=== PATIENT | female | born 1935 | race Caucasian/White ===

== ENCOUNTER 2017-05-14 05:20 | Inpatient (IN) ==
--- NOTE | 2017-05-14 05:34 | Emergency Department Note ---
START Narrative - START START: I examined this patient and my medical decision-making was reviewed with the Resident Physician. I agree with the documented findings, disposition and treatment plan as described except to the extent set forth below. Female patient with suspected abdominal pain related to previous bowel surgeries. Concern for possible obstructive pathology. We will obtain CT scan with IV and by mouth contrast and disposition will be pending results of imaging and laboratory analyses
[2017-05-14] MEDS ORDERED: *HR* FentaNYL (PF) 100 MCG/2 ML VIAL IVP ONE (05:35)
[2017-05-14] MEDS ORDERED: Ondansetron 4 MG/2 ML VIAL IVP ONE ×2 (05:35→17:40)
[2017-05-14] MEDS ORDERED: 0.9 % Sodium Chloride 1,000 ML IVC ONE (05:35)
--- NOTE | 2017-05-14 05:46 | Emergency Department Note ---
Disposition Clinical Impression: Abdominal pain Disposition: Still a Patient Referrals: Unassigned,Provider [Non-Partnered Physician] - Forms: Work/School Release, ED Satisfaction Letter Abdominal Pain HPI - General Chief Complaint: ED Abdominal Pain Stated Complaint: abdominal pains around right stoma Time Seen by Provider: 05/14/17 05:30 Source: patient Mode of arrival: EMS Limitations: no limitations Nursing Notes Reviewed: Yes Vital Signs Reviewed: Yes - History of Present Illness HPI Narrative: 81-year-old female presents to the ED complaining of abdominal pain. She states the abdominal pain occurred 2-3 days ago and has increased to 1010 pain today which made her come to the emergency department. She has extensive past medical history of over 13 abdominal surgeries where she had her colostomy placed in the that had a reversed and she did not take it well so then made to replace the colostomy bag. She states the bag needed to be changed today. She is still having stool come into the bag. The pain she describes as 10/10 radiating from the right side to the left side. She says a sharp stabbing pain. She has been nauseous. She did take 10 mg Vicodin as well as Zofran and said it dropped the pain to 8/10 but now is increased again. She took the Vicodin approximately 45 minutes before arrival as well as Zofran. She has not been any chest pain, shortness of breath, paresthesias in the arms or legs, headaches, blurry vision. She did notice some pain with urination for the last couple days. She is having no other complaints at this time. Pain Scale: 7 - Related Data Home Medications Medication Instructions Recorded Confirmed Amlodipine [Norvasc] 5 mg PO DAILY 05/20/15 05/24/16 Furosemide [Lasix] 20 mg PO DAILY 05/20/15 05/27/16 Gabapentin [Neurontin] 300 mg PO QAM 05/20/15 05/27/16 Metoprolol [Lopressor] 50 mg PO BID 05/20/15 05/27/16 Sodium Bicarbonate 1,950 mg PO BID 05/20/15 05/27/16 Darbepoetin [Aranesp] 150 mcg IJ Q2W 05/24/16 05/27/16 HYDROcodone/Acet 10/325 mg [[place] 1 tab PO Q4HR PRN 05/26/16 05/27/16 10-325 mg] Allopurinol [Zyloprim] 100 mg PO DAILY 05/27/16 05/27/16 Calcitriol 0.5 mcg PO DAILY 05/27/16 05/27/16 Cholecalciferol (D-3) [Vitamin D] 1,000 unit PO DAILY 05/27/16 05/27/16 Citalopram [CeleXA] 10 mg PO DAILY 05/27/16 05/27/16 Cyanocobalamin (B-12) [Vitamin B12] 1,000 mcg SQ QWEEK 05/27/16 05/27/16 Famotidine [Heartburn Prevention] 20 mg PO DAILY 05/27/16 05/27/16 Gabapentin [Neurontin] 600 mg PO HS 05/27/16 05/27/16 Glucosamn/[place]/C/Mn/[place] 1 tab PO DAILY 05/27/16 05/27/16 [[facility] Glucosamine Chondroitin Tb] Multivit,Th Iron,Other Min 1 tab PO DAILY 05/27/16 05/27/16 [Therems-M] Multivitamin [Multi-Day Vitamins] 1 tab PO DAILY 05/27/16 05/27/16 Vitamin E (Dl,Tocopheryl Acet) 400 unit PO DAILY 05/27/16 05/27/16 [Vitamin E] Previous Rx's Medication Instructions Recorded Azithromycin [Azithromycin 6-Tab 250 mg PO PER PKG DI #6 tab 05/27/16 Pack] Allergies Allergy/AdvReac Type Severity Reaction Status Date / Time codeine Allergy Rash Verified 05/20/15 09:28 fluoxetine [From Prozac] Allergy Rash Verified 05/20/15 09:28 haloperidol [From Haldol] Allergy See Verified 05/20/15 09:28 Comments nalbuphine [From Nubain] Allergy Rash Verified 05/20/15 09:28 Sulfa (Sulfonamide Allergy Rash Verified 05/20/15 09:28 Antibiotics) Constitutional: Denies: fever, chills, weakness, weight change Eyes: Denies: eye pain, eye discharge, vision change ENT ED: Denies: ear pain, throat pain, dental pain, hearing loss, epistaxis, congestion, dysphagia Cardiovascular: Denies: chest pain, palpitations, dyspnea on exertion, edema, syncope Respiratory: Denies: cough, dyspnea, wheezes, hemoptysis, stridor Gastrointestinal: Reports: abdominal pain, nausea. Denies: vomiting (Denies any vomiting.), diarrhea, constipation, hematemesis, melena, hematochezia Genitourinary: Denies: dysuria, frequency, hematuria, discharge Musculoskeletal: Denies: back pain, neck pain, arthralgia, myalgia Integumentary: Denies: rash, abrasion, lesions Neurological: Reports: headache (These are chronic for her and the Vicodin takes it away.). Denies: weakness, numbness, paresthesias, confusion, abnormal gait, vertigo Psychiatric: Denies: anxiety, depression, suicidal thoughts, homicidal thoughts , auditory hallucinations, visual hallucinations Endocrine: Denies: fatigue Hematological/Lymphatic: Denies: easy bleeding, easy bruising Allergic/Immunologic: Denies: facial swelling, urticaria Abdominal Pain PMH - Past Medical History Medical history: Reports: arthritis, cancer, COPD, GERD, GI bleed, hypertension , osteoporosis, renal disease, other Female Surgical History: Reports: , cholecystectomy, colostomy, hysterectomy Psychiatric history: Reports: anxiety, depression, other - Social History Smoking status: Never smoker Alcohol use: Reports: none Drug use: Reports: none Physical Exam - General Limitations: no limitations General appearance: alert - Head Head exam: atraumatic, normocephalic, normal inspection - Eye Eye exam: Present: normal appearance, PERRL, EOMI - ENT ENT exam: normal exam, normal oropharynx, mucous membranes moist - Neck Neck exam: Present: normal inspection, full ROM, trachea midline - Chest Chest inspection: Present: normal inspection, symmetric chest wall rise - Respiratory Respiratory exam: Present: normal lung sounds bilaterally - Cardiovascular Cardiovascular exam: Present: regular rate, normal rhythm, normal heart sounds - Abdominal Exam Abdominal exam: Present: soft, tenderness (Tender around the colostomy bag that radiates to the left side. The colostomy is on the right side.), normal bowel sounds. Absent: distention, guarding, rebound, rigidity - Neurological Exam Neurological exam: Present: alert, oriented X3 - Skin Skin exam: Present: warm, dry, intact, normal color Course Course Narrative: 81-year-old female presents to the ED complaining of pain around her colostomy bag. She has had many abdominal surgeries. She has complained to 10 pain we gave her Tylenol 25 mg for her pain and Zofran for nausea prophylaxis. We are going to do a CT of her abdomen and pelvis with oral contrast without IV contrast. We can use IV contrast due to her having history of renal failure and almost being on dialysis. She does have a fistula placed. Has not started dialysis yet. We will get basic labs including CBC, CMP, lactate, lipase. Due to her pain with urination will also get a UA with straight catheter. Vital Signs Temperature 98.8 F 05/14/17 05:23 Pulse Rate 86 05/14/17 05:23 Respiratory Rate 18 05/14/17 05:23 Blood Pressure 185/89 05/14/17 05:23 O2 Sat by Pulse Oximetry 98 05/14/17 05:23 Temperature 98.8 F 05/14/17 05:23 Pulse Rate 92 05/14/17 06:00 Respiratory Rate 14 05/14/17 06:00 Blood Pressure 185/89 05/14/17 06:00 O2 Sat by Pulse Oximetry 99 05/14/17 06:00 Oxygen Delivery Oxygen Delivery Nasal Cannula Abdominal Pain - MDM Narrative Medical decision making narrative: 81-year-old female presents to the ED for abdominal pain around her colostomy bag. She states it was 10 out of 10 pain started 2 days ago. She has been taking pain medication. Says that was not touching her pain that she was having. She has a history of renal failure and was buses start dialysis had a fistula placed but was never started on dialysis because her kidney function got better. We are going to do a CT of her abdomen and pelvis with oral contrast looking for any perforation or bowel obstruction due to her many abdominal surgeries that she has had. But she will not have IV contrast due to her elevated creatinine. She was having some pain with urination so we did a straight catheter for her urine. I came back having red blood cells and culture recommended and is most likely a UTI. She is currently drinking the oral contrast at this time. For pain control to be getting we started with 25 mg of fentanyl. That did not help her. I also gave her 4 mg of Zofran for nausea prophylaxis. Due to the fentanyl not working well for her regular 1 mg of Dilaudid that seemed to work better for her pain. We also started fluids 1 L bolus. Lab hard time getting blood from her and just now they are able to get it. The CT also does not be done before I leave. So this patient is going to be handed off to the dayshift team. Report was given to them and at that time patient is in a stable condition. - Medical Records Medical records reviewed: Yes I reviewed the patient's medical records. - Lab Data Lab results reviewed: Yes I reviewed the patient's lab results. Lab Results 05/14/17 Range/Units 05:50 Urine Color Yellow (Yellow) Urine Clarity Clear (Clear) Urine pH 6.5 (5.0-8.0) pH Units Ur Specific [place] 1.012 (1.010-1.025) Urine Protein 100 H (Neg-Trace) mg/dL Urine Glucose (UA) Normal (Normal) mg/dL Urine Ketones Negative (Negative) mg/dL Urine Blood Large H (Negative) Urine Nitrite Negative (Negative) Urine Bilirubin Negative (Negative) Urine Urobilinogen Normal (Normal) mg/dL Ur Leukocyte Esterase Negative (Negative) Urine Microscopic RBC TNTC H (0-3) per hpf Urine Microscopic WBC 5-15 H (0-3) per hpf Ur Squamous Epith Cells Many H (None-Few) per lpf Urine Bacteria Few (None-Few) per hpf Hyaline Casts None Seen (None-Few) per lpf Ur Culture Indicated? YES A (NO)
[2017-05-14 05:56] LABS: Bilirubin,Urine Negative (Negative); Blood,Urine Large (Negative); Clarity,Urine Clear (Clear); Color,Urine Yellow (Yellow); Glucose,Urine (UA) Normal (Normal); Ketones,Urine Negative (Negative); Leukocyte Esterase,Urine Negative (Negative); Nitrite,Urine Negative (Negative); PH,Urine 6.5 pH Units (5.0-8.0); Protein,Urine 100 mg/dL (Neg-Trace); Specific Gravity,Urine 1.012 (1.010-1.025); Urobilinogen,Urine Normal (Normal)
[2017-05-14 05:58] LABS: Hyaline Casts,Urine None Seen per lpf (None-Few); RBC,Urine TNTC per hpf (0-3); Squamous Epithelial Cell,Urine Many per lpf (None-Few)
[2017-05-14 06:12] LABS: Bacteria,Urine Few per hpf (None-Few)
[2017-05-14] MEDS ORDERED: *HR* HYDROmorphone (PF) 1 MG/ML SYRINGE IVP ONE (06:17)
[2017-05-14 07:03] LABS: Basophils # 0.1 K/mcL (0.0-0.2); Basophils % 0.4 %; Eosinophils % 0.1 %; Hematocrit 38.8 % (35.3-44.9); Hemoglobin 11.5 g/dL (11.5-15.4); Immature Granulocytes % 1.6 % (0-4); Lymphocytes # 1.1 K/mcL (0.6-4.6); Lymphocytes % 5.8 %; Mean Corpuscular HGB Conc 29.6 g/dL (31.6-35.5); Mean Corpuscular Hemoglobin 28.5 pg (28.0-33.3); Mean Corpuscular Volume 96.3 fL (83.0-100.0); Mean Platelet Volume 11.8 fL (9.4-12.4); Monocytes # 1.2 K/mcL (0.0-1.3); Monocytes % 6.1 %; Platelet Count 339 K/mcL (140-400); Red Blood Count 4.03 M/mcL (3.82-4.97)
[2017-05-14 07:08] LABS: Albumin 3.5 g/dL (3.5-5.0); Albumin/Globulin Ratio 0.9 (1.1-2.2); Bilirubin,Total 0.4 mg/dL (0.2-1.2); Calcium 9.7 mg/dL (8.6-10.8); Potassium 4.9 mEq/L (3.5-4.5); Total Protein 7.5 g/dL (6.0-8.3)
--- NOTE | 2017-05-14 07:37 | Emergency Department Note ---
Disposition Clinical Impression: Hydronephrosis due to obstruction of ureter, Pleural effusion Abdominal pain Qualifiers: Abdominal location: unspecified location Qualified Code(s): R10.9 - Unspecified abdominal pain CKD (chronic kidney disease) Qualifiers: Chronic kidney disease stage: stage 4 (severe) Qualified Code(s): N18.4 - Chronic kidney disease, stage 4 (severe) Disposition: Admitted As Inpatient Condition: Undetermined Referrals: Unassigned,Provider [Non-Partnered Physician] - Forms: ED Satisfaction Letter, Work/School Release Time of Disposition: 09:02 Abdominal Pain HPI - General Chief Complaint: ED Abdominal Pain Stated Complaint: abdominal pains around right stoma Time Seen by Provider: 05/14/17 05:30 Source: patient Mode of arrival: EMS Limitations: no limitations Nursing Notes Reviewed: Yes Vital Signs Reviewed: Yes - History of Present Illness HPI Narrative: 81-year-old female with extensive history of abdominal surgeries with history of colostomy, signed out by night team arrives to [facility] emergency department with concern for abdominal pain. The patient's labs demonstrated a leukocytosis and what appears to be renal failure that is chronic. This appears baseline. The patient received a oral contrast CT of her abdomen. The patient admits to a small amount of dyspnea but states that it is not worse than normal. The patient has been stating that she is wearing compression stockings due to increased bilateral lower extremity swelling over the course of the past 4 months. The patient denies any chest pain. Patient denies any other complaints at this time other than feeling weak overall. The patient states she has no history of CHF but on review of the patient's records she does have a history of CHF. Pt Subjective Complaint: abdominal pain Consistency: constant, Worsening Location: periumbilical, R flank Pain Severity: mild, moderate Pain Scale: 2 Quality: cramping, dull Radiation: none Migration to: no migration Improves with: nothing Worsens with: nothing Context: history of similar episodes Associated symptoms: Reports: nausea, chills. Denies: vomiting, diarrhea, fever , dysuria Treatments prior to arrival: none - Related Data Home Medications Medication Instructions Recorded Confirmed Amlodipine [Norvasc] 5 mg PO DAILY 05/20/15 05/14/17 Furosemide [Lasix] 20 mg PO DAILY 05/20/15 05/14/17 Gabapentin [Neurontin] 300 mg PO QAM 05/20/15 05/14/17 Metoprolol [Lopressor] 50 mg PO BID 05/20/15 05/14/17 Sodium Bicarbonate 1,950 mg PO BID 05/20/15 05/14/17 Darbepoetin [Aranesp] 150 mcg IJ Q2W 05/24/16 05/14/17 HYDROcodone/Acet 10/325 mg [[place] 1 tab PO Q4HR PRN 05/26/16 05/14/17 10-325 mg] Calcitriol 0.5 mcg PO DAILY 05/27/16 05/14/17 Cholecalciferol (D-3) [Vitamin D] 1,000 unit PO DAILY 05/27/16 05/14/17 Cyanocobalamin (B-12) [Vitamin B12] 1,000 mcg SQ QWEEK 05/27/16 05/14/17 Famotidine [Heartburn Prevention] 20 mg PO DAILY 05/27/16 05/14/17 Gabapentin [Neurontin] 600 mg PO HS 05/27/16 05/14/17 Glucosamn/[place]/C/Mn/[place] 1 tab PO DAILY 05/27/16 05/14/17 [[facility] Glucosamine Chondroitin Tb] Multivit,Th Iron,Other Min 1 tab PO DAILY 05/27/16 05/14/17 [Therems-M] Vitamin E (Dl,Tocopheryl Acet) 400 unit PO DAILY 05/27/16 05/14/17 [Vitamin E] Allergies Allergy/AdvReac Type Severity Reaction Status Date / Time codeine Allergy Rash Verified 05/20/15 09:28 fluoxetine [From Prozac] Allergy Rash Verified 05/20/15 09:28 haloperidol [From Haldol] Allergy See Verified 05/20/15 09:28 Comments nalbuphine [From Nubain] Allergy Rash Verified 05/20/15 09:28 Sulfa (Sulfonamide Allergy Rash Verified 05/20/15 09:28 Antibiotics) All systems ED: reviewed and negative except as stated. Constitutional: Denies: fever, chills, weakness, weight change Eyes: Denies: eye pain, eye discharge, vision change ENT ED: Denies: ear pain, throat pain, dental pain, hearing loss, epistaxis, congestion, dysphagia Cardiovascular: Denies: chest pain, palpitations, dyspnea on exertion, edema, syncope Respiratory: Denies: cough, dyspnea, wheezes, hemoptysis, stridor Gastrointestinal: Reports: abdominal pain, nausea. Denies: vomiting (Denies any vomiting.), diarrhea, constipation, hematemesis, melena, hematochezia Genitourinary: Denies: dysuria, frequency, hematuria, discharge Musculoskeletal: Denies: back pain, neck pain, arthralgia, myalgia Integumentary: Denies: rash, abrasion, lesions Neurological: Reports: headache (These are chronic for her and the Vicodin takes it away.). Denies: weakness, numbness, paresthesias, confusion, abnormal gait, vertigo Psychiatric: Denies: anxiety, depression, suicidal thoughts, homicidal thoughts , auditory hallucinations, visual hallucinations Endocrine: Denies: fatigue Hematological/Lymphatic: Denies: easy bleeding, easy bruising Allergic/Immunologic: Denies: facial swelling, urticaria Abdominal Pain PMH - Past Medical History Medical history: Reports: arthritis, cancer, COPD, GERD, GI bleed, hypertension , osteoporosis, renal disease, other Female Surgical History: Reports: , cholecystectomy, colostomy, hysterectomy Psychiatric history: Reports: anxiety, depression, other - Social History Smoking status: Never smoker Alcohol use: Reports: none Drug use: Reports: none Physical Exam - General Limitations: no limitations General appearance: alert, in distress (Due to pain) - Head Head exam: atraumatic, normocephalic, normal inspection - Neck Neck exam: Present: normal inspection, full ROM, trachea midline - Chest Chest inspection: Present: normal inspection, symmetric chest wall rise - Respiratory Respiratory exam: Present: other ([place]). Absent: respiratory distress - Cardiovascular Cardiovascular exam: Present: regular rate, normal rhythm, normal heart sounds - Abdominal Exam Abdominal exam: Present: soft, tenderness (Primarily on right side), guarding ( Voluntary). Absent: distention, rebound, rigidity - Extremities Exam Extremities exam: Present: full ROM, pedal edema (2+). Absent: tenderness Course Vital Signs Temperature 98.8 F 05/14/17 05:23 Pulse Rate 86 05/14/17 05:23 Respiratory Rate 18 05/14/17 05:23 Blood Pressure 185/89 05/14/17 05:23 O2 Sat by Pulse Oximetry 98 05/14/17 05:23 Temperature 98.8 F 05/14/17 05:23 Pulse Rate 79 05/14/17 06:50 Respiratory Rate 16 05/14/17 06:50 Blood Pressure 178/76 05/14/17 06:50 O2 Sat by Pulse Oximetry 99 05/14/17 06:50 Oxygen Delivery Oxygen Delivery Nasal Cannula Abdominal Pain - MDM Narrative Medical decision making narrative: Patient experiencing primarily right-sided abdominal pain. The CT scan of the patient's abdomen reveals severe hydronephrosis and a ureteral calculus measuring 0.7 x 1.4 cm with obstruction. This is likely the etiology of the patient's pain. In addition the patient has a large bilateral pleural effusion noted on CT scan. The patient states in the past she has experienced pleural effusions and notes they usually just administer Lasix and this improves her symptoms. The patient denies any difficulty breathing at this time and the patient is in no respiratory distress. The patient is resting comfortably at the bed at this time. Given the patient's extensive hydronephrosis noted on the right side, we consulted Dr. Kelley in urology who agrees that the patient will be seen. He requested admission to the hospitalist. We will admit the patient to the hospitalist at this time. The patient was started on Zosyn as well as levofloxacin. The patient has a mild leukocytosis with no lactic acid elevation. Blood cultures were also drawn at this time. The patient agrees to be admitted to the hospital and agrees to plan. Accepted to the hospitalist service by Dr. Alberto. - Medical Records Medical records reviewed: Yes I reviewed the patient's medical records. - Lab Data Lab results reviewed: Yes I reviewed the patient's lab results. Result diagrams: 05/14/17 06:47 05/14/17 06:47 Lab Results 05/14/17 05/14/17 05/14/17 Range/Units 05:50 06:47 06:47 WBC 19.7 H (4.3-11.1) K/mcL RBC 4.03 (3.82-4.97) M/mcL Hgb 11.5 (11.5-15.4) g/dL Hct 38.8 (35.3-44.9) % MCV 96.3 (83.0-100.0) fL MCH 28.5 (28.0-33.3) pg MCHC 29.6 L (31.6-35.5) g/dL RDW 20.0 H (11.5-14.5) % Plt Count 339 (140-400) K/mcL MPV 11.8 (9.4-12.4) fL Immature Gran % 1.6 (0-4) % Seg Neutrophils % 86.0 % Lymphocytes % 5.8 % Monocytes % 6.1 % Eosinophils % 0.1 % Basophils % 0.4 % Neutrophils # 17.0 H (1.6-8.9) K/mcL Lymphocytes # 1.1 (0.6-4.6) K/mcL Monocytes # 1.2 (0.0-1.3) K/mcL Eosinophils # 0.0 (0.0-0.6) K/mcL Basophils # 0.1 (0.0-0.2) K/mcL Sodium 138 (136-145) mEq/L Potassium 4.9 H (3.5-4.5) mEq/L Chloride 103 (98-109) mEq/L Carbon Dioxide 21 (19-29) mEq/L BUN 39 H (7-20) mg/dL Creatinine 3.36 H (0.57-1.11) mg/dL Est GFR ( Amer) 16 L (> 60) Est GFR (Non-Af Amer) 13 L (> 60) BUN/Creatinine Ratio 12 (6-26) Glucose 140 H (70-99) mg/dL Calculated Osmolality 298 (280-300) Lactic Acid (0.5-2.2) mmol/L Calcium 9.7 (8.6-10.8) mg/dL Total Bilirubin 0.4 (0.2-1.2) mg/dL AST 49 H (5-34) Units/L ALT 48 (0-55) Units/L Alkaline Phosphatase 233 H (38-126) Units/L Serum Total Protein 7.5 (6.0-8.3) g/dL Albumin 3.5 (3.5-5.0) g/dL Globulin 4.0 H (2.4-3.5) g/dL Albumin/Globulin Ratio 0.9 L (1.1-2.2) Lipase 38 (8-78) Units/L Urine Color Yellow (Yellow) Urine Clarity Clear (Clear) Urine pH 6.5 (5.0-8.0) pH Units Ur Specific [place] 1.012 (1.010-1.025) Urine Protein 100 H (Neg-Trace) mg/dL Urine Glucose (UA) Normal (Normal) mg/dL Urine Ketones Negative (Negative) mg/dL Urine Blood Large H (Negative) Urine Nitrite Negative (Negative) Urine Bilirubin Negative (Negative) Urine Urobilinogen Normal (Normal) mg/dL Ur Leukocyte Esterase Negative (Negative) Urine Microscopic RBC TNTC H (0-3) per hpf Urine Microscopic WBC 5-15 H (0-3) per hpf Ur Squamous Epith Cells Many H (None-Few) per lpf Urine Bacteria Few (None-Few) per hpf Hyaline Casts None Seen (None-Few) per lpf Ur Culture Indicated? YES A (NO) 05/14/17 05/14/17 Range/Units 06:47 08:16 WBC (4.3-11.1) K/mcL RBC (3.82-4.97) M/mcL Hgb (11.5-15.4) g/dL Hct (35.3-44.9) % MCV (83.0-100.0) fL MCH (28.0-33.3) pg MCHC (31.6-35.5) g/dL RDW (11.5-14.5) % Plt Count (140-400) K/mcL MPV (9.4-12.4) fL Immature Gran % (0-4) % Seg Neutrophils % % Lymphocytes % % Monocytes % % Eosinophils % % Basophils % % Neutrophils # (1.6-8.9) K/mcL Lymphocytes # (0.6-4.6) K/mcL Monocytes # (0.0-1.3) K/mcL Eosinophils # (0.0-0.6) K/mcL Basophils # (0.0-0.2) K/mcL Sodium (136-145) mEq/L Potassium (3.5-4.5) mEq/L Chloride (98-109) mEq/L Carbon Dioxide (19-29) mEq/L BUN (7-20) mg/dL Creatinine (0.57-1.11) mg/dL Est GFR ( Amer) (> 60) Est GFR (Non-Af Amer) (> 60) BUN/Creatinine Ratio (6-26) Glucose (70-99) mg/dL Calculated Osmolality (280-300) Lactic Acid 1.4 1.9 (0.5-2.2) mmol/L Calcium (8.6-10.8) mg/dL Total Bilirubin (0.2-1.2) mg/dL AST (5-34) Units/L ALT (0-55) Units/L Alkaline Phosphatase (38-126) Units/L Serum Total Protein (6.0-8.3) g/dL Albumin (3.5-5.0) g/dL Globulin (2.4-3.5) g/dL Albumin/Globulin Ratio (1.1-2.2) Lipase (8-78) Units/L Urine Color (Yellow) Urine Clarity (Clear) Urine pH (5.0-8.0) pH Units Ur Specific [place] (1.010-1.025) Urine Protein (Neg-Trace) mg/dL Urine Glucose (UA) (Normal) mg/dL Urine Ketones (Negative) mg/dL Urine Blood (Negative) Urine Nitrite (Negative) Urine Bilirubin (Negative) Urine Urobilinogen (Normal) mg/dL Ur Leukocyte Esterase (Negative) Urine Microscopic RBC (0-3) per hpf Urine Microscopic WBC (0-3) per hpf Ur Squamous Epith Cells (None-Few) per lpf Urine Bacteria (None-Few) per hpf Hyaline Casts (None-Few) per lpf Ur Culture Indicated? (NO) - Radiology Data Radiology results reviewed: Yes I reviewed the patient's radiology results. - EKG Data EKG attestation: Yes I reviewed and interpreted this EKG. EKG results narrative: Heart rate 83 bpm. MO interval 134 ms. QTc 408 ms. Normal axis. Normal sinus rhythm. No ST elevation or ST depression noted. No acute changes noted. EKG similar to EKG from 05/24/2016. Attestation Statement - Attestation Attestation: I, Carlos Hilton DO, examined this patient [id number] and my medical decision-making was reviewed with Dr. Garrison Heath, Resident Physician. I agree with the documented findings, disposition and treatment plan as described except to the extent set forth below. Please see my progress notes for details. 81-year-old female signed out with a nighttime physicians presents with right- sided abdominal pain or flank pain along with some pressure and discomfort. Patient denies any fevers or chills nausea vomiting or diarrhea. Main complaint is abdominal pain and discomfort in the lower abdominal wall. Patient on that a large obstructing stone in the proximal right ureter. Patient also has bilateral pleural effusions appears to be worse than previous. Patient provided with antibiotic here for coverage of possible pulmonary or intra-abdominal related pathology. Laboratory workup including lactic acid was completed with negative workup at this time. Fluids given as needed. Blood pressure heart rate and temperature all been normal throughout the course of care here. Patient otherwise is in no specific distress with what appears to be obstructing stone with possible hydronephrosis and possible urinary tract infection. Patient may require nephrostomy tube or decompressive surgery from urology. Consultation was sought to the on-call urologist Dr. Kelley as well as the hospitalist. Detailed review of the presentation symptoms medical history were discussed. See documentation of the conversations medical intervention and decision making process and the resident physician's note. Otherwise patient has negative evaluation of the heart and lungs abdomen does have some tenderness on light palpation no specific guarding rigidity or peritoneal symptoms this time. Patient will be admitted for definitive management
[2017-05-14] MEDS ORDERED: Piperacillin/Tazobactam 3.375 GM in D5% in Water (Mini-Bag+) 100 ML IVPB ONE (07:38)
[2017-05-14] MEDS ORDERED: Levofloxacin 750 MG/150 ML 750 MG/150 ML BAG IVPB ONE (07:39)
[2017-05-14] MEDS ORDERED: Ondansetron 4 MG/2 ML VIAL IVP PRN ×2 (10:24→18:32)
[2017-05-14] MEDS ORDERED: Naloxone 0.4 MG/ML INJ IVP PRN ×2 (10:24→18:32)
[2017-05-14] MEDS ORDERED: Acetaminophen 325 MG TABLET PO PRN ×2 (10:24→18:32)
[2017-05-14] MEDS ORDERED: Ipratropium/Albuterol Neb 3 ML IH PRN ×2 (10:29→18:32)
[2017-05-14] MEDS ORDERED: 0.9 % Sodium Chloride 1,000 ML IVC SCH (10:30)
--- NOTE | 2017-05-14 10:33 | Internal Med History&Physical ---
Date of Encounter: 05/14/17 Time of Encounter: 10:31 Assessment and Plan (1) Hydronephrosis due to obstruction of ureter Current visit: Yes Status: Acute Severe right hydronephrosis secondary to large renal calculi Rocephin, may discontinue if no infection is suspected Urology consulted, nothing by mouth for possible procedure Very mild hydration due to bilateral pleural effusions Dilaudid for pain Protonix IV for GI prophylaxis and sequential compression devices for DVT prophylaxis the patient will be admitted as inpatient, expected stay more than 2 midnights. DNR CC arrest DNI. Time spent on this admission 40 minutes. High risk (2) Pleural effusion Current visit: Yes Status: Acute Bilateral pleural effusions likely related to diastolic CHF Check echocardiogram, strict I's and O's and daily weight, consider Lasix ( hold as Patient is NPO) (3) Acute diastolic CHF (congestive heart failure) Current visit: No Status: Acute As stated above (4) Anemia in chronic kidney disease (CKD) Current visit: No Status: Acute Qualifiers: Chronic kidney disease stage: stage 5, not on chronic dialysis Qualified Code(s): N18.5 - Chronic kidney disease, stage 5; D63.1 - Anemia in chronic kidney disease (5) Chronic kidney disease, stage V Current visit: No Status: Acute (6) Hypertension Current visit: No Status: Chronic Order hydralazine IV as needed Qualifiers: Hypertension type: renovascular hypertension Qualified Code(s): I15.0 - Renovascular hypertension (7) Protein-calorie malnutrition, severe Current visit: No Status: Chronic Internal Medicine - H&P: HPI Chief complaint: Abdominal pain Admitted From: Emergency Dept History of present illness: Ms. Arciniega is a 81 year old female with a past medical history of chronic kidney disease stage V, diastolic CHF, COPD oxygen dependent using 2 L at home who came complaining of abdominal pain 10 out of 10 in intensity just started 3 days ago mainly on the right side. Patient mentions that she has been having some shortness of breath, has noticed increased output of her colostomy. She has had multiple abdominal surgeries. A CT scan of the abdomen was performed showing severe bilateral pleural effusions and severe right hydronephrosis with a large stone, final report is pending. Her creatinine has increased to 3.36 but she has been dealing with chronic kidney disease stage V for a long period of time, the last creatinine recorded is 2.8. Potassium is 4.9, white blood cell count is 19.7, she has been complaining of night sweats. Blood pressure was 185/89, UA shows too numerous to count red blood cells and [address] Kelley was contacted from urology in order to see the patient. She has received Zosyn and Levaquin at the emergency room, was given Dilaudid and Vicodin. Complained of dysuria on and off for the past few days. Past Med Surg Social Fam HX - Past Medical History Medical history: arthritis, cancer (Skin cancer), CHF (Diastolic), COPD (Oxygen dependent using 2 L at home), GERD, GI bleed, hypertension, osteoporosis, renal disease (Chronic kidney disease stage V), other (Gout, osteoporosis, depression , GI bleed) Psychiatric history: anxiety, depression, other - Past Surgical History Surgical History: appendectomy, , cholecystectomy, colectomy, colostomy , hysterectomy, BLAKE/BSO, other (Multiple intra-abdominal surgeries, 10+. Gastrectomy, colostomy reversal, new colostomy) - Social History Smoking Status: Never smoker Smokeless Tobacco Status: No Alcohol use: none Drug use: none - Family History Mother Adopted: No Family Member Ethnicity: Non- Living Status: Hx Family Cardiac Disorders: Yes Father Hx Family Respiratory Disorders: Yes (Asthma) Hx Family GI Disorders: Yes (Ulcers) - Additional Family History Additional family history: Mother with CVA Internal Medicine - H&P: Meds Amlodipine [Norvasc] 5 mg PO DAILY 05/20/15 [History] Furosemide [Lasix] 20 mg PO DAILY 05/20/15 [History] Gabapentin [Neurontin] 300 mg PO QAM 05/20/15 [History] Metoprolol [Lopressor] 50 mg PO BID 05/20/15 [History] Sodium Bicarbonate 1,950 mg PO BID 05/20/15 [History] Darbepoetin [Aranesp] 150 mcg IJ Q2W 05/24/16 [History] HYDROcodone/Acet 10/325 mg [[place] 10-325 mg] 1 tab PO Q4HR PRN 05/26/16 [History ] Calcitriol 0.5 mcg PO DAILY 05/27/16 [History] Cholecalciferol (D-3) [Vitamin D] 1,000 unit PO DAILY 05/27/16 [History] Cyanocobalamin (B-12) [Vitamin B12] 1,000 mcg SQ QWEEK 05/27/16 [History] Famotidine [Heartburn Prevention] 20 mg PO DAILY 05/27/16 [History] Gabapentin [Neurontin] 600 mg PO HS 05/27/16 [History] Glucosamn/Condroitn/C/Mn/[place] [[facility] Glucosamine Chondroitin Tb] 1 tab PO DAILY 05/27/16 [History] Multivit,Th Iron,Other Min [Therems-M] 1 tab PO DAILY 05/27/16 [History] Vitamin E (Dl,Tocopheryl Acet) [Vitamin E] 400 unit PO DAILY 05/27/16 [History] 3 Allergy/AdvReac Type Severity Reaction Status Date / Time codeine Allergy Rash Verified 05/20/15 09:28 fluoxetine [From Prozac] Allergy Rash Verified 05/20/15 09:28 haloperidol [From Haldol] Allergy See Verified 05/20/15 09:28 Comments nalbuphine [From Nubain] Allergy Rash Verified 05/20/15 09:28 Sulfa (Sulfonamide Allergy Rash Verified 05/20/15 09:28 Antibiotics) All Systems PM: A 10-system review of systems was performed and is negative for pertinent findings except as documented above in the HPI. Review of systems: Denies chest pain, no other complaints than the ones described above. Other systems out of the 10 reviewed were negative - Constitutional Vitals: Temp Pulse Resp BP Pulse Ox 98.8 F 79 18 168/75 99 05/14/17 05:23 05/14/17 06:50 05/14/17 10:13 05/14/17 10:13 05/14/17 06:50 General appearance: Present: A&O X 3 - Head Head exam: Present: atraumatic, normocephalic - Eye Eye exam: Present: PERRL, conjuntiva pink, sclera anicteric Pupils: Present: PERRL - Neck Neck exam general surgery: Present: supple, trachea midline. Absent: lymphadenopathy - Respiratory Respiratory exam: Present: CTAB. Absent: accessory muscle use, rales, rhonchi, wheezes Additional comments: Blunted breath sounds in both bases with minimal diffuse crackles - Cardiovascular Cardiovascular exam: Present: RRR, +S1, +S2. Absent: diastolic murmur, gallop, rubs, systolic murmur - GI/Abdominal GI/Abdominal exam: Present: distended (Colostomy in the right lower quadrant), normal bowel sounds, soft, no peritoneal signs. Absent: tenderness - Extremities Exam Extremities exam: Present: warm, radial pulses palpable and symmetrical. Absent : calf tenderness, cyanotic, pedal edema - Neurological Exam Neurological exam: Present: CN II-XII intact, oriented X3, no focal deficits. Absent: pronater drift, facial droop, speech deficit - Skin Skin exam: Present: dry, intact Additional comments: Left upper extremity AV fistula with good thrill +1 pitting edema in both lower extremities Internal Med - H&P Results - Labs CBC & Chem 7: 05/14/17 06:47 05/14/17 06:47
[2017-05-14] MEDS: *HR* HYDROmorphone (PF) 1 MG/ML SYRINGE IVP PRN ×2 (11:05→13:55)
--- NOTE | 2017-05-14 11:14 | Urology - Consult Note ---
Date of Encounter: 05/14/17 Time of Encounter: 11:11 - Assessment and Plan (1) Ureteral calculi Current Visit: Yes Status: Acute Assessment and plan: 81-year-old woman with a complicated past medical history presents with bilateral obstructing ureteral stones. She has been admitted for IV antibiotic. She has chronic renal insufficiency. I recommend proceeding with a cystoscopy and bilateral ureteral stent placement. I informed her the risks of the surgery which include but are not limited to bleeding, infection, injury to other structures, need for further procedures, stent irritation, and the risk of anesthesia. She is willing to proceed. Urology CN:CORINA Consult date: 05/14/17 Reason for consult Urology: Hydronephrosis History of present illness: 81-year-old woman with a complex medical history including CHF, chronic renal insufficiency, and a colostomy presents with abdominal pain over the last week. The pain became more severe today. It is sharp and it radiates to the groin. She has had nausea and vomiting. She was brought to the emergency department. CT scan showed evidence of a right mid ureteral stone causing severe right- sided hydronephrosis. In addition there is a stone in the near the left ureteropelvic junction. She has been admitted for pain control. She denies any fevers at this point. White blood cell count was elevated. Past Med Surg Social Fam HX - Past Medical History Medical history: arthritis, cancer (Skin cancer), CHF (Diastolic), COPD (Oxygen dependent using 2 L at home), GERD, GI bleed, hypertension, osteoporosis, renal disease (Chronic kidney disease stage V), other (Gout, osteoporosis, depression , GI bleed) Psychiatric history: anxiety, depression, other - Past Surgical History Surgical History: appendectomy, , cholecystectomy, colectomy, colostomy , hysterectomy, BLAKE/BSO, other (Multiple intra-abdominal surgeries, 10+. Gastrectomy, colostomy reversal, new colostomy) - Social History Smoking Status: Never smoker Smokeless Tobacco Status: No Alcohol use: none Drug use: none - Family History Mother Adopted: No Family Member Ethnicity: Non- Living Status: Hx Family Cardiac Disorders: Yes Father Hx Family Respiratory Disorders: Yes (Asthma) Hx Family GI Disorders: Yes (Ulcers) Medications and Allergies Amlodipine [Norvasc] 5 mg PO DAILY 05/20/15 [History] Furosemide [Lasix] 20 mg PO DAILY 05/20/15 [History] Gabapentin [Neurontin] 300 mg PO QAM 05/20/15 [History] Metoprolol [Lopressor] 50 mg PO BID 05/20/15 [History] Sodium Bicarbonate 1,950 mg PO BID 05/20/15 [History] Darbepoetin [Aranesp] 150 mcg IJ Q2W 05/24/16 [History] HYDROcodone/Acet 10/325 mg [[place] 10-325 mg] 1 tab PO Q4HR PRN 05/26/16 [History ] Calcitriol 0.5 mcg PO DAILY 05/27/16 [History] Cholecalciferol (D-3) [Vitamin D] 1,000 unit PO DAILY 05/27/16 [History] Cyanocobalamin (B-12) [Vitamin B12] 1,000 mcg SQ QWEEK 05/27/16 [History] Famotidine [Heartburn Prevention] 20 mg PO DAILY 05/27/16 [History] Gabapentin [Neurontin] 600 mg PO HS 05/27/16 [History] Glucosamn/[place]n/C/Mn/[place] [[facility] Glucosamine Chondroitin Tb] 1 tab PO DAILY 05/27/16 [History] Multivit,Th Iron,Other Min [Therems-M] 1 tab PO DAILY 05/27/16 [History] Vitamin E (Dl,Tocopheryl Acet) [Vitamin E] 400 unit PO DAILY 05/27/16 [History] 3 Allergy/AdvReac Type Severity Reaction Status Date / Time codeine Allergy Rash Verified 05/20/15 09:28 fluoxetine [From Prozac] Allergy Rash Verified 05/20/15 09:28 haloperidol [From Haldol] Allergy See Verified 05/20/15 09:28 Comments nalbuphine [From Nubain] Allergy Rash Verified 05/20/15 09:28 Sulfa (Sulfonamide Allergy Rash Verified 05/20/15 09:28 Antibiotics) Review of Systems - Constitutional no chills, no fever(s) - EENT Nose, mouth and throat: no dizziness - Cardiovascular no chest pain - Respiratory dyspnea - Gastrointestinal nausea, vomiting - Genitourinary Genitourinary: flank pain, no hematuria - Musculoskeletal no back pain - Integumentary no erythema, no rash - Neurological no weakness - Psychiatric no suicidal ideation - Hematologic/Lymphatic no easy bleeding - Allergic/Immunologic no wheezing Exam Initial Vital Signs Temp Pulse Resp BP Pulse Ox 98.8 F 86 18 185/89 98 05/14/17 05:23 05/14/17 05:23 05/14/17 05:23 05/14/17 05:23 05/14/17 05:23 - General physical appearance Present: well developed, well nourished, no distress - Eyes Absent: icteric - ENT Present: normal nares - Neck Present: trachea midline - Respiratory Present: normal respiratory effort - Cardiovascular Cardiovascular exam IM: RRR - Abdomen Abdomen: Present: soft Urology Results - Labs 05/14/17 06:47 05/14/17 06:47 Abnormal lab results WBC 19.7 K/mcL (4.3-11.1) H 05/14/17 06:47 MCHC 29.6 g/dL (31.6-35.5) L 05/14/17 06:47 RDW 20.0 % (11.5-14.5) H 05/14/17 06:47 Neutrophils # 17.0 K/mcL (1.6-8.9) H 05/14/17 06:47 Potassium 4.9 mEq/L (3.5-4.5) H 05/14/17 06:47 BUN 39 mg/dL (7-20) H 05/14/17 06:47 Creatinine 3.36 mg/dL (0.57-1.11) H 05/14/17 06:47 Est GFR ( Amer) 16 (> 60) L 05/14/17 06:47 Est GFR (Non-Af Amer) 13 (> 60) L 05/14/17 06:47 Glucose 140 mg/dL (70-99) H 05/14/17 06:47 AST 49 Units/L (5-34) H 05/14/17 06:47 Alkaline Phosphatase 233 Units/L (38-126) H 05/14/17 06:47 Globulin 4.0 g/dL (2.4-3.5) H 05/14/17 06:47 Albumin/Globulin Ratio 0.9 (1.1-2.2) L 05/14/17 06:47 Urine Protein 100 mg/dL (Neg-Trace) H 05/14/17 05:50 Urine Blood Large (Negative) H 05/14/17 05:50 Urine Microscopic RBC TNTC per hpf (0-3) H 05/14/17 05:50 Urine Microscopic WBC 5-15 per hpf (0-3) H 05/14/17 05:50 Ur Squamous Epith Cells Many per lpf (None-Few) H 05/14/17 05:50 Ur Culture Indicated? YES (NO) A 05/14/17 05:50 All other labs normal. - Imaging CT scan - abdomen: report reviewed, image reviewed CT scan - pelvis: report reviewed, image reviewed Consult Discharge Plan - Plan Referrals: NONE,PCP [Primary Care Provider] -
--- NOTE | 2017-05-14 14:49 | Electrocardiograph Report ---
[place] [id number] Test Date: 2017-05-14 Pat Name: Cindy Arciniega Department: 102 Room: 3A23 Gender: F [employer]: Am : 1935 Requested By: Garrison Heath Order Number: [id number] Reading MD: Chika Mendez Measurements Intervals [place] Rate: 83 P: 99 CO: 134 QRS: -7 QRSD: 81 T: 40 QT: 368 QTc: 408 Interpretive Statements SINUS RHYTHM WITH OCCASIONAL SUPRAVENTRICULAR PREMATURE COMPLEXES Electronically Signed On 05-14-2017 14:48:09 EDT by Chika Mendez
--- NOTE | 2017-05-14 16:09 | Anesthesia Evaluation PreOp ---
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) Other Medical History: Renal (stage 5 CKD, not on dialysis), GERD, Other ( anxiety/depression) Anesthesia History: No Prior Anesthetic Complications, Past Anesthesia, Refuses Transfusion Alcohol Use: none Drug use: none Medications and Allergies Amlodipine [Norvasc] 5 mg PO DAILY 05/20/15 [History] Furosemide [Lasix] 20 mg PO DAILY 05/20/15 [History] Gabapentin [Neurontin] 300 mg PO QAM 05/20/15 [History] Metoprolol [Lopressor] 50 mg PO BID 05/20/15 [History] Sodium Bicarbonate 1,950 mg PO BID 05/20/15 [History] Darbepoetin [Aranesp] 150 mcg IJ Q2W 05/24/16 [History] HYDROcodone/Acet 10/325 mg [[place] 10-325 mg] 1 tab PO Q4HR PRN 05/26/16 [History ] Calcitriol 0.5 mcg PO DAILY 05/27/16 [History] Cholecalciferol (D-3) [Vitamin D] 1,000 unit PO DAILY 05/27/16 [History] Cyanocobalamin (B-12) [Vitamin B12] 1,000 mcg SQ QWEEK 05/27/16 [History] Famotidine [Heartburn Prevention] 20 mg PO DAILY 05/27/16 [History] Gabapentin [Neurontin] 600 mg PO HS 05/27/16 [History] Glucosamn/[place]n/C/Mn/[place] [[facility] Glucosamine Chondroitin Tb] 1 tab PO DAILY 05/27/16 [History] Multivit,Th Iron,Other Min [Therems-M] 1 tab PO DAILY 05/27/16 [History] Vitamin E (Dl,Tocopheryl Acet) [Vitamin E] 400 unit PO DAILY 05/27/16 [History] 3 Allergy/AdvReac Type Severity Reaction Status Date / Time codeine Allergy Rash Verified 05/20/15 09:28 fluoxetine [From Prozac] Allergy Rash Verified 05/20/15 09:28 haloperidol [From Haldol] Allergy See Verified 05/20/15 09:28 Comments nalbuphine [From Nubain] Allergy Rash Verified 05/20/15 09:28 Sulfa (Sulfonamide Allergy Rash Verified 05/20/15 09:28 Antibiotics) - Meds/Allergy Pre-op Review Medications Reviewed: Yes Allergies Reviewed: Yes Beta Blockers on Current Med List: Yes If Beta Blockers taken, Date/Time (Last Dose taken): 05/14/2017 1441 Anesthesia Results - Labs 05/14/17 06:47 05/14/17 06:47 Laboratory Tests 05/24/14 19:02 PT 10.1 INR 0.9 PTT 35.7 - Imaging EKG: report reviewed (05/14/2017 SINUS RHYTHM WITH OCCASIONAL SUPRAVENTRICULAR PREMATURE COMPLEXES) Additional studies: 05/25/2016 Echo Impressions: LVEF 60-65%. Normal left ventricular size and systolic function. There is evidence of moderate diastolic dysfunction of the left ventricle. Normal right ventricular size and function. Mild-moderate aortic stenosis. Mild tricuspid regurgitation. Estimated RVSP was 42 mmHg. Mild pulmonary hypertension. The IVC is not dilated. Anesthesia Exam Vital Signs/O2 Sat/Glucose, Most Recent Temp Pulse Resp BP Pulse Ox 98.5 F 88 15 184/75 95 05/14/17 10:59 05/14/17 10:59 05/14/17 10:59 05/14/17 10:59 05/14/17 10:59 Blood Glucose* 116 Height: 5'3''/1.6 m Weight: 107 lbs/48.9 kg NPO (# of Hours): 8 Pain Scale: 3 Pain Scale Used: Numeric (1 - 10) - HEENT Pupil (Motor): EOMI Mallampati: II Teeth: Poor dentition Oral Opening: Greater than 3 - BUILD AUTOMATION ENGINEER LOC: Oriented BUILD AUTOMATION ENGINEER Motor: Normal RUE, Normal LUE, Normal RLE, Normal LLE, Normal Face BUILD AUTOMATION ENGINEER Sensory: Normal: RUE, RLE, LLE, Face, Deficit: LUE - Cardiac Rhythm: Regular Murmur: Systolic - Pulmonary Breath Sounds: bilateral Clear Respiratory Effort: Symmetrical Anesthesia Assess/Plan ASA Score: 4 (Patient understands that she is at increased risk for perioperative complications including myocardial infarct, arrhythmias, CVA, post op vent support/ICU stay, and . Patient wishes to proceed.) Modified Kanchan Scale for Level of Consciousness: Cooperative, oriented, and tranquil Anesthetic Plan: General Monitoring Plan: Standard Monitors Recovery Plan: PACU
[2017-05-14] MEDS ORDERED: *HR* FentaNYL (PF) 100 MCG/2 ML VIAL IVP PRN (17:40)
[2017-05-14] MEDS ORDERED: Ondansetron 4 MG/2 ML VIAL ONE (17:44)
[2017-05-14] MEDS ORDERED: Lidocaine -MPF 2% 2 ML VIAL ONE (17:44)
[2017-05-14] MEDS ORDERED: Dexamethasone 4 MG/ML VIAL ONE (17:44)
[2017-05-14] MEDS ORDERED: *HR* Propofol 200 MG/20 ML VIAL IVP ONE (17:44)
[2017-05-14] MEDS ORDERED: *HR* FentaNYL (PF) 100 MCG/2 ML VIAL ONE (17:44)
[2017-05-14] MEDS ORDERED: Ringers Solution, Lactated 1,000 ML IVC SCH (17:45)
--- NOTE | 2017-05-14 17:52 | Operative Note ---
Date of procedure: 05/14/17 Pre-op diagnosis: Bilateral ureteral stones, renal insufficiency. Post-op diagnosis: same Procedure: Cystoscopy, right retrograde pyelogram, bilateral ureteral stent placement. Implants: Bilateral 6 [place] by 24 cm double-J stents. Complications: None. Anesthesia: GETA Surgeon: Moisés Kelley Estimated blood loss (cc): 1 Specimen: none Condition: stable Disposition: PACU Procedure in Detail: Indications: Cindy is an 81-year-old woman who has a history of nephrolithiasis. She had a CT which showed bilateral obstructing ureteral stones. She elected to undergo a cystoscopy and bilateral ureteral stent placement. She was aware of the risks of the procedure including but not limited to bleeding, infection, injury to other structures, need for further procedures, stent irritation, need for nephrostomy tube, need for open repair, risks otherwise unforeseen, and the risk of anesthesia. She is willing to proceed. Procedure in Detail: After informed consent was obtained the patient was brought back to the operating room and placed in supine position. A time out was performed. General anesthesia was administered and an endotracheal tube was placed. She was then placed in the lithotomy position. She was prepped and draped in the usual sterile fashion. Cystoscopy was performed. The anterior urethra was normal. There was no evidence of bladder tumors. The ureteral orifices were in the normal orthotopic position. There was no duplication of the ureteral orifices. The zip wire was placed in the right ureteral orifice. The open-ended catheter was placed over the wire into the distal ureter. This allowed the wire to move past the stone. The open ended catheter was then moved into the kidney. A retrograde pyelogram was performed. There was severe hydronephrosis within the right kidney. The ureter was tortuous. The wire was then brought up into the kidney under fluoroscopic guidance. A 6 [place] by 24cm JJ stent was then placed. The dangle strings were removed. Attention was then turned to the left side. The zip wire was then placed up the left ureteral orifice and brought into the kidney under fluoroscopic guidance. A 6 [place] by 24 cm double-J stent was then placed with good curl seen within the kidney and the bladder. A Petersen catheter was then inserted into the bladder. Clear urine returned. The patient was then awakened from general anesthesia and brought to recovery room in good condition. All sponge, needle, and instrument counts were correct.
--- NOTE | 2017-05-14 18:16 | Anesthesia Evaluation Post Op ---
Date of Encounter: 05/14/17 Time of Encounter: 18:15 - Vital Signs Vital Signs: Vital Signs/O2 Sat, Most Current Temp Pulse Resp BP Pulse Ox 98.7 F 75 17 166/73 98 05/14/17 17:51 05/14/17 18:11 05/14/17 18:11 05/14/17 18:11 05/14/17 18:11 - Lungs Lungs: Clear Ascult./Percussion - Airway Airway: Non-obstructed - Cardiovascular Regular Rate - Mental Status Mental Status: Alert & Oriented, Answers Appropriately - Pain Pain Scale: 3 Pain Scale used: Numeric (1 - 10) - Nausea Vomiting Nausea Vomiting: Not Present - Hydration Hydration: NPO, Has not voided - Discharge PostOp Status: Transfer Patient to floor
[2017-05-14] MEDS ORDERED: *HR* HYDROmorphone (PF) 1 MG/ML SYRINGE IVP PRN (18:32)
[2017-05-14] MEDS: *HR* HYDROcodone/Acet 5/325 mg TABLET PO PRN (21:41)
[2017-05-14] MEDS: 0.9 % Sodium Chloride 1,000 ML IVC SCH (23:53)
[2017-05-15] MEDS: *HR* HYDROcodone/Acet 5/325 mg TABLET PO PRN ×4 (02:48→19:51)
[2017-05-15 06:27] LABS: Immature Platelets 4.4 % (1.1-6.1); Mean Corpuscular HGB Conc 30.7 g/dL (31.6-35.5); Mean Corpuscular Hemoglobin 28.9 pg (28.0-33.3); Red Blood Count 2.98 M/mcL (3.82-4.97)
[2017-05-15 06:30] LABS: Hemoglobin 8.6 g/dL (11.5-15.4)
[2017-05-15 06:40] LABS: Calcium 8.5 mg/dL (8.6-10.8); Potassium 5.4 mEq/L (3.5-4.5)
--- NOTE | 2017-05-15 08:32 | Urology Progress Note ---
Date of Encounter: 05/15/17 Time of Encounter: 08:30 - Assessment and Plan (1) Ureteral calculi Current Visit: Yes Status: Acute Assessment and plan: Status post cystoscopy and bilateral stent placement. Postoperative day #1. Doing well. 1. I would continue the catheter to monitor for her urine output and her history of renal insufficiency. If her renal function doesn't improve much, then we can discontinue her catheter. 2. I will arrange for definitive stone treatment as an outpatient. 3. Urine culture was negative. Progress Note Narrative: 81-year-old woman with a history of nephrolithiasis status post cystoscopy and bilateral ureteral stent placement yesterday. She is doing well this morning. Urine has been clear from her catheter. She is not having much discomfort. Objective Initial Vital Signs Temp Pulse Resp BP Pulse Ox 98.8 F 86 18 185/89 98 05/14/17 05:23 05/14/17 05:23 05/14/17 05:23 05/14/17 05:23 05/14/17 05:23 - General physical appearance Present: well developed, well nourished, no distress - Respiratory Present: normal respiratory effort - Abdomen Present: soft - Genitourinary Present: normal external genitalia Urine Appearance: Present: Clear - Labs 05/15/17 06:12 05/15/17 06:12 Diabetes panel 05/15/17 Range/Units 06:12 Sodium 137 (136-145) mEq/L Potassium 5.4 H (3.5-4.5) mEq/L Chloride 106 (98-109) mEq/L Carbon Dioxide 22 (19-29) mEq/L BUN 39 H (7-20) mg/dL Creatinine 3.50 H (0.57-1.11) mg/dL Glucose 113 H (70-99) mg/dL Calcium 8.5 L (8.6-10.8) mg/dL Calcium panel 05/15/17 Range/Units 06:12 Calcium 8.5 L (8.6-10.8) mg/dL Pituitary panel 05/15/17 Range/Units 06:12 Sodium 137 (136-145) mEq/L Potassium 5.4 H (3.5-4.5) mEq/L Chloride 106 (98-109) mEq/L Carbon Dioxide 22 (19-29) mEq/L BUN 39 H (7-20) mg/dL Creatinine 3.50 H (0.57-1.11) mg/dL Glucose 113 H (70-99) mg/dL Calcium 8.5 L (8.6-10.8) mg/dL Adrenal panel 05/15/17 Range/Units 06:12 Sodium 137 (136-145) mEq/L Potassium 5.4 H (3.5-4.5) mEq/L Chloride 106 (98-109) mEq/L Carbon Dioxide 22 (19-29) mEq/L BUN 39 H (7-20) mg/dL Creatinine 3.50 H (0.57-1.11) mg/dL Glucose 113 H (70-99) mg/dL Calcium 8.5 L (8.6-10.8) mg/dL - VTE Documentation of Mechanical Device: Intermittent pneumatic compression device Consult Discharge Plan - Plan Referrals: Moisés Kelley MD [Partnered Physician] - NONE,PCP [Primary Care Provider] -
[2017-05-15] MEDS ORDERED: Pantoprazole 40 MG VIAL IVP SCH ×2 (09:00)
[2017-05-15] MEDS: 0.9 % Sodium Chloride 1,000 ML IVC SCH (13:41)
--- NOTE | 2017-05-15 14:58 | Internal Med Progress Note ---
Date of Encounter: 05/15/17 Time of Encounter: 14:56 - Assessment and plan (1) Hydronephrosis due to obstruction of ureter Current Visit: Yes Status: Acute Assessment and plan: s/p ureter stents cont mccord for now Urology on board (2) Ureteral calculi Current Visit: Yes Status: Acute Assessment and plan: out pt f/u for lithotripsy Urine cx - no growth so far (3) Hematuria Current Visit: Yes Status: Acute Assessment and plan: due to renal calculi Improving cont close monitoring of Hb Qualifiers: Qualified Code(s): R31.9 - Hematuria, unspecified (4) Anemia Current Visit: No Status: Acute Assessment and plan: could be due to hematuria and chronic kidney disease too cont close monitoring avoid ASA and anticoags no need of transfusions now Qualifiers: Anemia type: unspecified type Qualified Code(s): D64.9 - Anemia, unspecified (5) Kidney disease, chronic, stage V (end stage, EGFR < 15 ml/min) Current Visit: No Status: Chronic Assessment and plan: stable Cr at 3.5 cont close monitoring Will consult Nephro she may need HD if she continue to have volume overload will hold on Lasix for now.. d/c IVF due to her severe diastolic CHF (6) Pleural effusion Current Visit: Yes Status: Acute Assessment and plan: stable and slightly improved pleural effusion will give Lasix PRN for SOB (7) Diastolic CHF, chronic Current Visit: Yes Status: Acute Assessment and plan: Reviewed 2 D Echo showed -severe diastolic dysfunction cont BB will give Lasix as needed (8) Hypertension Current Visit: No Status: Chronic Assessment and plan: stable with home meds Qualifiers: Hypertension type: renovascular hypertension Qualified Code(s): I15.0 - Renovascular hypertension - Subjective Interval history: Ms. Arciniega is a 81 year old female with a past medical history of chronic kidney disease stage V, diastolic CHF, COPD oxygen dependent using 2 L at home who came complaining of abdominal pain 10 out of 10 in intensity just started 3 days ago mainly on the right side. A CT scan of the abdomen was performed showing moderate bilateral pleural effusions and severe right hydronephrosis with a large stone. Pt was admitted here and started her gentle IV hdyration. She also went for cystoscope and had b/l ureter stent placed in. She still has significant hematuria through mccord cath. She denied any CP.. However does c/o some SOB and EPPERSON - Constitutional Vitals: Temp Pulse Resp BP Pulse Ox 98.6 F 86 16 164/64 95 05/15/17 10:49 05/15/17 10:49 05/15/17 10:49 05/15/17 10:49 05/15/17 10:49 General appearance: Present: A&O X 3 - Head Head exam: Present: atraumatic, normal inspection - Respiratory Respiratory exam: Present: decreased breath sounds, wheezes. Absent: rales, respiratory distress, rhonchi - Cardiovascular Cardiovascular exam: Present: RRR, +S1, +S2. Absent: diastolic murmur, gallop, rubs, systolic murmur - GI/Abdominal GI/Abdominal exam: Present: normal bowel sounds, soft. Absent: rebound, rigid, tenderness - Extremities Exam Extremities exam: Absent: calf tenderness, pedal edema, tenderness - Back Exam Back exam: Absent: CVA tenderness (L), CVA tenderness (R) - Psychiatric Psychiatric exam: Present: normal affect, normal mood Internal Medicine: Result - Labs CBC & Chem 7: 05/15/17 06:12 05/15/17 06:12 Labs: Short CBC 05/15/17 Range/Units 06:12 WBC 9.7 D (4.3-11.1) K/mcL Hgb 8.6 L D (11.5-15.4) g/dL Hct 28.0 L (35.3-44.9) % Plt Count 295 (140-400) K/mcL BMP 05/15/17 06:12 Sodium 137 Potassium 5.4 H Chloride 106 Carbon Dioxide 22 BUN 39 H Creatinine 3.50 H Glucose 113 H Calcium 8.5 L - VTE Documentation of Mechanical Device: Intermittent pneumatic compression device Consult Discharge Plan - Plan Referrals: Moisés Kelley MD [Partnered Physician] - NONE,PCP [Primary Care Provider] -
[2017-05-16] MEDS: *HR* HYDROcodone/Acet 5/325 mg TABLET PO PRN ×3 (01:26→11:53)
[2017-05-16 07:15] LABS: Basophils # 0.1 K/mcL (0.0-0.2); Basophils % 0.3 %; Eosinophils # 0.4 K/mcL (0.0-0.6); Eosinophils % 2.9 %; Hematocrit 25.5 % (35.3-44.9); Hemoglobin 7.8 g/dL (11.5-15.4); Immature Granulocytes % 0.8 % (0-4); Lymphocytes # 2.5 K/mcL (0.6-4.6); Lymphocytes % 17.6 %; Mean Corpuscular HGB Conc 30.6 g/dL (31.6-35.5); Mean Corpuscular Hemoglobin 28.9 pg (28.0-33.3); Mean Corpuscular Volume 94.4 fL (83.0-100.0); Mean Platelet Volume 12.3 fL (9.4-12.4); Monocytes # 1.9 K/mcL (0.0-1.3); Neutrophils # 9.4 K/mcL (1.6-8.9); Platelet Count 281 K/mcL (140-400); Red Cell Distribution Width 20.6 % (11.5-14.5); Segmented Neutrophils % 65.4 %
[2017-05-16 07:27] LABS: Calcium 8.2 mg/dL (8.6-10.8); Magnesium 1.1 mg/dL (1.6-2.6); Potassium 4.7 mEq/L (3.5-4.5)
--- NOTE | 2017-05-16 08:25 | Urology Progress Note ---
Date of Encounter: 05/16/17 Time of Encounter: 08:24 - Assessment and Plan (1) Ureteral calculi Current Visit: Yes Status: Acute Assessment and plan: Postoperative day #2 status post bilateral ureteral stent insertion. 1. Urine is clearing, but I will continue the catheter for now to maximally drain her. 2. Appreciate internal medicine support. 3. Anticipate definitive stone extraction as an outpatient at a later date. Progress Note Narrative: Postop day #2 status post bilateral ureteral stent placement. She says she feels well. Urine has been clear to light pink through her Petersen catheter. She has a history of diastolic failure in the hospital service has been managing this. Objective Initial Vital Signs Temp Pulse Resp BP Pulse Ox 98.8 F 86 18 185/89 98 05/14/17 05:23 05/14/17 05:23 05/14/17 05:23 05/14/17 05:23 05/14/17 05:23 - General physical appearance Present: well developed, well nourished, no distress - Respiratory Present: normal respiratory effort - Abdomen Present: soft - Genitourinary Present: normal external genitalia Urine Appearance: Present: Hematuria (Mild hematuria is improving.) - Labs 05/16/17 04:52 05/16/17 04:52 Diabetes panel 05/16/17 Range/Units 04:52 Sodium 139 (136-145) mEq/L Potassium 4.7 H (3.5-4.5) mEq/L Chloride 109 (98-109) mEq/L Carbon Dioxide 24 (19-29) mEq/L BUN 42 H (7-20) mg/dL Creatinine 3.74 H (0.57-1.11) mg/dL Glucose 85 (70-99) mg/dL Calcium 8.2 L (8.6-10.8) mg/dL Calcium panel 05/16/17 Range/Units 04:52 Calcium 8.2 L (8.6-10.8) mg/dL Pituitary panel 05/16/17 Range/Units 04:52 Sodium 139 (136-145) mEq/L Potassium 4.7 H (3.5-4.5) mEq/L Chloride 109 (98-109) mEq/L Carbon Dioxide 24 (19-29) mEq/L BUN 42 H (7-20) mg/dL Creatinine 3.74 H (0.57-1.11) mg/dL Glucose 85 (70-99) mg/dL Calcium 8.2 L (8.6-10.8) mg/dL Adrenal panel 05/16/17 Range/Units 04:52 Sodium 139 (136-145) mEq/L Potassium 4.7 H (3.5-4.5) mEq/L Chloride 109 (98-109) mEq/L Carbon Dioxide 24 (19-29) mEq/L BUN 42 H (7-20) mg/dL Creatinine 3.74 H (0.57-1.11) mg/dL Glucose 85 (70-99) mg/dL Calcium 8.2 L (8.6-10.8) mg/dL - VTE Documentation of Mechanical Device: Intermittent pneumatic compression device Consult Discharge Plan - Plan Referrals: Moisés Kelley MD [Partnered Physician] - NONE,PCP [Primary Care Provider] -
--- NOTE | 2017-05-16 10:25 | Nephrology Consult Note ---
Date of Encounter: 05/16/17 Time of Encounter: 09:35 Assessment and Plan (1) RADHA (acute kidney injury) Current Visit: Yes Status: Acute RADHA superimposed on CKD 4, baseline creat 2.8-3.0. In setting of bilateral obstructing ureteral stones. S/P bilateral ureteral stents. Creatinine slowly worsening 3.74, no immediate need for HD. Has functioning left AVG. Will continue to monitor, avoid nephrotoxins. History of Present Illness - Reason for Consult Acute Kidney Injury - History of Present Illness Ms Arciniega is a 81 ear old female known to practice with CKD stage 4, baseline creat 2.8-3.2. 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 Other PMH- arthritis, cancer, COPD, CHF, GERD, GI bleed, hypertension, osteoporosis, renal disease, anxiety, depression. Ms. Arciniega presented on May 14 with abdominal pain. Creatinine above baseline 3.36. CT of abdomen with oral contrast - bilateral obstructing ureteral stones, right with severe hydroureternephrosis and severe left renal chronic atrophy. She had bilateral ureteral stents placed that same day. Today she is sitting up in bed, states no longer has abdominal pain. Petersen bag with light montoya color urine, no clots noted. Creatinine slowly increasing over past two days 3.74. Documented urine output for yesterday 275cc, today 200 cc in bag. Past Med Surg Social Fam HX - Past Medical History Medical history: arthritis, cancer, CHF, COPD, GERD, GI bleed, hypertension, osteoporosis, renal disease, other Psychiatric history: anxiety, depression, other - Past Surgical History Surgical History: appendectomy, , cholecystectomy, colectomy, colostomy , hysterectomy, BLAKE/BSO, other - Social History Smoking Status: Never smoker Smokeless Tobacco Status: No Alcohol use: none Drug use: none - Family History Mother History Unknown: Yes Adopted: No Family Member Ethnicity: Non- Living Status: Hx Family Cardiac Disorders: Yes Father History Unknown: Yes Hx Family Respiratory Disorders: Yes (Asthma) Hx Family GI Disorders: Yes (Ulcers) Medications and Allergies Amlodipine [Norvasc] 5 mg PO DAILY 05/20/15 [History] Furosemide [Lasix] 20 mg PO DAILY 05/20/15 [History] Gabapentin [Neurontin] 300 mg PO QAM 05/20/15 [History] Metoprolol [Lopressor] 50 mg PO BID 05/20/15 [History] Sodium Bicarbonate 1,950 mg PO BID 05/20/15 [History] Darbepoetin [Aranesp] 150 mcg IJ Q2W 05/24/16 [History] HYDROcodone/Acet 10/325 mg [Telferner 10-325 mg] 1 tab PO Q4HR PRN 05/26/16 [History ] Calcitriol 0.5 mcg PO DAILY 05/27/16 [History] Cholecalciferol (D-3) [Vitamin D] 1,000 unit PO DAILY 05/27/16 [History] Cyanocobalamin (B-12) [Vitamin B12] 1,000 mcg SQ QWEEK 05/27/16 [History] Famotidine [Heartburn Prevention] 20 mg PO DAILY 05/27/16 [History] Gabapentin [Neurontin] 600 mg PO HS 05/27/16 [History] Glucosamn/[place]n/C/Mn/[place] [[facility] Glucosamine Chondroitin Tb] 1 tab PO DAILY 05/27/16 [History] Multivit,Th Iron,Other Min [Therems-M] 1 tab PO DAILY 05/27/16 [History] Vitamin E (Dl,Tocopheryl Acet) [Vitamin E] 400 unit PO DAILY 05/27/16 [History] 3 Allergy/AdvReac Type Severity Reaction Status Date / Time codeine Allergy Rash Verified 05/20/15 09:28 fluoxetine [From Prozac] Allergy Rash Verified 05/20/15 09:28 haloperidol [From Haldol] Allergy See Verified 05/20/15 09:28 Comments nalbuphine [From Nubain] Allergy Rash Verified 05/20/15 09:28 Sulfa (Sulfonamide Allergy Rash Verified 05/20/15 09:28 Antibiotics) Review of Systems All Systems: reviewed and no additional remarkable complaints except as stated Exam - Vital Signs Vital signs: Initial Vital Signs Temp Pulse Resp BP Pulse Ox 98.8 F 86 18 185/89 98 05/14/17 05:23 05/14/17 05:23 05/14/17 05:23 05/14/17 05:23 05/14/17 05:23 Vital Signs - Last 8 Hours Temp Pulse Resp BP Pulse Ox 05/16/17 07:12 98.5 F 72 18 178/67 94 05/16/17 04:26 98.1 F 72 15 170/73 94 Intake and Output 05/15/17 05/16/17 05/16/17 23:59 07:59 15:59 Intake Total 220 / 220 0 / 0 240 / 240 Output Total 725 / 725 625 / 625 Balance -505 / -505 -625 / -625 240 / 240 Intake: IV Fluids 100 / 100 Rocephin 1,000 MG In 100 / 100 Dextrose 5% (Minibag+) 100 ML 100 ML @ 200 mls/ hr IVPB DAILY [facility] Rx#: [id number] Oral 120 / 120 0 / 0 240 / 240 Output: Stool 450 / 450 125 / 125 Catheter 275 / 275 500 / 500 Other: Meal Dinner Breakfast Percent of Meal Consumed 75% 100% Stool Size Small Stool Consistency loose liquid Stool Color Brown Yellow Weight 48.1 kg Patient Weight 05/16/17 23:59 Weight 48.1 kg - General Appearance General appearance: well-developed, well-nourished, appears started age, frail EENT: mucous membranes moist Neck: no JVD Respiratory: clear Cardiology: no edema, regular rate, regular rhythm - Dialysis Access Dialysis Vascular Access: Arteriovenous Graft thrill: Yes bruit: Yes Gastrointestinal: hypoactive bowel sounds, no guarding Integumentary: warm and dry Neurologic: alert and oriented x3 Psychiatric: mood/affect appropriate, cooperative Results - Lab Results 05/16/17 04:52 05/16/17 04:52 Most recent lab results Calcium 8.2 mg/dL (8.6-10.8) L 05/16/17 04:52 Magnesium 1.1 mg/dL (1.6-2.6) L 05/16/17 04:52 Consult Discharge Plan - Plan Referrals: Moisés Kelley MD [Partnered Physician] - NONE,PCP [Primary Care Provider] -
[2017-05-16] MEDS ORDERED: *HR* HYDROmorphone (PF) 1 MG/ML SYRINGE IVP PRN (15:29)
--- NOTE | 2017-05-16 15:32 | Internal Med Progress Note ---
Date of Encounter: 05/16/17 Time of Encounter: 15:30 - Assessment and plan (1) Hydronephrosis due to obstruction of ureter Current Visit: Yes Status: Acute Assessment and plan: s/p ureter stents cont mccord for now Urology on board (2) Ureteral calculi Current Visit: Yes Status: Acute Assessment and plan: out pt f/u for lithotripsy Urine cx - no growth so far (3) Hematuria Current Visit: Yes Status: Acute Assessment and plan: due to renal calculi Improving Hb dropped down to 7.8 from 11.1 will transfuse 1 U PRBC cont close monitoring Held anti platelets and anticoags Qualifiers: Qualified Code(s): R31.9 - Hematuria, unspecified (4) Anemia Current Visit: No Status: Acute Assessment and plan: could be due to hematuria and chronic kidney disease too HB dropped down to 7.8 will transfuse 1 U PRBC cont close monitoring avoid ASA and anticoags Cont Arnesp as an out pt Qualifiers: Anemia type: unspecified type Qualified Code(s): D64.9 - Anemia, unspecified (5) Kidney disease, chronic, stage V (end stage, EGFR < 15 ml/min) Current Visit: No Status: Chronic Assessment and plan: Her Cr slightly elevated today Non oliguric cont close monitoring Nephro consulted d/c IVF due to her severe diastolic CHF (6) Pleural effusion Current Visit: Yes Status: Acute Assessment and plan: stable and slightly improved pleural effusion f/u CXR today will give Lasix PRN for SOB (7) Diastolic CHF, chronic Current Visit: Yes Status: Chronic Assessment and plan: Reviewed 2 D Echo showed -severe diastolic dysfunction Not in exacerbation cont BB will give Lasix as needed (8) Hypertension Current Visit: No Status: Chronic Assessment and plan: fairly controlled resumed all home meds cont close monitoring for now Qualifiers: Hypertension type: renovascular hypertension Qualified Code(s): I15.0 - Renovascular hypertension - Subjective Interval history: Ms. Arciniega is a 81 year old female with a past medical history of chronic kidney disease stage V, diastolic CHF, COPD oxygen dependent using 2 L at home who came complaining of abdominal pain 10 out of 10 in intensity just started 3 days ago mainly on the right side. A CT scan of the abdomen was performed showing moderate bilateral pleural effusions and severe right hydronephrosis with a large stone. Pt was admitted here and started her gentle IV hdyration. She also went for cystoscope and had b/l ureter stent placed in. Her hematuria is slightly better today. She denied any CP.. However does c/o some SOB and EPPERSON - Constitutional Vitals: Temp Pulse Resp BP Pulse Ox 98.5 F 75 14 174/71 94 05/16/17 11:10 05/16/17 11:10 05/16/17 11:10 05/16/17 11:10 05/16/17 11:10 General appearance: Present: A&O X 3 - Head Head exam: Present: atraumatic, normal inspection - Respiratory Respiratory exam: Present: decreased breath sounds, wheezes (mild). Absent: rales, respiratory distress, rhonchi - Cardiovascular Cardiovascular exam: Present: RRR, +S1, +S2. Absent: diastolic murmur, gallop, rubs, systolic murmur - GI/Abdominal GI/Abdominal exam: Present: normal bowel sounds, soft. Absent: rebound, rigid, tenderness Additional comments: Colostomy bag + - Extremities Exam Extremities exam: Absent: calf tenderness, pedal edema, tenderness - Back Exam Back exam: Absent: CVA tenderness (L), CVA tenderness (R) - Neurological Exam Neurological exam: Present: alert, oriented X3 - Psychiatric Psychiatric exam: Present: normal affect, normal mood Internal Medicine: Result - Labs CBC & Chem 7: 05/16/17 04:52 05/16/17 04:52 Labs: Short CBC 05/16/17 Range/Units 04:52 WBC 14.3 H (4.3-11.1) K/mcL Hgb 7.8 L (11.5-15.4) g/dL Hct 25.5 L (35.3-44.9) % Plt Count 281 (140-400) K/mcL Neutrophils # 9.4 H (1.6-8.9) K/mcL BMP 05/16/17 04:52 Sodium 139 Potassium 4.7 H Chloride 109 Carbon Dioxide 24 BUN 42 H Creatinine 3.74 H Glucose 85 Calcium 8.2 L - VTE Documentation of Mechanical Device: Intermittent pneumatic compression device Consult Discharge Plan - Plan Referrals: Moisés Kelley MD [Partnered Physician] - NONE,PCP [Primary Care Provider] -
[2017-05-16] MEDS: Ipratropium/Albuterol Neb 3 ML IH SCH ×2 (15:44→21:39)
[2017-05-16] MEDS: Famotidine 20 MG TABLET PO SCH (16:20)
[2017-05-16] MEDS: *HR* HYDROcodone/Acet 10/325 mg TABLET PO PRN ×2 (16:20→20:55)
[2017-05-16] MEDS: amLODIPine 5 MG TABLET PO SCH (16:20)
[2017-05-16] MEDS ORDERED: 0.9 % Sodium Chloride 250 ML ONE (17:43)
[2017-05-16] MEDS: Gabapentin 300 MG CAPSULE PO SCH (20:55)
[2017-05-17] MEDS: Furosemide 40 MG TABLET PO ONE ×2 (02:23→02:24)
[2017-05-17] MEDS: *HR* HYDROcodone/Acet 10/325 mg TABLET PO PRN ×5 (02:27→20:42)
[2017-05-17 03:47] LABS: Basophils % 0.3 %; Eosinophils # 0.4 K/mcL (0.0-0.6); Eosinophils % 3.3 %; Hematocrit 28.6 % (35.3-44.9); Lymphocytes # 1.8 K/mcL (0.6-4.6); Lymphocytes % 13.2 %; Mean Corpuscular HGB Conc 31.5 g/dL (31.6-35.5); Mean Corpuscular Hemoglobin 29.6 pg (28.0-33.3); Mean Corpuscular Volume 94.1 fL (83.0-100.0); Mean Platelet Volume 11.4 fL (9.4-12.4); Monocytes # 1.5 K/mcL (0.0-1.3); Monocytes % 11.5 %; Neutrophils # 9.4 K/mcL (1.6-8.9); Platelet Count 283 K/mcL (140-400); Red Blood Count 3.04 M/mcL (3.82-4.97); Red Cell Distribution Width 19.2 % (11.5-14.5); Segmented Neutrophils % 70.7 %
[2017-05-17] MEDS: Ipratropium/Albuterol Neb 3 ML IH SCH ×4 (03:49→21:22)
[2017-05-17 04:23] LABS: Calcium 8.2 mg/dL (8.6-10.8); Potassium 4.6 mEq/L (3.5-4.5)
--- NOTE | 2017-05-17 07:37 | Urology Progress Note ---
Date of Encounter: 05/17/17 Time of Encounter: 07:34 - Assessment and Plan (1) Ureteral calculi Current Visit: Yes Status: Acute Assessment and plan: Bilateral stent placement, POD #3. 1. Okay to remove mccord today. 2. Continue stents. Will treat stones as an outpatient. Progress Note Narrative: Postop day #3 status post bilateral ureteral stent placement. She says she feels well. Still some blood in the urine. Renal function is stable. Objective Initial Vital Signs Temp Pulse Resp BP Pulse Ox 98.8 F 86 18 185/89 98 05/14/17 05:23 05/14/17 05:23 05/14/17 05:23 05/14/17 05:23 05/14/17 05:23 - General physical appearance Present: well developed, well nourished, no distress - Respiratory Present: normal respiratory effort - Abdomen Present: soft - Genitourinary Urine Appearance: Present: Hematuria (Light pink.) - Labs 05/17/17 03:38 05/17/17 03:38 Diabetes panel 05/17/17 Range/Units 03:38 Sodium 141 (136-145) mEq/L Potassium 4.6 H (3.5-4.5) mEq/L Chloride 110 H (98-109) mEq/L Carbon Dioxide 24 (19-29) mEq/L BUN 39 H (7-20) mg/dL Creatinine 3.45 H (0.57-1.11) mg/dL Glucose 119 H (70-99) mg/dL Calcium 8.2 L (8.6-10.8) mg/dL Calcium panel 05/17/17 Range/Units 03:38 Calcium 8.2 L (8.6-10.8) mg/dL Pituitary panel 05/17/17 Range/Units 03:38 Sodium 141 (136-145) mEq/L Potassium 4.6 H (3.5-4.5) mEq/L Chloride 110 H (98-109) mEq/L Carbon Dioxide 24 (19-29) mEq/L BUN 39 H (7-20) mg/dL Creatinine 3.45 H (0.57-1.11) mg/dL Glucose 119 H (70-99) mg/dL Calcium 8.2 L (8.6-10.8) mg/dL Adrenal panel 05/17/17 Range/Units 03:38 Sodium 141 (136-145) mEq/L Potassium 4.6 H (3.5-4.5) mEq/L Chloride 110 H (98-109) mEq/L Carbon Dioxide 24 (19-29) mEq/L BUN 39 H (7-20) mg/dL Creatinine 3.45 H (0.57-1.11) mg/dL Glucose 119 H (70-99) mg/dL Calcium 8.2 L (8.6-10.8) mg/dL - VTE Documentation of Mechanical Device: Intermittent pneumatic compression device Consult Discharge Plan - Plan Referrals: Moisés Kelley MD [Partnered Physician] - NONE,PCP [Primary Care Provider] -
[2017-05-17] MEDS: Gabapentin 300 MG CAPSULE PO SCH ×2 (07:48→20:42)
[2017-05-17] MEDS: Cholecalciferol (D-3) 1,000 UNIT TABLET PO SCH (07:49)
[2017-05-17] MEDS: Famotidine 20 MG TABLET PO SCH (07:49)
[2017-05-17] MEDS: amLODIPine 5 MG TABLET PO SCH ×2 (07:49→20:42)
--- NOTE | 2017-05-17 08:59 | Nephrology Progress Note ---
Date of Encounter: 05/17/17 Time of Encounter: 08:57 - Assessment and Plan (1) Chronic kidney disease, stage IV (severe) Current Visit: Yes Status: Acute The patient has late stage [place] early stage V chronic kidney disease. She has not yet started on dialysis. An AV access is in place. Renal function remains relatively stable and there is no indication for initiating dialysis at this point. She is status post bilateral ureteral stent placement for bilateral renal calculi. She did have severe hydronephrosis on the right. Blood pressure is not optimally controlled. I am going to increase her Norvasc. (2) Benign hypertension with chronic kidney disease, stage V Current Visit: Yes Status: Acute (3) Anemia in CKD (chronic kidney disease) Current Visit: Yes Status: Acute Qualifiers: Chronic kidney disease stage: stage 4 (severe) Qualified Code(s): N18.4 - Chronic kidney disease, stage 4 (severe); D63.1 - Anemia in chronic kidney disease (4) Ureteral calculi Current Visit: Yes Status: Acute Subjective Interval history: Patient reports she is feeling better. Her only complaint is a headache. From a renal perspective she remains relatively stable. She is status post bilateral ureteral stent placement for bilateral renal calculi. Objective - Vital Signs Vital signs: Vital Signs Temp Pulse Resp BP Pulse Ox 05/17/17 07:16 98.1 F 91 16 166/79 94 05/17/17 06:59 90 05/17/17 03:49 16 90 05/17/17 03:31 98.2 F 73 15 171/56 91 05/16/17 21:39 17 92 05/16/17 20:59 98.7 F 84 16 184/74 90 05/16/17 18:24 99.1 F 93 16 174/72 94 05/16/17 18:09 99.1 F 93 16 174/72 94 05/16/17 18:05 98.7 F 98 16 176/69 95 05/16/17 15:44 16 95 05/16/17 15:32 99.2 F 90 16 189/80 95 05/16/17 11:10 98.5 F 75 14 174/71 94 Intake and Output 05/16/17 05/17/17 05/17/17 23:59 07:59 15:59 Intake Total 915 / 915 0 / 0 Output Total 1100 / 1100 1375 / 1375 Balance -185 / -185 -1375 / -1375 Intake: IV Fluids 250 / 250 Oral 240 / 240 0 / 0 Blood Product 425 / 425 Rbcs Leuko Poor As-1 425 / 425 Unit [id number] Output: Urine 800 / 800 Stool 1100 / 1100 175 / 175 Catheter 400 / 400 Other: Meal Dinner Percent of Meal Consumed 100% Stool Consistency liquid Stool Characteristics Normal for Patient Stool Color Brown Yellow Weight 49 kg Patient Weight 05/17/17 23:59 Weight 49 kg - General Appearance Exam: Patient is alert and oriented. She is in no acute distress. Lungs clear to auscultation. Heart regular rhythm with a 2/6 soft ejection murmur. Abdomen is benign. An ostomy is present. She has minimal lower extremity swelling. There is a functioning AV graft in the left upper extremity. - Lab 05/17/17 03:38 05/17/17 03:38 Most recent lab results Calcium 8.2 mg/dL (8.6-10.8) L 05/17/17 03:38 Magnesium 1.1 mg/dL (1.6-2.6) L 05/16/17 04:52 - VTE Documentation of Mechanical Device: Intermittent pneumatic compression device Consult Discharge Plan - Plan Referrals: Moisés Kelley MD [Partnered Physician] - NONE,PCP [Primary Care Provider] -
--- NOTE | 2017-05-17 16:57 | Internal Med Progress Note ---
Date of Encounter: 05/17/17 Time of Encounter: 16:55 - Assessment and plan (1) Hydronephrosis due to obstruction of ureter Current Visit: Yes Status: Acute Assessment and plan: s/p ureter stents cont mccord for now Urology on board (2) Ureteral calculi Current Visit: Yes Status: Acute Assessment and plan: out pt f/u for lithotripsy Urine cx - no growth so far (3) Hematuria Current Visit: Yes Status: Acute Assessment and plan: due to renal calculi Improving Received 1 U PRBC y/d cont close monitoring Held anti platelets and anticoags Qualifiers: Qualified Code(s): R31.9 - Hematuria, unspecified (4) Anemia Current Visit: No Status: Acute Assessment and plan: could be due to hematuria and chronic kidney disease too Hb improved to 9.0 with s/p transfuse 1 U PRBC cont close monitoring avoid ASA and anticoags Cont Arnesp as an out pt Qualifiers: Anemia type: unspecified type Qualified Code(s): D64.9 - Anemia, unspecified (5) Kidney disease, chronic, stage V (end stage, EGFR < 15 ml/min) Current Visit: No Status: Chronic Assessment and plan: Her Cr slightly elevated today Non oliguric cont close monitoring Nephro consulted d/c IVF due to her severe diastolic CHF (6) Pleural effusion Current Visit: Yes Status: Acute Assessment and plan: stable and slightly improved pleural effusion Resumed her home dose Lasix 40mg today (7) Diastolic CHF, chronic Current Visit: Yes Status: Chronic Assessment and plan: Reviewed 2 D Echo showed -severe diastolic dysfunction Not in exacerbation cont BB will give Lasix as needed (8) Hypertension Current Visit: No Status: Chronic Assessment and plan: fairly controlled resumed all home meds Also started her on Hydralazine 25mg PO TID also use Hydralazine IV PRN Qualifiers: Hypertension type: renovascular hypertension Qualified Code(s): I15.0 - Renovascular hypertension (9) Head trauma Current Visit: Yes Status: Acute Assessment and plan: Had a fall at home 2 weeks ago..and her BP also fairly controlled So will get CT of head to r/u any acute changes Qualifiers: Encounter type: sequela Qualified Code(s): S09.90XS - Unspecified injury of head, sequela - Subjective Interval history: Ms. Arciniega is a 81 year old female with a past medical history of chronic kidney disease stage V, diastolic CHF, COPD oxygen dependent using 2 L at home who came complaining of abdominal pain 10 out of 10 in intensity just started 3 days ago mainly on the right side. A CT scan of the abdomen was performed showing moderate bilateral pleural effusions and severe right hydronephrosis with a large stone. Pt was admitted here and started her gentle IV hydration. She also went for cystoscope and had b/l ureter stent placed in. Her hematuria is slightly better today. She denied any CP.. She does c/o SOB / EPPERSON which chronic for her. She does c/o severe headaches today. She had a fall 2 weeks ago with head trauma, since then she has some headaches, but today they are worse. - Constitutional Vitals: Temp Pulse Resp BP Pulse Ox 98.3 F 88 18 181/80 95 05/17/17 15:34 05/17/17 15:34 05/17/17 16:04 05/17/17 15:34 05/17/17 16:04 General appearance: Present: A&O X 3 - Head Head exam: Present: atraumatic, normal inspection - Respiratory Respiratory exam: Present: decreased breath sounds, wheezes. Absent: rales, respiratory distress, rhonchi - Cardiovascular Cardiovascular exam: Present: +S1, +S2, tachycardia - GI/Abdominal GI/Abdominal exam: Present: normal bowel sounds, soft. Absent: rebound, rigid, tenderness - Extremities Exam Extremities exam: Present: pedal edema (trace). Absent: calf tenderness, tenderness - Neurological Exam Neurological exam: Present: alert, CN II-XII intact, oriented X3, no focal deficits - Psychiatric Psychiatric exam: Present: normal affect, normal mood Internal Medicine: Result - Labs CBC & Chem 7: 05/17/17 03:38 05/17/17 03:38 Labs: Short CBC 05/17/17 Range/Units 03:38 WBC 13.4 H (4.3-11.1) K/mcL Hgb 9.0 L (11.5-15.4) g/dL Hct 28.6 L (35.3-44.9) % Plt Count 283 (140-400) K/mcL Neutrophils # 9.4 H (1.6-8.9) K/mcL BMP 05/17/17 03:38 Sodium 141 Potassium 4.6 H Chloride 110 H Carbon Dioxide 24 BUN 39 H Creatinine 3.45 H Glucose 119 H Calcium 8.2 L - VTE Documentation of Mechanical Device: Intermittent pneumatic compression device Consult Discharge Plan - Plan Referrals: Moisés Kelley MD [Partnered Physician] - NONE,PCP [Primary Care Provider] -
[2017-05-17] MEDS: Furosemide 40 MG TABLET PO SCH (16:59)
[2017-05-18] MEDS: *HR* HYDROcodone/Acet 10/325 mg TABLET PO PRN ×4 (02:35→18:00)
[2017-05-18] MEDS: Ipratropium/Albuterol Neb 3 ML IH SCH ×4 (03:42→21:28)
[2017-05-18 05:01] LABS: Albumin 2.2 g/dL (3.5-5.0); Albumin/Globulin Ratio 0.7 (1.1-2.2); Bilirubin,Total 0.2 mg/dL (0.2-1.2); Calcium 8.6 mg/dL (8.6-10.8); Globulin 3.1 g/dL (2.4-3.5); Potassium 4.2 mEq/L (3.5-4.5); Total Protein 5.3 g/dL (6.0-8.3)
[2017-05-18 05:07] LABS: Basophils # 0.1 K/mcL (0.0-0.2); Basophils % 0.4 %; Eosinophils # 0.5 K/mcL (0.0-0.6); Hematocrit 30.5 % (35.3-44.9); Hemoglobin 9.3 g/dL (11.5-15.4); Immature Granulocytes % 1.9 % (0-4); Lymphocytes # 1.8 K/mcL (0.6-4.6); Lymphocytes % 11.7 %; Mean Corpuscular HGB Conc 30.5 g/dL (31.6-35.5); Mean Corpuscular Hemoglobin 28.4 pg (28.0-33.3); Mean Corpuscular Volume 93.3 fL (83.0-100.0); Mean Platelet Volume 11.4 fL (9.4-12.4); Monocytes # 1.7 K/mcL (0.0-1.3); Monocytes % 11.4 %; Neutrophils # 10.8 K/mcL (1.6-8.9); Platelet Count 320 K/mcL (140-400); Red Blood Count 3.27 M/mcL (3.82-4.97); Red Cell Distribution Width 19.4 % (11.5-14.5); Segmented Neutrophils % 71.6 %
[2017-05-18] MEDS: Cholecalciferol (D-3) 1,000 UNIT TABLET PO SCH (08:16)
[2017-05-18] MEDS: amLODIPine 5 MG TABLET PO SCH (08:16)
[2017-05-18] MEDS: Gabapentin 300 MG CAPSULE PO SCH ×2 (08:16→21:23)
[2017-05-18] MEDS: Famotidine 20 MG TABLET PO SCH (08:16)
[2017-05-18] MEDS: hydrALAZINE 25 MG TABLET PO SCH ×2 (10:29→17:10)
[2017-05-18] MEDS: Magnesium Sulfate 1 GM in D5% in Water 100 ML IVPB SCH ×3 (10:30→17:10)
[2017-05-18] MEDS: Piperacillin/Tazobactam 3.375 GM in D5% in Water (Mini-Bag+) 100 ML IVPB SCH (12:06)
--- NOTE | 2017-05-18 13:02 | Internal Med Progress Note ---
Date of Encounter: 05/18/17 Time of Encounter: 12:59 - Assessment and plan (1) Hydronephrosis due to obstruction of ureter Current Visit: Yes Status: Acute Assessment and plan: s/p ureter stents urology on board and consultation appreciated mccord catheter removed today worsening leukocytosis, will start zosyn and d/c ceftriaxone at this time (2) Ureteral calculi Current Visit: Yes Status: Acute Assessment and plan: out pt f/u for lithotripsy Urine cx - no growth so far (3) Electrolyte abnormality Current Visit: Yes Status: Acute Assessment and plan: Hypomagnesemia Mg supplemented continue to monitor electrolytes and replace as needed (4) Anemia in chronic kidney disease (CKD) Current Visit: No Status: Acute Assessment and plan: H&H low but acceptable s/p PRBC transfusion on 05/16/17 will continue to closely monitor and transfuse as needed Qualifiers: Chronic kidney disease stage: stage 5, not on chronic dialysis Qualified Code(s): N18.5 - Chronic kidney disease, stage 5; D63.1 - Anemia in chronic kidney disease (5) Diastolic CHF, chronic Current Visit: Yes Status: Chronic Assessment and plan: Reviewed 2 D Echo showed -moderate diastolic dysfunction Not in exacerbation cont BB continue home dose of lasix (6) Hypertension Current Visit: No Status: Chronic Assessment and plan: Uncontrolled BP chronic headache likely secondary to uncontrolled HTN d/c Amlodipine added Nifedipine XL 60mg PO qd added Hydralazine 10mg IV Q6h PRN SBP>160 continue hydralazine PO, and Metoprolol If remains hypertensive, will increase dose of PO hydralazine will closely monitor BP Qualifiers: Hypertension type: renovascular hypertension Qualified Code(s): I15.0 - Renovascular hypertension (7) Kidney disease, chronic, stage V (end stage, EGFR < 15 ml/min) Current Visit: No Status: Chronic Assessment and plan: renal function at baseline nephrology on board and consultation appreciated aggressive BP control (8) DVT prophylaxis Current Visit: Yes Status: Acute Assessment and plan: IPCD - Subjective Interval history: Patient seen and examined at bedside. Resting in chair and reports of a diffuse headache which is chronic in nature. Denies any other discomfort at this time. - Constitutional Vitals: Temp Pulse Resp BP Pulse Ox 98.9 F 94 18 171/76 93 05/18/17 10:58 05/18/17 12:11 05/18/17 11:04 05/18/17 12:11 05/18/17 11:04 General appearance: Present: A&O X 3, no acute distress, answers questions appropriately - Head Head exam: Present: atraumatic, normocephalic - Eye Eye exam: Present: conjuntiva pink, sclera anicteric - Respiratory Respiratory exam: Absent: respiratory distress, wheezes (mild bibasilar crackles ) - Cardiovascular Cardiovascular exam: Present: RRR, +S1, +S2. Absent: diastolic murmur, gallop, rubs, systolic murmur - GI/Abdominal GI/Abdominal exam: Present: normal bowel sounds, soft, no peritoneal signs. Absent: distended, tenderness - Extremities Exam Extremities exam: Present: pedal edema (mild bilateral ankle edema), warm, radial pulses palpable and symmetrical. Absent: calf tenderness - Neurological Exam Neurological exam: Present: alert, oriented X3 - Psychiatric Psychiatric exam: Present: normal affect, normal mood Internal Medicine: Result - Labs CBC & Chem 7: 05/18/17 03:56 05/18/17 03:56 Labs: Short CBC 05/18/17 Range/Units 03:56 WBC 15.1 H (4.3-11.1) K/mcL Hgb 9.3 L (11.5-15.4) g/dL Hct 30.5 L (35.3-44.9) % Plt Count 320 (140-400) K/mcL Neutrophils # 10.8 H (1.6-8.9) K/mcL BMP 05/18/17 03:56 Sodium 140 Potassium 4.2 Chloride 107 Carbon Dioxide 24 BUN 38 H Creatinine 3.29 H Glucose 126 H Calcium 8.6 Liver Function 05/18/17 Range/Units 03:56 Total Bilirubin 0.2 (0.2-1.2) mg/dL AST 17 (5-34) Units/L ALT 13 (0-55) Units/L Alkaline Phosphatase 123 (38-126) Units/L Albumin 2.2 L (3.5-5.0) g/dL - Impressions Impressions Head CT 05/17/17 16:53 IMPRESSION: No acute intracranial hemorrhage or mass effect. D/ / Robbin Madrigal MD / Robbin Madrigal MD Interpreting Provider: Robbin Madrigal MD - VTE Documentation of Mechanical Device: Intermittent pneumatic compression device Consult Discharge Plan - Plan Referrals: Moisés Kelley MD [Partnered Physician] - NONE,PCP [Primary Care Provider] -
[2017-05-18] MEDS: NIFEdipine XL (24 HR) 60 MG TAB.ER.24 PO SCH (13:48)
[2017-05-18] MEDS: Furosemide 40 MG TABLET PO SCH (17:59)
[2017-05-19] MEDS: *HR* HYDROcodone/Acet 10/325 mg TABLET PO PRN ×5 (01:34→22:10)
[2017-05-19] MEDS: hydrALAZINE 25 MG TABLET PO SCH ×2 (01:34→09:43)
[2017-05-19] MEDS: Piperacillin/Tazobactam 3.375 GM in D5% in Water (Mini-Bag+) 100 ML IVPB SCH ×3 (01:34→17:00)
[2017-05-19] MEDS: Ipratropium/Albuterol Neb 3 ML IH SCH ×4 (03:43→22:13)
[2017-05-19 07:50] LABS: Calcium 8.8 mg/dL (8.6-10.8); Magnesium 1.7 mg/dL (1.6-2.6); Phosphorous 3.4 mg/dL (2.3-4.7); Potassium 4.5 mEq/L (3.5-4.5)
[2017-05-19] MEDS: Cholecalciferol (D-3) 1,000 UNIT TABLET PO SCH (08:21)
[2017-05-19 08:32] LABS: Basophils # 0.1 K/mcL (0.0-0.2); Basophils % 0.4 %; Eosinophils # 0.5 K/mcL (0.0-0.6); Eosinophils % 3.9 %; Hematocrit 28.6 % (35.3-44.9); Immature Granulocytes % 1.2 % (0-4); Lymphocytes # 1.5 K/mcL (0.6-4.6); Lymphocytes % 11.6 %; Mean Corpuscular HGB Conc 31.5 g/dL (31.6-35.5); Mean Corpuscular Hemoglobin 28.8 pg (28.0-33.3); Mean Corpuscular Volume 91.4 fL (83.0-100.0); Mean Platelet Volume 12.2 fL (9.4-12.4); Monocytes # 1.7 K/mcL (0.0-1.3); Monocytes % 13.2 %; Neutrophils # 8.8 K/mcL (1.6-8.9); Platelet Count 294 K/mcL (140-400); Red Blood Count 3.13 M/mcL (3.82-4.97); Red Cell Distribution Width 19.8 % (11.5-14.5); Segmented Neutrophils % 69.7 %
[2017-05-19] MEDS: NIFEdipine XL (24 HR) 60 MG TAB.ER.24 PO SCH (08:40)
--- NOTE | 2017-05-19 08:56 | Nephrology Progress Note ---
Date of Encounter: 05/19/17 Time of Encounter: 08:54 - Assessment and Plan (1) Chronic kidney disease, stage IV (severe) Current Visit: Yes Status: Acute The patient has late stage [place] early stage V chronic kidney disease. She has not yet started on dialysis. An AV access is in place. Renal function remains relatively stable and there is no indication for initiating dialysis at this point. Her blood pressure is lower. He may be a bit too low. She may benefit from reducing the Procardia to 30 mg daily. She is now require evaluation and management for what appears to be paroxysmal atrial fibrillation. (2) Benign hypertension with chronic kidney disease, stage V Current Visit: Yes Status: Acute (3) Anemia in CKD (chronic kidney disease) Current Visit: Yes Status: Acute Qualifiers: Chronic kidney disease stage: stage 4 (severe) Qualified Code(s): N18.4 - Chronic kidney disease, stage 4 (severe); D63.1 - Anemia in chronic kidney disease (4) Ureteral calculi Current Visit: Yes Status: Acute Subjective Interval history: Patient's blood pressure is lower. It may actually be a bit too low. She now has an elevated heart rate on physical exam sounds like she is in A. fib. Her renal perspective she is stable. Potassium is normal as well. Objective - Vital Signs Vital signs: Vital Signs Temp Pulse Resp BP Pulse Ox 05/19/17 08:40 98.5 F 124 18 126/69 93 05/19/17 06:30 98.5 F 132 14 120/73 96 05/19/17 04:40 134 93 05/19/17 04:31 99.0 F 130 16 109/57 93 05/19/17 00:00 98.6 F 99 16 114/67 93 05/18/17 21:30 18 90 05/18/17 19:26 98.2 F 88 15 138/68 94 05/18/17 17:57 140/63 05/18/17 16:33 98.1 F 81 16 117/61 95 05/18/17 15:26 17 97 05/18/17 14:50 98.3 F 85 16 161/68 96 05/18/17 12:11 94 171/76 05/18/17 11:04 82 18 164/80 93 05/18/17 10:58 98.9 F 82 18 164/80 93 05/18/17 10:39 15 96 Intake and Output 05/18/17 05/19/17 05/19/17 23:59 07:59 15:59 Intake Total 460 / 460 0 / 0 Output Total 400 / 400 0 / 0 Balance 460 / 460 -400 / -400 0 / 0 Intake: IV Fluids 100 / 100 Zosyn 3.375 GM In 100 / 100 Dextrose 5% (Minibag+) 100 ML 100 ML @ 25 mls/hr IVPB Q12H [facility]STA Rx#: [id number] Oral 360 / 360 0 / 0 Output: Urine 0 / 0 Stool 400 / 400 Other: Meal Dinner Percent of Meal Consumed 80% # Voids 1 # Bowel Movements 0 Weight 51.2 kg Patient Weight 05/19/17 23:59 Weight 51.2 kg - General Appearance Exam: Patient is alert and oriented. She is in no acute distress. Lungs sounds otherwise clear. Heart irregular rate and rhythm. Abdomen is benign. Ostomy is present. There is no lower extremity swelling. She has a functioning AV access in the left upper extremity. - Lab 05/19/17 06:36 05/19/17 06:36 Most recent lab results Calcium 8.8 mg/dL (8.6-10.8) 05/19/17 06:36 Phosphorus 3.4 mg/dL (2.3-4.7) 05/19/17 06:36 Magnesium 1.7 mg/dL (1.6-2.6) 05/19/17 06:36 - VTE Documentation of Mechanical Device: Intermittent pneumatic compression device Consult Discharge Plan - Plan Referrals: Moisés Kelley MD [Partnered Physician] - NONE,PCP [Primary Care Provider] -
[2017-05-19] MEDS: Famotidine 20 MG TABLET PO SCH (09:43)
--- NOTE | 2017-05-19 11:09 | Cardiology Consult Note ---
Date of Encounter: 05/19/17 Time of Encounter: 11:07 Assessment and Plan (1) Atrial fibrillation with RVR Current Visit: Yes Status: Acute A-Fib RVR, new onset s/p bilateral ureteral stent placement. 12 hr tele AVG HR 120, A-Fib. Currently on Cardizem gtt at 5mg/hr and PO Lopressor 75mg BID. Recommend uptitrating cardizem gtt as BP allows to keep HR <100bpm. Increase Lopressor to 100mg BID. Stop PO scheduled hydralazine to allow BP room to increase AV kd blockers. K 4.5, Mag 1.7. Pt reports intermittent palpitations for years, but this is the first time A- Fib has been diagnosed. Echo EF 60-65%, moderate LVDD, severely dilated LA, mild , moderate MR, moderate phtn. Once HR is controlled on IV Cardizem, will transition to PO. CHADSVASC score 5 (CHF, Age, HTN, Female). Discussed NOACs and Coumadin. Pt reports falling once in the past 6 months and taking a "hard fall" one year ago. Pt declines full anticoagulation. She is aware she is at increased CVA risk and verbalizes understanding. Also reasonable given her age, falls risk and anemia--HGB fluctuates, but has been as low as 7 range with documented GI bleed hx. Recommend ASA 81mg daily. Continue to follow until rate controlled. (2) Volume overload Current Visit: Yes Status: Acute Fluid overload on exam--2+ BLE edema. CXR and CT show pleural effusions, CHF. Fluid overload suspected from combination of diastolic CHF, A-Fib RVR, and Stage IV CKD. Continue PO Lasix. Attempt to rate control her A-Fib. Nephrology following as well. Qualifiers: Hypervolemia type: unspecified Qualified Code(s): E87.70 - Fluid overload, unspecified Discussion w patient/family: The assessment and plan as outlined above was discussed with the patient and/or family members who expressed understanding and agreement. All questions were answered. Thank you for involving us in the care of your patient. Please call with any questions. I will discuss all the above with Dr. Андрей Mendez and make changes as necessary. History of Present Illness Consult date: 05/19/17 Requesting physician: Loulou Sifuentes Consult reason: AFib RVR History of present illness: Ms. Althouse is a 81 year old female with past medical history of chronic kidney disease stage V, diastolic CHF, COPD oxygen dependent using 2 L at home who presented complaining of abdominal pain 10 out of 10 in intensity started 3 days prior to admission. A CT scan of the abdomen was performed showing small- moderate bilateral pleural effusions. Found to have urethral calculi post op bilateral ureteral stent placement. In post op setting she has developed A-Fib with RVR, currently HR 120s on Cardizem gtt 5mg/hr. She denies any prior diagnosis of A-Fib, but reports she has had intermittent palpitations for years. She reports chest pain after meals that she attributes to indigestion. She denies exertional chest pain. CXR 05/16/17 showed worsening moderate pleural effusions, worsening pulmonary vascular congestion. Echo completed 05/14/17 revealed EF 60-65%, moderate LVDD, severely dilated LA, mild , moderate MR, moderate pHTN est RVSP 54mmHg. Pleura effusion noted. Past Med Surg Social Fam HX - Past Medical History Medical history: arthritis, cancer, CHF, COPD, GERD, GI bleed, hypertension, osteoporosis, renal disease, other Psychiatric history: anxiety, depression, other - Past Surgical History Surgical History: appendectomy, , cholecystectomy, colectomy, colostomy , hysterectomy, BLAKE/BSO, other - Social History Smoking Status: Never smoker Smokeless Tobacco Status: No Alcohol use: none Drug use: none - Family History Mother History Unknown: Yes Adopted: No Family Member Ethnicity: Non- Living Status: Hx Family Cardiac Disorders: Yes Father History Unknown: Yes Hx Family Respiratory Disorders: Yes (Asthma) Hx Family GI Disorders: Yes (Ulcers) Medications and Allergies Amlodipine [Norvasc] 5 mg PO DAILY 05/20/15 [History] Furosemide [Lasix] 20 mg PO DAILY 05/20/15 [History] Gabapentin [Neurontin] 300 mg PO QAM 05/20/15 [History] Metoprolol [Lopressor] 50 mg PO BID 05/20/15 [History] Sodium Bicarbonate 1,950 mg PO BID 05/20/15 [History] Darbepoetin [Aranesp] 150 mcg IJ Q2W 05/24/16 [History] HYDROcodone/Acet 10/325 mg [[place] 10-325 mg] 1 tab PO Q4HR PRN 05/26/16 [History ] Calcitriol 0.5 mcg PO DAILY 05/27/16 [History] Cholecalciferol (D-3) [Vitamin D] 1,000 unit PO DAILY 05/27/16 [History] Cyanocobalamin (B-12) [Vitamin B12] 1,000 mcg SQ QWEEK 05/27/16 [History] Famotidine [Heartburn Prevention] 20 mg PO DAILY 05/27/16 [History] Gabapentin [Neurontin] 600 mg PO HS 05/27/16 [History] Glucosamn/Condroitn/C/Mn/Ennice [Cvs Glucosamine Chondroitin Tb] 1 tab PO DAILY 05/27/16 [History] Multivit,Th Iron,Other Min [Therems-M] 1 tab PO DAILY 05/27/16 [History] Vitamin E (Dl,Tocopheryl Acet) [Vitamin E] 400 unit PO DAILY 05/27/16 [History] 3 Allergy/AdvReac Type Severity Reaction Status Date / Time codeine Allergy Rash Verified 05/20/15 09:28 fluoxetine [From Prozac] Allergy Rash Verified 05/20/15 09:28 haloperidol [From Haldol] Allergy See Verified 05/20/15 09:28 Comments nalbuphine [From Nubain] Allergy Rash Verified 05/20/15 09:28 Sulfa (Sulfonamide Allergy Rash Verified 05/20/15 09:28 Antibiotics) All Systems Review: A 10-system review of systems was performed and is negative for pertinent findings except as documented above in the HPI. - Cardiovascular Cardiovascular: as per HPI, chest pain at rest Physical Examination Vital Signs, Last 4 Hours Temp Pulse Resp BP Pulse Ox 05/19/17 10:47 18 98 05/19/17 10:33 98.5 F 119 18 130/78 98 05/19/17 08:40 98.5 F 124 18 126/69 93 Vital Signs Temp Pulse Resp BP Pulse Ox 05/19/17 10:47 18 98 05/19/17 10:33 98.5 F 119 18 130/78 98 05/19/17 08:40 98.5 F 124 18 126/69 93 05/19/17 06:30 98.5 F 132 14 120/73 96 05/19/17 04:40 134 93 05/19/17 04:31 99.0 F 130 16 109/57 93 05/19/17 00:00 98.6 F 99 16 114/67 93 05/18/17 21:30 18 90 05/18/17 19:26 98.2 F 88 15 138/68 94 05/18/17 17:57 140/63 05/18/17 16:33 98.1 F 81 16 117/61 95 05/18/17 15:26 17 97 05/18/17 14:50 98.3 F 85 16 161/68 96 05/18/17 12:11 94 171/76 Intake and Output 05/18/17 05/19/17 05/19/17 23:59 07:59 15:59 Intake Total 460 / 460 0 / 0 0 / 0 Output Total 400 / 400 0 / 0 Balance 460 / 460 -400 / -400 0 / 0 Intake: IV Fluids 100 / 100 0 / 0 Cardizem 125 MG In 0 / 0 Dextrose 5% 100 ML @ 5 MG /HR 5 mls/hr IVC .Q24H [facility] Rx#:[id number] Zosyn 3.375 GM In 100 / 100 Dextrose 5% (Minibag+) 100 ML 100 ML @ 25 mls/hr IVPB Q12H [facility] Rx#: [id number] Oral 360 / 360 0 / 0 Output: Urine 0 / 0 Stool 400 / 400 0 / 0 Other: Meal Dinner Percent of Meal Consumed 80% # Voids 1 # Bowel Movements 0 Weight 51.2 kg Patient Weight 05/19/17 23:59 Weight 51.2 kg General: Conversant, No Apparent Distress HEENT: Atraumatic, Normocephaly, Mucus Membranes Moist Neck: Normal carotid pulses Cardiac: Other (irregularly irregular) Lungs: Other (diminished) Neuro: Alert and responsive Abdomen: Soft, Non-Tender Skin: No rashes noted on visualized skin Musculoskeletal: No Chest Wall Tenderness Extremities: Other (2+ BLE edema) Results 05/19/17 06:36 05/19/17 06:36 Lab Results 05/19/17 05/19/17 06:36 06:36 WBC 12.6 H Hgb 9.0 L Hct 28.6 L Plt Count 294 Sodium 137 Potassium 4.5 Chloride 106 Carbon Dioxide 21 BUN 35 H Creatinine 3.13 H Glucose 119 H Calcium 8.8 Magnesium 1.7 Short CBC 09/13/17 Range/Units 06:36 WBC 12.6 H (4.3-11.1) K/mcL Hgb 9.0 L (11.5-15.4) g/dL Hct 28.6 L (35.3-44.9) % Plt Count 294 (140-400) K/mcL Neutrophils # 8.8 (1.6-8.9) K/mcL BMP 05/19/17 Range/Units 06:36 Sodium 137 (136-145) mEq/L Potassium 4.5 (3.5-4.5) mEq/L Chloride 106 (98-109) mEq/L Carbon Dioxide 21 (19-29) mEq/L BUN 35 H (7-20) mg/dL Creatinine 3.13 H (0.57-1.11) mg/dL Glucose 119 H (70-99) mg/dL Calcium 8.8 (8.6-10.8) mg/dL Active Medications Acetaminophen (Tylenol) 650 mg PO Q6HR PRN PRN Reason: Mild Pain (1-3) Stop: 11/13/17 10:25 Last Admin: 05/14/17 20:41 Dose: 650 mg Hydrocodone Bitart/Acetaminophen ([place] 10-325 Mg) 1 each PO Q4HR PRN PRN Reason: Moderate Pain Stop: 11/15/17 15:29 Last Admin: 05/19/17 11:02 Dose: 1 each Albuterol/Ipratropium (Duoneb) 3 ml IH [id number] [facility]STA PRN Reason: Protocol Stop: 11/15/17 16:01 Last Admin: 05/19/17 10:47 Dose: 3 ml Calcitriol (Rocaltrol) 0.5 mcg PO DAILY [facility] Stop: 11/15/17 15:31 Last Admin: 05/19/17 08:21 Dose: 0.5 mcg Famotidine (Pepcid) 20 mg PO DAILY [facility]STA PRN Reason: Protocol Stop: 11/15/17 15:31 Last Admin: 05/19/17 09:43 Dose: 20 mg Furosemide (Lasix) 40 mg PO QPM [facility] Stop: 11/16/17 17:01 Last Admin: 05/18/17 17:59 Dose: 40 mg Gabapentin (Neurontin) 300 mg PO HS [facility]STA Stop: 11/15/17 21:01 Last Admin: 05/18/17 21:23 Dose: 300 mg Hydralazine HCl (Hydralazine) 25 mg PO Q8HR [facility] Stop: 11/17/17 09:01 Last Admin: 05/19/17 09:43 Dose: 25 mg Hydralazine HCl (Hydralazine) 10 mg IVP Q6HR PRN PRN Reason: SBP>160 Stop: 11/16/17 04:37 Last Admin: 05/18/17 12:16 Dose: 10 mg Hydromorphone HCl (Dilaudid) 1 mg IVP Q4H PRN PRN Reason: Severe Pain (7-10) Stop: 11/13/17 18:33 Piperacillin Sod/Tazobactam (Sod 3.375 gm/ Dextrose) 100 mls @ 25 mls/hr IVPB Q12H [facility] Stop: 11/17/17 12:01 Last Admin: 05/19/17 01:34 Dose: 25 mls/hr Diltiazem HCl 125 mg/ Dextrose 125 mls @ 5 mls/hr IVC .Q24H KRISTA; 5 MG/HR PRN Reason: Protocol Stop: 11/18/17 07:01 Last Titration: 05/19/17 11:05 Dose: 7.5 mg/hr, 7.5 mls/hr Metoprolol Tartrate (Lopressor) 75 mg PO BID [facility] Stop: 11/18/17 21:01 Naloxone HCl (Narcan) 0.4 mg IVP Q2MIN PRN PRN Reason: Opioid Reversal Stop: 11/13/17 10:25 Ondansetron HCl (Zofran) 4 mg IVP Q8HR PRN PRN Reason: Nausea And Vomiting Stop: 11/13/17 10:25 Sodium Bicarbonate (Sodium Bicarbonate) 1,950 mg PO BID [facility] Stop: 11/15/17 21:01 Last Admin: 05/19/17 08:20 Dose: 1,950 mg Vitamin D (Vitamin D) 1,000 unit PO DAILY [facility] Stop: 11/16/17 09:01 Last Admin: 05/19/17 08:21 Dose: 1,000 unit - Imaging and Cardiology Echo: report reviewed - EKG Interpretation EKG results cardiology: personally reviewed (A-Fib RVR), other (12 hr tele AVG HR 120, A-Fib.) Consult Discharge Plan - Plan Referrals: Moisés Kelley MD [Partnered Physician] - NONE,PCP [Primary Care Provider] -
--- NOTE | 2017-05-19 13:23 | Internal Med Progress Note ---
Date of Encounter: 05/19/17 Time of Encounter: 08:30 - Assessment and plan (1) New onset a-fib Current Visit: Yes Status: Acute Assessment and plan: Cardiology input appreciated continue cardizem gtt to titrate HR<100 increased BB dose tele monitoring pt refused anticoagulation ASA 81mg PO qdaily for CVA ppx (2) Hydronephrosis due to obstruction of ureter Current Visit: Yes Status: Acute Assessment and plan: s/p ureter stents urology on board and consultation appreciated continue zosyn, will abx for a total of 10 days. (3) Ureteral calculi Current Visit: Yes Status: Acute Assessment and plan: out pt f/u for lithotripsy (4) Electrolyte abnormality Current Visit: Yes Status: Acute (5) Anemia in chronic kidney disease (CKD) Current Visit: No Status: Acute Assessment and plan: H&H low but acceptable s/p PRBC transfusion on 05/16/17 will continue to closely monitor and transfuse as needed Qualifiers: Chronic kidney disease stage: stage 5, not on chronic dialysis Qualified Code(s): N18.5 - Chronic kidney disease, stage 5; D63.1 - Anemia in chronic kidney disease (6) Diastolic CHF, chronic Current Visit: Yes Status: Chronic Assessment and plan: Reviewed 2 D Echo showed -moderate diastolic dysfunction Not in exacerbation cont BB continue home dose of lasix (7) Hypertension Current Visit: No Status: Chronic Assessment and plan: BP better controlled however given new onset Afib, patient started on Diltiazem gtt d/c nifedipine Hydralazine discontinued by cardiology given current BP readings increased Metoprolol to 100mg PO BID will closely monitor BP Qualifiers: Hypertension type: renovascular hypertension Qualified Code(s): I15.0 - Renovascular hypertension (8) Kidney disease, chronic, stage V (end stage, EGFR < 15 ml/min) Current Visit: No Status: Chronic Assessment and plan: renal function at baseline nephrology on board and consultation appreciated aggressive BP control (9) DVT prophylaxis Current Visit: Yes Status: Acute Assessment and plan: IPCD - Subjective Interval history: Patient seen and examined at bedside. Resting in bed and denies any discomfort at this time. Noted to have Afib with RVR earlier this morning and was started on cardizem gtt. Patient's BB was also increased to 75mg PO BID initially and as per cardiology recommendation, it was further increased to 100mg PO BID. Her rate is better controlled on cardizem gtt. - Constitutional Vitals: Temp Pulse Resp BP Pulse Ox 98.8 F 84 20 119/74 99 05/19/17 12:29 05/19/17 12:29 05/19/17 12:29 05/19/17 12:29 05/19/17 12:29 General appearance: Present: A&O X 3, no acute distress, answers questions appropriately - Head Head exam: Present: atraumatic, normocephalic - Eye Eye exam: Present: conjuntiva pink, sclera anicteric - Respiratory Respiratory exam: Absent: respiratory distress, wheezes - Cardiovascular Cardiovascular exam: Present: irregular rhythm, +S1, +S2. Absent: clicks, diastolic murmur, systolic murmur - GI/Abdominal GI/Abdominal exam: Present: normal bowel sounds, soft, no peritoneal signs. Absent: distended, tenderness - Extremities Exam Extremities exam: Present: warm, radial pulses palpable and symmetrical. Absent : calf tenderness - Neurological Exam Neurological exam: Present: alert, oriented X3 Internal Medicine: Result - Labs CBC & Chem 7: 05/19/17 06:36 05/19/17 06:36 Labs: Short CBC 05/19/17 Range/Units 06:36 WBC 12.6 H (4.3-11.1) K/mcL Hgb 9.0 L (11.5-15.4) g/dL Hct 28.6 L (35.3-44.9) % Plt Count 294 (140-400) K/mcL Neutrophils # 8.8 (1.6-8.9) K/mcL BMP 05/19/17 06:36 Sodium 137 Potassium 4.5 Chloride 106 Carbon Dioxide 21 BUN 35 H Creatinine 3.13 H Glucose 119 H Calcium 8.8 - VTE Documentation of Mechanical Device: Intermittent pneumatic compression device Consult Discharge Plan - Plan Referrals: Moisés Kelley MD [Partnered Physician] - NONE,PCP [Primary Care Provider] -
--- NOTE | 2017-05-19 16:11 | Electrocardiograph Report ---
[place] [address] Test Date: 2017-05-19 Pat Name: Cindy Arciniega Department: 115 Room: 3A23 Gender: F Edge Sawyer: [id number] : 1935 Requested By: Loulou Sifuentes Order Number: [id number] Reading MD: Carson Jolley MD Measurements Intervals [place] Rate: 120 P: [place]: 0 QRS: -1 QRSD: 82 T: 30 QT: 299 QTc: 370 Interpretive Statements ATRIAL FIBRILLATION WITH RAPID VENTRICULAR RESPONSE Electronically Signed On 05-19-2017 16:09:57 EDT by Carson Jolley MD
[2017-05-19] MEDS: Furosemide 40 MG TABLET PO SCH (17:00)
[2017-05-19] MEDS: Gabapentin 300 MG CAPSULE PO SCH (20:18)
[2017-05-20] MEDS: Piperacillin/Tazobactam 3.375 GM in D5% in Water (Mini-Bag+) 100 ML IVPB SCH ×3 (00:35→23:31)
[2017-05-20] MEDS ORDERED: 0.9 % Sodium Chloride 250 ML ONE (03:36)
[2017-05-20] MEDS: *HR* HYDROcodone/Acet 10/325 mg TABLET PO PRN ×4 (03:44→19:38)
[2017-05-20] MEDS: Ipratropium/Albuterol Neb 3 ML IH SCH ×4 (03:57→22:28)
[2017-05-20 04:40] LABS: Basophils # 0.1 K/mcL (0.0-0.2); Basophils % 0.4 %; Eosinophils # 0.7 K/mcL (0.0-0.6); Eosinophils % 6.5 %; Hematocrit 27.7 % (35.3-44.9); Hemoglobin 8.6 g/dL (11.5-15.4); Immature Granulocytes % 1.2 % (0-4); Immature Platelets 3.7 % (1.1-6.1); Lymphocytes # 2.4 K/mcL (0.6-4.6); Mean Corpuscular Hemoglobin 29.4 pg (28.0-33.3); Mean Corpuscular Volume 94.5 fL (83.0-100.0); Mean Platelet Volume 11.3 fL (9.4-12.4); Monocytes # 1.5 K/mcL (0.0-1.3); Monocytes % 13.2 %; Neutrophils # 6.6 K/mcL (1.6-8.9); Platelet Count 326 K/mcL (140-400); Red Blood Count 2.93 M/mcL (3.82-4.97); Red Cell Distribution Width 19.8 % (11.5-14.5); Segmented Neutrophils % 57.7 %
[2017-05-20 05:44] LABS: Anisocytosis 1+ (Not Present); Ovalocytes 1+ (Not Present); Platelet Estimate Normal (Normal); Poikilocytosis 1+ (Not Present)
[2017-05-20 06:01] LABS: Calcium 8.7 mg/dL (8.6-10.8); Magnesium 1.8 mg/dL (1.6-2.6); Phosphorous 3.8 mg/dL (2.3-4.7); Potassium 4.1 mEq/L (3.5-4.5)
[2017-05-20] MEDS: Famotidine 20 MG TABLET PO SCH (08:32)
[2017-05-20] MEDS: Cholecalciferol (D-3) 1,000 UNIT TABLET PO SCH (08:33)
[2017-05-20] MEDS ORDERED: Diltiazem CD (24hr) 120 MG CAPSULE PO SCH (09:00)
--- NOTE | 2017-05-20 09:37 | Nephrology Progress Note ---
Date of Encounter: 05/20/17 Time of Encounter: 09:05 - Assessment and Plan (1) RADHA (acute kidney injury) Current Visit: Yes Status: Acute Renal fct worse today, most likely in yesterdays setting of lower blood pressure and RVR. BP improved today 131/77. AR 98. Has AVG available but do not feel needs to start HD as yet. Will follow. Subjective Interval history: Sitting up in bed, eating breakfast. States had some abdominal discomfort this morning and was medicated for it. Objective - Vital Signs Vital signs: Vital Signs Temp Pulse Resp BP Pulse Ox 05/20/17 06:59 98.2 F 107 17 131/77 97 05/20/17 05:40 98.1 F 98 17 120/73 95 05/20/17 03:57 16 95 05/20/17 03:30 98.0 F 90 18 132/71 93 05/20/17 00:27 74 14 110/54 94 05/20/17 00:10 98.3 F 80 14 107/55 94 05/19/17 23:42 98.6 F 95 16 120/65 94 05/19/17 22:15 16 93 05/19/17 18:52 98.8 F 100 16 120/64 95 05/19/17 16:41 99.7 F H 109 14 146/77 97 05/19/17 14:51 98.1 F 94 12 113/65 97 05/19/17 12:29 98.8 F 84 20 119/74 99 05/19/17 11:05 125 117/74 05/19/17 10:47 18 98 05/19/17 10:33 98.5 F 119 18 130/78 98 Intake and Output 05/19/17 05/20/17 05/20/17 23:59 07:59 15:59 Intake Total 340 / 340 525 / 525 Output Total 500 / 500 200 / 200 450 / 450 Balance -160 / -160 325 / 325 -450 / -450 Intake: IV Fluids 100 / 100 225 / 225 Cardizem 125 MG In 125 / 125 Dextrose 5% 100 ML @ 5 MG /HR 5 mls/hr IVC .Q24H [facility] Rx#:[id number] Zosyn 3.375 GM In 100 / 100 100 / 100 Dextrose 5% (Minibag+) 100 ML 100 ML @ 25 mls/hr IVPB Q12H [facility] Rx#: [id number] Oral 240 / 240 300 / 300 Output: Urine 400 / 400 0 / 0 150 / 150 Stool 100 / 100 200 / 200 300 / 300 Other: Meal Dinner Breakfast Percent of Meal Consumed 100% 100% # Voids 1 - General Appearance General appearance: Present: appears started age, frail EENT: Present: mucous membranes moist Neck: Present: no JVD Respiratory: Present: clear Cardiology: Present: edema, irregular rhythm Additional Comments: pedal Gastrointestinal: Present: normoactive bowel sounds, no tenderness Integumentary: Present: warm and dry Neurologic: Present: alert and oriented x3 Psychiatric: Present: mood/affect appropriate, cooperative - Lab 05/20/17 03:39 05/20/17 03:39 Most recent lab results Calcium 8.7 mg/dL (8.6-10.8) 05/20/17 03:39 Phosphorus 3.8 mg/dL (2.3-4.7) 05/20/17 03:39 Magnesium 1.8 mg/dL (1.6-2.6) 05/20/17 03:39 - VTE Documentation of Mechanical Device: Intermittent pneumatic compression device Consult Discharge Plan - Plan Referrals: Moisés Kelley MD [Partnered Physician] - NONE,PCP [Primary Care Provider] -
--- NOTE | 2017-05-20 10:45 | Cardiology Progress Note ---
Date of Encounter: 05/20/17 Time of Encounter: 10:30 Assessment and Plan (1) Atrial fibrillation with RVR Current Visit: Yes Status: Acute A-Fib RVR, new onset s/p bilateral ureteral stent placement. 12 hr tele AVG 85, no significant event noted. Will transition to oral cardizem- -120 CD daily. Stop IV gtt 1-2 hours after oral dose. Continue lopressor 100 mg BID Stop PO scheduled hydralazine to allow BP room to increase AV kd blockers. K 4.5, Mag 1.7. Pt reports intermittent palpitations for years, but this is the first time A- Fib has been diagnosed. Echo EF 60-65%, moderate LVDD, severely dilated LA, mild , moderate MR, moderate phtn. CHADSVASC score 5 (CHF, Age, HTN, Female). Discussed NOACs and Coumadin. Pt reports falling once in the past 6 months and taking a "hard fall" one year ago. Pt continues to decline full anticoagulation. She is aware she is at increased CVA risk and verbalizes understanding. Also reasonable given her age, falls risk and anemia--HGB fluctuates, but has been as low as 7 range with documented GI bleed hx. Recommend ASA 81mg daily. Cardiology will sign-off, will coordinate appt in the outpatient setting. (2) Volume overload Current Visit: Yes Status: Acute Fluid overload improved--1+ BLE edema. CXR and CT show pleural effusions, CHF. Fluid overload suspected from combination of diastolic CHF, A-Fib RVR, and Stage IV CKD. Kidney function continues to decline; Nephrology following, will defer further diuresis recommendations. Cumulative I&O: -4341 mL Qualifiers: Hypervolemia type: unspecified Qualified Code(s): E87.70 - Fluid overload, unspecified Discussion w patient/family: The assessment and plan as outlined above was discussed with the patient and/or family members who expressed understanding and agreement. All questions were answered. Thank you for involving us in the care of your patient. Please call with any questions. The patient was discussed and reviewed with Dr. Андрей Mendez; Cardiology will sign-off, please call with questions. Subjective Principal diagnosis: Afib Interval history: Seen and examined. Reports palpitations, shortness of breath and LE edema are improved. No events overnight. Continues to decline full AC. Objective Vital Signs, Last 4 Hours Temp Pulse Resp BP Pulse Ox 05/20/17 06:59 98.2 F 107 17 131/77 97 General: Conversant, Other (thin/frail) HEENT: Atraumatic, Normocephaly Cardiac: Other (irregularly irregular) Lungs: Normal Breath Sounds Neuro: Alert and responsive Abdomen: Soft Extremities: Other (+1 BLE edema) Results 05/20/17 03:39 05/20/17 03:39 Lab Results 05/20/17 05/20/17 03:39 03:39 WBC 11.4 H Hgb 8.6 L Hct 27.7 L Plt Count 326 Sodium 137 Potassium 4.1 Chloride 104 Carbon Dioxide 24 BUN 40 H Creatinine 3.60 H Glucose 112 H Calcium 8.7 Magnesium 1.8 Active Medications Acetaminophen (Tylenol) 650 mg PO Q6HR PRN PRN Reason: Mild Pain (1-3) Stop: 11/13/17 10:25 Last Admin: 05/14/17 20:41 Dose: 650 mg Hydrocodone Bitart/Acetaminophen ([place] 10-325 Mg) 1 each PO Q4HR PRN PRN Reason: Moderate Pain Stop: 11/15/17 15:29 Last Admin: 05/20/17 08:33 Dose: 1 each Albuterol/Ipratropium (Duoneb) 3 ml IH [id number] [facility] PRN Reason: Protocol Stop: 11/15/17 16:01 Last Admin: 05/20/17 10:03 Dose: 3 ml Aspirin (Aspirin Ec) 81 mg PO DAILY [facility] Stop: 11/19/17 10:46 Calcitriol (Rocaltrol) 0.5 mcg PO DAILY [facility] Stop: 11/15/17 15:31 Last Admin: 05/20/17 08:32 Dose: 0.5 mcg Diltiazem HCl (Cardizem Cd) 120 mg PO DAILY [facility] Stop: 11/19/17 09:01 Last Admin: 05/20/17 08:34 Dose: 120 mg Famotidine (Pepcid) 20 mg PO DAILY [facility] PRN Reason: Protocol Stop: 11/15/17 15:31 Last Admin: 05/20/17 08:32 Dose: 20 mg Furosemide (Lasix) 40 mg PO QPM [facility] Stop: 11/16/17 17:01 Last Admin: 05/19/17 17:00 Dose: 40 mg Gabapentin (Neurontin) 300 mg PO HS [facility] Stop: 11/15/17 21:01 Last Admin: 05/19/17 20:18 Dose: 300 mg Hydralazine HCl (Hydralazine) 10 mg IVP Q6HR PRN PRN Reason: SBP>160 Stop: 11/16/17 04:37 Last Admin: 05/18/17 12:16 Dose: 10 mg Hydromorphone HCl (Dilaudid) 1 mg IVP Q4H PRN PRN Reason: Severe Pain (7-10) Stop: 11/13/17 18:33 Piperacillin Sod/Tazobactam (Sod 3.375 gm/ Dextrose) 100 mls @ 25 mls/hr IVPB Q12H [facility] Stop: 11/17/17 12:01 Last Infusion: 05/20/17 04:42 Dose: Infused Metoprolol Tartrate (Lopressor) 100 mg PO BID [facility] Stop: 11/18/17 21:01 Last Admin: 05/20/17 08:33 Dose: 100 mg Naloxone HCl (Narcan) 0.4 mg IVP Q2MIN PRN PRN Reason: Opioid Reversal Stop: 11/13/17 10:25 Ondansetron HCl (Zofran) 4 mg IVP Q8HR PRN PRN Reason: Nausea And Vomiting Stop: 11/13/17 10:25 Sodium Bicarbonate (Sodium Bicarbonate) 1,950 mg PO BID [facility] Stop: 11/15/17 21:01 Last Admin: 05/20/17 08:32 Dose: 1,950 mg Vitamin D (Vitamin D) 1,000 unit PO DAILY [facility] Stop: 11/16/17 09:01 Last Admin: 05/20/17 08:33 Dose: 1,000 unit - Imaging and Cardiology Echo: report reviewed Other Results: 12 hour tele: avg HR=85 afib. - EKG Interpretation EKG results cardiology: personally reviewed - VTE Documentation of Mechanical Device: Intermittent pneumatic compression device Consult Discharge Plan - Plan Referrals: Moisés Kelley MD [Partnered Physician] - NONE,PCP [Primary Care Provider] -
[2017-05-20] MEDS: Aspirin Enteric Coated 81 MG Tablet PO SCH (12:29)
--- NOTE | 2017-05-20 15:14 | Internal Med Progress Note ---
Date of Encounter: 05/20/17 Time of Encounter: 15:12 - Assessment and plan (1) New onset a-fib Current Visit: Yes Status: Acute Assessment and plan: Cardiology input appreciated Started PO cardizem continue BB tele monitoring pt refused anticoagulation ASA 81mg PO qdaily for CVA ppx (2) Hydronephrosis due to obstruction of ureter Current Visit: Yes Status: Acute Assessment and plan: s/p ureter stents urology on board and consultation appreciated continue zosyn, will continue abx for a total of 10 days. (3) Ureteral calculi Current Visit: Yes Status: Acute Assessment and plan: out pt f/u for lithotripsy (4) Electrolyte abnormality Current Visit: Yes Status: Resolved Assessment and plan: Resolved continue to monitor electrolytes and replace as needed (5) Anemia in chronic kidney disease (CKD) Current Visit: No Status: Acute Assessment and plan: H&H low but acceptable s/p PRBC transfusion on 05/16/17 will continue to closely monitor and transfuse as needed Qualifiers: Chronic kidney disease stage: stage 5, not on chronic dialysis Qualified Code(s): N18.5 - Chronic kidney disease, stage 5; D63.1 - Anemia in chronic kidney disease (6) Diastolic CHF, chronic Current Visit: Yes Status: Chronic Assessment and plan: Reviewed 2 D Echo showed -moderate diastolic dysfunction Not in exacerbation cont BB continue home dose of lasix (7) Hypertension Current Visit: No Status: Chronic Assessment and plan: BP better controlled however given new onset Afib Metoprolol to 100mg PO BID will closely monitor BP Qualifiers: Hypertension type: renovascular hypertension Qualified Code(s): I15.0 - Renovascular hypertension (8) Kidney disease, chronic, stage V (end stage, EGFR < 15 ml/min) Current Visit: No Status: Chronic Assessment and plan: renal function at baseline nephrology on board and consultation appreciated aggressive BP control (9) DVT prophylaxis Current Visit: Yes Status: Acute Assessment and plan: IPCD - Subjective Interval history: Patient seen and examined at bedside. Resting in bed and reports of feeling better compared to previous day. Rate better controlled, titrated off cardizem gtt and started Cardizem 120mg PO qd. No overnight issues reported. PT evaluation recommended SNF however patient adamantly refuses to go to ECF facility. She states she has home health and her son lives in the apartment above her. She denies any discomfort at this time. Likely d/c in am, will monitor HR on PO cardizem - Constitutional Vitals: Temp Pulse Resp BP Pulse Ox 98.5 F 97 14 132/80 94 05/20/17 14:16 05/20/17 14:16 05/20/17 14:16 05/20/17 14:16 05/20/17 14:16 General appearance: Present: A&O X 3, no acute distress, answers questions appropriately - Head Head exam: Present: atraumatic, normocephalic - Eye Eye exam: Present: conjuntiva pink, sclera anicteric - Respiratory Respiratory exam: Absent: respiratory distress, wheezes - Cardiovascular Cardiovascular exam: Present: irregular rhythm, +S1, +S2 - GI/Abdominal GI/Abdominal exam: Present: normal bowel sounds, soft, no peritoneal signs. Absent: distended, tenderness - Extremities Exam Extremities exam: Present: warm, radial pulses palpable and symmetrical. Absent : calf tenderness - Neurological Exam Neurological exam: Present: alert, oriented X3 - Psychiatric Psychiatric exam: Present: normal affect, normal mood Internal Medicine: Result - Labs CBC & Chem 7: 05/20/17 03:39 05/20/17 03:39 Labs: Short CBC 05/20/17 Range/Units 03:39 WBC 11.4 H (4.3-11.1) K/mcL Hgb 8.6 L (11.5-15.4) g/dL Hct 27.7 L (35.3-44.9) % Plt Count 326 (140-400) K/mcL Neutrophils # 6.6 (1.6-8.9) K/mcL BMP 05/20/17 03:39 Sodium 137 Potassium 4.1 Chloride 104 Carbon Dioxide 24 BUN 40 H Creatinine 3.60 H Glucose 112 H Calcium 8.7 - VTE Documentation of Mechanical Device: Intermittent pneumatic compression device Consult Discharge Plan - Plan Referrals: Moisés Kelley MD [Partnered Physician] - NONE,PCP [Primary Care Provider] -
[2017-05-20] MEDS: Furosemide 40 MG TABLET PO SCH (17:44)
[2017-05-20] MEDS: Gabapentin 300 MG CAPSULE PO SCH (20:40)
[2017-05-21] MEDS: *HR* HYDROcodone/Acet 10/325 mg TABLET PO PRN ×3 (00:58→15:44)
[2017-05-21 04:01] LABS: Calcium 8.7 mg/dL (8.6-10.8); Magnesium 1.6 mg/dL (1.6-2.6); Phosphorous 4.2 mg/dL (2.3-4.7); Potassium 4.5 mEq/L (3.5-4.5)
[2017-05-21 04:13] LABS: Basophils % 0.4 %; Eosinophils # 0.7 K/mcL (0.0-0.6); Eosinophils % 7.3 %; Hematocrit 27.8 % (35.3-44.9); Hemoglobin 8.2 g/dL (11.5-15.4); Immature Granulocytes % 1.2 % (0-4); Lymphocytes # 1.9 K/mcL (0.6-4.6); Lymphocytes % 20.4 %; Mean Corpuscular HGB Conc 29.5 g/dL (31.6-35.5); Mean Corpuscular Hemoglobin 28.6 pg (28.0-33.3); Mean Corpuscular Volume 96.9 fL (83.0-100.0); Monocytes # 1.5 K/mcL (0.0-1.3); Monocytes % 15.6 %; Neutrophils # 5.2 K/mcL (1.6-8.9); Platelet Count 314 K/mcL (140-400); Red Blood Count 2.87 M/mcL (3.82-4.97); Red Cell Distribution Width 19.9 % (11.5-14.5); Segmented Neutrophils % 55.1 %
[2017-05-21] MEDS: Ipratropium/Albuterol Neb 3 ML IH SCH ×2 (05:47→10:49)
[2017-05-21] MEDS ORDERED: Diltiazem CD (24hr) 180 MG CAPSULE PO SCH (08:01)
[2017-05-21] MEDS: Aspirin Enteric Coated 81 MG Tablet PO SCH (08:05)
[2017-05-21] MEDS: Cholecalciferol (D-3) 1,000 UNIT TABLET PO SCH (08:05)
[2017-05-21] MEDS: Famotidine 20 MG TABLET PO SCH (08:05)
--- NOTE | 2017-05-21 10:11 | Nephrology Progress Note ---
Date of Encounter: 05/21/17 Time of Encounter: 09:45 - Assessment and Plan (1) RADHA (acute kidney injury) Current Visit: Yes Status: Acute Renal fct worse today, most likely in setting of two days ago lower blood pressure and RVR. Has AVG available but do not feel needs to start HD as yet. Will follow. Subjective Principal diagnosis: Afib Interval history: Sitting up in bed. Denies any further abdominal discomfort . Objective - Vital Signs Vital signs: Vital Signs Temp Pulse Resp BP Pulse Ox 05/21/17 07:39 97.9 F 110 16 153/82 100 05/21/17 04:05 98.0 F 100 16 135/77 94 05/21/17 00:13 98.2 F 100 16 147/73 97 05/20/17 22:28 15 98 05/20/17 22:18 98.5 F 100 16 98/63 96 05/20/17 20:09 99.0 F 111 14 134/79 97 05/20/17 19:10 98.8 F 131 16 127/69 97 05/20/17 15:51 16 96 05/20/17 14:16 98.5 F 97 14 132/80 94 05/20/17 10:50 98.0 F 69 14 113/56 93 Intake and Output 05/20/17 05/21/17 05/21/17 23:59 07:59 15:59 Intake Total 340 / 340 100 / 100 480 / 480 Output Total 925 / 925 600 / 600 375 / 375 Balance -585 / -585 -500 / -500 105 / 105 Intake: IV Fluids 100 / 100 100 / 100 Zosyn 3.375 GM In 100 / 100 100 / 100 Dextrose 5% (Minibag+) 100 ML 100 ML @ 25 mls/hr IVPB Q12H [facility] Rx#: [id number] Oral 240 / 240 480 / 480 Output: Urine 100 / 100 400 / 400 Stool 825 / 825 200 / 200 375 / 375 Other: Meal Dinner Breakfast Percent of Meal Consumed 100% 100% Stool Consistency liquid liquid Stool Characteristics Normal for Patient Normal for Patient Stool Color Brown Brown Yellow Yellow Weight 47.8 kg Patient Weight 05/21/17 23:59 Weight 47.8 kg - General Appearance General appearance: Present: appears started age, frail EENT: Present: mucous membranes moist Neck: Present: no JVD Respiratory: Present: clear Cardiology: Present: no edema, irregular rhythm Gastrointestinal: Present: normoactive bowel sounds, no tenderness Integumentary: Present: warm and dry Neurologic: Present: alert and oriented x3 Psychiatric: Present: mood/affect appropriate, cooperative - Lab 05/21/17 03:24 05/21/17 03:24 Most recent lab results Calcium 8.7 mg/dL (8.6-10.8) 05/21/17 03:24 Phosphorus 4.2 mg/dL (2.3-4.7) 05/21/17 03:24 Magnesium 1.6 mg/dL (1.6-2.6) 05/21/17 03:24 - VTE Documentation of Mechanical Device: Intermittent pneumatic compression device Consult Discharge Plan - Plan Referrals: Moisés Kelley MD [Partnered Physician] - NONE,PCP [Primary Care Provider] -
[2017-05-21] MEDS ORDERED: Diltiazem CD (24hr) 180 MG CAPSULE PO STA (10:12)
[2017-05-21] MEDS: Piperacillin/Tazobactam 3.375 GM in D5% in Water (Mini-Bag+) 100 ML IVPB SCH (10:38)
[2017-05-21] MEDS ORDERED: Ipratropium/Albuterol Neb 3 ML IH PRN (11:15)
--- NOTE | 2017-05-21 13:58 | Internal Med Progress Note ---
Date of Encounter: 05/21/17 Time of Encounter: 13:56 - Assessment and plan (1) New onset a-fib Current Visit: Yes Status: Acute Assessment and plan: Cardiology input appreciated Increased Cardizem to 360mg PO qd continue BB tele monitoring pt refused anticoagulation ASA 81mg PO qdaily for CVA ppx (2) Hydronephrosis due to obstruction of ureter Current Visit: Yes Status: Acute Assessment and plan: s/p ureter stents urology on board and consultation appreciated d/c zosyn, started Ciprofloxacin PO, will treat for a total of ten days (day ) (3) Ureteral calculi Current Visit: Yes Status: Acute Assessment and plan: out pt f/u for lithotripsy (4) Electrolyte abnormality Current Visit: Yes Status: Resolved Assessment and plan: Resolved continue to monitor electrolytes and replace as needed (5) Anemia in chronic kidney disease (CKD) Current Visit: No Status: Acute Assessment and plan: H&H low but acceptable s/p PRBC transfusion on 05/16/17 will continue to closely monitor and transfuse as needed Qualifiers: Chronic kidney disease stage: stage 5, not on chronic dialysis Qualified Code(s): N18.5 - Chronic kidney disease, stage 5; D63.1 - Anemia in chronic kidney disease (6) Diastolic CHF, chronic Current Visit: Yes Status: Chronic Assessment and plan: Reviewed 2 D Echo showed -moderate diastolic dysfunction Not in exacerbation cont BB continue home dose of lasix (7) Hypertension Current Visit: No Status: Chronic Assessment and plan: BP better controlled however given new onset Afib Metoprolol 100mg PO BID will closely monitor BP Qualifiers: Hypertension type: renovascular hypertension Qualified Code(s): I15.0 - Renovascular hypertension (8) Kidney disease, chronic, stage V (end stage, EGFR < 15 ml/min) Current Visit: No Status: Chronic Assessment and plan: renal function at baseline nephrology on board and consultation appreciated aggressive BP control (9) DVT prophylaxis Current Visit: Yes Status: Acute Assessment and plan: IPCD - Subjective Interval history: Patient seen and examined at bedside. Resting in bed and reports of feeling better compared to previous day. Remains tachycardic, increased Cardizem to 360mg PO Qd. Will closely monitor HR. If remains controlled, likely d/c in am. PT evaluation recommended SNF however patient adamantly refuses to go to ECF facility. She states she has home health and her son lives in the apartment above her. She denies any discomfort at this time. - Constitutional Vitals: Temp Pulse Resp BP Pulse Ox 98.0 F 107 14 134/81 100 05/21/17 11:31 05/21/17 11:31 05/21/17 11:31 05/21/17 11:31 05/21/17 11:31 General appearance: Present: A&O X 3, no acute distress, answers questions appropriately - Head Head exam: Present: atraumatic, normocephalic - Eye Eye exam: Present: conjuntiva pink, sclera anicteric - Respiratory Respiratory exam: Present: CTAB. Absent: accessory muscle use, rales, rhonchi, wheezes - Cardiovascular Cardiovascular exam: Present: irregular rhythm, +S1, +S2 - GI/Abdominal GI/Abdominal exam: Present: normal bowel sounds, soft, no peritoneal signs. Absent: distended, tenderness - Extremities Exam Extremities exam: Present: warm, radial pulses palpable and symmetrical. Absent : calf tenderness - Neurological Exam Neurological exam: Present: alert, oriented X3 - Psychiatric Psychiatric exam: Present: normal affect, normal mood Internal Medicine: Result - Labs CBC & Chem 7: 05/21/17 03:24 05/21/17 03:24 Labs: Short CBC 05/21/17 Range/Units 03:24 WBC 9.5 (4.3-11.1) K/mcL Hgb 8.2 L (11.5-15.4) g/dL Hct 27.8 L (35.3-44.9) % Plt Count 314 (140-400) K/mcL Neutrophils # 5.2 (1.6-8.9) K/mcL BMP 05/21/17 03:24 Sodium 139 Potassium 4.5 Chloride 107 Carbon Dioxide 24 BUN 44 H Creatinine 3.82 H Glucose 99 Calcium 8.7 - VTE Documentation of Mechanical Device: Intermittent pneumatic compression device Consult Discharge Plan - Plan Referrals: Ben Webster CNP [Advanced Practice Nurse] - 06/15/17 2:00 pm Moisés Kelley MD [Partnered Physician] - NONE,PCP [Primary Care Provider] -
[2017-05-21 14:29] LABS: Thyroid Stimulating Hormone 24.854 mcIU/mL (0.350-4.840)
[2017-05-21] MEDS: Furosemide 40 MG TABLET PO SCH (18:08)
[2017-05-21] MEDS: Gabapentin 300 MG CAPSULE PO SCH (20:32)
[2017-05-22] MEDS: *HR* HYDROcodone/Acet 10/325 mg TABLET PO PRN ×3 (05:45→14:16)
[2017-05-22 06:41] LABS: Basophils % 0.4 %; Eosinophils # 0.7 K/mcL (0.0-0.6); Eosinophils % 6.8 %; Hematocrit 29.9 % (35.3-44.9); Immature Granulocytes % 0.8 % (0-4); Lymphocytes # 2.2 K/mcL (0.6-4.6); Lymphocytes % 20.7 %; Mean Corpuscular HGB Conc 30.1 g/dL (31.6-35.5); Mean Corpuscular Hemoglobin 28.8 pg (28.0-33.3); Mean Corpuscular Volume 95.8 fL (83.0-100.0); Mean Platelet Volume 10.8 fL (9.4-12.4); Monocytes # 1.3 K/mcL (0.0-1.3); Monocytes % 12.3 %; Neutrophils # 6.3 K/mcL (1.6-8.9); Platelet Count 355 K/mcL (140-400); Red Blood Count 3.12 M/mcL (3.82-4.97); Red Cell Distribution Width 19.6 % (11.5-14.5)
[2017-05-22 06:54] LABS: Calcium 8.6 mg/dL (8.6-10.8); Magnesium 1.5 mg/dL (1.6-2.6); Phosphorous 4.4 mg/dL (2.3-4.7); Potassium 4.7 mEq/L (3.5-4.5)
[2017-05-22 06:58] LABS: Anisocytosis 1+ (Not Present); Platelet Estimate Normal (Normal); Poikilocytosis 1+ (Not Present)
[2017-05-22] MEDS ORDERED: Magnesium Sulfate 2 GM in D5% in Water 100 ML IVPB ONE (07:57)
--- NOTE | 2017-05-22 08:49 | Nephrology Progress Note ---
Date of Encounter: 05/22/17 Time of Encounter: 08:20 - Assessment and Plan (1) RADHA (acute kidney injury) Current Visit: Yes Status: Acute Renal fct plateued, creat 3.84, documented urine output 725cc, most likely in setting of two days ago lower blood pressure and RVR. Has AVG available but do not feel needs to start HD as yet. Will follow. Subjective Principal diagnosis: Afib Interval history: Sitting up in chair, eating breakfast. Denies any further abdominal discomfort . Objective - Vital Signs Vital signs: Vital Signs Temp Pulse Resp BP Pulse Ox 05/22/17 07:14 98.0 F 79 14 146/89 96 05/22/17 03:30 98.2 F 100 14 151/97 99 05/21/17 23:07 98.6 F 82 15 138/83 98 05/21/17 19:17 98.5 F 100 16 159/81 99 05/21/17 14:12 98.6 F 88 17 124/75 97 05/21/17 11:31 98.0 F 107 14 134/81 100 05/21/17 10:49 17 100 Intake and Output 05/21/17 05/22/17 05/22/17 23:59 07:59 15:59 Intake Total 120 / 120 150 / 150 Output Total 1425 / 1425 100 / 100 Balance -1305 / -1305 50 / 50 Intake: Oral 120 / 120 150 / 150 Output: Urine 325 / 325 100 / 100 Stool 1100 / 1100 0 / 0 Other: Meal Dinner Percent of Meal Consumed 100% Stool Size Moderate Stool Consistency liquid Stool Characteristics Normal for Patient Stool Color Brown Pale Weight 47.9 kg Patient Weight 05/22/17 23:59 Weight 47.9 kg - General Appearance General appearance: Present: appears started age, frail EENT: Present: mucous membranes moist Neck: Present: no JVD Respiratory: Present: clear Cardiology: Present: no edema, regular rate, regular rhythm Gastrointestinal: Present: normoactive bowel sounds, no tenderness Integumentary: Present: warm and dry Neurologic: Present: alert and oriented x3 Psychiatric: Present: mood/affect appropriate, cooperative - Lab 05/22/17 06:08 05/22/17 06:08 Most recent lab results Calcium 8.6 mg/dL (8.6-10.8) 05/22/17 06:08 Phosphorus 4.4 mg/dL (2.3-4.7) 05/22/17 06:08 Magnesium 1.5 mg/dL (1.6-2.6) L 05/22/17 06:08 - VTE Documentation of Mechanical Device: Intermittent pneumatic compression device Consult Discharge Plan - Plan Referrals: Ben Webster CNP [Advanced Practice Nurse] - 06/15/17 2:00 pm Moisés Kelley MD [Partnered Physician] - NONE,PCP [Primary Care Provider] -
[2017-05-22] MEDS: Aspirin Enteric Coated 81 MG Tablet PO SCH (08:53)
[2017-05-22] MEDS: Famotidine 20 MG TABLET PO SCH (08:55)
[2017-05-22] MEDS: Cholecalciferol (D-3) 1,000 UNIT TABLET PO SCH (08:56)
[2017-05-22] MEDS ORDERED: Diltiazem CD (24hr) 180 MG CAPSULE PO SCH (09:00)
[2017-05-22 11:03] VITALS: BP 135/89
--- NOTE | 2017-05-22 11:26 | Discharge Summary ---
Date of Encounter: 05/22/17 Time of Encounter: 10:53 - Discharge Diagnosis (1) New onset a-fib Priority: Primary Status: Acute (2) Hydronephrosis due to obstruction of ureter Priority: Primary Status: Acute (3) Ureteral calculi Priority: Primary Status: Acute (4) Electrolyte abnormality Priority: Secondary Status: Resolved (5) Anemia in chronic kidney disease (CKD) Priority: Secondary Status: Chronic Qualifiers: Chronic kidney disease stage: stage 5, not on chronic dialysis Qualified Code(s): N18.5 - Chronic kidney disease, stage 5; D63.1 - Anemia in chronic kidney disease (6) Diastolic CHF, chronic Priority: Secondary Status: Chronic (7) Hypertension Priority: Secondary Status: Chronic Qualifiers: Hypertension type: renovascular hypertension Qualified Code(s): I15.0 - Renovascular hypertension (8) Kidney disease, chronic, stage V (end stage, EGFR < 15 ml/min) Priority: Secondary Status: Chronic (9) DVT prophylaxis Priority: Secondary Status: Acute - Discharge Medications Prescriptions: Aspirin Enteric Coated [Aspirin EC] 81 mg PO DAILY #30 Ciprofloxacin [Cipro] 500 mg PO Q24H #2 tab Diltiazem CD (24hr) [Cardizem CD] 360 mg PO DAILY #30 Furosemide [Lasix] 40 mg PO QPM #30 tab Levothyroxine [Synthroid] 50 mcg PO 0630 #30 tab Metoprolol [Lopressor] 100 mg PO BID #60 tab Home Medications: Gabapentin [Neurontin] 300 mg PO QAM 05/20/15 [History] Sodium Bicarbonate 1,950 mg PO BID 05/20/15 [History] Darbepoetin [Aranesp] 150 mcg IJ Q2W 05/24/16 [History] HYDROcodone/Acet 10/325 mg [[place] 10-325 mg] 1 tab PO Q4HR PRN 05/26/16 [History ] Calcitriol 0.5 mcg PO DAILY 05/27/16 [History] Cholecalciferol (D-3) [Vitamin D] 1,000 unit PO DAILY 05/27/16 [History] Cyanocobalamin (B-12) [Vitamin B12] 1,000 mcg SQ QWEEK 05/27/16 [History] Famotidine [Heartburn Prevention] 20 mg PO DAILY 05/27/16 [History] Gabapentin [Neurontin] 600 mg PO HS 05/27/16 [History] Glucosamn/Condroitn/C/Mn/[place] [[facility] Glucosamine Chondroitin Tb] 1 tab PO DAILY 05/27/16 [History] Multivit,Th Iron,Other Min [Therems-M] 1 tab PO DAILY 05/27/16 [History] Vitamin E (Dl,Tocopheryl Acet) [Vitamin E] 400 unit PO DAILY 05/27/16 [History] Aspirin Enteric Coated [Aspirin EC] 81 mg PO DAILY #30 05/22/17 [Rx] Ciprofloxacin [Cipro] 500 mg PO Q24H #2 tab 05/22/17 [Rx] Diltiazem CD (24hr) [Cardizem CD] 360 mg PO DAILY #30 05/22/17 [Rx] Furosemide [Lasix] 40 mg PO QPM #30 tab 05/22/17 [Rx] Levothyroxine [Synthroid] 50 mcg PO 0630 #30 tab 05/22/17 [Rx] Metoprolol [Lopressor] 100 mg PO BID #60 tab 05/22/17 [Rx] Allergies/Adverse Reactions: 3 Allergy/AdvReac Type Severity Reaction Status Date / Time codeine Allergy Rash Verified 05/20/15 09:28 fluoxetine [From Prozac] Allergy Rash Verified 05/20/15 09:28 haloperidol [From Haldol] Allergy See Verified 05/20/15 09:28 Comments nalbuphine [From Nubain] Allergy Rash Verified 05/20/15 09:28 Sulfa (Sulfonamide Allergy Rash Verified 05/20/15 09:28 Antibiotics) Date of admission: 05/14/17 12:03 Primary care physician: PCP NONE Consults: 05/15/17 15:09 Consult to Nephrology [CONS] Routine Consulting Provider: Farzad Farias Reason for Consult: CKD-5 Call Completed: Yes 05/17/17 08:40 Consult to Physical Therapy [CONS] Routine Comment: Evaluate, develop and implement POC Reason for Consult: discharge planning OT [Consult to Occupational Therapy] [CONS] Routine Comment: Evaluate, develop and implement POC Reason for Consult: discharge planning 05/19/17 07:38 Consult to Cardiology [CONS] Routine Comment: Consulting Provider: Cardiology Ed[place] Reason for Consult: new onset afib with rvr Call Completed: Yes 05/19/17 14:49 Consult to Invasive Line Access Team [CONS] Routine Reason for Consult: IV medication incompatible Line Type: EPIV Discharging clinician: Loulou Sifuentes Anticipated date of discharge: 05/22/17 - Patient Status Disposition: Home Health Service Condition: Good Functional capacity at discharge: uses cane/walker Overall status at discharge: patient is back to baseline - Discharge Instructions Follow Up With: Ben Webster CNP [Advanced Practice Nurse] - 06/15/17 2:00 pm Moisés Kelley MD [Partnered Physician] - NONE,PCP [Primary Care Provider] - Additional Instructions: Please follow up with your primary care physician within one week after your discharge from the hospital. Please follow up with cardiology and urology within two weeks after your discharge from the hospital. Your home dose of amlodipine has been discontinued Your home dose of Lasix has been increased Your home dose of Metoprolol has been increased Cardizem has been added to your home medications Levothyroxine has been added to your home medications. Please take the medications as prescribed. Please continue oral antibiotics as prescribed Please obtain the prescribed lab work before your appointment with your primary care physician. - Diet and Activity Activity: as per physical therapy, wear oxygen at all times, wear oxygen at night Diet: low salt diet Hospital course: Ms. 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 She was started on empiric abx and was followed by urology. She had a bilateral ureteral stent placement. Her hospital course was complicated by Afib with RVR. she was started on cardizem and seen by cardiology. Pt refused anticoagulation but agreed to aspirin for CVA ppx. She was also noted to have pleural effusion due to which her home dose of lasix was increased. She was also noted to have thyroid function tests consistent with primary hypothyroidism due to which she was started on levothyroxine. She was seen Physical therapy and ECF was recommended. She adamantly refused ECF due to which her home health was maximized. At this time, patient is hemodynamically stable and will be discharged to home with home health services. She is to follow up with PCP, cardiology, and urology after discharge. - Time Spent with Patient Total time spent providing and/or coordinating discharge services: Greater than 30 minutes - Constitutional Vitals: Temp Pulse Resp BP Pulse Ox 98.0 F 79 14 146/89 96 05/22/17 07:14 05/22/17 07:14 05/22/17 07:14 05/22/17 07:14 05/22/17 07:14 General appearance: Present: A&O X 3, no acute distress, answers questions appropriately - Head Head exam: Present: atraumatic, normocephalic - Eye Eye exam: Present: conjuntiva pink, sclera anicteric - Respiratory Respiratory exam: Absent: respiratory distress, wheezes - Cardiovascular Cardiovascular exam: Present: irregular rhythm, +S1, +S2. Absent: diastolic murmur, systolic murmur - GI/Abdominal GI/Abdominal exam: Present: normal bowel sounds, soft, no peritoneal signs. Absent: distended, tenderness - Extremities Exam Extremities exam: Present: warm, radial pulses palpable and symmetrical. Absent : calf tenderness - Neurological Exam Neurological exam: Present: alert, oriented X3 - Psychiatric Psychiatric exam: Present: normal affect, normal mood - VTE Documentation of Mechanical Device: Intermittent pneumatic compression device
--- NOTE | 2017-05-22 11:35 | Physician Discharge Referral ---
Home Health/Hosp Referral Info Transfer to: Home Health Provider in Charge Post Discharge: PCP - Diagnosis (1) New onset a-fib Priority: Secondary Status: Acute (2) Hydronephrosis due to obstruction of ureter Priority: Primary Status: Acute (3) Ureteral calculi Priority: Primary Status: Acute (4) Electrolyte abnormality Priority: Secondary Status: Resolved (5) Anemia in chronic kidney disease (CKD) Priority: Secondary Status: Chronic (6) Diastolic CHF, chronic Priority: Secondary Status: Chronic (7) Hypertension Priority: Secondary Status: Chronic (8) Kidney disease, chronic, stage V (end stage, EGFR < 15 ml/min) Priority: Secondary Status: Chronic (9) DVT prophylaxis Priority: Secondary Status: Acute - Respiratory Orders Smoking Cessation: Smoking cessation has been advised. For more information, call the [employer] Tobacco Quit Line at 8-494-GZKF-NOW. - Services Needed Following services are medically necessary services: Nursing, Home Health Aide, Physical Therapy, Occupational Therapy - Transfer Medications Prescriptions: Aspirin Enteric Coated [Aspirin EC] 81 mg PO DAILY #30 Ciprofloxacin [Cipro] 500 mg PO Q24H #2 tab Diltiazem CD (24hr) [Cardizem CD] 360 mg PO DAILY #30 Furosemide [Lasix] 40 mg PO QPM #30 tab Levothyroxine [Synthroid] 50 mcg PO 0630 #30 tab Metoprolol [Lopressor] 100 mg PO BID #60 tab Home Medications: Gabapentin [Neurontin] 300 mg PO QAM 05/20/15 [History] Sodium Bicarbonate 1,950 mg PO BID 05/20/15 [History] Darbepoetin [Aranesp] 150 mcg IJ Q2W 05/24/16 [History] HYDROcodone/Acet 10/325 mg [[place] 10-325 mg] 1 tab PO Q4HR PRN 05/26/16 [History ] Calcitriol 0.5 mcg PO DAILY 05/27/16 [History] Cholecalciferol (D-3) [Vitamin D] 1,000 unit PO DAILY 05/27/16 [History] Cyanocobalamin (B-12) [Vitamin B12] 1,000 mcg SQ QWEEK 05/27/16 [History] Famotidine [Heartburn Prevention] 20 mg PO DAILY 05/27/16 [History] Gabapentin [Neurontin] 600 mg PO HS 05/27/16 [History] Glucosamn/Condroitn/C/Mn/[place] [[facility] Glucosamine Chondroitin Tb] 1 tab PO DAILY 05/27/16 [History] Multivit,Th Iron,Other Min [Therems-M] 1 tab PO DAILY 05/27/16 [History] Vitamin E (Dl,Tocopheryl Acet) [Vitamin E] 400 unit PO DAILY 05/27/16 [History] Aspirin Enteric Coated [Aspirin EC] 81 mg PO DAILY #30 05/22/17 [Rx] Ciprofloxacin [Cipro] 500 mg PO Q24H #2 tab 05/22/17 [Rx] Diltiazem CD (24hr) [Cardizem CD] 360 mg PO DAILY #30 05/22/17 [Rx] Furosemide [Lasix] 40 mg PO QPM #30 tab 05/22/17 [Rx] Levothyroxine [Synthroid] 50 mcg PO 0630 #30 tab 05/22/17 [Rx] Metoprolol [Lopressor] 100 mg PO BID #60 tab 05/22/17 [Rx] Allergies/Adverse Reactions: 3 Allergy/AdvReac Type Severity Reaction Status Date / Time codeine Allergy Rash Verified 05/20/15 09:28 fluoxetine [From Prozac] Allergy Rash Verified 05/20/15 09:28 haloperidol [From Haldol] Allergy See Verified 05/20/15 09:28 Comments nalbuphine [From Nubain] Allergy Rash Verified 05/20/15 09:28 Sulfa (Sulfonamide Allergy Rash Verified 05/20/15 09:28 Antibiotics) Certification: Further, I certify that my clinical findings support that this patient is homebound (i.e. absences from home require considerable and taxing effort and are for medical reasons or quaker services or infrequently or short duration when for other reasons) because: Homebound Reason: Patient requires assistance of a person or device to safely leave home Attestation: My signature below is to certify that this patient is under my care and that I, or nurse practitioner, or a physician's home health assistant working with me, has a face-to -face encounter with this patient.
[2017-05-22] MEDS ORDERED: FLUARIX QUAD 2017-18 36MOS UP/PF 0.5 ML SYRINGE IM ONE (13:14)
== END 2017-05-22 14:25 | disposition home health service (06) | DRG 693 ==
LOC: EMEROO 05:20 → 3ANU 05:20 → SUATTDRO 12:03
PROVIDERS: ADMIT Internal Medicine; ATTEND Internal Medicine

== ENCOUNTER 2017-06-06 16:12 | Inpatient (IN) ==
--- NOTE | 2017-06-06 16:20 | Emergency Department Note ---
Disposition Clinical Impression: Generalized weakness, Renal insufficiency Urinary tract infection Qualifiers: Urinary tract infection type: acute cystitis Hematuria presence: without hematuria Qualified Code(s): N30.00 - Acute cystitis without hematuria Disposition: Admitted As Inpatient Condition: Fair Referrals: NONE,PCP [Non-Partnered Physician] - Forms: ED Satisfaction Letter Time of Disposition: 18:06 Weakness HPI - General Chief complaint: ED Weakness Stated complaint: weakness Time Seen by Provider: 06/06/17 16:14 Source: patient Nursing Notes Reviewed: Yes Vital Signs Reviewed: Yes - History of Present Illness HPI Narrative: 81-year-old who states she was admitted a few weeks back discharged and states since that time she's had progressive generalized weakness. She now states she can't get out of bed and make it to the bathroom and she says she can't take care of herself. Pt Subjective Complaint: generalized weakness/fatigue Onset (ago): day(s) Duration: constant Location: generalized - Related Data Home Medications Medication Instructions Recorded Confirmed Gabapentin [Neurontin] 300 mg PO QAM 05/20/15 05/14/17 Sodium Bicarbonate 1,950 mg PO BID 05/20/15 05/14/17 Darbepoetin [Aranesp] 150 mcg IJ Q2W 05/24/16 05/14/17 HYDROcodone/Acet 10/325 mg [[place] 1 tab PO Q4HR PRN 05/26/16 05/14/17 10-325 mg] Calcitriol 0.5 mcg PO DAILY 05/27/16 05/14/17 Cholecalciferol (D-3) [Vitamin D] 1,000 unit PO DAILY 05/27/16 05/14/17 Cyanocobalamin (B-12) [Vitamin B12] 1,000 mcg SQ QWEEK 05/27/16 05/14/17 Famotidine [Heartburn Prevention] 20 mg PO DAILY 05/27/16 05/14/17 Gabapentin [Neurontin] 600 mg PO HS 05/27/16 05/14/17 Glucosamn/Condroitn/C/Mn/[place] 1 tab PO DAILY 05/27/16 05/14/17 [[facility] Glucosamine Chondroitin Tb] Multivit,Th Iron,Other Min 1 tab PO DAILY 05/27/16 05/14/17 [Therems-M] Vitamin E (Dl,Tocopheryl Acet) 400 unit PO DAILY 05/27/16 05/14/17 [Vitamin E] Previous Rx's Medication Instructions Recorded Aspirin Enteric Coated [Aspirin EC] 81 mg PO DAILY #30 05/22/17 Ciprofloxacin [Cipro] 500 mg PO Q24H #2 tab 05/22/17 Diltiazem CD (24hr) [Cardizem CD] 360 mg PO DAILY #30 05/22/17 Furosemide [Lasix] 40 mg PO QPM #30 tab 05/22/17 Levothyroxine [Synthroid] 50 mcg PO 0630 #30 tab 05/22/17 Metoprolol [Lopressor] 100 mg PO BID #60 tab 05/22/17 Allergies Allergy/AdvReac Type Severity Reaction Status Date / Time codeine Allergy Rash Verified 05/20/15 09:28 fluoxetine [From Prozac] Allergy Rash Verified 05/20/15 09:28 haloperidol [From Haldol] Allergy See Verified 05/20/15 09:28 Comments nalbuphine [From Nubain] Allergy Rash Verified 05/20/15 09:28 Sulfa (Sulfonamide Allergy Rash Verified 05/20/15 09:28 Antibiotics) All systems ED: reviewed and negative except as stated. Constitutional: Denies: fever, chills, weakness, weight change Eyes: Denies: eye pain, eye discharge, vision change ENT ED: Denies: ear pain, throat pain, dental pain, hearing loss, epistaxis, congestion, dysphagia Cardiovascular: Denies: chest pain, palpitations, dyspnea on exertion, edema, syncope Respiratory: Denies: cough, dyspnea, wheezes, hemoptysis, stridor Gastrointestinal: Denies: abdominal pain, nausea, vomiting, diarrhea, constipation, hematemesis, melena, hematochezia Genitourinary: Denies: dysuria, frequency, hematuria, discharge Musculoskeletal: Denies: back pain, neck pain, arthralgia, myalgia Integumentary: Denies: rash, abrasion, lesions Neurological: Reports: weakness (Generalized progressive weakness). Denies: headache, numbness, paresthesias, confusion, abnormal gait, vertigo Psychiatric: Denies: anxiety, depression, suicidal thoughts, homicidal thoughts , auditory hallucinations, visual hallucinations Endocrine: Denies: fatigue Hematological/Lymphatic: Denies: easy bleeding, easy bruising Allergic/Immunologic: Denies: facial swelling, urticaria Past Medical History - Past Medical History Medical history: Reports: arthritis, cancer, CHF, COPD, GERD, GI bleed, hypertension, osteoporosis, renal disease, other Surgical history: Reports: appendectomy, , cholecystectomy, colectomy, colostomy, hysterectomy, BLAKE/BSO, other Psychiatric history: Reports: anxiety, depression, other - Social History Smoking Status: Never smoker Smokeless Tobacco Status: No Alcohol use: Reports: none Drug use: Reports: none Physical Exam - General Limitations: no limitations General appearance: alert, in no apparent distress - Head Head exam: atraumatic, normocephalic, normal inspection - Eye Eye exam: Present: normal appearance, PERRL, EOMI - ENT ENT exam: normal exam, normal oropharynx, mucous membranes moist - Neck Neck exam: Present: normal inspection, full ROM, trachea midline - Chest Chest inspection: Present: normal inspection, symmetric chest wall rise - Respiratory Respiratory exam: Present: normal lung sounds bilaterally - Cardiovascular Cardiovascular exam: Present: regular rate, normal rhythm, normal heart sounds - Abdominal Exam Abdominal exam: Present: soft, Non-Tender. Absent: tenderness, distention, guarding, rebound, rigidity - Expanded Upper Extremity Exam Forearm/Wrist exam: Present: other (Dialysis shunt in left forearm) - Expanded Lower Extremity Exam Neurovascular/Tendon exam: Absent: motor deficit, sensory deficit, tendon deficit Gait: observed and normal - Back Exam Back exam: Present: normal inspection, full ROM. Absent: tenderness - Neurological Exam Neurological exam: Present: alert, oriented X3. Absent: motor sensory deficit - Psychiatric Psychiatric exam: Present: normal affect, normal mood - Skin Skin exam: Present: warm, dry, intact, normal color Course - Reevaluation(s) Reevaluation #1: 81-year-old with progressive generalized weakness. Workup here showed what appeared to be a urinary tract infection. Patient will be admitted for further evaluation and treatment. Time: 18:05 - Consultations Consultation #1: Discussed with Dr. Elena, it. Time: 18:46 Vital Signs Temperature 98.0 F 06/06/17 16:16 Pulse Rate 79 06/06/17 16:16 Respiratory Rate 20 06/06/17 16:16 Blood Pressure 127/64 06/06/17 16:16 O2 Sat by Pulse Oximetry 91 06/06/17 16:16 Temperature 98.0 F 06/06/17 16:16 Pulse Rate 79 06/06/17 16:16 Respiratory Rate 20 06/06/17 16:16 Blood Pressure 127/64 06/06/17 16:16 O2 Sat by Pulse Oximetry 94 06/06/17 16:22 Oxygen Delivery Oxygen Delivery Nasal Cannula Weakness - Lab Data Lab results reviewed: Yes I reviewed the patient's lab results. Result diagrams: 06/06/17 16:55 06/06/17 16:55 Lab Results 06/06/17 06/06/17 06/06/17 Range/Units 16:55 16:55 16:55 WBC 20.9 H (4.3-11.1) K/mcL RBC 2.72 L (3.82-4.97) M/mcL Hgb 7.9 L (11.5-15.4) g/dL Hct 26.7 L (35.3-44.9) % MCV 98.2 (83.0-100.0) fL MCH 29.0 (28.0-33.3) pg MCHC 29.6 L (31.6-35.5) g/dL RDW 21.0 H (11.5-14.5) % Plt Count 492 H (140-400) K/mcL MPV 10.2 (9.4-12.4) fL Immature Gran % 0.8 (0-4) % Seg Neutrophils % 78.2 % Lymphocytes % 6.6 % Monocytes % 13.6 % Eosinophils % 0.6 % Basophils % 0.2 % Neutrophils # 16.4 H (1.6-8.9) K/mcL Lymphocytes # 1.4 (0.6-4.6) K/mcL Monocytes # 2.8 H (0.0-1.3) K/mcL Eosinophils # 0.1 (0.0-0.6) K/mcL Basophils # 0.1 (0.0-0.2) K/mcL Nucleated RBCs/100 WBC 0.1 H (0) /100 WBC Sodium 139 (136-145) mEq/L Potassium 4.5 (3.5-4.5) mEq/L Chloride 106 (98-109) mEq/L Carbon Dioxide 24 (19-29) mEq/L BUN 44 H (7-20) mg/dL Creatinine 3.91 H (0.57-1.11) mg/dL Est GFR ( Amer) 13 L (> 60) Est GFR (Non-Af Amer) 11 L (> 60) BUN/Creatinine Ratio 11 (6-26) Glucose 159 H (70-99) mg/dL Calculated Osmolality 303 H (280-300) Lactic Acid 1.4 (0.5-2.2) mmol/L Calcium 8.6 (8.6-10.8) mg/dL Magnesium 1.7 (1.6-2.6) mg/dL Total Bilirubin 0.3 (0.2-1.2) mg/dL AST 16 (5-34) Units/L ALT 13 (0-55) Units/L Alkaline Phosphatase 124 (38-126) Units/L Troponin I (0-0.03) ng/mL Serum Total Protein 5.7 L (6.0-8.3) g/dL Albumin 2.6 L (3.5-5.0) g/dL Globulin 3.1 (2.4-3.5) g/dL Albumin/Globulin Ratio 0.8 L (1.1-2.2) Urine Color (Yellow) Urine Clarity (Clear) Urine pH (5.0-8.0) pH Units Ur Specific [place] (1.010-1.025) Urine Protein (Neg-Trace) mg/dL Urine Glucose (UA) (Normal) mg/dL Urine Ketones (Negative) mg/dL Urine Blood (Negative) Urine Nitrite (Negative) Urine Bilirubin (Negative) Urine Urobilinogen (Normal) mg/dL Ur Leukocyte Esterase (Negative) Urine Microscopic RBC (0-3) per hpf Urine Microscopic WBC (0-3) per hpf Ur Squamous Epith Cells (None-Few) per lpf Urine Bacteria (None-Few) per hpf Hyaline Casts (None-Few) per lpf Ur Culture Indicated? (NO) 06/06/17 06/06/17 Range/Units 16:55 17:34 WBC (4.3-11.1) K/mcL RBC (3.82-4.97) M/mcL Hgb (11.5-15.4) g/dL Hct (35.3-44.9) % MCV (83.0-100.0) fL MCH (28.0-33.3) pg MCHC (31.6-35.5) g/dL RDW (11.5-14.5) % Plt Count (140-400) K/mcL MPV (9.4-12.4) fL Immature Gran % (0-4) % Seg Neutrophils % % Lymphocytes % % Monocytes % % Eosinophils % % Basophils % % Neutrophils # (1.6-8.9) K/mcL Lymphocytes # (0.6-4.6) K/mcL Monocytes # (0.0-1.3) K/mcL Eosinophils # (0.0-0.6) K/mcL Basophils # (0.0-0.2) K/mcL Nucleated RBCs/100 WBC (0) /100 WBC Sodium (136-145) mEq/L Potassium (3.5-4.5) mEq/L Chloride (98-109) mEq/L Carbon Dioxide (19-29) mEq/L BUN (7-20) mg/dL Creatinine (0.57-1.11) mg/dL Est GFR ( Amer) (> 60) Est GFR (Non-Af Amer) (> 60) BUN/Creatinine Ratio (6-26) Glucose (70-99) mg/dL Calculated Osmolality (280-300) Lactic Acid (0.5-2.2) mmol/L Calcium (8.6-10.8) mg/dL Magnesium (1.6-2.6) mg/dL Total Bilirubin (0.2-1.2) mg/dL AST (5-34) Units/L ALT (0-55) Units/L Alkaline Phosphatase (38-126) Units/L Troponin I 0.02 (0-0.03) ng/mL Serum Total Protein (6.0-8.3) g/dL Albumin (3.5-5.0) g/dL Globulin (2.4-3.5) g/dL Albumin/Globulin Ratio (1.1-2.2) Urine Color Yellow (Yellow) Urine Clarity Cloudy A (Clear) Urine pH 5.5 (5.0-8.0) pH Units Ur Specific [place] 1.021 (1.010-1.025) Urine Protein 100 H (Neg-Trace) mg/dL Urine Glucose (UA) Normal (Normal) mg/dL Urine Ketones Negative (Negative) mg/dL Urine Blood Negative (Negative) Urine Nitrite Negative (Negative) Urine Bilirubin Negative (Negative) Urine Urobilinogen Normal (Normal) mg/dL Ur Leukocyte Esterase Moderate H (Negative) Urine Microscopic RBC 0-3 (0-3) per hpf Urine Microscopic WBC 50-100 H (0-3) per hpf Ur Squamous Epith Cells Many H (None-Few) per lpf Urine Bacteria None Seen (None-Few) per hpf Hyaline Casts Few (None-Few) per lpf Ur Culture Indicated? YES A (NO) - Radiology Data Radiology results reviewed: Yes I reviewed the patient's radiology results. Chest X-Ray 06/06/17 16:16 IMPRESSION: Increased pleural-parenchymal disease bilaterally suggesting fluid overload -pulmonary edema D/ / Mathew Rowell MD / Mathew Rowell MD Interpreting Provider: Mathew Rowell MD Head CT 06/06/17 16:17 IMPRESSION: No acute intracranial abnormality. D/ / Mathew Shah MD / Mathew Shah MD Interpreting Provider: Mathew Shah MD - EKG Data EKG attestation: Yes I reviewed and interpreted this EKG. Rate: normal Rhythm: A.Fib Interpretation: no acute changes NIH Stroke Scale - Level of Consciousness LOC: Alert - LOC Questions LOC Questions: Answers both correctly - LOC Commands LOC Commands: Performs both correctly - Best Gaze Best Gaze: Normal - Visual Visual: No visual loss - Facial Palsy Facial Palsy: Normal - Motor Arms Motor Arm-Left: No drift for 10 seconds Motor Arm-Right: No drift for 10 seconds - Motor Legs Motor Leg-Left: No drift for 5 seconds Motor Leg-Right: No drift for 5 seconds - Limb Ataxia Limb Ataxia: Normal, No Ataxia - Sensory Sensory: Normal - Best Language Best Language: No aphasia - Dysarthria Dysarthria: Normal - Extinction and Inattention Extinction and Inattention: Normal - NIHSS Total Score NIHSS Total Score: 0
[2017-06-06 17:03] LABS: Basophils # 0.1 K/mcL (0.0-0.2); Basophils % 0.2 %; Eosinophils # 0.1 K/mcL (0.0-0.6); Eosinophils % 0.6 %; Hematocrit 26.7 % (35.3-44.9); Immature Granulocytes % 0.8 % (0-4); Lymphocytes # 1.4 K/mcL (0.6-4.6); Lymphocytes % 6.6 %; Mean Corpuscular HGB Conc 29.6 g/dL (31.6-35.5); Mean Corpuscular Volume 98.2 fL (83.0-100.0); Mean Platelet Volume 10.2 fL (9.4-12.4); Monocytes # 2.8 K/mcL (0.0-1.3); Monocytes % 13.6 %; Neutrophils # 16.4 K/mcL (1.6-8.9); Nucleated Red Blood Cells 0.1 /100 WBC (0); Platelet Count 492 K/mcL (140-400); Red Blood Count 2.72 M/mcL (3.82-4.97); Segmented Neutrophils % 78.2 %
[2017-06-06 17:17] LABS: Albumin 2.6 g/dL (3.5-5.0); Albumin/Globulin Ratio 0.8 (1.1-2.2); Bilirubin,Total 0.3 mg/dL (0.2-1.2); Calcium 8.6 mg/dL (8.6-10.8); Globulin 3.1 g/dL (2.4-3.5); Magnesium 1.7 mg/dL (1.6-2.6); Potassium 4.5 mEq/L (3.5-4.5); Total Protein 5.7 g/dL (6.0-8.3)
[2017-06-06 17:24] LABS: Hemoglobin 7.9 g/dL (11.5-15.4)
[2017-06-06 17:43] LABS: Bilirubin,Urine Negative (Negative); Blood,Urine Negative (Negative); Clarity,Urine Cloudy (Clear); Color,Urine Yellow (Yellow); Glucose,Urine (UA) Normal (Normal); Ketones,Urine Negative (Negative); Leukocyte Esterase,Urine Moderate (Negative); Nitrite,Urine Negative (Negative); PH,Urine 5.5 pH Units (5.0-8.0); Protein,Urine 100 mg/dL (Neg-Trace); Specific Gravity,Urine 1.021 (1.010-1.025); Urobilinogen,Urine Normal (Normal)
[2017-06-06 17:52] LABS: Bacteria,Urine None Seen per hpf (None-Few); Hyaline Casts,Urine Few per lpf (None-Few); RBC,Urine 0-3 per hpf (0-3); Squamous Epithelial Cell,Urine Many per lpf (None-Few); WBC,Urine 50-100 per hpf (0-3)
[2017-06-06] MEDS ORDERED: Furosemide 40 MG/4 ML VIAL IVP ONE ×2 (18:07→21:21)
[2017-06-06] MEDS ORDERED: Naloxone 0.4 MG/ML INJ IVP PRN (21:16)
--- NOTE | 2017-06-06 21:17 | Event Note ---
Date of Encounter: 06/06/17 Time of Encounter: 21:14 Patient seen and examined with nurse practitioner. Agree with assessment and plan. Patient with 2 weeks of generalized weakness and lethargy. Etiology is mainly due to volume overload related to her CKD stage 5. She has bilateral pleural effusions. She takes Lasix 40 mg PO daily. Will start Lasix 40 mg IV b.i.d. she needs are those Lasix on discharge. Patient also has a urinary tract infection will start on ceftriaxone. Recently hospitalized with severe hydronephrosis due to obstruction. We get renal ultrasound to rule out enlarged kidneys. Inpatient admission
--- NOTE | 2017-06-06 21:30 | Internal Med History&Physical ---
Date of Encounter: 06/06/17 Time of Encounter: 21:30 Assessment and Plan (1) Volume overload Current visit: No Status: Acute 1 patient has been experiencing for the past 2 weeks increased weakness and lethargy as well as shortness of breath and lower extremity swelling. Suspect this is related to her CK D stage V. She recently hospitalization was severe hydronephrosis secondary to obstruction with ureteral stent placements She is taking Lasix 40 mg by mouth daily. We will increase this to 40 mg IV twice a day 2 we will monitor intake and output and daily weights Qualifiers: Hypervolemia type: unspecified Qualified Code(s): E87.70 - Fluid overload, unspecified (2) RDAHA (acute kidney injury) Current visit: No Status: Acute 1 patient's creatinine is 3.91. Over the month of May her creatinine has slowly increased-appears her baseline prior was 2-3. She was recently admitted for severe hydronephrosis with stent placement. We will continue to trend creatinine 2 we will diurese patient 40 mg IV daily 3 monitor intake and output daily weights 4 we will consult nephrology-consult has been ordered-day team to follow-up 5 avoid nephrotoxins 6 we will decrease sodium bicarbonate to 650 twice a day Patient seen and examined with nurse practitioner. Agree with assessment and plan. Patient with 2 weeks of generalized weakness and lethargy. Etiology is mainly due to volume overload related to her CKD stage 5. She has bilateral pleural effusions. She takes Lasix 40 mg PO daily. Will start Lasix 40 mg IV b.i.d. she needs are those Lasix on discharge. Patient also has a urinary tract infection will start on ceftriaxone. Recently hospitalized with severe hydronephrosis due to obstruction. We get renal ultrasound to rule out enlarged kidneys. Inpatient admission Patient seen and examined with nurse practitioner. Agree with assessment and plan. Patient with 2 weeks of generalized weakness and lethargy. Etiology is mainly due to volume overload related to her CKD stage 5. She has bilateral pleural effusions. She takes Lasix 40 mg PO daily. Will start Lasix 40 mg IV b.i.d. she needs are those Lasix on discharge. Patient also has a urinary tract infection will start on ceftriaxone. Recently hospitalized with severe hydronephrosis due to obstruction. We get renal ultrasound to rule out enlarged kidneys. Inpatient admission (3) COPD (chronic obstructive pulmonary disease) Current visit: No Status: Chronic 1 continue with oxygen 2 bronchodilators Qualifiers: COPD type: unspecified COPD Qualified Code(s): J44.9 - Chronic obstructive pulmonary disease, unspecified (4) Afib Current visit: Yes Status: Chronic 1. Presently rate controlled we will continue with Cardizem and aspirin- previous admission patient had declined anticoagulation Qualifiers: Atrial fibrillation type: chronic Qualified Code(s): I48.2 - Chronic atrial fibrillation (5) Hypertension Current visit: No Status: Chronic 1 continue with Lasix metoprolol 2 low-sodium diet Qualifiers: Hypertension type: renovascular hypertension Qualified Code(s): I15.0 - Renovascular hypertension (6) Diastolic CHF, chronic Current visit: No Status: Chronic 1 previous echo showed EF of 66 5% with moderate diastolic dysfunction and moderate pulmonary hypertension. We will continue with Lasix increasing to 40 mg twice a day 2 1500 mL fluid restriction 3 monitor intake and output daily weights (7) Urinary tract infection Current visit: Yes Status: Acute 1 continue with Rocephin awaiting urinary cultures Qualifiers: Urinary tract infection type: acute cystitis Hematuria presence: without hematuria Qualified Code(s): N30.00 - Acute cystitis without hematuria (8) DVT prophylaxis Current visit: No Status: Acute 1 heparin subcutaneous Internal Medicine - H&P: HPI Chief complaint: weakness/SOB Admitted From: Emergency Dept Plans for Post Hospital Care: Home History of present illness: Ms. Arciniega is a 81 year old female past medical history of CK D65 diastolic heart failure COPD oxygen dependent 2 L nasal cannula GERD GI bleed hypertension atrial fibrillation hypothyroid. Patient had a recent hospitalization at this facility last month and was discharged May 22. At times she presented with abdominal pain secondary to hydronephrosis due to obstruction of the ureter. She had bilateral ureteral stent placement, as altered her stay she expands A. fib with RVR was started on Cardizem. She was noted to have thyroid function tests consistent with primary hypothyroid and was on levothyroxine. She was to be discharged to an ECF however she declined and was discharged home with home health. According to the patient in the past 2 weeks she has been experiencing generalized weakness and lethargy as well as increasing shortness of breath. She does have health services however she feels that she still needle to perform any of her ADLs. She denies any chest/ abd pain nausea vomiting and diarrhea fevers. She does admit to poor oral intake lower extremity edema. She presented to the ER with the above complaints. Lab work was obtained which did show leukocytosis with white count 20.9 increasing creatinine at 3.9 on BUN is 44 urinalysis was indicative of UTI. Chest x-ray did show bilateral pleural effusions. She has been given IV Lasix and has been admitted for further workup and evaluation. Presently the patient is on 2 L nasal cannula, and does exhibit conversational dyspnea her lung sounds are clear and diminished in the bases. Heart sounds with S1-S2 irregular no rubs clicks, murmurs noted abdomen is soft and nontender. She does have a colostomy right lower quadrant stoma is beefy red surrounding tissue is intact draining brown liquid stool. She is hemodynamically stable at this time. I reviewed this case with Dr Espino who agrees with plan. Past Med Surg Social Fam HX - Past Medical History Medical history: arthritis, cancer, CHF, COPD, GERD, GI bleed, hypertension, osteoporosis, renal disease, other Psychiatric history: anxiety, depression, other - Past Surgical History Surgical History: appendectomy, , cholecystectomy, colectomy, colostomy , hysterectomy, BLAKE/BSO, other - Social History Smoking Status: Never smoker Smokeless Tobacco Status: No Alcohol use: none Drug use: none - Family History Mother Adopted: No Family Member Ethnicity: Non- Living Status: Hx Family Cardiac Disorders: Yes Father Hx Family Respiratory Disorders: Yes (Asthma) Hx Family GI Disorders: Yes (Ulcers) Internal Medicine - H&P: Meds Gabapentin [Neurontin] 300 mg PO QAM 05/20/15 [History] Sodium Bicarbonate 1,950 mg PO BID 05/20/15 [History] Darbepoetin [Aranesp] 150 mcg IJ Q2W 05/24/16 [History] HYDROcodone/Acet 10/325 mg [[place] 10-325 mg] 1 tab PO Q4HR PRN 05/26/16 [History ] Calcitriol 0.5 mcg PO DAILY 05/27/16 [History] Cholecalciferol (D-3) [Vitamin D] 1,000 unit PO DAILY 05/27/16 [History] Cyanocobalamin (B-12) [Vitamin B12] 1,000 mcg SQ QWEEK 05/27/16 [History] Famotidine [Heartburn Prevention] 20 mg PO DAILY 05/27/16 [History] Gabapentin [Neurontin] 600 mg PO HS 05/27/16 [History] Glucosamn/[place]n/C/Mn/[place] [[facility] Glucosamine Chondroitin Tb] 1 tab PO DAILY 05/27/16 [History] Multivit,Th Iron,Other Min [[place]ms-M] 1 tab PO DAILY 05/27/16 [History] Vitamin E (Dl,Tocopheryl Acet) [Vitamin E] 400 unit PO DAILY 05/27/16 [History] Aspirin Enteric Coated [Aspirin EC] 81 mg PO DAILY #30 05/22/17 [Rx] Ciprofloxacin [Cipro] 500 mg PO Q24H #2 tab 05/22/17 [Rx] Diltiazem CD (24hr) [Cardizem CD] 360 mg PO DAILY #30 05/22/17 [Rx] Furosemide [Lasix] 40 mg PO QPM #30 tab 05/22/17 [Rx] Levothyroxine [Synthroid] 50 mcg PO 0630 #30 tab 05/22/17 [Rx] Metoprolol [Lopressor] 100 mg PO BID #60 tab 05/22/17 [Rx] 3 Allergy/AdvReac Type Severity Reaction Status Date / Time codeine Allergy Rash Verified 05/20/15 09:28 fluoxetine [From Prozac] Allergy Rash Verified 05/20/15 09:28 haloperidol [From Haldol] Allergy See Verified 05/20/15 09:28 Comments nalbuphine [From Nubain] Allergy Rash Verified 05/20/15 09:28 Sulfa (Sulfonamide Allergy Rash Verified 05/20/15 09:28 Antibiotics) All Systems PM: A 10-system review of systems was performed and is negative for pertinent findings except as documented above in the HPI. - Constitutional Constitutional: weakness, no chills, no fever(s), no night sweats - EENT Eyes: no change in vision, no discharge, no pain, no photophobia - Cardiovascular Cardiovascular ROS IM: no chest pain, no diaphoresis, no dyspnea, no lightheadedness, no palpitations, no syncope - Respiratory Respiratory: dyspnea on exertion, no cough, no dyspnea, no wheezing, no excessive phlegm production - Gastrointestinal Gastrointestinal: no abdominal pain, no diarrhea, no hematemesis, no hematochezia, no melena, no nausea, no vomiting - Genitourinary Genitourinary: no change in urinary stream, no dysuria, no flank pain, no hematuria - Musculoskeletal Musculoskeletal ROS IM: no numbness, no tingling - Integumentary Integumentary IM: no rash, no unusual bruising - Neurological Neurological ROS: no confusion, no convulsions, no focal weakness, no numbness, no tingling, no tremor(s) - Constitutional Vitals: Temp Pulse Resp BP Pulse Ox 98.7 F 99 20 129/71 94 06/06/17 21:22 06/06/17 21:22 06/06/17 21:22 06/06/17 21:22 06/06/17 21:22 General appearance: Present: A&O X 3, answers questions appropriately - Head Head exam: Present: atraumatic, normocephalic - Eye Eye exam: Present: PERRL, conjuntiva pink, sclera anicteric Pupils: Present: PERRL - Neck Neck exam general surgery: Present: supple, trachea midline. Absent: lymphadenopathy - Respiratory Respiratory exam: Present: decreased breath sounds, CTAB. Absent: accessory muscle use, rales, rhonchi, wheezes - Cardiovascular Cardiovascular exam: Present: RRR, +S1, +S2. Absent: diastolic murmur, gallop, rubs, systolic murmur - GI/Abdominal GI/Abdominal exam: Present: normal bowel sounds, soft, no peritoneal signs. Absent: distended, tenderness - Extremities Exam Extremities exam: Present: warm, radial pulses palpable and symmetrical. Absent : calf tenderness, cyanotic, pedal edema - Neurological Exam Neurological exam: Present: CN II-XII intact, oriented X3, no focal deficits. Absent: pronater drift, facial droop, speech deficit - Skin Skin exam: Present: dry, intact Internal Med - H&P Results - Labs CBC & Chem 7: 06/06/17 16:55 06/06/17 16:55 - Diagnostic Studies Other Images Additional comments: Chest X-Ray 06/06/17 16:16 IMPRESSION: Increased pleural-parenchymal disease bilaterally suggesting fluid overload -pulmonary edema D/ / Mathew Rowell MD / Mathew Rowell MD Interpreting Provider: Mathew Rowell MD Head CT 06/06/17 16:17 IMPRESSION: No acute intracranial abnormality. D/ / Mathew Shah MD / Mathew Shah MD Interpreting Provider: Mathew Shah MD
[2017-06-06] MEDS ORDERED: Gabapentin 300 MG CAPSULE PO SCH (22:30)
[2017-06-07] MEDS: *HR* HYDROcodone/Acet 10/325 mg TABLET PO PRN ×5 (00:17→19:35)
[2017-06-07 04:00] LABS: Basophils % 0.2 %; Eosinophils # 0.2 K/mcL (0.0-0.6); Hematocrit 24.6 % (35.3-44.9); Hemoglobin 7.3 g/dL (11.5-15.4); Immature Granulocytes % 0.9 % (0-4); Lymphocytes # 1.6 K/mcL (0.6-4.6); Mean Corpuscular HGB Conc 29.7 g/dL (31.6-35.5); Mean Corpuscular Hemoglobin 28.9 pg (28.0-33.3); Mean Corpuscular Volume 97.2 fL (83.0-100.0); Monocytes # 2.6 K/mcL (0.0-1.3); Monocytes % 15.5 %; Neutrophils # 11.9 K/mcL (1.6-8.9); Nucleated Red Blood Cells 0.1 /100 WBC (0); Platelet Count 440 K/mcL (140-400); Red Blood Count 2.53 M/mcL (3.82-4.97); Segmented Neutrophils % 72.4 %
[2017-06-07 04:13] LABS: Calcium 8.4 mg/dL (8.6-10.8); Magnesium 1.5 mg/dL (1.6-2.6)
[2017-06-07] MEDS: Pantoprazole 40 MG VIAL IVP SCH ×2 (05:30→07:55)
[2017-06-07] MEDS: *HR* Heparin 5,000 UNIT/ML VIAL SQ SCH ×2 (05:30→16:41)
[2017-06-07] MEDS ORDERED: Furosemide 40 MG/4 ML VIAL IVP ONE (06:00)
[2017-06-07] MEDS: Furosemide 40 MG/4 ML VIAL IVP SCH ×2 (07:52→16:41)
[2017-06-07] MEDS: Gabapentin 100 MG CAPSULE PO SCH ×2 (07:53→19:38)
[2017-06-07] MEDS: Cholecalciferol (D-3) 1,000 UNIT TABLET PO SCH (07:53)
[2017-06-07] MEDS: Multivit/Ca/Min/Fe/FA 1 TAB TABLET PO SCH (07:53)
[2017-06-07] MEDS: Aspirin Enteric Coated 81 MG Tablet PO SCH (07:53)
[2017-06-07] MEDS: Diltiazem CD (24hr) 180 MG CAPSULE PO SCH (07:53)
[2017-06-07] MEDS: Famotidine 20 MG TABLET PO SCH (07:53)
--- NOTE | 2017-06-07 08:04 | Event Note ---
Date of Encounter: 06/07/17 Time of Encounter: 08:02 [facility] I received a consult order and found this pt on my list this A.M. This pt is followed by the other nephrology group, according to prior notes documented in [facility]. I'd recommend consulting them to help assist with nephrology care. Thank you though of thinking about the [facility] group.
[2017-06-07] MEDS ORDERED: Magnesium Sulfate 2 GM in D5% in Water 100 ML IVPB ONE (08:38)
[2017-06-07] MEDS ORDERED: Gabapentin 300 MG CAPSULE PO SCH (09:00)
--- NOTE | 2017-06-07 09:18 | Nephrology Consult Note ---
Date of Encounter: 06/07/17 Time of Encounter: 09:16 Assessment and Plan (1) Kidney disease, chronic, stage V (end stage, EGFR < 15 ml/min) Current Visit: No Status: Chronic Patient presents with progressive weakness related to severe anemia. She has been on high dose Aranesp as an outpatient. Stool is guaiac positive. I suspect she has continued GI blood loss complicating her anemia. She will need to undergo endoscopy. She is currently receiving red blood cell transfusion. From renal perspective her renal function continues to slowly deteriorate. She is now experiencing some anorexia. Because of this were going to initiate dialysis while she is here in the hospital and then continue chronic outpatient hemodialysis. I discussed this with the patient and she is agreeable. (2) A-fib Current Visit: Yes Status: Acute Qualifiers: Atrial fibrillation type: chronic Qualified Code(s): I48.2 - Chronic atrial fibrillation (3) Renal calculi Current Visit: Yes Status: Acute (4) Volume overload Current Visit: No Status: Acute Qualifiers: Hypervolemia type: unspecified Qualified Code(s): E87.70 - Fluid overload, unspecified (5) Anemia of chronic disease Current Visit: No Status: Chronic History of Present Illness - History of Present Illness This is a 81-year-old female is followed as an outpatient for progressive stage V chronic kidney disease. She has not yet been started on dialysis. She presents to the hospital with complaints of progressive weakness and difficulty in performing activities of daily living at home. On admission she was noted to have an elevated white count as well as a hemoglobin of 7.3. From a renal perspective her baseline creatinine is 3.5-3.8. She presents with a creatinine of 3.90 and a GFR of 11. She denies any nausea or vomiting but does have intermittent anorexia. She was recently hospitalized in May for bilateral ureteral calculi. She underwent bilateral ureteral stent placement at that time. She is scheduled to undergo lithotripsy as an outpatient in mid-June. She still has ureteral stents in place. She has minimal if any kidney stone pain. The patient is guaiac positive. She has a colostomy in place. She said that for 35 years. She says she notices some bleeding around the stoma when she cleans it. Patient has been on Aranesp as an outpatient for anemia of chronic kidney disease. She received 150 g every 2 weeks. Most recent hemoglobin on May 22 was 9.0. Past Med Surg Social Fam HX - Past Medical History Medical history: arthritis, cancer, CHF, COPD, GERD, GI bleed, hypertension, osteoporosis, renal disease, other Psychiatric history: anxiety, depression, other - Past Surgical History Surgical History: appendectomy, , cholecystectomy, colectomy, colostomy , hysterectomy, BLAKE/BSO, other - Social History Smoking Status: Never smoker Smokeless Tobacco Status: No Alcohol use: none Drug use: none - Family History Mother Adopted: No Family Member Ethnicity: Non- Living Status: Hx Family Cardiac Disorders: Yes Father Hx Family Respiratory Disorders: Yes (Asthma) Hx Family GI Disorders: Yes (Ulcers) Medications and Allergies Gabapentin [Neurontin] 300 mg PO QAM 05/20/15 [History] Sodium Bicarbonate 1,950 mg PO BID 05/20/15 [History] Darbepoetin [Aranesp] 150 mcg IJ Q2W 05/24/16 [History] HYDROcodone/Acet 10/325 mg [[place] 10-325 mg] 1 tab PO Q4HR PRN 05/26/16 [History ] Calcitriol 0.5 mcg PO DAILY 05/27/16 [History] Cholecalciferol (D-3) [Vitamin D] 1,000 unit PO DAILY 05/27/16 [History] Cyanocobalamin (B-12) [Vitamin B12] 1,000 mcg SQ QWEEK 05/27/16 [History] Famotidine [Heartburn Prevention] 20 mg PO DAILY 05/27/16 [History] Gabapentin [Neurontin] 600 mg PO HS 05/27/16 [History] Glucosamn/[place]/C/Mn/[place] [[facility] Glucosamine Chondroitin Tb] 1 tab PO DAILY 05/27/16 [History] Multivit,Th Iron,Other Min [Therems-M] 1 tab PO DAILY 05/27/16 [History] Vitamin E (Dl,Tocopheryl Acet) [Vitamin E] 400 unit PO DAILY 05/27/16 [History] Aspirin Enteric Coated [Aspirin EC] 81 mg PO DAILY #30 05/22/17 [Rx] Ciprofloxacin [Cipro] 500 mg PO Q24H #2 tab 05/22/17 [Rx] Diltiazem CD (24hr) [Cardizem CD] 360 mg PO DAILY #30 05/22/17 [Rx] Furosemide [Lasix] 40 mg PO QPM #30 tab 05/22/17 [Rx] Levothyroxine [Synthroid] 50 mcg PO 0630 #30 tab 05/22/17 [Rx] Metoprolol [Lopressor] 100 mg PO BID #60 tab 05/22/17 [Rx] 3 Allergy/AdvReac Type Severity Reaction Status Date / Time codeine Allergy Rash Verified 05/20/15 09:28 fluoxetine [From Prozac] Allergy Rash Verified 05/20/15 09:28 haloperidol [From Haldol] Allergy See Verified 05/20/15 09:28 Comments nalbuphine [From Nubain] Allergy Rash Verified 05/20/15 09:28 Sulfa (Sulfonamide Allergy Rash Verified 05/20/15 09:28 Antibiotics) Review of Systems Constitutional: anorexia, weakness, no excessive sweating, no weight loss Eyes: bilateral: blurred vision (patient denies), diplopia (patient denies) Nose, mouth and throat: no dizziness, no headache(s) Cardiovascular: dyspnea on exertion, edema, no chest pain, no palpitations Respiratory: dyspnea, dyspnea on exertion, no cough Gastrointestinal: as per HPI Musculoskeletal: no muscle weakness, no numbness Integumentary: no hirsutism, no striae Psychiatric: no depression, no difficulty concentrating Endocrine: as per HPI Hematologic/Lymphatic: no easy bruising, no lymphadenopathy Exam - Vital Signs Vital signs: Initial Vital Signs Temp Pulse Resp BP Pulse Ox 98.0 F 79 20 127/64 91 06/06/17 16:16 06/06/17 16:16 06/06/17 16:16 06/06/17 16:16 06/06/17 16:16 Vital Signs - Last 8 Hours Temp Pulse Resp BP Pulse Ox 06/07/17 07:46 98.7 F 74 16 144/72 94 06/07/17 07:42 99.1 F 74 16 125/60 94 06/07/17 07:24 99.9 F H 98 16 136/72 98 06/07/17 03:46 98.3 F 99 15 145/77 94 Intake and Output 06/06/17 06/07/17 06/07/17 23:59 07:59 15:59 Intake Total 75 / 75 Output Total 575 / 575 Balance -500 / -500 Intake: Blood Product 75 / 75 Rbcs Leuko Poor As-1 Unit 75 / 75 [id number] Output: Urine 575 / 575 Urethral (Petersen) 575 / 575 Other: Weight 52.872 kg Patient Weight 06/07/17 23:59 Weight 52.872 kg - General Appearance Exam: Patient is alert and oriented. She is in no acute distress. She appears chronically ill. Neck is supple. Lungs diminished breath sounds. Heart irregular rate and rhythm consistent with atrial fibrillation. Abdomen reveals presence of a colostomy. Abdomen is soft. There is no guarding or rigidity. Lower extremity show 2+ lower extremity swelling. There is a functioning AV graft in the left upper extremity. Results - Lab Results 06/07/17 03:43 06/07/17 03:43 Most recent lab results Calcium 8.4 mg/dL (8.6-10.8) L 06/07/17 03:43 Magnesium 1.5 mg/dL (1.6-2.6) L 06/07/17 03:43 Consult Discharge Plan - Plan Referrals: Kaleigh Beckham MD [Primary Care Provider] -
[2017-06-07] MEDS ORDERED: 0.9 % Sodium Chloride 250 ML IVC PRN (09:23)
[2017-06-07] MEDS ORDERED: Darbepoetin 100 MCG/0.5 ML SYRINGE SQ SCH (09:30)
[2017-06-07] MEDS ORDERED: 0.9 % Sodium Chloride 2,000 ML ONE (11:54)
[2017-06-07 13:00] LABS: Hepatitis B Surface Antibody 0.22 mIU/mL; Hepatitis B Surface Antigen Nonreactive (Nonreactive)
[2017-06-07] MEDS: Acetaminophen 325 MG TABLET PO PRN (13:12)
[2017-06-07 14:19] LABS: Phosphorous 4.8 mg/dL (2.3-4.7)
--- NOTE | 2017-06-07 14:31 | Internal Med Progress Note ---
Addendum entered and electronically signed by Michael Marc DO 06/07/17 16: 42: Addendum to assessment and plan Urinary tract infection: The patient has urinary tract infection as evidenced by UA The patient is concerned on ceftriaxone IV White blood cell count has dropped to 16.5 We will continue to monitor Original Note: <Michael Marc - Last Filed: 06/07/17 16:40> Date of Encounter: 06/07/17 Time of Encounter: 09:00 - Assessment and plan (1) Generalized weakness Current Visit: Yes Status: Acute Assessment and plan: General weakness, multifactorial likely secondary to ESRD, UTI, and severe anemia She was recently hospitalized secondary to hydronephrosis due to obstruction with ureteral stent placement We will treat the patient's UTI with ceftriaxone. Nephrology is on board for dialysis (2) End-stage renal disease needing dialysis Current Visit: No Status: Chronic Assessment and plan: CKD stage V, end-stage renal disease Serum creatinine 3.90, BUN and 42, GFR 11 Nephrology is on board, recommends dialysis We also recommend diuresing the patient with 40 mg IV Lasix daily We will follow nephrology recommendation (3) Anemia Current Visit: No Status: Acute Assessment and plan: Acute on chronic anemia secondary to kidney disease and likely GI bleed The patient has experienced a drop in hemoglobin from 7.9-7.3 overnight. During her last admission in May, her hemoglobin was 9.0 Stool Occult blood is negative The patient has received 1 unit packed red blood cells We will continue to monitor, take recommendations from nephrology We will consider a GI consult in the morning if the anemia has worsened. Qualifiers: Anemia type: due to chronic kidney disease Chronic kidney disease stage: on chronic dialysis Qualified Code(s): N18.6 - End stage renal disease; D63.1 - Anemia in chronic kidney disease; D63.1 - Anemia in chronic kidney disease; Z99.2 - Dependence on renal dialysis; Z99.2 - Dependence on renal dialysis; Z99.2 - Dependence on renal dialysis; Z99.2 - Dependence on renal dialysis (4) Anemia in chronic kidney disease (CKD) Current Visit: No Status: Chronic Qualifiers: Chronic kidney disease stage: stage 5, not on chronic dialysis Qualified Code(s): N18.5 - Chronic kidney disease, stage 5; D63.1 - Anemia in chronic kidney disease; D63.1 - Anemia in chronic kidney disease; Z99.2 - Dependence on renal dialysis; Z99.2 - Dependence on renal dialysis; Z99.2 - Dependence on renal dialysis; Z99.2 - Dependence on renal dialysis (5) Afib Current Visit: Yes Status: Chronic Assessment and plan: Patient is rate controlled on Cardizem, aspirin, patient denied anticoagulation and previous admissions. Qualifiers: Atrial fibrillation type: chronic Qualified Code(s): I48.2 - Chronic atrial fibrillation (6) Renal calculi Current Visit: Yes Status: Chronic Assessment and plan: Patient had wrist recent hospitalization with renal calculi and ureters. Stents were placed in this problem is not currently active, however it has resulted in kidney injury We will continue to monitor for pain - Subjective Interval history: The patient is resting in bed in mild distress at the time of examination. She says that she is still feeling extremely weak, and she is having occasional nausea. She has no other acute complaints. - Constitutional Vitals: Temp Pulse Resp BP Pulse Ox 98.8 F 88 18 119/78 93 06/07/17 12:56 06/07/17 12:56 06/07/17 12:56 06/07/17 12:56 06/07/17 12:56 General appearance: Present: mild distress, A&O X 3, underweight Exam: The patient appears chronically ill - Head Head exam: Present: atraumatic, normocephalic - Eye Eye exam: Present: PERRL, conjuntiva pink, sclera anicteric Pupils: Present: PERRL - Neck Neck exam general surgery: Present: supple, trachea midline. Absent: lymphadenopathy - Respiratory Respiratory exam: Present: decreased breath sounds. Absent: accessory muscle use, rales, rhonchi, wheezes Additional comments: Diminished breath sounds secondary to poor inspiratory effort - Cardiovascular Cardiovascular exam: Present: RRR, +S1, +S2. Absent: diastolic murmur, gallop, rubs, systolic murmur - GI/Abdominal GI/Abdominal exam: Present: normal bowel sounds, soft, no peritoneal signs. Absent: distended, tenderness - Extremities Exam Extremities exam: Present: warm, radial pulses palpable and symmetrical. Absent : calf tenderness, cyanotic, pedal edema Additional comments: AV fistula palpated in the left forearm - Neurological Exam Neurological exam: Present: CN II-XII intact, oriented X3, no focal deficits. Absent: pronater drift, facial droop, speech deficit - Skin Skin exam: Present: dry, intact Internal Medicine: Result - Labs CBC & Chem 7: 06/07/17 03:43 06/07/17 03:43 Labs: Short CBC 06/07/17 Range/Units 03:43 WBC 16.5 H (4.3-11.1) K/mcL Hgb 7.3 L (11.5-15.4) g/dL Hct 24.6 L (35.3-44.9) % Plt Count 440 H (140-400) K/mcL Neutrophils # 11.9 H (1.6-8.9) K/mcL BMP 06/07/17 03:43 Sodium 140 Potassium 4.0 Chloride 107 Carbon Dioxide 23 BUN 42 H Creatinine 3.90 H Glucose 103 H Calcium 8.4 L Consult Discharge Plan - Plan Referrals: Kaleigh Beckham MD [Primary Care Provider] - <Soto Sanchez A - Last Filed: 06/07/17 17:48> Date of Encounter: 06/07/17 - Assessment and plan (1) End-stage renal disease needing dialysis Current Visit: No Status: Chronic (2) Anemia in chronic kidney disease (CKD) Current Visit: No Status: Chronic Qualifiers: Chronic kidney disease stage: on chronic dialysis Qualified Code(s): N18.6 - End stage renal disease; D63.1 - Anemia in chronic kidney disease; D63.1 - Anemia in chronic kidney disease; Z99.2 - Dependence on renal dialysis; Z99.2 - Dependence on renal dialysis; Z99.2 - Dependence on renal dialysis; Z99.2 - Dependence on renal dialysis (3) A-fib Current Visit: Yes Status: Chronic Qualifiers: Atrial fibrillation type: chronic Qualified Code(s): I48.2 - Chronic atrial fibrillation (4) Hypertension Current Visit: No Status: Chronic Qualifiers: Hypertension type: renovascular hypertension Qualified Code(s): I15.0 - Renovascular hypertension (5) Diastolic CHF, chronic Current Visit: No Status: Chronic - Constitutional Vitals: Temp Pulse Resp BP Pulse Ox 97.8 F 98 18 116/68 98 06/07/17 15:47 06/07/17 15:47 06/07/17 15:47 06/07/17 15:47 06/07/17 15:47 Internal Medicine: Result - Labs CBC & Chem 7: 06/07/17 03:43 06/07/17 03:43 Labs: Short CBC 06/07/17 Range/Units 03:43 WBC 16.5 H (4.3-11.1) K/mcL Hgb 7.3 L (11.5-15.4) g/dL Hct 24.6 L (35.3-44.9) % Plt Count 440 H (140-400) K/mcL Neutrophils # 11.9 H (1.6-8.9) K/mcL BMP 06/07/17 03:43 Sodium 140 Potassium 4.0 Chloride 107 Carbon Dioxide 23 BUN 42 H Creatinine 3.90 H Glucose 103 H Calcium 8.4 L - Attending Attestation I examined this patient and my medical decision-making was reviewed with the Resident Physician on 06/07/17. I agree with the documented findings, disposition and treatment plan as described except to the extent set forth below. Ms Arciniega is currently admitted for weakness and end stage renal disease. She remains moderate to high risk due to potential for worsening renal and pulmonary status. She is beginning dialysis today. Ms. Arciniega began dialysis today. No fever or chills. Tolerated OK at this point. No CP or SOB. Feels very weak. Exam Alert. Comfortable Mucus membranes moist Heart reg Lungs no wheeze Abd soft I/P 1. ESRD starting dialysis now 2. Fatigue Further diagnoses and plan as above.
[2017-06-07 14:47] LABS: Folate 17.1 ng/mL (7.0-31.4); Vitamin B12 > 2000 pg/mL (213-816)
--- NOTE | 2017-06-07 17:01 | Electrocardiograph Report ---
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
[2017-06-07 23:28] LABS: Hematocrit 30.2 % (35.3-44.9)
[2017-06-07 23:29] LABS: Hemoglobin 9.7 g/dL (11.5-15.4)
[2017-06-08] MEDS: *HR* HYDROcodone/Acet 10/325 mg TABLET PO PRN ×3 (03:46→22:15)
[2017-06-08 04:39] LABS: Hematocrit 32.6 % (35.3-44.9); Hemoglobin 10.4 g/dL (11.5-15.4); Mean Corpuscular HGB Conc 31.9 g/dL (31.6-35.5); Mean Corpuscular Hemoglobin 29.5 pg (28.0-33.3); Mean Corpuscular Volume 92.4 fL (83.0-100.0); Mean Platelet Volume 11.2 fL (9.4-12.4); Nucleated Red Blood Cells 0.1 /100 WBC (0); Platelet Count 398 K/mcL (140-400); Red Blood Count 3.53 M/mcL (3.82-4.97); Red Cell Distribution Width 20.4 % (11.5-14.5)
[2017-06-08 04:51] LABS: Albumin 2.4 g/dL (3.5-5.0); Albumin/Globulin Ratio 0.7 (1.1-2.2); Bilirubin,Total 0.3 mg/dL (0.2-1.2); Calcium 8.7 mg/dL (8.6-10.8); Globulin 3.5 g/dL (2.4-3.5); Potassium 4.6 mEq/L (3.5-4.5); Total Protein 5.9 g/dL (6.0-8.3)
[2017-06-08 05:13] LABS: Eosinophils # 0.9 K/mcL (0.0-0.6); Lymphocytes # 2.8 K/mcL (0.6-4.6); Monocytes # 5.1 K/mcL (0.0-1.3); Neutrophils # 14.5 K/mcL (1.6-8.9)
[2017-06-08] MEDS: *HR* Heparin 5,000 UNIT/ML VIAL SQ SCH ×2 (07:22→16:24)
[2017-06-08] MEDS ORDERED: Cefepime HCl 1,000 MG in D5% in Water (Mini-Bag+) 100 ML IVPB ONE (08:10)
[2017-06-08] MEDS: Diltiazem CD (24hr) 180 MG CAPSULE PO SCH (08:20)
[2017-06-08] MEDS: Aspirin Enteric Coated 81 MG Tablet PO SCH (08:20)
[2017-06-08] MEDS: Cholecalciferol (D-3) 1,000 UNIT TABLET PO SCH (08:20)
[2017-06-08] MEDS: Multivit/Ca/Min/Fe/FA 1 TAB TABLET PO SCH (08:21)
[2017-06-08] MEDS: Gabapentin 100 MG CAPSULE PO SCH ×2 (08:21→22:00)
[2017-06-08] MEDS: Furosemide 40 MG/4 ML VIAL IVP SCH ×2 (08:21→16:24)
[2017-06-08] MEDS: Pantoprazole 40 MG VIAL IVP SCH (08:21)
[2017-06-08] MEDS: Famotidine 20 MG TABLET PO SCH (08:21)
--- NOTE | 2017-06-08 08:38 | Nephrology Progress Note ---
Date of Encounter: 06/08/17 Time of Encounter: 08:20 - Assessment and Plan (1) End-stage renal disease needing dialysis Current Visit: No Status: Chronic Started on HD yesterday, tolerated well. Hgb 10.4 post one unit PRBC. No HD today, will do tomorrow establishing MWF schedule that will continue outpatient. Subjective Interval history: Sitting up in bed, eating breakfast. Complains of shoulder discomfort. Objective - Vital Signs Vital signs: Vital Signs Temp Pulse Resp BP Pulse Ox 06/08/17 08:28 95 06/08/17 07:05 98 F 117 16 133/86 95 06/08/17 04:04 98.6 F 102 16 166/84 98 06/07/17 23:09 98.0 F 95 16 142/78 94 06/07/17 19:02 99.1 F 89 16 147/75 98 06/07/17 15:47 97.8 F 98 18 116/68 98 06/07/17 15:45 97.8 F 17 123/70 06/07/17 15:35 102/67 06/07/17 15:20 105/55 06/07/17 15:05 124/73 06/07/17 14:50 123/95 06/07/17 14:35 136/72 06/07/17 14:20 133/91 06/07/17 14:05 131/81 06/07/17 13:50 145/96 06/07/17 13:35 98.8 F 17 125/78 06/07/17 12:56 98.8 F 88 18 119/78 93 06/07/17 10:51 128/75 06/07/17 10:47 99.3 F 87 16 128/75 94 Intake and Output 06/07/17 06/08/17 06/08/17 23:59 07:59 15:59 Intake Total 240 / 240 Output Total 600 / 600 Balance -360 / -360 Intake: Oral 240 / 240 Output: Stool 600 / 600 Other: Meal Dinner Percent of Meal Consumed 70% Stool Size Large Stool Consistency liquid Stool Characteristics Normal for Patient Stool Color Brown Green Weight 53.4 kg Patient Weight 06/08/17 23:59 Weight 53.4 kg - General Appearance General appearance: Present: frail EENT: Present: mucous membranes moist Neck: Present: no JVD Respiratory: Present: clear Cardiology: Present: edema, irregular rhythm Additional Comments: mild pitting LE Gastrointestinal: Present: normoactive bowel sounds, no tenderness Integumentary: Present: warm and dry Neurologic: Present: alert and oriented x3 Psychiatric: Present: mood/affect appropriate, cooperative - Lab 06/08/17 04:10 06/08/17 04:10 Most recent lab results Calcium 8.7 mg/dL (8.6-10.8) 06/08/17 04:10 Phosphorus 4.8 mg/dL (2.3-4.7) H 06/07/17 13:30 Magnesium 1.5 mg/dL (1.6-2.6) L 06/07/17 03:43 Consult Discharge Plan - Plan Referrals: Kaleigh Beckham MD [Primary Care Provider] -
--- NOTE | 2017-06-08 09:48 | Internal Med Progress Note ---
<Michael Marc - Last Filed: 06/08/17 16:03> Date of Encounter: 06/08/17 Time of Encounter: 08:15 - Assessment and plan (1) Generalized weakness Current Visit: Yes Status: Acute Assessment and plan: General weakness, multifactorial likely secondary to ESRD, UTI, and severe anemia, improving patient has documented UTI which is being treated with ceftriaxone Nephrology is on board for dialysis (2) Urinary tract infection Current Visit: Yes Status: Acute Assessment and plan: The patient has urinary tract infection as evidenced by UA, worsening WBC 23.3, band neutrophils 5%, Neutrophils 14.5. Patient has remained afebrile, and is not hypotensive. Tachycardia has been demonstrated overnight. Dicontinue ceftriaxone, start Cefepime for broader coverage. We will continue to monitor to monitor carefully. Qualifiers: Urinary tract infection type: acute cystitis Hematuria presence: without hematuria Qualified Code(s): N30.00 - Acute cystitis without hematuria (3) End-stage renal disease needing dialysis Current Visit: No Status: Chronic Assessment and plan: CKD stage V, end-stage renal disease serum creatinine 3.21 BUN 30 GFR 14 patient underwent hemodialysis yesterday, scheduled for hemodialysis as outpatient continue IV Lasix We will follow nephrology recommendation (4) Anemia Current Visit: No Status: Acute Assessment and plan: Acute on chronic anemia secondary to kidney disease and likely GI bleed patient's hemoglobin increased to 10.4 Stool Occult blood is positive The patient has received 1 unit packed red blood cells yesterday and has not needed any since We will continue to monitor, take recommendations from nephrology GI consultation is not indicated Qualifiers: Anemia type: due to chronic kidney disease Chronic kidney disease stage: on chronic dialysis Qualified Code(s): N18.6 - End stage renal disease; D63.1 - Anemia in chronic kidney disease; D63.1 - Anemia in chronic kidney disease; Z99.2 - Dependence on renal dialysis; Z99.2 - Dependence on renal dialysis; Z99.2 - Dependence on renal dialysis; Z99.2 - Dependence on renal dialysis (5) Anemia in chronic kidney disease (CKD) Current Visit: No Status: Chronic Assessment and plan: as above Qualifiers: Chronic kidney disease stage: on chronic dialysis Qualified Code(s): N18.6 - End stage renal disease; D63.1 - Anemia in chronic kidney disease; D63.1 - Anemia in chronic kidney disease; Z99.2 - Dependence on renal dialysis; Z99.2 - Dependence on renal dialysis; Z99.2 - Dependence on renal dialysis; Z99.2 - Dependence on renal dialysis (6) Afib Current Visit: Yes Status: Chronic Assessment and plan: Patient is rate controlled on Cardizem, aspirin, patient denied anticoagulation and previous admissions. Qualifiers: Atrial fibrillation type: chronic Qualified Code(s): I48.2 - Chronic atrial fibrillation (7) Renal calculi Current Visit: Yes Status: Chronic Assessment and plan: Patient had wrist recent hospitalization with renal calculi and ureters. Stents were placed in this problem is not currently active, however it has resulted in kidney injury We will continue to monitor for pain - Subjective Interval history: The patient is resting in bed in mild distress at the time of examination. She says that she is still feeling extremely weak, and she is having occasional nausea. She he says that her neck has been hurting her pretty severely today but she believes that it is more a result of a position in which she slept. - Constitutional Vitals: Temp Pulse Resp BP Pulse Ox 98 F 117 16 133/86 95 06/08/17 07:05 06/08/17 07:05 06/08/17 07:05 06/08/17 07:05 06/08/17 08:28 General appearance: Present: cooperative, A&O X 3, no acute distress, underweight Exam: - Head Head exam: Present: atraumatic, normocephalic - Eye Eye exam: Present: PERRL, conjuntiva pink, sclera anicteric Pupils: Present: PERRL - Neck Neck exam general surgery: Present: supple, trachea midline. Absent: lymphadenopathy ROM: Limited secondary to pain. There is no nuchal rigidity. Negative Kernig and Brudzinski's signs. - Respiratory Respiratory exam: Present: decreased breath sounds. Absent: accessory muscle use, rales, rhonchi, wheezes Additional comments: Diminished breath sounds secondary to poor inspiratory effort - Cardiovascular Cardiovascular exam: Present: RRR, +S1, +S2. Absent: diastolic murmur, gallop, rubs, systolic murmur - GI/Abdominal GI/Abdominal exam: Present: normal bowel sounds, soft, no peritoneal signs. Absent: distended, tenderness - Extremities Exam Extremities exam: Present: warm, radial pulses palpable and symmetrical. Absent : calf tenderness, cyanotic, pedal edema Additional comments: AV fistula palpated in the left forearm - Neurological Exam Neurological exam: Present: CN II-XII intact, oriented X3, no focal deficits. Absent: pronater drift, facial droop, speech deficit - Skin Skin exam: Present: dry, intact Internal Medicine: Result - Labs CBC & Chem 7: 06/08/17 04:10 06/08/17 04:10 Labs: Short CBC 06/07/17 06/08/17 Range/Units 23:20 04:10 WBC 23.3 H (4.3-11.1) K/mcL Hgb 9.7 L D 10.4 L (11.5-15.4) g/dL Hct 30.2 L 32.6 L (35.3-44.9) % Plt Count 398 (140-400) K/mcL Neutrophils # 14.5 H (1.6-8.9) K/mcL BMP 06/08/17 04:10 Sodium 139 Potassium 4.6 H Chloride 104 Carbon Dioxide 22 BUN 30 H D Creatinine 3.21 H Glucose 138 H Calcium 8.7 Liver Function 06/08/17 Range/Units 04:10 Total Bilirubin 0.3 (0.2-1.2) mg/dL AST 20 (5-34) Units/L ALT 10 (0-55) Units/L Alkaline Phosphatase 113 (38-126) Units/L Albumin 2.4 L (3.5-5.0) g/dL - Impressions Impressions Retroperitoneum Ultrasound 06/07/17 15:00 IMPRESSION: Chronic medical renal disease without hydronephrosis. D/ / Bruce Cordero MD / Bruce Cordero MD Interpreting Provider: Bruce Cordero MD Consult Discharge Plan - Plan Referrals: Kaleigh Beckham MD [Primary Care Provider] - (possible ecf placement) <Soto Sanchez - Last Filed: 06/08/17 17:54> Date of Encounter: 06/08/17 - Assessment and plan (1) Neck pain, acute Current Visit: Yes Status: Acute (2) End-stage renal disease needing dialysis Current Visit: No Status: Chronic (3) Anemia in chronic kidney disease (CKD) Current Visit: No Status: Chronic Qualifiers: Chronic kidney disease stage: on chronic dialysis Qualified Code(s): N18.6 - End stage renal disease; D63.1 - Anemia in chronic kidney disease; D63.1 - Anemia in chronic kidney disease; Z99.2 - Dependence on renal dialysis; Z99.2 - Dependence on renal dialysis; Z99.2 - Dependence on renal dialysis; Z99.2 - Dependence on renal dialysis (4) A-fib Current Visit: Yes Status: Chronic Qualifiers: Atrial fibrillation type: chronic Qualified Code(s): I48.2 - Chronic atrial fibrillation (5) Hypertension Current Visit: No Status: Chronic Qualifiers: Hypertension type: renovascular hypertension Qualified Code(s): I15.0 - Renovascular hypertension (6) Heart failure Current Visit: Yes Status: Acute Qualifiers: Heart failure type: diastolic Heart failure chronicity: acute on chronic Qualified Code(s): I50.33 - Acute on chronic diastolic (congestive) heart failure - Constitutional Vitals: Temp Pulse Resp BP Pulse Ox 98.3 F 85 16 152/74 95 06/08/17 17:17 06/08/17 17:17 06/08/17 17:17 06/08/17 17:17 06/08/17 17:17 Internal Medicine: Result - Labs CBC & Chem 7: 06/08/17 04:10 06/08/17 04:10 Labs: Short CBC 06/07/17 06/08/17 Range/Units 23:20 04:10 WBC 23.3 H (4.3-11.1) K/mcL Hgb 9.7 L D 10.4 L (11.5-15.4) g/dL Hct 30.2 L 32.6 L (35.3-44.9) % Plt Count 398 (140-400) K/mcL Neutrophils # 14.5 H (1.6-8.9) K/mcL BMP 06/08/17 04:10 Sodium 139 Potassium 4.6 H Chloride 104 Carbon Dioxide 22 BUN 30 H D Creatinine 3.21 H Glucose 138 H Calcium 8.7 Liver Function 06/08/17 Range/Units 04:10 Total Bilirubin 0.3 (0.2-1.2) mg/dL AST 20 (5-34) Units/L ALT 10 (0-55) Units/L Alkaline Phosphatase 113 (38-126) Units/L Albumin 2.4 L (3.5-5.0) g/dL - Impressions Impressions Retroperitoneum Ultrasound 06/07/17 15:00 IMPRESSION: Chronic medical renal disease without hydronephrosis. D/ / Bruce Cordero MD / Bruce Cordero MD Interpreting Provider: Bruce Cordero MD - Attending Attestation I examined this patient and my medical decision-making was reviewed with the Resident Physician on 06/08/17. I agree with the documented findings, disposition and treatment plan as described except to the extent set forth below. Ms Arciniega is currently admitted for endstage renal disease and UTI. She has started dialysis. She remains moderate to high risk due to potential for worsening respiratory status. Ms. Arciniega is resting comfortably. She has had some neck pain today but feels better with heat on it. No fever or chills. On IV abx for UTI. No GI issues. Exam Alert. Comfortable Mucus membranes dry Heart not tachy Lungs diminished Abd soft Neck nontender now I/P 1. ESRD 2. Neck pain - musculoskeletal Further diagnoses and plan as above.
[2017-06-09] MEDS: *HR* HYDROcodone/Acet 10/325 mg TABLET PO PRN ×5 (03:12→22:00)
[2017-06-09] MEDS: *HR* Heparin 5,000 UNIT/ML VIAL SQ SCH ×2 (05:38→16:54)
[2017-06-09 05:47] LABS: Basophils % 0.2 %; Eosinophils # 0.2 K/mcL (0.0-0.6); Eosinophils % 1.3 %; Hematocrit 32.3 % (35.3-44.9); Hemoglobin 10.1 g/dL (11.5-15.4); Immature Granulocytes % 1.3 % (0-4); Lymphocytes % 11.4 %; Mean Corpuscular HGB Conc 31.3 g/dL (31.6-35.5); Mean Corpuscular Volume 92.8 fL (83.0-100.0); Mean Platelet Volume 10.6 fL (9.4-12.4); Monocytes % 17.2 %; Neutrophils # 11.8 K/mcL (1.6-8.9); Nucleated Red Blood Cells 0.1 /100 WBC (0); Platelet Count 430 K/mcL (140-400); Red Blood Count 3.48 M/mcL (3.82-4.97); Red Cell Distribution Width 19.9 % (11.5-14.5); Segmented Neutrophils % 68.6 %
[2017-06-09 06:07] LABS: Calcium 8.6 mg/dL (8.6-10.8); Potassium 4.5 mEq/L (3.5-4.5)
[2017-06-09] MEDS: Diltiazem CD (24hr) 180 MG CAPSULE PO SCH (07:33)
[2017-06-09] MEDS: Multivit/Ca/Min/Fe/FA 1 TAB TABLET PO SCH (07:34)
[2017-06-09] MEDS: Cholecalciferol (D-3) 1,000 UNIT TABLET PO SCH (07:34)
[2017-06-09] MEDS: Aspirin Enteric Coated 81 MG Tablet PO SCH (07:34)
[2017-06-09] MEDS: Furosemide 40 MG/4 ML VIAL IVP SCH ×2 (07:34→16:54)
[2017-06-09] MEDS: Gabapentin 100 MG CAPSULE PO SCH ×2 (07:35→20:22)
--- NOTE | 2017-06-09 08:09 | Nephrology Progress Note ---
Date of Encounter: 06/09/17 Time of Encounter: 08:07 - Assessment and Plan (1) Kidney disease, chronic, stage V (end stage, EGFR < 15 ml/min) Current Visit: No Status: Chronic Patient will undergo dialysis today. She will continue with outpatient dialysis following hospital discharge. Iron saturation is 9% so she will received some parenteral iron. (2) A-fib Current Visit: Yes Status: Chronic Qualifiers: Atrial fibrillation type: chronic Qualified Code(s): I48.2 - Chronic atrial fibrillation (3) Renal calculi Current Visit: Yes Status: Chronic (4) Volume overload Current Visit: No Status: Acute Qualifiers: Hypervolemia type: unspecified Qualified Code(s): E87.70 - Fluid overload, unspecified (5) Anemia of chronic disease Current Visit: No Status: Chronic Subjective Interval history: Patient reports she is feeling stronger overall. However she continues to have leg weakness with inability to ambulate. Dialysis has been initiated. She will receive dialysis again today. Hemoglobin is improved following red blood cell transfusion. Iron saturation is 90% so she will be provided with some parenteral iron. Her urinary tract infection. White count continues to improve. Objective - Vital Signs Vital signs: Vital Signs Temp Pulse Resp BP Pulse Ox 06/09/17 07:44 100 06/09/17 06:46 97.7 F 108 18 163/84 100 06/09/17 03:57 97.7 F 110 17 163/86 99 06/08/17 23:56 98 F 103 148/84 97 06/08/17 18:48 98.3 F 94 17 134/80 95 06/08/17 17:17 98.3 F 85 16 152/74 95 06/08/17 16:23 70 16 129/69 98 06/08/17 12:25 98.1 F 85 14 124/67 95 06/08/17 08:28 95 Intake and Output 06/08/17 06/09/17 06/09/17 23:59 07:59 15:59 Intake Total 240 / 240 Output Total 1150 / 1150 400 / 400 Balance -910 / -910 -400 / -400 Intake: Oral 240 / 240 Output: Stool 525 / 525 250 / 250 Catheter 625 / 625 150 / 150 Other: Meal Dinner Percent of Meal Consumed 5% Stool Consistency loose Stool Characteristics Foamy Stool Color Brown Brown Green Weight 52.5 kg Patient Weight 10/04/17 23:59 Weight 52.5 kg - General Appearance Exam: Patient is alert and oriented. She is in no acute distress. She appears chronically ill. Lungs diminished breath sounds otherwise clear. Heart irregular rate and rhythm. Abdomen is soft. Colostomy is present. There is still some lower extremity swelling. There is a functioning AV graft in the upper extremity. - Lab 06/09/17 05:35 06/09/17 05:35 Most recent lab results Calcium 8.6 mg/dL (8.6-10.8) 06/09/17 05:35 Phosphorus 4.8 mg/dL (2.3-4.7) H 06/07/17 13:30 Magnesium 1.5 mg/dL (1.6-2.6) L 06/07/17 03:43 Consult Discharge Plan - Plan Referrals: Kaleigh Beckham MD [Primary Care Provider] - (possible ecf placement)
[2017-06-09] MEDS ORDERED: Ferumoxytol 510 MG in 0.9 % Sodium Chloride 100 ML IVPB ONE (08:10)
[2017-06-09] MEDS ORDERED: 0.9 % Sodium Chloride 250 ML IVC PRN (08:11)
--- NOTE | 2017-06-09 09:30 | Internal Med Progress Note ---
<Michael Marc - Last Filed: 06/09/17 14:36> Date of Encounter: 06/09/17 Time of Encounter: 08:00 - Assessment and plan (1) Generalized weakness Current Visit: Yes Status: Acute Assessment and plan: General weakness, multifactorial likely secondary to ESRD, UTI, and severe anemia, improving patient has documented UTI which is being treated with cefepime Nephrology is on board for dialysis, which the patient will have today (2) Urinary tract infection Current Visit: Yes Status: Acute Assessment and plan: The patient has urinary tract infection as evidenced by UA, improving Previously 17.2, 11.8 neutrophils, 0 Bands Patient is improving on cefepime The patient never had urinary complaints began with, however she is not having them now. She does say overall she is feeling better and some of her weakness has resolved although she still has weakness in her lower extremities Qualifiers: Urinary tract infection type: acute cystitis Hematuria presence: without hematuria Qualified Code(s): N30.00 - Acute cystitis without hematuria (3) End-stage renal disease needing dialysis Current Visit: Yes Status: Chronic Assessment and plan: CKD stage V, end-stage renal disease Serum creatinine 3.33, BUN 33, GFR 13 The patient is scheduled for hemodialysis today (4) Anemia Current Visit: No Status: Acute Assessment and plan: Acute on chronic anemia secondary to kidney disease and likely GI bleed Stool Occult blood is positive Received total 1 U PRBC on 06/07, stable Iron saturation 9%, scheduled to recieve IV Iron today. We will continue to monitor, take recommendations from nephrology Qualifiers: Anemia type: due to chronic kidney disease Chronic kidney disease stage: on chronic dialysis Qualified Code(s): N18.6 - End stage renal disease; D63.1 - Anemia in chronic kidney disease; D63.1 - Anemia in chronic kidney disease; Z99.2 - Dependence on renal dialysis; Z99.2 - Dependence on renal dialysis; Z99.2 - Dependence on renal dialysis; Z99.2 - Dependence on renal dialysis (5) Anemia in chronic kidney disease (CKD) Current Visit: No Status: Chronic Assessment and plan: as above Qualifiers: Chronic kidney disease stage: on chronic dialysis Qualified Code(s): N18.6 - End stage renal disease; D63.1 - Anemia in chronic kidney disease; D63.1 - Anemia in chronic kidney disease; Z99.2 - Dependence on renal dialysis; Z99.2 - Dependence on renal dialysis; Z99.2 - Dependence on renal dialysis; Z99.2 - Dependence on renal dialysis (6) Afib Current Visit: Yes Status: Chronic Assessment and plan: Rate has been advancing upward, and the patient is experiencing more frequent tachycardia on home dose of Cardizem and Toprol The patient is scheduled to receive dialysis today which may disrupt her fluid status We will continue to monitor and consider modifying medications if necessary Qualifiers: Atrial fibrillation type: chronic Qualified Code(s): I48.2 - Chronic atrial fibrillation (7) Renal calculi Current Visit: Yes Status: Chronic Assessment and plan: Patient had wrist recent hospitalization with renal calculi and ureters. Stents were placed in this problem is not currently active, however it has caused kidney injury in the past We will continue to monitor for pain (8) DVT prophylaxis Current Visit: No Status: Acute Assessment and plan: SQ Heparin - Subjective Interval history: The patient seen and examined at bedside and is resting comfortably at this time. She says that she is no longer having the same severe neck pain that she was having yesterday. Overall she does admit that she still feeling very weak and has concerns that she will not be able to walk properly. She has no acute complaints this morning - Constitutional Vitals: Temp Pulse Resp BP Pulse Ox 97.7 F 108 18 163/84 100 06/09/17 06:46 06/09/17 06:46 06/09/17 06:46 06/09/17 06:46 06/09/17 07:44 General appearance: Present: cooperative, A&O X 3, no acute distress, underweight Exam: - Head Head exam: Present: atraumatic, normocephalic - Eye Eye exam: Present: PERRL, conjuntiva pink, sclera anicteric Pupils: Present: PERRL - Neck Neck exam general surgery: Present: supple, trachea midline. Absent: lymphadenopathy ROM: Limited secondary to pain. There is no nuchal rigidity. Negative Kernig and Brudzinski's signs. - Respiratory Respiratory exam: Present: decreased breath sounds. Absent: accessory muscle use, rales, rhonchi, wheezes Additional comments: Diminished breath sounds secondary to poor inspiratory effort - Cardiovascular Cardiovascular exam: Present: Irregularly irregular, distant +S1, +S2. Absent: diastolic murmur, gallop, rubs, systolic murmur - GI/Abdominal GI/Abdominal exam: Present: normal bowel sounds, soft, no peritoneal signs. Absent: distended, tenderness - Extremities Exam Extremities exam: Present: warm, radial pulses palpable and symmetrical. Absent : calf tenderness, cyanotic, pedal edema Additional comments: AV fistula palpated in the left forearm - Neurological Exam Neurological exam: Present: CN II-XII intact, oriented X3, no focal deficits. Absent: pronater drift, facial droop, speech deficit - Skin Skin exam: Present: dry, intact Internal Medicine: Result - Labs CBC & Chem 7: 06/09/17 05:35 06/09/17 05:35 Labs: Short CBC 06/09/17 Range/Units 05:35 WBC 17.2 H (4.3-11.1) K/mcL Hgb 10.1 L (11.5-15.4) g/dL Hct 32.3 L (35.3-44.9) % Plt Count 430 H (140-400) K/mcL Neutrophils # 11.8 H (1.6-8.9) K/mcL BMP 06/09/17 05:35 Sodium 137 Potassium 4.5 Chloride 104 Carbon Dioxide 23 BUN 33 H Creatinine 3.33 H Glucose 136 H Calcium 8.6 Consult Discharge Plan - Plan Referrals: Kaleigh Beckham MD [Primary Care Provider] - (possible ecf placement) <Soto Sanchez - Last Filed: 06/09/17 18:03> Date of Encounter: 06/09/17 - Assessment and plan (1) Neck pain, acute Current Visit: Yes Status: Acute (2) End-stage renal disease needing dialysis Current Visit: Yes Status: Chronic (3) Anemia in chronic kidney disease (CKD) Current Visit: No Status: Chronic Qualifiers: Chronic kidney disease stage: on chronic dialysis Qualified Code(s): N18.6 - End stage renal disease; D63.1 - Anemia in chronic kidney disease; D63.1 - Anemia in chronic kidney disease; Z99.2 - Dependence on renal dialysis; Z99.2 - Dependence on renal dialysis; Z99.2 - Dependence on renal dialysis; Z99.2 - Dependence on renal dialysis (4) A-fib Current Visit: Yes Status: Chronic Qualifiers: Atrial fibrillation type: chronic Qualified Code(s): I48.2 - Chronic atrial fibrillation (5) Hypertension Current Visit: No Status: Chronic Qualifiers: Hypertension type: renovascular hypertension Qualified Code(s): I15.0 - Renovascular hypertension (6) Heart failure Current Visit: Yes Status: Acute Qualifiers: Heart failure type: diastolic Heart failure chronicity: acute on chronic Qualified Code(s): I50.33 - Acute on chronic diastolic (congestive) heart failure - Constitutional Vitals: Temp Pulse Resp BP Pulse Ox 97.6 F 108 17 143/96 100 06/09/17 16:18 06/09/17 16:18 06/09/17 16:18 06/09/17 16:18 06/09/17 16:18 Internal Medicine: Result - Labs CBC & Chem 7: 06/09/17 05:35 06/09/17 05:35 Labs: Short CBC 06/09/17 Range/Units 05:35 WBC 17.2 H (4.3-11.1) K/mcL Hgb 10.1 L (11.5-15.4) g/dL Hct 32.3 L (35.3-44.9) % Plt Count 430 H (140-400) K/mcL Neutrophils # 11.8 H (1.6-8.9) K/mcL BMP 06/09/17 05:35 Sodium 137 Potassium 4.5 Chloride 104 Carbon Dioxide 23 BUN 33 H Creatinine 3.33 H Glucose 136 H Calcium 8.6 - Attending Attestation I examined this patient and my medical decision-making was reviewed with the Resident Physician on 06/09/17. I agree with the documented findings, disposition and treatment plan as described except to the extent set forth below. Ms Arciniega is currently admitted for weakness and ESRD. She has started dialysis. She remains moderate to high risk due to potential for worsening metabolic status. Ms Arciniega is doing OK. Tolerating dialysis. No fever or chills. Working on d/c to SNF. Exam alert. Comfortable Mucus membranes dry Heart not tachy Lungs clear I/P 1. ESRD 2. Weakness Further diagnoses and plan as above.
[2017-06-09] MEDS ORDERED: Cefepime HCl 500 MG in D5% in Water 100 ML IVPB SCH (15:00)
[2017-06-09] MEDS ORDERED: 0.9 % Sodium Chloride 1,000 ML ONE (15:35)
[2017-06-10] MEDS: *HR* HYDROcodone/Acet 10/325 mg TABLET PO PRN ×2 (04:50→10:11)
[2017-06-10] MEDS: *HR* Heparin 5,000 UNIT/ML VIAL SQ SCH (05:51)
[2017-06-10] MEDS: Acetaminophen 325 MG TABLET PO PRN (08:07)
[2017-06-10] MEDS: Furosemide 40 MG/4 ML VIAL IVP SCH (08:08)
[2017-06-10] MEDS: Cholecalciferol (D-3) 1,000 UNIT TABLET PO SCH (08:08)
[2017-06-10] MEDS: Multivit/Ca/Min/Fe/FA 1 TAB TABLET PO SCH (08:08)
[2017-06-10] MEDS: Diltiazem CD (24hr) 180 MG CAPSULE PO SCH (08:08)
[2017-06-10] MEDS: Aspirin Enteric Coated 81 MG Tablet PO SCH (08:08)
[2017-06-10] MEDS: Gabapentin 100 MG CAPSULE PO SCH (08:08)
--- NOTE | 2017-06-10 10:27 | Nephrology Progress Note ---
Date of Encounter: 06/10/17 Time of Encounter: 10:00 - Assessment and Plan (1) End-stage renal disease needing dialysis Current Visit: Yes Status: Chronic Hgb 10.1. No HD today, keeping MWF schedule that will continue outpatient. Subjective Interval history: Complains of neck discofort. Head maintained toward right. Objective - Vital Signs Vital signs: Vital Signs Temp Pulse Resp BP Pulse Ox 06/10/17 06:38 97.7 F 108 17 140/98 91 06/10/17 04:27 98.5 F 109 16 151/98 91 06/10/17 00:46 98 F 120 16 125/73 98 06/09/17 19:28 97.8 F 120 16 116/80 96 06/09/17 16:18 97.6 F 108 17 143/96 100 06/09/17 12:55 97.5 F L 17 143/90 06/09/17 12:45 126/107 06/09/17 12:15 106/80 06/09/17 11:45 112/81 06/09/17 11:15 138/89 06/09/17 10:45 135/94 Intake and Output 06/09/17 06/10/17 06/10/17 23:59 07:59 15:59 Intake Total 500 / 500 0 / 0 Output Total 575 / 575 275 / 275 Balance -75 / -75 -275 / -275 Intake: Oral 500 / 500 0 / 0 Output: Urine 350 / 350 Urethral (Petersen) 100 / 100 Stool 225 / 225 275 / 275 Other: Stool Size Small Stool Consistency liquid liquid soft Stool Color Brown Yellow Yellow Weight 52.3 kg Patient Weight 06/10/17 23:59 Weight 52.3 kg - General Appearance General appearance: Present: chronically ill, frail EENT: Present: mucous membranes moist Neck: Present: no JVD Respiratory: Present: clear Cardiology: Present: edema, irregular rhythm Additional Comments: mild pitting LE Gastrointestinal: Present: normoactive bowel sounds, no tenderness Integumentary: Present: warm and dry Neurologic: Present: alert and oriented x3 Psychiatric: Present: mood/affect appropriate, cooperative - Lab 06/09/17 05:35 06/09/17 05:35 Most recent lab results Calcium 8.6 mg/dL (8.6-10.8) 06/09/17 05:35 Phosphorus 4.8 mg/dL (2.3-4.7) H 06/07/17 13:30 Magnesium 1.5 mg/dL (1.6-2.6) L 06/07/17 03:43 Consult Discharge Plan - Plan Referrals: Kaleigh Beckham MD [Primary Care Provider] - (possible ecf placement)
[2017-06-10 10:36] VITALS: BP 149/80
--- NOTE | 2017-06-10 11:10 | Discharge Summary ---
<Michael Marc - Last Filed: 06/10/17 13:47> Date of Encounter: 06/10/17 Time of Encounter: 09:00 - Discharge Diagnosis (1) Generalized weakness Priority: Primary Status: Acute (2) Urinary tract infection Priority: Secondary Status: Acute Qualifiers: Urinary tract infection type: acute cystitis Hematuria presence: without hematuria Qualified Code(s): N30.00 - Acute cystitis without hematuria (3) End-stage renal disease needing dialysis Priority: Secondary Status: Chronic (4) Anemia Priority: Secondary Status: Acute Qualifiers: Anemia type: due to chronic kidney disease Chronic kidney disease stage: on chronic dialysis Qualified Code(s): N18.6 - End stage renal disease; D63.1 - Anemia in chronic kidney disease; D63.1 - Anemia in chronic kidney disease; Z99.2 - Dependence on renal dialysis; Z99.2 - Dependence on renal dialysis; Z99.2 - Dependence on renal dialysis; Z99.2 - Dependence on renal dialysis (5) Anemia in chronic kidney disease (CKD) Priority: Secondary Status: Chronic Qualifiers: Chronic kidney disease stage: on chronic dialysis Qualified Code(s): N18.6 - End stage renal disease; D63.1 - Anemia in chronic kidney disease; D63.1 - Anemia in chronic kidney disease; Z99.2 - Dependence on renal dialysis; Z99.2 - Dependence on renal dialysis; Z99.2 - Dependence on renal dialysis; Z99.2 - Dependence on renal dialysis (6) Afib Priority: Secondary Status: Chronic Qualifiers: Atrial fibrillation type: chronic Qualified Code(s): I48.2 - Chronic atrial fibrillation (7) Renal calculi Priority: Secondary Status: Chronic (8) DVT prophylaxis Priority: Secondary Status: Acute - Discharge Medications Prescriptions: HYDROcodone/Acet 10/325 mg [[place] 10-325 mg] 1 tab PO Q4HR PRN #5 tablet PRN Reason: Pain Furosemide [Lasix] 40 mg PO DAILY #30 tablet Home Medications: Gabapentin [Neurontin] 300 mg PO QAM 05/20/15 [History] Sodium Bicarbonate 1,950 mg PO BID 05/20/15 [History] Darbepoetin [Aranesp] 150 mcg IJ Q2W 05/24/16 [History] Cholecalciferol (D-3) [Vitamin D] 1,000 unit PO DAILY 05/27/16 [History] Cyanocobalamin (B-12) [Vitamin B12] 1,000 mcg SQ QWEEK 05/27/16 [History] Gabapentin [Neurontin] 600 mg PO HS 05/27/16 [History] Glucosamn/Condroitn/C/Mn/[place] [[facility] Glucosamine Chondroitin Tb] 1 tab PO DAILY 05/27/16 [History] Multivit,Th Iron,Other Min [Therems-M] 1 tab PO DAILY 05/27/16 [History] Vitamin E (Dl,Tocopheryl Acet) [Vitamin E] 400 unit PO DAILY 05/27/16 [History] Aspirin Enteric Coated [Aspirin EC] 81 mg PO DAILY #30 05/22/17 [Rx] Diltiazem CD (24hr) [Cardizem CD] 360 mg PO DAILY #30 05/22/17 [Rx] Furosemide [Lasix] 40 mg PO QPM #30 tab 05/22/17 [Rx] Levothyroxine [Synthroid] 50 mcg PO 0630 #30 tab 05/22/17 [Rx] Metoprolol [Lopressor] 100 mg PO BID #60 tab 05/22/17 [Rx] Furosemide [Lasix] 40 mg PO DAILY #30 tablet 06/10/17 [Rx] HYDROcodone/Acet 10/325 mg [[place] 10-325 mg] 1 tab PO Q4HR PRN #5 tablet [Rx] Omeprazole [PriLOSEC] 40 mg PO DAILY@0730 capsule. 06/10/17 [Rx] Allergies/Adverse Reactions: 3 Allergy/AdvReac Type Severity Reaction Status Date / Time codeine Allergy Rash Verified 05/20/15 09:28 fluoxetine [From Prozac] Allergy Rash Verified 05/20/15 09:28 haloperidol [From Haldol] Allergy See Verified 05/20/15 09:28 Comments nalbuphine [From Nubain] Allergy Rash Verified 05/20/15 09:28 Sulfa (Sulfonamide Allergy Rash Verified 05/20/15 09:28 Antibiotics) Date of admission: 06/07/17 02:25 Primary care physician: Kaleigh Hallman Consults: 06/07/17 08:55 Consult to Nephrology [CONS] Routine Consulting Provider: [facility] Reason for Consult: RADHA w/ pleural effusion Time Notified: 08:55 Call Completed: No 06/07/17 09:30 Consult to Dialysis [CONS] ONCE 06/08/17 11:38 OT [Consult to Occupational Therapy] [CONS] Routine Comment: Evaluate, develop and implement POC Reason for Consult: increased weakness, possible rehab PT [Consult to Physical Therapy] [CONS] Routine Comment: Evaluate, develop and implement POC Reason for Consult: increased weakness, possible rehab 06/09/17 08:15 Consult to Dialysis [CONS] ONCE Discharging clinician: Michael Marc Anticipated date of discharge: 06/10/17 - Patient Status Disposition: Transfer Inpatient Rehab Fac Condition: Fair Functional capacity at discharge: bed bound Overall status at discharge: patient is progressing back to baseline - Discharge Instructions Instructions: Furosemide (By mouth), Atrial Fibrillation (DC), Urinary Tract Infection in Women (DC) Follow Up With: Kaleigh Beckham MD [Primary Care Provider] - (possible ecf placement) Additional Instructions: Increase activity as directed by PT/OT - Diet and Activity Activity: as per physical therapy Diet: low salt diet Hospital course: Ms. Arciniega is a 81 year old female past medical history of CK D65 diastolic heart failure COPD oxygen dependent 2 L nasal cannula GERD GI bleed hypertension atrial fibrillation hypothyroid. Patient had a recent hospitalization at this facility last month and was discharged May 22. At times she presented with abdominal pain secondary to hydronephrosis due to obstruction of the ureter. She had bilateral ureteral stent placement, as altered her stay she expands A. fib with RVR was started on Cardizem. She was noted to have thyroid function tests consistent with primary hypothyroid and was on levothyroxine. She was to be discharged to an ECF however she declined and was discharged home with home health. According to the patient in the past 2 weeks she has been experiencing generalized weakness and lethargy as well as increasing shortness of breath. She does have health services however she feels that she still needle to perform any of her ADLs. She does admit to poor oral intake lower extremity edema. She presented to the ER with the above complaints. Lab work was obtained which did show leukocytosis with white count 20.9 increasing creatinine at 3.9 on BUN is 44 urinalysis was indicative of UTI. Chest x-ray did show bilateral pleural effusions. In the hospital, she recieved IV antibiotics for total of 3 days for uncomplicated UTI, and began hemodialysis. PT/OT evaluated the patient and determined that the patient needs inpatient rehabilitation. Plan: DC to Inpatient Rehab Continue Hemodialysis on MWF schedule Continue urinary catheter at this time, DC when patient can tolerate incontinence pads or bed duffy. Follow with primary care following DC from Rehab - Time Spent with Patient Total time spent providing and/or coordinating discharge services: - Constitutional Vitals: Temp Pulse Resp BP Pulse Ox 97.7 F 108 17 140/98 91 06/10/17 06:38 06/10/17 06:38 06/10/17 06:38 06/10/17 06:38 06/10/17 06:38 General appearance: Present: cooperative, A&O X 3, no acute distress, underweight Exam: - Head Head exam: Present: atraumatic, normocephalic - Eye Eye exam: Present: PERRL, conjuntiva pink, sclera anicteric Pupils: Present: PERRL - Neck Neck exam general surgery: Present: supple, trachea midline. Absent: lymphadenopathy ROM: Limited secondary to pain. There is no nuchal rigidity. Negative Kernig and Brudzinski's signs. - Respiratory Respiratory exam: Present: decreased breath sounds. Absent: accessory muscle use, rales, rhonchi, wheezes Additional comments: Diminished breath sounds secondary to poor inspiratory effort - Cardiovascular Cardiovascular exam: Present: Irregularly irregular, distant +S1, +S2. Absent: diastolic murmur, gallop, rubs, systolic murmur - GI/Abdominal GI/Abdominal exam: Present: normal bowel sounds, soft, no peritoneal signs. Absent: distended, tenderness - Extremities Exam Extremities exam: Present: warm, radial pulses palpable and symmetrical. Absent : calf tenderness, cyanotic, pedal edema Additional comments: AV fistula palpated in the left forearm - Neurological Exam Neurological exam: Present: CN II-XII intact, oriented X3, no focal deficits. Absent: pronater drift, facial droop, speech deficit - Skin Skin exam: Present: dry, intact <Soto Sanchez - Last Filed: 06/10/17 17:11> Date of Encounter: 06/10/17 - Discharge Diagnosis (1) Neck pain, acute Priority: Secondary Status: Acute (2) End-stage renal disease needing dialysis Priority: Primary Status: Chronic (3) Anemia in chronic kidney disease (CKD) Priority: Secondary Status: Chronic Qualifiers: Chronic kidney disease stage: on chronic dialysis Qualified Code(s): N18.6 - End stage renal disease; D63.1 - Anemia in chronic kidney disease; D63.1 - Anemia in chronic kidney disease; Z99.2 - Dependence on renal dialysis; Z99.2 - Dependence on renal dialysis; Z99.2 - Dependence on renal dialysis; Z99.2 - Dependence on renal dialysis (4) A-fib Priority: Secondary Status: Chronic Qualifiers: Atrial fibrillation type: chronic Qualified Code(s): I48.2 - Chronic atrial fibrillation (5) Hypertension Priority: Secondary Status: Chronic Qualifiers: Hypertension type: renovascular hypertension Qualified Code(s): I15.0 - Renovascular hypertension (6) Heart failure Priority: Secondary Status: Acute Qualifiers: Heart failure type: diastolic Heart failure chronicity: acute on chronic Qualified Code(s): I50.33 - Acute on chronic diastolic (congestive) heart failure Date of admission: 06/07/17 02:25 Primary care physician: Kaleigh Hallman Consults: 06/07/17 08:55 Consult to Nephrology [CONS] Routine Consulting Provider: [facility] Reason for Consult: RADHA w/ pleural effusion Time Notified: 08:55 Call Completed: No 06/07/17 09:30 Consult to Dialysis [CONS] ONCE 06/08/17 11:38 OT [Consult to Occupational Therapy] [CONS] Routine Comment: Evaluate, develop and implement POC Reason for Consult: increased weakness, possible rehab PT [Consult to Physical Therapy] [CONS] Routine Comment: Evaluate, develop and implement POC Reason for Consult: increased weakness, possible rehab 06/09/17 08:15 Consult to Dialysis [CONS] ONCE Hospital course: Ms. Arciniega is a 81 year old female - Time Spent with Patient Total time spent providing and/or coordinating discharge services: 39min - Constitutional Vitals: Temp Pulse Resp BP Pulse Ox 98.2 F 110 17 149/80 99 06/10/17 10:33 06/10/17 10:33 06/10/17 10:33 06/10/17 10:33 06/10/17 10:33 - Attending Attestation I examined this patient and my medical decision-making was reviewed with the Resident Physician on 06/10/17. I agree with the documented findings, disposition and treatment plan as described except to the extent set forth below. Ms. Arciniega has been admitted due to weakness associated with renal failure. She has been started on dialysis and is tolerating it without new issues. She has been having some arthritis pain. She is afebrile with stable vitals and ready for d/c to SNF today. Exam Alert. Comfortable Mucus membranes dry Heart irreg Lungs diminished Abd nonacute Plan D/C to SNF today Follow up with PCP and renal.
--- NOTE | 2017-06-10 11:19 | Physician Discharge Referral ---
ExtendedCare Referral Info Transfer To: [place] Provider in Charge: Soto Sanchez Provider in Charge after Transfer: PCP Institutional Level of Care: Skilled - Diagnosis (1) Generalized weakness Priority: Primary Status: Acute (2) Urinary tract infection Priority: Secondary Status: Acute (3) End-stage renal disease needing dialysis Priority: Secondary Status: Chronic (4) Anemia Priority: Secondary Status: Acute (5) Anemia in chronic kidney disease (CKD) Priority: Secondary Status: Chronic (6) Afib Priority: Secondary Status: Chronic (7) Renal calculi Priority: Secondary Status: Chronic (8) DVT prophylaxis Priority: Secondary Status: Acute Prognosis: Fair - Transfer Medications Prescriptions: HYDROcodone/Acet 10/325 mg [[place] 10-325 mg] 1 tab PO Q4HR PRN #5 tablet PRN Reason: Pain Furosemide [Lasix] 40 mg PO DAILY #30 tablet Home Medications: Gabapentin [Neurontin] 300 mg PO QAM 05/20/15 [History] Sodium Bicarbonate 1,950 mg PO BID 05/20/15 [History] Darbepoetin [Aranesp] 150 mcg IJ Q2W 05/24/16 [History] Cholecalciferol (D-3) [Vitamin D] 1,000 unit PO DAILY 05/27/16 [History] Cyanocobalamin (B-12) [Vitamin B12] 1,000 mcg SQ QWEEK 05/27/16 [History] Gabapentin [Neurontin] 600 mg PO HS 05/27/16 [History] Glucosamn/[place]n/C/Mn/[place] [[facility] Glucosamine Chondroitin Tb] 1 tab PO DAILY 05/27/16 [History] Multivit,Th Iron,Other Min [Therems-M] 1 tab PO DAILY 05/27/16 [History] Vitamin E (Dl,Tocopheryl Acet) [Vitamin E] 400 unit PO DAILY 05/27/16 [History] Aspirin Enteric Coated [Aspirin EC] 81 mg PO DAILY #30 05/22/17 [Rx] Diltiazem CD (24hr) [Cardizem CD] 360 mg PO DAILY #30 05/22/17 [Rx] Furosemide [Lasix] 40 mg PO QPM #30 tab 05/22/17 [Rx] Levothyroxine [Synthroid] 50 mcg PO 0630 #30 tab 05/22/17 [Rx] Metoprolol [Lopressor] 100 mg PO BID #60 tab 05/22/17 [Rx] Furosemide [Lasix] 40 mg PO DAILY #30 tablet 06/10/17 [Rx] HYDROcodone/Acet 10/325 mg [[place] 10-325 mg] 1 tab PO Q4HR PRN #5 tablet [Rx] Omeprazole [PriLOSEC] 40 mg PO DAILY@0730 capsule. 06/10/17 [Rx] Allergies/Adverse Reactions: 3 Allergy/AdvReac Type Severity Reaction Status Date / Time codeine Allergy Rash Verified 05/20/15 09:28 fluoxetine [From Prozac] Allergy Rash Verified 05/20/15 09:28 haloperidol [From Haldol] Allergy See Verified 05/20/15 09:28 Comments nalbuphine [From Nubain] Allergy Rash Verified 05/20/15 09:28 Sulfa (Sulfonamide Allergy Rash Verified 05/20/15 09:28 Antibiotics) - Respiratory Orders Smoking Cessation: Smoking cessation has been advised. For more information, call the [place] Tobacco Quit Line at 2-497-CHOX-NOW. CERTIFICATION: I certify that the transfer of the above named patient to an Extended Care Facility is necessary for the continuing treatment of the diagnosis listed. The above information is true and accurate reflection of patient's current condition. Confidential - Redisclosure prohibited without a patient's written consent.
--- NOTE | 2017-06-10 11:24 | Physician Discharge Referral ---
ExtendedCare Referral Info Transfer To: [facility] Provider in Charge: Soto Sanchez Provider in Charge after Transfer: PCP Institutional Level of Care: Skilled - Diagnosis (1) Generalized weakness Priority: Primary Status: Acute (2) Urinary tract infection Priority: Secondary Status: Acute (3) End-stage renal disease needing dialysis Priority: Secondary Status: Chronic (4) Anemia Priority: Secondary Status: Acute (5) Anemia in chronic kidney disease (CKD) Priority: Secondary Status: Chronic (6) Afib Priority: Secondary Status: Chronic (7) Renal calculi Priority: Secondary Status: Chronic (8) DVT prophylaxis Priority: Secondary Status: Acute Prognosis: Fair Aware of Diagnosis: Patient Aware of Prognosis: Patient - Transfer Medications Prescriptions: HYDROcodone/Acet 10/325 mg [[place] 10-325 mg] 1 tab PO Q4HR PRN #5 tablet PRN Reason: Pain Furosemide [Lasix] 40 mg PO DAILY #30 tablet Home Medications: Gabapentin [Neurontin] 300 mg PO QAM 05/20/15 [History] Sodium Bicarbonate 1,950 mg PO BID 05/20/15 [History] Darbepoetin [Aranesp] 150 mcg IJ Q2W 05/24/16 [History] Cholecalciferol (D-3) [Vitamin D] 1,000 unit PO DAILY 05/27/16 [History] Cyanocobalamin (B-12) [Vitamin B12] 1,000 mcg SQ QWEEK 05/27/16 [History] Gabapentin [Neurontin] 600 mg PO HS 05/27/16 [History] Glucosamn/[place]n/C/Mn/[place] [[facility] Glucosamine Chondroitin Tb] 1 tab PO DAILY 05/27/16 [History] Multivit,Th Iron,Other Min [Therems-M] 1 tab PO DAILY 05/27/16 [History] Vitamin E (Dl,Tocopheryl Acet) [Vitamin E] 400 unit PO DAILY 05/27/16 [History] Aspirin Enteric Coated [Aspirin EC] 81 mg PO DAILY #30 05/22/17 [Rx] Diltiazem CD (24hr) [Cardizem CD] 360 mg PO DAILY #30 05/22/17 [Rx] Furosemide [Lasix] 40 mg PO QPM #30 tab 05/22/17 [Rx] Levothyroxine [Synthroid] 50 mcg PO 0630 #30 tab 05/22/17 [Rx] Metoprolol [Lopressor] 100 mg PO BID #60 tab 05/22/17 [Rx] Furosemide [Lasix] 40 mg PO DAILY #30 tablet 06/10/17 [Rx] HYDROcodone/Acet 10/325 mg [[place] 10-325 mg] 1 tab PO Q4HR PRN #5 tablet [Rx] Omeprazole [PriLOSEC] 40 mg PO DAILY@0730 capsule. 06/10/17 [Rx] Allergies/Adverse Reactions: 3 Allergy/AdvReac Type Severity Reaction Status Date / Time codeine Allergy Rash Verified 05/20/15 09:28 fluoxetine [From Prozac] Allergy Rash Verified 05/20/15 09:28 haloperidol [From Haldol] Allergy See Verified 05/20/15 09:28 Comments nalbuphine [From Nubain] Allergy Rash Verified 05/20/15 09:28 Sulfa (Sulfonamide Allergy Rash Verified 05/20/15 09:28 Antibiotics) - Respiratory Orders Smoking Cessation: Smoking cessation has been advised. For more information, call the [place] Tobacco Quit Line at 0-093-YMRQ-NOW. - Ancillary Orders May use pressure relief devices daily prn - Advance Directives Living Will: Yes Power of Casting And Locker Room Servicer: No Code Status: DNR-Arrest/Don't Intubate - Mobility Orders Chair, Bedrest - Rehabiliation Orders Rehab Potential: Fair Rehab Orders: Evaluation for Physical Therapy, Evaluation for Occupational Therapy, Evaluation for Speech Therapy - Diet Orders Renal CERTIFICATION: I certify that the transfer of the above named patient to an Extended Care Facility is necessary for the continuing treatment of the diagnosis listed. The above information is true and accurate reflection of patient's current condition. Confidential - Redisclosure prohibited without a patient's written consent.
== END 2017-06-10 13:09 | DRG 291 ==
LOC: 3BNU 16:12 → EMEROO 16:12 → 3BNU 20:01 → SUATTDRO 06-07 02:25 → 2ANU 06-07 12:46
PROVIDERS: ADMIT Internal Medicine; ATTEND Internal Medicine

== ENCOUNTER 2017-06-15 22:13 | Inpatient (IN) ==
[2017-06-15] MEDS ORDERED: Ondansetron 4 MG/2 ML VIAL IVP ONE (22:57)
[2017-06-15] MEDS ORDERED: Pantoprazole 40 MG VIAL IVP ONE (22:57)
[2017-06-15] MEDS ORDERED: 0.9 % Sodium Chloride 1,000 ML IVC ONE (22:57)
--- NOTE | 2017-06-15 23:07 | Emergency Department Note ---
Disposition Clinical Impression: Small bowel obstruction due to adhesions Abdominal pain Qualifiers: Abdominal location: epigastric Qualified Code(s): R10.13 - Epigastric pain CKD (chronic kidney disease) Qualifiers: Chronic kidney disease stage: on chronic dialysis Qualified Code(s): N18.6 - End stage renal disease Afib Qualifiers: Atrial fibrillation type: chronic Qualified Code(s): I48.2 - Chronic atrial fibrillation Disposition: Admitted As Inpatient Condition: Fair Referrals: Kaleigh Beckham MD [Primary Care Provider] - Forms: ED Satisfaction Letter Abdominal Pain HPI - General Chief Complaint: ED Chest Pain Stated Complaint: Vomiting/epigastric pain Time Seen by Provider: 06/15/17 22:54 Source: patient, EMS Nursing Notes Reviewed: Yes Vital Signs Reviewed: Yes - History of Present Illness HPI Narrative: Patient is an 81-year-old female who presents to the emergency department from a local [facility] with a complaint of epigastric abdominal pain associated with nausea and vomiting for 2 days prior to arrival. Patient has had bowel resections and a partial gastrectomy and has a colostomy. She states this feels just like when she has her bowel obstructions and states that she has had multiple bowel obstructions. There has still been some drainage into the colostomy bag but decreased from usual. No fever. Pt Subjective Complaint: abdominal pain Onset (ago): day(s) (2) Consistency: constant Location: epigastric Pain Severity: moderate Quality: cramping, aching, dull Radiation: none Migration to: no migration Improves with: nothing Worsens with: nothing Treatments prior to arrival: none - Related Data Home Medications Medication Instructions Recorded Confirmed Gabapentin [Neurontin] 300 mg PO QAM 05/20/15 06/07/17 Sodium Bicarbonate 1,950 mg PO BID 05/20/15 06/07/17 Darbepoetin [Aranesp] 150 mcg IJ Q2W 05/24/16 06/07/17 Cholecalciferol (D-3) [Vitamin D] 1,000 unit PO DAILY 05/27/16 06/07/17 Cyanocobalamin (B-12) [Vitamin B12] 1,000 mcg SQ QWEEK 05/27/16 06/07/17 Gabapentin [Neurontin] 600 mg PO HS 05/27/16 06/07/17 Glucosamn/[place]n/C/Mn/[place] 1 tab PO DAILY 05/27/16 06/07/17 [Cvs Glucosamine Chondroitin Tb] Multivit,Th Iron,Other Min 1 tab PO DAILY 05/27/16 06/07/17 [Therems-M] Vitamin E (Dl,Tocopheryl Acet) 400 unit PO DAILY 05/27/16 06/07/17 [Vitamin E] Previous Rx's Medication Instructions Recorded Aspirin Enteric Coated [Aspirin EC] 81 mg PO DAILY #30 05/22/17 Diltiazem CD (24hr) [Cardizem CD] 360 mg PO DAILY #30 05/22/17 Furosemide [Lasix] 40 mg PO QPM #30 tab 05/22/17 Levothyroxine [Synthroid] 50 mcg PO 0630 #30 tab 05/22/17 Metoprolol [Lopressor] 100 mg PO BID #60 tab 05/22/17 Furosemide [Lasix] 40 mg PO DAILY #30 tablet 06/10/17 HYDROcodone/Acet 10/325 mg [[place] 1 tab PO Q4HR PRN #5 tablet 06/10/17 10-325 mg] Omeprazole [PriLOSEC] 40 mg PO DAILY@0730 capsule. 06/10/17 Allergies Allergy/AdvReac Type Severity Reaction Status Date / Time codeine Allergy Rash Verified 06/15/17 22:17 fluoxetine [From Prozac] Allergy Rash Verified 06/15/17 22:17 haloperidol [From Haldol] Allergy See Verified 06/15/17 22:17 Comments nalbuphine [From Nubain] Allergy Rash Verified 06/15/17 22:17 Sulfa (Sulfonamide Allergy Rash Verified 06/15/17 22:17 Antibiotics) All systems ED: reviewed and negative except as stated. Constitutional: Denies: fever Cardiovascular: Denies: chest pain Respiratory: Denies: cough, dyspnea Gastrointestinal: Reports: abdominal pain, nausea, vomiting. Denies: hematemesis, melena, hematochezia Genitourinary: Denies: dysuria Musculoskeletal: Denies: back pain Abdominal Pain PMH - Past Medical History Medical history: Reports: arthritis, cancer, CHF, COPD, GERD, GI bleed, hypertension, osteoporosis, renal disease, other Female Surgical History: Reports: , cholecystectomy, colostomy, hysterectomy Psychiatric history: Reports: anxiety, depression, other - Social History Smoking status: Never smoker Alcohol use: Reports: none Drug use: Reports: none Physical Exam - General Limitations: no limitations General appearance: alert, in no apparent distress - Head Head exam: atraumatic, normocephalic, normal inspection - Eye Eye exam: Present: normal appearance, PERRL, EOMI. Absent: scleral icterus, conjunctival injection - ENT ENT exam: normal exam, normal oropharynx, mucous membranes moist - Neck Neck exam: Present: normal inspection, full ROM, trachea midline. Absent: tenderness, meningismus, lymphadenopathy - Chest Chest inspection: Present: normal inspection, symmetric chest wall rise. Absent : tenderness - Respiratory Respiratory exam: Present: normal lung sounds bilaterally. Absent: respiratory distress - Cardiovascular Cardiovascular exam: Present: regular rate, irregular rhythm - Abdominal Exam Abdominal exam: Present: soft, tenderness (Mild diffuse tenderness, worse in the epigastric region.), diminished bowel sounds. Absent: distention, guarding , rebound, rigidity Abdominal tenderness: Present: epigastrium, diffuse, mild - Extremities Exam Extremities exam: Present: normal inspection. Absent: tenderness - Neurological Exam Neurological exam: Present: alert, oriented X3 - Psychiatric Psychiatric exam: Present: normal affect, normal mood - Skin Skin exam: Present: warm, dry. Absent: cyanosis, diaphoresis Course Course Narrative: Elderly female presents from a [facility] with 2 days of nausea and vomiting and abdominal pain. Patient feels this is a recurrent bowel obstruction. Pain workup obtained and CT of the abdomen does show a small bowel obstruction. Case discussed with the surgeon mental retardation nurse, Dr. Gonzalez, and he recommends medical admission by the hospitalist and will consult on the patient. Hospitalist was placed repeatedly for one hour with no response prior to shift change. Discussed with senior ED resident, Dr. Iniguez, at shift change and he will discuss patient with the hospitalist for admission. Vital Signs Temperature 98.7 F 06/15/17 22:17 Pulse Rate 88 06/15/17 22:17 Respiratory Rate 14 06/15/17 22:17 Blood Pressure 107/54 06/15/17 22:17 O2 Sat by Pulse Oximetry 94 06/15/17 22:17 Temperature 98.7 F 06/15/17 22:17 Pulse Rate 82 06/16/17 06:48 Respiratory Rate 18 06/16/17 06:48 Blood Pressure 120/78 06/16/17 06:48 O2 Sat by Pulse Oximetry 100 06/16/17 06:48 Oxygen Delivery Oxygen Delivery Nasal Cannula Abdominal Pain - Medical Records Medical records reviewed: Yes I reviewed the patient's medical records. - Lab Data Lab results reviewed: Yes I reviewed the patient's lab results. Result diagrams: 06/15/17 23:05 06/15/17 23:05 Lab Results 06/15/17 06/15/17 06/15/17 Range/Units 23:05 23:05 23:05 WBC 21.2 H (4.3-11.1) K/mcL RBC 3.35 L (3.82-4.97) M/mcL Hgb 10.3 L (11.5-15.4) g/dL Hct 34.4 L (35.3-44.9) % MCV 102.7 H D (83.0-100.0) fL MCH 30.7 (28.0-33.3) pg MCHC 29.9 L (31.6-35.5) g/dL RDW 21.2 H (11.5-14.5) % Plt Count 491 H (140-400) K/mcL MPV 10.0 (9.4-12.4) fL Immature Gran % 1.3 (0-4) % Seg Neutrophils % 83.6 % Lymphocytes % 4.3 % Monocytes % 10.4 % Eosinophils % 0.2 % Basophils % 0.2 % Neutrophils # 17.7 H (1.6-8.9) K/mcL Lymphocytes # 0.9 (0.6-4.6) K/mcL Monocytes # 2.2 H (0.0-1.3) K/mcL Eosinophils # 0.0 (0.0-0.6) K/mcL Basophils # 0.0 (0.0-0.2) K/mcL Nucleated RBCs/100 WBC 0.1 H (0) /100 WBC Immature Plt Fraction 3.0 (1.1-6.1) % PT 10.7 (9.4-12.1) Seconds INR 1.0 APTT 22.8 L (26.0-36.0) Seconds Sodium 135 L (136-145) mEq/L Potassium 4.9 H (3.5-4.5) mEq/L Chloride 97 L (98-109) mEq/L Carbon Dioxide 26 (19-29) mEq/L BUN 17 (7-20) mg/dL Creatinine 3.31 H (0.57-1.11) mg/dL Est GFR ( Amer) 16 L (> 60) Est GFR (Non-Af Amer) 13 L (> 60) BUN/Creatinine Ratio 5 L (6-26) Glucose 151 H (70-99) mg/dL Calculated Osmolality 284 (280-300) Lactic Acid (0.5-2.2) mmol/L Calcium 9.0 (8.6-10.8) mg/dL Total Bilirubin 0.4 (0.2-1.2) mg/dL Direct Bilirubin 0.2 (0.0-0.5) mg/dL Indirect Bilirubin 0.2 (0.0-1.2) mg/dL AST 34 (5-34) Units/L ALT 14 (0-55) Units/L Alkaline Phosphatase 163 H (38-126) Units/L Troponin I (0-0.03) ng/mL Serum Total Protein 6.0 (6.0-8.3) g/dL Albumin 2.5 L (3.5-5.0) g/dL Globulin 3.5 (2.4-3.5) g/dL Albumin/Globulin Ratio 0.7 L (1.1-2.2) Amylase 45 (25-125) Units/L Lipase 37 (8-78) Units/L Urine Color (Yellow) Urine Clarity (Clear) Urine pH (5.0-8.0) pH Units Ur Specific [place] (1.010-1.025) Urine Protein (Neg-Trace) mg/dL Urine Glucose (UA) (Normal) mg/dL Urine Ketones (Negative) mg/dL Urine Blood (Negative) Urine Nitrite (Negative) Urine Bilirubin (Negative) Urine Urobilinogen (Normal) mg/dL Ur Leukocyte Esterase (Negative) Urine Microscopic RBC (0-3) per hpf Urine Microscopic WBC (0-3) per hpf Ur Squamous Epith Cells (None-Few) per lpf Urine Bacteria (None-Few) per hpf Hyaline Casts (None-Few) per lpf Ur Culture Indicated? (NO) 06/15/17 06/15/17 06/16/17 Range/Units 23:05 23:45 00:10 WBC (4.3-11.1) K/mcL RBC (3.82-4.97) M/mcL Hgb (11.5-15.4) g/dL Hct (35.3-44.9) % MCV (83.0-100.0) fL MCH (28.0-33.3) pg MCHC (31.6-35.5) g/dL RDW (11.5-14.5) % Plt Count (140-400) K/mcL MPV (9.4-12.4) fL Immature Gran % (0-4) % Seg Neutrophils % % Lymphocytes % % Monocytes % % Eosinophils % % Basophils % % Neutrophils # (1.6-8.9) K/mcL Lymphocytes # (0.6-4.6) K/mcL Monocytes # (0.0-1.3) K/mcL Eosinophils # (0.0-0.6) K/mcL Basophils # (0.0-0.2) K/mcL Nucleated RBCs/100 WBC (0) /100 WBC Immature Plt Fraction (1.1-6.1) % PT (9.4-12.1) Seconds INR APTT (26.0-36.0) Seconds Sodium (136-145) mEq/L Potassium (3.5-4.5) mEq/L Chloride (98-109) mEq/L Carbon Dioxide (19-29) mEq/L BUN (7-20) mg/dL Creatinine (0.57-1.11) mg/dL Est GFR ( Amer) (> 60) Est GFR (Non-Af Amer) (> 60) BUN/Creatinine Ratio (6-26) Glucose (70-99) mg/dL Calculated Osmolality (280-300) Lactic Acid 1.0 (0.5-2.2) mmol/L Calcium (8.6-10.8) mg/dL Total Bilirubin (0.2-1.2) mg/dL Direct Bilirubin (0.0-0.5) mg/dL Indirect Bilirubin (0.0-1.2) mg/dL AST (5-34) Units/L ALT (0-55) Units/L Alkaline Phosphatase (38-126) Units/L Troponin I 0.00 (0-0.03) ng/mL Serum Total Protein (6.0-8.3) g/dL Albumin (3.5-5.0) g/dL Globulin (2.4-3.5) g/dL Albumin/Globulin Ratio (1.1-2.2) Amylase (25-125) Units/L Lipase (8-78) Units/L Urine Color Dark Yellow (Yellow) Urine Clarity Turbid A (Clear) Urine pH 6.0 (5.0-8.0) pH Units Ur Specific [place] 1.028 H (1.010-1.025) Urine Protein >=300 H (Neg-Trace) mg/dL Urine Glucose (UA) Normal (Normal) mg/dL Urine Ketones Trace H (Negative) mg/dL Urine Blood Large H (Negative) Urine Nitrite Negative (Negative) Urine Bilirubin Small H (Negative) Urine Urobilinogen Normal (Normal) mg/dL Ur Leukocyte Esterase Moderate H (Negative) Urine Microscopic RBC 15-30 H (0-3) per hpf Urine Microscopic WBC 5-15 H (0-3) per hpf Ur Squamous Epith Cells Few (None-Few) per lpf Urine Bacteria Few (None-Few) per hpf Hyaline Casts Few (None-Few) per lpf Ur Culture Indicated? YES A (NO) - Radiology Data Radiology results reviewed: Yes I reviewed the patient's radiology results. Abdomen/Pelvis CT 06/15/17 23:02 IMPRESSION: 1. Mid to distal small bowel obstruction. Multiple dilated small bowel loops with transition prior to the right lower quadrant ileostomy. Likely adhesions given the previous distal gastric resection and colectomy. 2. Moderate to large bilateral pleural effusions with bilateral lower lobe atelectasis. 3. Resolution of bilateral hydronephrosis with stents in place. Bilateral nephrolithiasis. 4. Diffuse anasarca. Mild probable third-spacing of fluid within the mesentery and retroperitoneum. No appreciable ascites. D/ / 06/16/2017 07:07:20 Mart Lancaster MD / cora Interpreting Provider: Mart Lancaster MD - EKG Data EKG attestation: Yes I reviewed and interpreted this EKG. EKG results narrative: EKG shows atrial fibrillation with a ventricular rate of 79. Otherwise no acute changes and no significant change from prior EKG dated 06/06/2017. Critical Care Time Critical Care Time: Yes Total Critical Care Time: 45 Attestation: Critical care performed: Time is exclusive of separately billable procedures. Time includes: direct patient care, patient reassessment, coordination of patient care, interpretation of data (laboratory data, radiology data, and respiratory data), review of patient's medical records, medical consultation and documentation of patient care. Procedures included in critical care time: Procedures excluded from critical care time:
[2017-06-15 23:12] LABS: Basophils % 0.2 %; Eosinophils % 0.2 %; Hematocrit 34.4 % (35.3-44.9); Hemoglobin 10.3 g/dL (11.5-15.4); Immature Granulocytes % 1.3 % (0-4); Lymphocytes # 0.9 K/mcL (0.6-4.6); Lymphocytes % 4.3 %; Mean Corpuscular HGB Conc 29.9 g/dL (31.6-35.5); Mean Corpuscular Hemoglobin 30.7 pg (28.0-33.3); Monocytes # 2.2 K/mcL (0.0-1.3); Monocytes % 10.4 %; Neutrophils # 17.7 K/mcL (1.6-8.9); Nucleated Red Blood Cells 0.1 /100 WBC (0); Platelet Count 491 K/mcL (140-400); Red Blood Count 3.35 M/mcL (3.82-4.97); Red Cell Distribution Width 21.2 % (11.5-14.5); Segmented Neutrophils % 83.6 %
[2017-06-15 23:18] LABS: Mean Corpuscular Volume 102.7 fL (83.0-100.0)
[2017-06-15 23:28] LABS: Prothrombin Time 10.7 Seconds (9.4-12.1)
[2017-06-15 23:31] LABS: Activated Partial Thrombo Time 22.8 Seconds (26.0-36.0)
[2017-06-15 23:39] LABS: Albumin 2.5 g/dL (3.5-5.0); Albumin/Globulin Ratio 0.7 (1.1-2.2); Bilirubin,Direct 0.2 mg/dL (0.0-0.5); Bilirubin,Indirect 0.2 mg/dL (0.0-1.2); Bilirubin,Total 0.4 mg/dL (0.2-1.2); Globulin 3.5 g/dL (2.4-3.5); Potassium 4.9 mEq/L (3.5-4.5)
[2017-06-15 23:56] LABS: Bilirubin,Urine Small (Negative); Blood,Urine Large (Negative); Clarity,Urine Turbid (Clear); Color,Urine Dark Yellow (Yellow); Glucose,Urine (UA) Normal (Normal); Ketones,Urine Trace mg/dL (Negative); Leukocyte Esterase,Urine Moderate (Negative); Nitrite,Urine Negative (Negative); Protein,Urine >=300 mg/dL (Neg-Trace); Specific Gravity,Urine 1.028 (1.010-1.025); Urobilinogen,Urine Normal (Normal)
[2017-06-16 00:06] LABS: Bacteria,Urine Few per hpf (None-Few); Squamous Epithelial Cell,Urine Few per lpf (None-Few)
[2017-06-16 00:07] LABS: Hyaline Casts,Urine Few per lpf (None-Few); RBC,Urine 15-30 per hpf (0-3)
--- NOTE | 2017-06-16 08:37 | Emergency Department Note ---
Disposition Clinical Impression: Small bowel obstruction due to adhesions Abdominal pain Qualifiers: Abdominal location: epigastric Qualified Code(s): R10.13 - Epigastric pain CKD (chronic kidney disease) Qualifiers: Chronic kidney disease stage: on chronic dialysis Qualified Code(s): N18.6 - End stage renal disease Afib Qualifiers: Atrial fibrillation type: chronic Qualified Code(s): I48.2 - Chronic atrial fibrillation Disposition: Admitted As Inpatient Condition: Fair Time of Disposition: 07:45 General Adult HPI - General Chief complaint: ED Chest Pain Stated complaint: Vomiting/epigastric pain Time Seen by Provider: 06/15/17 22:54 Source: patient, EMS Limitations: no limitations - History of Present Illness Pain Scale: 0 - Related Data Home Medications Medication Instructions Recorded Confirmed Gabapentin [Neurontin] 300 mg PO QAM 05/20/15 06/07/17 Sodium Bicarbonate 1,950 mg PO BID 05/20/15 06/07/17 Darbepoetin [Aranesp] 150 mcg IJ Q2W 05/24/16 06/07/17 Cholecalciferol (D-3) [Vitamin D] 1,000 unit PO DAILY 05/27/16 06/07/17 Cyanocobalamin (B-12) [Vitamin B12] 1,000 mcg SQ QWEEK 05/27/16 06/07/17 Gabapentin [Neurontin] 600 mg PO HS 05/27/16 06/07/17 Glucosamn/[place]n/C/Mn/[place] 1 tab PO DAILY 05/27/16 06/07/17 [[facility]vs Glucosamine Chondroitin Tb] Multivit,Th Iron,Other Min 1 tab PO DAILY 05/27/16 06/07/17 [Therems-M] Vitamin E (Dl,Tocopheryl Acet) 400 unit PO DAILY 05/27/16 06/07/17 [Vitamin E] Previous Rx's Medication Instructions Recorded Aspirin Enteric Coated [Aspirin EC] 81 mg PO DAILY #30 05/22/17 Diltiazem CD (24hr) [Cardizem CD] 360 mg PO DAILY #30 05/22/17 Furosemide [Lasix] 40 mg PO QPM #30 tab 05/22/17 Levothyroxine [Synthroid] 50 mcg PO 0630 #30 tab 05/22/17 Metoprolol [Lopressor] 100 mg PO BID #60 tab 05/22/17 Furosemide [Lasix] 40 mg PO DAILY #30 tablet 06/10/17 HYDROcodone/Acet 10/325 mg [[place] 1 tab PO Q4HR PRN #5 tablet 06/10/17 10-325 mg] Omeprazole [PriLOSEC] 40 mg PO DAILY@0730 capsule. 06/10/17 Allergies Allergy/AdvReac Type Severity Reaction Status Date / Time codeine Allergy Rash Verified 06/15/17 22:17 fluoxetine [From Prozac] Allergy Rash Verified 06/15/17 22:17 haloperidol [From Haldol] Allergy See Verified 06/15/17 22:17 Comments nalbuphine [From Nubain] Allergy Rash Verified 06/15/17 22:17 Sulfa (Sulfonamide Allergy Rash Verified 06/15/17 22:17 Antibiotics) Constitutional: Denies: fever Cardiovascular: Denies: chest pain Respiratory: Denies: cough, dyspnea Gastrointestinal: Reports: abdominal pain, nausea, vomiting. Denies: hematemesis, melena, hematochezia Genitourinary: Denies: dysuria Musculoskeletal: Denies: back pain Past Medical History - Past Medical History Medical history: Reports: arthritis, cancer, CHF, COPD, GERD, GI bleed, hypertension, osteoporosis, renal disease, other Surgical history: Reports: appendectomy, , cholecystectomy, colectomy, colostomy, hysterectomy, BLAKE/BSO, other Psychiatric history: Reports: anxiety, depression, other - Social History Smoking Status: Never smoker Smokeless Tobacco Status: No Alcohol use: Reports: none Drug use: Reports: none Physical Exam - General Limitations: no limitations General appearance: alert, in no apparent distress Course - Reevaluation(s) Reevaluation #1: Patient taken in signout pending call back for admission. Dr.Ducu stein. Patient reexamined. Comfortable in bed. Denies any abdominal pain at this time. Has not vomited. Left EJ working appropriately. Time: 08:36 Vital Signs Temperature 98.7 F 06/15/17 22:17 Pulse Rate 88 06/15/17 22:17 Respiratory Rate 14 06/15/17 22:17 Blood Pressure 107/54 06/15/17 22:17 O2 Sat by Pulse Oximetry 94 06/15/17 22:17 Temperature 98.7 F 06/15/17 22:17 Pulse Rate 87 06/16/17 07:45 Respiratory Rate 14 06/16/17 07:45 Blood Pressure 125/79 06/16/17 07:45 O2 Sat by Pulse Oximetry 96 06/16/17 07:45 Oxygen Delivery Oxygen Delivery Nasal Cannula Medical Decision Making - Lab Data Result diagrams: 06/15/17 23:05 06/15/17 23:05 Lab Results 06/15/17 06/15/17 06/15/17 Range/Units 23:05 23:05 23:05 WBC 21.2 H (4.3-11.1) K/mcL RBC 3.35 L (3.82-4.97) M/mcL Hgb 10.3 L (11.5-15.4) g/dL Hct 34.4 L (35.3-44.9) % MCV 102.7 H D (83.0-100.0) fL MCH 30.7 (28.0-33.3) pg MCHC 29.9 L (31.6-35.5) g/dL RDW 21.2 H (11.5-14.5) % Plt Count 491 H (140-400) K/mcL MPV 10.0 (9.4-12.4) fL Immature Gran % 1.3 (0-4) % Seg Neutrophils % 83.6 % Lymphocytes % 4.3 % Monocytes % 10.4 % Eosinophils % 0.2 % Basophils % 0.2 % Neutrophils # 17.7 H (1.6-8.9) K/mcL Lymphocytes # 0.9 (0.6-4.6) K/mcL Monocytes # 2.2 H (0.0-1.3) K/mcL Eosinophils # 0.0 (0.0-0.6) K/mcL Basophils # 0.0 (0.0-0.2) K/mcL Nucleated RBCs/100 WBC 0.1 H (0) /100 WBC Immature Plt Fraction 3.0 (1.1-6.1) % PT 10.7 (9.4-12.1) Seconds INR 1.0 APTT 22.8 L (26.0-36.0) Seconds Sodium 135 L (136-145) mEq/L Potassium 4.9 H (3.5-4.5) mEq/L Chloride 97 L (98-109) mEq/L Carbon Dioxide 26 (19-29) mEq/L BUN 17 (7-20) mg/dL Creatinine 3.31 H (0.57-1.11) mg/dL Est GFR ( Amer) 16 L (> 60) Est GFR (Non-Af Amer) 13 L (> 60) BUN/Creatinine Ratio 5 L (6-26) Glucose 151 H (70-99) mg/dL Calculated Osmolality 284 (280-300) Lactic Acid (0.5-2.2) mmol/L Calcium 9.0 (8.6-10.8) mg/dL Total Bilirubin 0.4 (0.2-1.2) mg/dL Direct Bilirubin 0.2 (0.0-0.5) mg/dL Indirect Bilirubin 0.2 (0.0-1.2) mg/dL AST 34 (5-34) Units/L ALT 14 (0-55) Units/L Alkaline Phosphatase 163 H (38-126) Units/L Troponin I (0-0.03) ng/mL Serum Total Protein 6.0 (6.0-8.3) g/dL Albumin 2.5 L (3.5-5.0) g/dL Globulin 3.5 (2.4-3.5) g/dL Albumin/Globulin Ratio 0.7 L (1.1-2.2) Amylase 45 (25-125) Units/L Lipase 37 (8-78) Units/L Urine Color (Yellow) Urine Clarity (Clear) Urine pH (5.0-8.0) pH Units Ur Specific [place] (1.010-1.025) Urine Protein (Neg-Trace) mg/dL Urine Glucose (UA) (Normal) mg/dL Urine Ketones (Negative) mg/dL Urine Blood (Negative) Urine Nitrite (Negative) Urine Bilirubin (Negative) Urine Urobilinogen (Normal) mg/dL Ur Leukocyte Esterase (Negative) Urine Microscopic RBC (0-3) per hpf Urine Microscopic WBC (0-3) per hpf Ur Squamous Epith Cells (None-Few) per lpf Urine Bacteria (None-Few) per hpf Hyaline Casts (None-Few) per lpf Ur Culture Indicated? (NO) 06/15/17 06/15/17 06/16/17 Range/Units 23:05 23:45 00:10 WBC (4.3-11.1) K/mcL RBC (3.82-4.97) M/mcL Hgb (11.5-15.4) g/dL Hct (35.3-44.9) % MCV (83.0-100.0) fL MCH (28.0-33.3) pg MCHC (31.6-35.5) g/dL RDW (11.5-14.5) % Plt Count (140-400) K/mcL MPV (9.4-12.4) fL Immature Gran % (0-4) % Seg Neutrophils % % Lymphocytes % % Monocytes % % Eosinophils % % Basophils % % Neutrophils # (1.6-8.9) K/mcL Lymphocytes # (0.6-4.6) K/mcL Monocytes # (0.0-1.3) K/mcL Eosinophils # (0.0-0.6) K/mcL Basophils # (0.0-0.2) K/mcL Nucleated RBCs/100 WBC (0) /100 WBC Immature Plt Fraction (1.1-6.1) % PT (9.4-12.1) Seconds INR APTT (26.0-36.0) Seconds Sodium (136-145) mEq/L Potassium (3.5-4.5) mEq/L Chloride (98-109) mEq/L Carbon Dioxide (19-29) mEq/L BUN (7-20) mg/dL Creatinine (0.57-1.11) mg/dL Est GFR ( Amer) (> 60) Est GFR (Non-Af Amer) (> 60) BUN/Creatinine Ratio (6-26) Glucose (70-99) mg/dL Calculated Osmolality (280-300) Lactic Acid 1.0 (0.5-2.2) mmol/L Calcium (8.6-10.8) mg/dL Total Bilirubin (0.2-1.2) mg/dL Direct Bilirubin (0.0-0.5) mg/dL Indirect Bilirubin (0.0-1.2) mg/dL AST (5-34) Units/L ALT (0-55) Units/L Alkaline Phosphatase (38-126) Units/L Troponin I 0.00 (0-0.03) ng/mL Serum Total Protein (6.0-8.3) g/dL Albumin (3.5-5.0) g/dL Globulin (2.4-3.5) g/dL Albumin/Globulin Ratio (1.1-2.2) Amylase (25-125) Units/L Lipase (8-78) Units/L Urine Color Dark Yellow (Yellow) Urine Clarity Turbid A (Clear) Urine pH 6.0 (5.0-8.0) pH Units Ur Specific [place] 1.028 H (1.010-1.025) Urine Protein >=300 H (Neg-Trace) mg/dL Urine Glucose (UA) Normal (Normal) mg/dL Urine Ketones Trace H (Negative) mg/dL Urine Blood Large H (Negative) Urine Nitrite Negative (Negative) Urine Bilirubin Small H (Negative) Urine Urobilinogen Normal (Normal) mg/dL Ur Leukocyte Esterase Moderate H (Negative) Urine Microscopic RBC 15-30 H (0-3) per hpf Urine Microscopic WBC 5-15 H (0-3) per hpf Ur Squamous Epith Cells Few (None-Few) per lpf Urine Bacteria Few (None-Few) per hpf Hyaline Casts Few (None-Few) per lpf Ur Culture Indicated? YES A (NO) - Radiology Data Radiology results reviewed: Yes I reviewed the patient's radiology results. Abdomen/Pelvis CT 06/15/17 23:02 IMPRESSION: 1. Mid to distal small bowel obstruction. Multiple dilated small bowel loops with transition prior to the right lower quadrant ileostomy. Likely adhesions given the previous distal gastric resection and colectomy. 2. Moderate to large bilateral pleural effusions with bilateral lower lobe atelectasis. 3. Resolution of bilateral hydronephrosis with stents in place. Bilateral nephrolithiasis. 4. Diffuse anasarca. Mild probable third-spacing of fluid within the mesentery and retroperitoneum. No appreciable ascites. D/ / 06/16/2017 07:07:20 Mart Lancaster MD / cora Interpreting Provider: Mart Lancaster MD
--- NOTE | 2017-06-16 08:58 | Nephrology Consult Note ---
Date of Encounter: 06/16/17 Time of Encounter: 08:56 Assessment and Plan (1) End-stage renal disease needing dialysis Current Visit: No Status: Chronic Patient will undergo dialysis today. She does have evidence of some volume overload on clinical exam as well as on CT scan. For that reason been reduced rate of her IV fluids. As soon as she is able to take by mouth we can then discontinue the IV fluids. (2) A-fib Current Visit: Yes Status: Chronic Qualifiers: Atrial fibrillation type: chronic Qualified Code(s): I48.2 - Chronic atrial fibrillation (3) Small bowel obstruction due to adhesions Current Visit: Yes Status: Acute History of Present Illness - History of Present Illness This is an 81-year-old female progressive chronic kidney disease. She recently has been started on dialysis in [place] on every Wednesday. Patient presents from the longterm with a 2 day history of abdominal pain nausea vomiting and decreased ostomy output. Patient has a history of multiple abdominal surgeries over the years. CT scan shows evidence of small bowel obstruction along with presence of adhesions. Patient now reports she is feeling better. Her abdominal pain nausea and vomiting have spontaneously improved. She is now having some output through her ostomy. She reports that intermittently she has had these symptoms in the past and typically they will resolve if she takes some mineral oil. Otherwise she says she has been doing okay. She reports her appetite is been improving. She denies any shortness of breath chest pain fevers or chills. She is scheduled for her usual dialysis today. Patient does have a history of bilateral renal calculi with hydronephrosis. She currently has bilateral ureteral stents in place. Past Med Surg Social Fam HX - Past Medical History Medical history: arthritis, cancer, CHF, COPD, GERD, GI bleed, hypertension, osteoporosis, renal disease, other Psychiatric history: anxiety, depression, other - Past Surgical History Surgical History: appendectomy, , cholecystectomy, colectomy, colostomy , hysterectomy, BLAKE/BSO, other - Social History Smoking Status: Never smoker Smokeless Tobacco Status: No Alcohol use: none Drug use: none - Family History Mother Adopted: No Family Member Ethnicity: Non- Living Status: Hx Family Cardiac Disorders: Yes Father Hx Family Respiratory Disorders: Yes (Asthma) Hx Family GI Disorders: Yes (Ulcers) Medications and Allergies Gabapentin [Neurontin] 300 mg PO QAM 05/20/15 [History] Sodium Bicarbonate 1,950 mg PO BID 05/20/15 [History] Darbepoetin [Aranesp] 150 mcg IJ Q2W 05/24/16 [History] Cholecalciferol (D-3) [Vitamin D] 1,000 unit PO DAILY 05/27/16 [History] Cyanocobalamin (B-12) [Vitamin B12] 1,000 mcg SQ QWEEK 05/27/16 [History] Gabapentin [Neurontin] 600 mg PO HS 05/27/16 [History] Glucosamn/[place]n/C/Mn/[place] [[facility] Glucosamine Chondroitin Tb] 1 tab PO DAILY 05/27/16 [History] Multivit,Th Iron,Other Min [Therems-M] 1 tab PO DAILY 05/27/16 [History] Vitamin E (Dl,Tocopheryl Acet) [Vitamin E] 400 unit PO DAILY 05/27/16 [History] Aspirin Enteric Coated [Aspirin EC] 81 mg PO DAILY #30 05/22/17 [Rx] Diltiazem CD (24hr) [Cardizem CD] 360 mg PO DAILY #30 05/22/17 [Rx] Levothyroxine [Synthroid] 50 mcg PO 0630 #30 tab 05/22/17 [Rx] Metoprolol [Lopressor] 100 mg PO BID #60 tab 05/22/17 [Rx] HYDROcodone/Acet 10/325 mg [[place] 10-325 mg] 1 tab PO Q4HR PRN #5 tablet [Rx] Omeprazole [PriLOSEC] 40 mg PO DAILY@0730 capsule. 06/10/17 [Rx] Furosemide [Lasix] 40 mg PO BID 06/16/17 [History] 3 Allergy/AdvReac Type Severity Reaction Status Date / Time codeine Allergy Rash Verified 06/15/17 22:17 fluoxetine [From Prozac] Allergy Rash Verified 06/15/17 22:17 haloperidol [From Haldol] Allergy See Verified 06/15/17 22:17 Comments nalbuphine [From Nubain] Allergy Rash Verified 06/15/17 22:17 Sulfa (Sulfonamide Allergy Rash Verified 06/15/17 22:17 Antibiotics) Review of Systems Constitutional: as per HPI, weakness Eyes: bilateral: blurred vision (patient denies), diplopia (patient denies) Nose, mouth and throat: no dizziness, no headache(s) Cardiovascular: no chest pain, no palpitations Respiratory: no cough, no dyspnea Gastrointestinal: abdominal pain, nausea, vomiting Musculoskeletal: no muscle weakness, no numbness Integumentary: no hirsutism, no striae Neurological: weakness Psychiatric: no depression, no difficulty concentrating Endocrine: as per HPI Hematologic/Lymphatic: no easy bruising, no lymphadenopathy Exam - Vital Signs Vital signs: Initial Vital Signs Temp Pulse Resp BP Pulse Ox 98.7 F 88 14 107/54 94 06/15/17 22:17 06/15/17 22:17 06/15/17 22:17 06/15/17 22:17 06/15/17 22:17 Vital Signs - Last 8 Hours Pulse Resp BP Pulse Ox 06/16/17 07:45 87 14 125/79 96 - General Appearance Exam: Patient is alert and oriented. She appears chronically ill. Lungs diminished breath sounds bilaterally. Heart regular rate and rhythm. Abdomen shows diminished bowel sounds. An ostomy is present. There is stool in the collection bag. There is no guarding or rigidity. Lower extremities show 1-2+ lower extremity swelling. There is a functioning AV graft in the left upper extremity. Results - Lab Results 06/15/17 23:05 06/15/17 23:05 Most recent lab results Calcium 9.0 mg/dL (8.6-10.8) 06/15/17 23:05 Consult Discharge Plan - Plan Referrals: Kaleigh Beckham MD [Primary Care Provider] -
[2017-06-16] MEDS ORDERED: 0.9 % Sodium Chloride 250 ML IVC PRN (09:00)
--- NOTE | 2017-06-16 09:03 | Internal Med History&Physical ---
Date of Encounter: 06/16/17 Time of Encounter: 09:01 Assessment and Plan (1) Hyperkalemia Current visit: Yes Status: Acute Likely secondary to end-stage renal disease. Plan for hemodialysis per renal service. (2) CHF (congestive heart failure) Current visit: No Status: Acute Appears to be mildly fluid overloaded due to lower extremity edema but not compensated. Fluid management with hemodialysis. Qualifiers: Congestive heart failure type: diastolic Congestive heart failure chronicity: chronic Qualified Code(s): I50.32 - Chronic diastolic (congestive ) heart failure (3) End-stage renal disease needing dialysis Current visit: No Status: Chronic I discussed the case with nephrology. The plan is to initiate dialysis. 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 (5) GERD (gastroesophageal reflux disease) Current visit: No Status: Acute We will treat this with IV Protonix. Qualifiers: Esophagitis presence: esophagitis presence not specified Qualified Code(s) : K21.9 - Gastro-esophageal reflux disease without esophagitis (6) Urinary tract infection Current visit: No Status: Acute Patient has indwelling Peters[place] since her last admission. Urinalysis positive for leukocyte esterase and WBC. Blood work reveals elevated white count. We will treat empirically with IV ceftriaxone. Follow-up culture and sensitivities. Qualifiers: Urinary tract infection type: acute cystitis Hematuria presence: without hematuria Qualified Code(s): N30.00 - Acute cystitis without hematuria (7) Afib Current visit: No Status: Chronic Currently rate controlled. Continue home meds. Qualifiers: Atrial fibrillation type: chronic Qualified Code(s): I48.2 - Chronic atrial fibrillation (8) Small bowel obstruction due to adhesions Current visit: Yes Status: Acute Patient has history of multiple abdominal surgeries and recurrent episodes of small bowel obstruction. Current symptoms consistent with SBO. Plan: Nothing by mouth, IV PPI, will hold off on IV fluids due to end-stage renal disease. General surgery consult. Conservative management. We will hold off on NG tube placement at this time given that the patient has not been vomiting for the last 12 hours and her nausea and abdominal pain have been controlled with medication. We will monitor output from colostomy. Internal Medicine - H&P: HPI Chief complaint: Abdominal pain Admitted From: Emergency Dept Plans for Post Hospital Care: Transfer Senior Living Facility History of present illness: Ms. Arciniega is a 81 year old female with multiple medical comorbidities who was sent from the group home for abdominal pain. She reports severe, sharp, epigastric abdominal pain which started abruptly 3 days ago, associated with nausea and vomiting. At that time she noticed decreased output from her colostomy, however over the last 24 hours her colostomy started putting out some fecal matter. A CT of the abdomen and pelvis done in the emergency department revealed findings consistent with small bowel obstruction. A 10 point review of systems was negative except as above. Past Med Surg Social Fam HX - Past Medical History Medical history: arthritis, cancer, CHF, COPD, GERD, GI bleed, hypertension, osteoporosis, renal disease, other Psychiatric history: anxiety, depression, other - Past Surgical History Surgical History: appendectomy, , cholecystectomy, colectomy, colostomy , hysterectomy, BLAKE/BSO, other - Social History Smoking Status: Never smoker Smokeless Tobacco Status: No Alcohol use: none Drug use: none - Family History Mother Adopted: [place]: Norbert Duong Family Member Ethnicity: Non- Living Status: Age at : 77 Cause of : Heart trouble. Hx Family Cardiac Disorders: Yes Hx Family Respiratory Disorders: No Hx Family Cancer: No Hx Family GI Disorders: No Hx Family Genitourinary Disorders: No Hx Family Endocrine Disorder: No Hx Family Musculoskeletal Disorders: No Hx Family Neuromuscular Disorders: No Hx Family Neurologic Disorders: Yes (TIA) Hx Family HEENT Disorders: No Hx Family Autoimmune Disorders: No Hx Family Reproductive Disorders: No Hx Family Psychosocial Disorders: No Hx Family Medical Disorders: No Father Adopted: [place]: Zack Jaimes Family Member Ethnicity: Non- Living Status: Age at : 77 Cause of : Perforated ulcers and pertonitis. Hx Family Cardiac Disorders: No Hx Family Respiratory Disorders: Yes (Asthma) Hx Family Cancer: No Hx Family GI Disorders: Yes (Ulcers) Hx Family Genitourinary Disorders: No Hx Family Endocrine Disorder: No Hx Family Musculoskeletal Disorders: No Hx Family Neuromuscular Disorders: No Hx Family Neurologic Disorders: No Hx Family HEENT Disorders: No Hx Family Autoimmune Disorders: No Hx Family Reproductive Disorders: No Hx Family Psychosocial Disorders: No Hx Family Medical Disorders: No Internal Medicine - H&P: Meds Gabapentin [Neurontin] 300 mg PO QAM 05/20/15 [History] Sodium Bicarbonate 1,950 mg PO BID 05/20/15 [History] Darbepoetin [Aranesp] 150 mcg IJ Q2W 05/24/16 [History] Cholecalciferol (D-3) [Vitamin D] 1,000 unit PO DAILY 05/27/16 [History] Cyanocobalamin (B-12) [Vitamin B12] 1,000 mcg SQ QWEEK 05/27/16 [History] Gabapentin [Neurontin] 600 mg PO HS 05/27/16 [History] Glucosamn/[place]n/C/Mn/[place] [[facility] Glucosamine Chondroitin Tb] 1 tab PO DAILY 05/27/16 [History] Multivit,Th Iron,Other Min [Therems-M] 1 tab PO DAILY 05/27/16 [History] Vitamin E (Dl,Tocopheryl Acet) [Vitamin E] 400 unit PO DAILY 05/27/16 [History] Aspirin Enteric Coated [Aspirin EC] 81 mg PO DAILY #30 05/22/17 [Rx] Diltiazem CD (24hr) [Cardizem CD] 360 mg PO DAILY #30 05/22/17 [Rx] Levothyroxine [Synthroid] 50 mcg PO 0630 #30 tab 05/22/17 [Rx] Metoprolol [Lopressor] 100 mg PO BID #60 tab 05/22/17 [Rx] HYDROcodone/Acet 10/325 mg [[place] 10-325 mg] 1 tab PO Q4HR PRN #5 tablet [Rx] Omeprazole [PriLOSEC] 40 mg PO DAILY@0730 capsule. 06/10/17 [Rx] Furosemide [Lasix] 40 mg PO BID 06/16/17 [History] 3 Allergy/AdvReac Type Severity Reaction Status Date / Time codeine Allergy Rash Verified 06/15/17 22:17 fluoxetine [From Prozac] Allergy Rash Verified 06/15/17 22:17 haloperidol [From Haldol] Allergy See Verified 06/15/17 22:17 Comments nalbuphine [From Nubain] Allergy Rash Verified 06/15/17 22:17 Sulfa (Sulfonamide Allergy Rash Verified 06/15/17 22:17 Antibiotics) All Systems PM: A 10-system review of systems was performed and is negative for pertinent findings except as documented above in the HPI. - Constitutional Vitals: Temp Pulse Resp BP Pulse Ox 98.7 F 87 14 125/79 96 06/15/17 22:17 06/16/17 07:45 06/16/17 07:45 06/16/17 07:45 06/16/17 07:45 General appearance: Present: A&O X 3, no acute distress - Eye Eye exam: Present: PERRL, conjuntiva pink, sclera anicteric Pupils: Present: PERRL - Respiratory Respiratory exam: Present: CTAB. Absent: accessory muscle use, rales, rhonchi, wheezes - Cardiovascular Cardiovascular exam: Present: irregular rhythm, +S1, +S2. Absent: diastolic murmur, gallop, rubs, systolic murmur - GI/Abdominal GI/Abdominal exam: Present: diminished bowel sounds, soft, no peritoneal signs. Absent: distended, guarding, tenderness Additional comments: Multiple surgical abdominal scars. Colostomy bag with fecal matter noted. - Extremities Exam Extremities exam: Present: pedal edema, warm, radial pulses palpable and symmetrical. Absent: calf tenderness, cyanotic - Skin Skin exam: Present: dry, intact Internal Med - H&P Results - Labs CBC & Chem 7: 06/15/17 23:05 06/15/17 23:05 - EKG Data -: EKG Interpreted by Myself (Atrial fibrillation 79 bpm) EKG shows normal: QRS complexes, ST-T waves
[2017-06-16] MEDS ORDERED: Ondansetron 4 MG/2 ML VIAL IVP PRN (09:19)
[2017-06-16] MEDS ORDERED: *HR* Promethazine 25 MG/ML VIAL IVP PRN (09:19)
[2017-06-16] MEDS ORDERED: Naloxone 0.4 MG/ML INJ IVP PRN (09:19)
[2017-06-16] MEDS ORDERED: Pantoprazole 40 MG VIAL IVP SCH (09:30)
[2017-06-16] MEDS: *HR* Metoprolol 5 MG/5 ML VIAL IVP SCH ×3 (11:15→18:03)
--- NOTE | 2017-06-16 12:41 | General Surgery Consult Note ---
Addendum entered and electronically signed by Calli Ball DO 06/16/17 17:22 : Assessment and Plan: 1. Nausea and Vomiting. Patient has had 3 days of N/V but no abdominal pain but is still producing stool through her colostomy without change in output. CT abdomen shows mild dilated fluid filled proximal small bowel loops with transition distally. Patient refuses NG and does not wish to have surgical management if those circumstances arose. For now we will sign off, but feel free to contact us if patient changes her mind for wanting intervention with a NG or surgical management. Original Note: <Calli Ball - Last Filed: 06/16/17 13:19> Date of Encounter: 06/16/17 Time of Encounter: 12:19 Assessment and Plan (1) Nausea & vomiting Current Visit: Yes Status: Acute History of Present Illness Consult date: 06/16/17 Reason for consult: abdominal pain Requesting physician: Paolo Smyth History of present illness: Patient is an 81-year-old female with a pmh of multiple abdominal surgeries and recurrent episodes of SBO and who was sent from the halfway after 3 days of N/V. She says she has not noticed any changed in output of her colostomy. She said she had a BM 3 days ago and again yesterday. She said previously with SBO she has had abdominal pain and current does not have abdominal pain. Recently hospitalized for kidney stone then sent home to the halfway for about 1 week and currently still have mccord in. CT of abdomen Multiple dilated , fluid filled proximal small bowel loops with transition distally. Given the previous surgeries, the changes are likely due to adhesions. Previouscolectomy with right lower quadrant ileostomy. Past Med Surg Social Fam HX - Past Medical History Medical history: arthritis, cancer, CHF, COPD, GERD, GI bleed, hypertension, osteoporosis, renal disease, other Psychiatric history: anxiety, depression, other - Past Surgical History Surgical History: appendectomy, , cholecystectomy, colectomy, colostomy , hysterectomy, BLAKE/BSO, other - Social History Smoking Status: Never smoker Smokeless Tobacco Status: No Alcohol use: none Drug use: none - Family History Mother Adopted: [place]: Norbert uDong Family Member Ethnicity: Non- Living Status: Age at : 77 Cause of : Heart trouble. Hx Family Cardiac Disorders: Yes Hx Family Respiratory Disorders: No Hx Family Cancer: No Hx Family GI Disorders: No Hx Family Genitourinary Disorders: No Hx Family Endocrine Disorder: No Hx Family Musculoskeletal Disorders: No Hx Family Neuromuscular Disorders: No Hx Family Neurologic Disorders: Yes (TIA) Hx Family HEENT Disorders: No Hx Family Autoimmune Disorders: No Hx Family Reproductive Disorders: No Hx Family Psychosocial Disorders: No Hx Family Medical Disorders: No Father Adopted: [place]: Zack Jaimes Family Member Ethnicity: Non- Living Status: Age at : 77 Cause of : Perforated ulcers and pertonitis. Hx Family Cardiac Disorders: No Hx Family Respiratory Disorders: Yes (Asthma) Hx Family Cancer: No Hx Family GI Disorders: Yes (Ulcers) Hx Family Genitourinary Disorders: No Hx Family Endocrine Disorder: No Hx Family Musculoskeletal Disorders: No Hx Family Neuromuscular Disorders: No Hx Family Neurologic Disorders: No Hx Family HEENT Disorders: No Hx Family Autoimmune Disorders: No Hx Family Reproductive Disorders: No Hx Family Psychosocial Disorders: No Hx Family Medical Disorders: No Medications and Allergies Gabapentin [Neurontin] 300 mg PO QAM 05/20/15 [History] Sodium Bicarbonate 1,950 mg PO BID 05/20/15 [History] Darbepoetin [Aranesp] 150 mcg IJ Q2W 05/24/16 [History] Cholecalciferol (D-3) [Vitamin D] 1,000 unit PO DAILY 05/27/16 [History] Cyanocobalamin (B-12) [Vitamin B12] 1,000 mcg SQ QWEEK 05/27/16 [History] Gabapentin [Neurontin] 600 mg PO HS 05/27/16 [History] Glucosamn/[place]n/C/Mn/[place] [[facility]vs Glucosamine Chondroitin Tb] 1 tab PO DAILY 05/27/16 [History] Multivit,Th Iron,Other Min [Therems-M] 1 tab PO DAILY 05/27/16 [History] Vitamin E (Dl,Tocopheryl Acet) [Vitamin E] 400 unit PO DAILY 05/27/16 [History] Aspirin Enteric Coated [Aspirin EC] 81 mg PO DAILY #30 05/22/17 [Rx] Diltiazem CD (24hr) [Cardizem CD] 360 mg PO DAILY #30 05/22/17 [Rx] Levothyroxine [Synthroid] 50 mcg PO 0630 #30 tab 05/22/17 [Rx] Metoprolol [Lopressor] 100 mg PO BID #60 tab 05/22/17 [Rx] HYDROcodone/Acet 10/325 mg [Doucette 10-325 mg] 1 tab PO Q4HR PRN #5 tablet [Rx] Omeprazole [PriLOSEC] 40 mg PO DAILY@0730 capsule. 06/10/17 [Rx] Furosemide [Lasix] 40 mg PO BID 06/16/17 [History] 3 Allergy/AdvReac Type Severity Reaction Status Date / Time codeine Allergy Rash Verified 06/15/17 22:17 fluoxetine [From Prozac] Allergy Rash Verified 06/15/17:17 haloperidol [From Haldol] Allergy See Verified 06/15/17: Comments nalbuphine [From Nubain] Allergy Rash Verified 06/15/17: Sulfa (Sulfonamide Allergy Rash Verified 06/15/17 22:17 Antibiotics) Review of Systems All systems PM: A 10-system review of systems was performed and is negative for pertinent findings except as documented above in the HPI. - Constitutional as per HPI General Surgery Exam Initial Vital Signs Temp Pulse Resp BP Pulse Ox 98.7 F 88 14 107/54 94 06/15/17 22:17 06/15/17 22:17 06/15/17:17 06/15/17:17 06/15/17:17 - Additional Findings Constitutional: Alert, in no acute distress, well nourished, well developed. Head: Normocephalic, atraumatic, normal contour and symmetric, no masses, lesions or scars Heart: Normal, regular rate and rhythm, no murmurs Lungs: Clear to auscultation, no wheezes, rales, or rhonchi Abdomen: colostomy with stoma present on R side of abdomen, output brown , soft , semi-formed stool, Soft, nondistended, nontender, and no masses palpable, bowel sounds present and normal, no guarding or rigidity. Extremities: No clubbing, cyanosis, or edema, radial pulse +2/4, capillary refill <2sec. : mccord present in with orange urine output Skin: Skin warm and dry, no lesions, no rashes, no jaundice Neurologic: Cranial nerves II through XII grossly intact, no focal deficits, strength within normal limits in all extremities Psych: Cooperative with exam, good eye contact, cognitive function intact, judgment good insight good, speech clear, thought process logical, and goal directed Exam Initial Vital Signs Temp Pulse Resp BP Pulse Ox 98.7 F 88 14 107/54 94 06/15/17 22:17 06/15/17 22:17 06/15/17 22:17 06/15/17 22:17 06/15/17 22:17 Results - Labs 06/15/17 23:05 06/15/17 23:05 Abnormal lab results WBC 21.2 K/mcL (4.3-11.1) H 06/15/17 23:05 RBC 3.35 M/mcL (3.82-4.97) L 06/15/17 23:05 Hgb 10.3 g/dL (11.5-15.4) L 06/15/17 23:05 Hct 34.4 % (35.3-44.9) L 06/15/17 23:05 MCV 102.7 fL (83.0-100.0) H D 06/15/17 23:05 MCHC 29.9 g/dL (31.6-35.5) L 06/15/17 23:05 RDW 21.2 % (11.5-14.5) H 06/15/17 23:05 Plt Count 491 K/mcL (140-400) H 06/15/17 23:05 Neutrophils # 17.7 K/mcL (1.6-8.9) H 06/15/17 23:05 Monocytes # 2.2 K/mcL (0.0-1.3) H 06/15/17 23:05 Nucleated RBCs/100 WBC 0.1 /100 WBC (0) H 06/15/17 23:05 APTT 22.8 Seconds (26.0-36.0) L 06/15/17 23:05 Sodium 135 mEq/L (136-145) L 06/15/17 23:05 Potassium 4.9 mEq/L (3.5-4.5) H 06/15/17 23:05 Chloride 97 mEq/L (98-109) L 06/15/17 23:05 Creatinine 3.31 mg/dL (0.57-1.11) H 06/15/17 23:05 Est GFR ( Amer) 16 (> 60) L 06/15/17 23:05 Est GFR (Non-Af Amer) 13 (> 60) L 06/15/17 23:05 BUN/Creatinine Ratio 5 (6-26) L 06/15/17 23:05 Glucose 151 mg/dL (70-99) H 06/15/17 23:05 Alkaline Phosphatase 163 Units/L (38-126) H 06/15/17 23:05 Albumin 2.5 g/dL (3.5-5.0) L 06/15/17 23:05 Albumin/Globulin Ratio 0.7 (1.1-2.2) L 06/15/17 23:05 Urine Clarity Turbid (Clear) A 06/15/17 23:45 Ur Specific Anderson 1.028 (1.010-1.025) H 06/15/17 23:45 Urine Protein >=300 mg/dL (Neg-Trace) H 06/15/17 23:45 Urine Ketones Trace mg/dL (Negative) H 06/15/17 23:45 Urine Blood Large (Negative) H 06/15/17 23:45 Urine Bilirubin Small (Negative) H 06/15/17 23:45 Ur Leukocyte Esterase Moderate (Negative) H 06/15/17 23:45 Urine Microscopic RBC 15-30 per hpf (0-3) H 06/15/17 23:45 Urine Microscopic WBC 5-15 per hpf (0-3) H 06/15/17 23:45 Ur Culture Indicated? YES (NO) A 06/15/17 23:45 All other labs normal. Consult Discharge Plan - Plan Referrals: Kaleigh Beckham MD [Primary Care Provider] - <Brent Gonzalez - Last Filed: 06/16/17 16:40> Date of Encounter: 06/16/17 Review of Systems All systems PM: A 10-system review of systems was performed and is negative for pertinent findings except as documented above in the HPI. General Surgery Exam Initial Vital Signs Temp Pulse Resp BP Pulse Ox 98.7 F 88 14 107/54 94 06/15/17 22:17 06/15/17 22:17 06/15/17 22:17 06/15/17 22:17 06/15/17 22:17 Exam Initial Vital Signs Temp Pulse Resp BP Pulse Ox 98.7 F 88 14 107/54 94 06/15/17 22:17 06/15/17 22:17 06/15/17 22:17 06/15/17 22:17 06/15/17 22:17 Results - Labs 06/15/17 23:05 06/15/17 23:05 Abnormal lab results WBC 21.2 K/mcL (4.3-11.1) H 06/15/17 23:05 RBC 3.35 M/mcL (3.82-4.97) L 06/15/17 23:05 Hgb 10.3 g/dL (11.5-15.4) L 06/15/17 23:05 Hct 34.4 % (35.3-44.9) L 06/15/17 23:05 MCV 102.7 fL (83.0-100.0) H D 06/15/17 23:05 MCHC 29.9 g/dL (31.6-35.5) L 06/15/17 23:05 RDW 21.2 % (11.5-14.5) H 06/15/17 23:05 Plt Count 491 K/mcL (140-400) H 06/15/17 23:05 Neutrophils # 17.7 K/mcL (1.6-8.9) H 06/15/17 23:05 Monocytes # 2.2 K/mcL (0.0-1.3) H 06/15/17 23:05 Nucleated RBCs/100 WBC 0.1 /100 WBC (0) H 06/15/17 23:05 APTT 22.8 Seconds (26.0-36.0) L 06/15/17 23:05 Sodium 135 mEq/L (136-145) L 06/15/17 23:05 Potassium 4.9 mEq/L (3.5-4.5) H 06/15/17 23:05 Chloride 97 mEq/L (98-109) L 06/15/17 23:05 Creatinine 3.31 mg/dL (0.57-1.11) H 06/15/17 23:05 Est GFR ( Amer) 16 (> 60) L 06/15/17 23:05 Est GFR (Non-Af Amer) 13 (> 60) L 06/15/17 23:05 BUN/Creatinine Ratio 5 (6-26) L 06/15/17 23:05 Glucose 151 mg/dL (70-99) H 06/15/17 23:05 Alkaline Phosphatase 163 Units/L (38-126) H 06/15/17 23:05 Albumin 2.5 g/dL (3.5-5.0) L 06/15/17 23:05 Albumin/Globulin Ratio 0.7 (1.1-2.2) L 06/15/17 23:05 Urine Clarity Turbid (Clear) A 06/15/17 23:45 Ur Specific [place] 1.028 (1.010-1.025) H 06/15/17 23:45 Urine Protein >=300 mg/dL (Neg-Trace) H 06/15/17 23:45 Urine Ketones Trace mg/dL (Negative) H 06/15/17 23:45 Urine Blood Large (Negative) H 06/15/17 23:45 Urine Bilirubin Small (Negative) H 06/15/17 23:45 Ur Leukocyte Esterase Moderate (Negative) H 06/15/17 23:45 Urine Microscopic RBC 15-30 per hpf (0-3) H 06/15/17 23:45 Urine Microscopic WBC 5-15 per hpf (0-3) H 06/15/17 23:45 Ur Culture Indicated? YES (NO) A 06/15/17 23:45 All other labs normal. - Attending Attestation I examined this patient and my medical decision-making was reviewed with the Resident Physician. I agree with the documented findings, disposition and treatment plan as described except to the extent set forth below. Review the above assessment and evaluation with the resident as well as the nurse practitioner. The patient has deferred on any type of NG tube placement and has stated to my nurse practitioner at of any type of surgical procedure needed to be performed that she would rather not have any surgery at all. To the patient's above wishes a think that she can be monitored without any surgical consultation and we will sign off. These feel free to contact us if the patient does change her mind regarding NG tube placement or the need for possible surgical procedure if it would be deemed necessary. <Marilyn Gil - Last Filed: 06/16/17 16:54> Date of Encounter: 06/16/17 Assessment and Plan (1) End-stage renal disease needing dialysis Current Visit: No Status: Chronic (2) Abdominal pain Current Visit: Yes Status: Chronic Qualifiers: Abdominal location: epigastric Qualified Code(s): R10.13 - Epigastric pain (3) Nausea & vomiting Current Visit: Yes Status: Acute Qualifiers: Vomiting type: unspecified Vomiting Intractability: non-intractable Qualified Code(s): R11.2 - Nausea with vomiting, unspecified Review of Systems All systems PM: A 10-system review of systems was performed and is negative for pertinent findings except as documented above in the HPI. General Surgery Exam Initial Vital Signs Temp Pulse Resp BP Pulse Ox 98.7 F 88 14 107/54 94 06/15/17 22:17 06/15/17 22:17 06/15/17 22:17 06/15/17 22:17 06/15/17 22:17 - General physical appearance no distress, moderate pain - Neck trachea midline, no venous distension - Respiratory other (Decreased anteriorly) - Cardiovascular Cardiovascular exam: Present: RRR, murmurs - Abdomen Abdomen general surgery: Present: bowel sounds present, soft Hernia: Present: none - Integumentary Integumentary general surgery: Present: warm and dry, no abnormal pigmentation - Neurologic Present: normal sensation - Musculoskeletal Present: other (Slumped position) - Psychiatric Psychiatric general surgery: Present: appropriate, oriented to person, oriented to time, speech is normal Exam Initial Vital Signs Temp Pulse Resp BP Pulse Ox 98.7 F 88 14 107/54 94 06/15/17 22:17 06/15/17 22:17 06/15/17 22:17 06/15/17 22:17 06/15/17 22:17 Results - Labs 06/15/17 23:05 06/15/17 23:05 Abnormal lab results WBC 21.2 K/mcL (4.3-11.1) H 06/15/17 23:05 RBC 3.35 M/mcL (3.82-4.97) L 06/15/17 23:05 Hgb 10.3 g/dL (11.5-15.4) L 06/15/17 23:05 Hct 34.4 % (35.3-44.9) L 06/15/17 23:05 MCV 102.7 fL (83.0-100.0) H D 06/15/17 23:05 MCHC 29.9 g/dL (31.6-35.5) L 06/15/17 23:05 RDW 21.2 % (11.5-14.5) H 06/15/17 23:05 Plt Count 491 K/mcL (140-400) H 06/15/17 23:05 Neutrophils # 17.7 K/mcL (1.6-8.9) H 06/15/17 23:05 Monocytes # 2.2 K/mcL (0.0-1.3) H 06/15/17 23:05 Nucleated RBCs/100 WBC 0.1 /100 WBC (0) H 06/15/17 23:05 APTT 22.8 Seconds (26.0-36.0) L 06/15/17 23:05 Sodium 135 mEq/L (136-145) L 06/15/17 23:05 Potassium 4.9 mEq/L (3.5-4.5) H 06/15/17 23:05 Chloride 97 mEq/L (98-109) L 06/15/17 23:05 Creatinine 3.31 mg/dL (0.57-1.11) H 06/15/17 23:05 Est GFR ( Amer) 16 (> 60) L 06/15/17 23:05 Est GFR (Non-Af Amer) 13 (> 60) L 06/15/17 23:05 BUN/Creatinine Ratio 5 (6-26) L 06/15/17 23:05 Glucose 151 mg/dL (70-99) H 06/15/17 23:05 Alkaline Phosphatase 163 Units/L (38-126) H 06/15/17 23:05 Albumin 2.5 g/dL (3.5-5.0) L 06/15/17 23:05 Albumin/Globulin Ratio 0.7 (1.1-2.2) L 06/15/17 23:05 Urine Clarity Turbid (Clear) A 06/15/17 23:45 Ur Specific [place] 1.028 (1.010-1.025) H 06/15/17 23:45 Urine Protein >=300 mg/dL (Neg-Trace) H 06/15/17 23:45 Urine Ketones Trace mg/dL (Negative) H 06/15/17 23:45 Urine Blood Large (Negative) H 06/15/17 23:45 Urine Bilirubin Small (Negative) H 06/15/17 23:45 Ur Leukocyte Esterase Moderate (Negative) H 06/15/17 23:45 Urine Microscopic RBC 15-30 per hpf (0-3) H 06/15/17 23:45 Urine Microscopic WBC 5-15 per hpf (0-3) H 06/15/17 23:45 Ur Culture Indicated? YES (NO) A 06/15/17 23:45 All other labs normal.
--- NOTE | 2017-06-16 12:46 | Electrocardiograph Report ---
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
[2017-06-16] MEDS: *HR* Heparin 5,000 UNIT/ML VIAL SQ SCH (17:47)
[2017-06-16] MEDS ORDERED: 0.9 % Sodium Chloride 2,000 ML ONE (19:06)
[2017-06-16] MEDS: *HR* HYDROmorphone (PF) 1 MG/ML SYRINGE IVP PRN (19:49)
[2017-06-17] MEDS: *HR* Metoprolol 5 MG/5 ML VIAL IVP SCH ×2 (00:01→06:02)
[2017-06-17] MEDS: *HR* HYDROmorphone (PF) 1 MG/ML SYRINGE IVP PRN ×5 (00:01→20:11)
[2017-06-17 05:25] LABS: Basophils % 0.2 %; Eosinophils % 0.1 %; Hematocrit 33.9 % (35.3-44.9); Hemoglobin 10.2 g/dL (11.5-15.4); Immature Granulocytes % 1.4 % (0-4); Lymphocytes # 1.6 K/mcL (0.6-4.6); Lymphocytes % 7.9 %; Mean Corpuscular HGB Conc 30.1 g/dL (31.6-35.5); Mean Corpuscular Volume 99.7 fL (83.0-100.0); Mean Platelet Volume 10.6 fL (9.4-12.4); Monocytes # 3.7 K/mcL (0.0-1.3); Monocytes % 18.9 %; Neutrophils # 14.1 K/mcL (1.6-8.9); Platelet Count 413 K/mcL (140-400); Red Cell Distribution Width 21.8 % (11.5-14.5); Segmented Neutrophils % 71.5 %
[2017-06-17 05:42] LABS: Calcium 8.4 mg/dL (8.6-10.8); Magnesium 1.9 mg/dL (1.6-2.6)
[2017-06-17 05:44] LABS: Potassium 5.4 mEq/L (3.5-4.5)
[2017-06-17 05:50] LABS: Platelet Estimate Increased (Normal)
[2017-06-17] MEDS: *HR* Heparin 5,000 UNIT/ML VIAL SQ SCH ×2 (06:02→17:36)
--- NOTE | 2017-06-17 09:54 | Nephrology Progress Note ---
Date of Encounter: 06/17/17 Time of Encounter: 09:35 - Assessment and Plan (1) End-stage renal disease needing dialysis Current Visit: No Status: Chronic SBO- adhesions on CT. Currently denies abdominal discomfort, liquid stool in ostomy. HD tomorrow, keeping MWF schedule. Subjective Interval history: Resting quietly. Denies abdominal discomfort. Ostomy with liquid stool, states passing flatus. States having right side shoulder, back and neck pain. Objective - Vital Signs Vital signs: Vital Signs Temp Pulse Resp BP Pulse Ox 06/17/17 09:24 98.2 F 122 18 110/58 97 06/17/17 08:19 97 06/17/17 07:02 98.5 F 124 16 115/63 97 06/17/17 05:55 98.5 F 137 16 118/53 98 06/17/17 03:41 98.2 F 137 16 99/73 99 06/17/17 00:18 99.8 F H 109 16 104/70 98 06/16/17 19:23 100.2 F H 123 16 131/76 95 06/16/17 18:00 121 16 108/64 97 06/16/17 17:18 97 F L 18 92/54 06/16/17 16:55 98/54 06/16/17 16:30 90/54 06/16/17 16:00 117/88 06/16/17 15:30 99/54 06/16/17 15:00 120/89 06/16/17 14:30 135/88 06/16/17 14:00 97.6 F 18 142/75 Intake and Output 06/16/17 06/17/17 06/17/17 23:59 07:59 15:59 Intake Total 0 / 0 Output Total 2797 / 2797 Balance -2797 / -2797 Intake: Oral 0 / 0 Output: Urine 0 / 0 Total Dialysis (HD) Output 2497 / 2497 Catheter 300 / 300 Other: Stool Size Moderate Stool Consistency loose liquid Stool Characteristics Pasty Stool Color Brown Weight 48.4 kg Hemodialysis Net Fluid Removed 2000 (mL) Patient Weight 06/17/17 23:59 Weight 48.4 kg - General Appearance General appearance: Present: frail EENT: Present: mucous membranes moist Neck: Present: no JVD Respiratory: Present: clear Cardiology: Present: edema, regular rate, regular rhythm Additional Comments: mild pitting LE, L>R Gastrointestinal: Present: normoactive bowel sounds, no tenderness Integumentary: Present: warm and dry Neurologic: Present: alert and oriented x3 Psychiatric: Present: mood/affect appropriate, cooperative - Lab 06/17/17 05:16 06/17/17 05:16 Most recent lab results Calcium 8.4 mg/dL (8.6-10.8) L 06/17/17 05:16 Magnesium 1.9 mg/dL (1.6-2.6) 06/17/17 05:16 Consult Discharge Plan - Plan Referrals: Kaleigh Beckham MD [Primary Care Provider] -
--- NOTE | 2017-06-17 10:07 | Palliative - Consult Note ---
Date of Encounter: 06/17/17 Time of Encounter: 10:00 - Assessment and Plan (1) Back pain Current Visit: Yes Status: Acute Assessment and plan: Currently has Hydromorphone 0.5 ordered for pain. Patient's blood pressure has been marginal... She is only on Bodega at [facility], and this dose may be too much for her. Will decrease to 0.25 for now and nurse to D/W Dr. Sifuentes Qualifiers: Back pain location: low back pain Qualified Code(s): M54.5 - Low back pain ; G89.29 - Other chronic pain; G89.29 - Other chronic pain (2) Nausea & vomiting Current Visit: Yes Status: Acute Assessment and plan: Improved since admission. Surgery has signed off. She does have Promethazine ordered if needed, but has not utilized. Qualifiers: Vomiting type: unspecified Vomiting Intractability: unspecified Qualified Code(s): R11.2 - Nausea with vomiting, unspecified (3) Counseling regarding advanced care planning and goals of care Current Visit: Yes Status: Acute Assessment and plan: Patient was at [facility] for rehab stay. She is an established DNR/DNI. Currently in afib/RVR and Cardizem drip is going to be started. She feels terrible at this time, and initially answered some of my questions, however, asked me to come back later. I did ask permission to call her son, Paolo, and she agreed. Did not receive an answer - left voicemail with my contact information. Will visit her again this afternoon. (4) CHF (congestive heart failure) Current Visit: No Status: Acute Qualifiers: Congestive heart failure type: diastolic Congestive heart failure chronicity: chronic Qualified Code(s): I50.32 - Chronic diastolic (congestive ) heart failure (5) End-stage renal disease needing dialysis Current Visit: No Status: Chronic (6) Urinary tract infection Current Visit: No Status: Acute Assessment and plan: On IV antibiotics per primary team. Qualifiers: Urinary tract infection type: acute cystitis Hematuria presence: without hematuria Qualified Code(s): N30.00 - Acute cystitis without hematuria Palliative-CN HPI - Data of Consult Consult date: 06/17/17 Requesting Physician: Loulou Sifuentes MD Primary Care Provider: Kaleigh Hallman - Consult Narrative History of present illness: Ms. Arciniega is a 81 year old female who was discharged last week from hospital to [facility], who returned to ER with complaints of nausea and vomiting. She has multiple comorbid conditions including, renal failure recently started on dialysis MWF, atrial fibrillation, arthritis, cancer, CHF, COPD, GERD, GI bleed, hypertension, osteoporosis, anxiety, depression. She was found to have leukocytosis, low grade fever, and + urinalysis, awaiting culture and has been started on IV Ceftriaxone. Surgical services was initially consulted, as thought pt may have small bowel obstruction, however, vomiting has resolved, and pt with ostomy output and no evidence of obstruction - they have signed off case. She has a DNR/DNI form that was completed elsewhere that has been scanned into her medial record. Upon my visit, she states she is having bad back and neck pain. SHe is in atrial fibrillation with RVR, and staff state they are starting Cardizem drip. B/P has been marginal. States she feels terrible and keeps eyes closed during conversation. She is alert and oriented to name/place and situation. Is able to tell me she recently started dialysis and has had 6 sessions. States she was living at home with home health assistance , until hospital stay last week, when she was discharged to [facility] for rehab. She does decline much discussion after inital discussions and asks me to come back at another time. I did ask permission to contact her son, Neil Arciniega, and she stated this was ok. CC: Loulou Sifuentes MD Past Med Surg Social Fam HX - Past Medical History Medical history: arthritis, cancer, CHF, COPD, GERD, GI bleed, hypertension, osteoporosis, renal disease, other Psychiatric history: anxiety, depression, other - Past Surgical History Surgical History: appendectomy, , cholecystectomy, colectomy, colostomy , hysterectomy, BLAKE/BSO, other - Social History Smoking Status: Never smoker Smokeless Tobacco Status: No Alcohol use: none Drug use: none - Family History Mother Adopted: [place]: Norbert Duong Family Member Ethnicity: Non- Living Status: Age at : 77 Cause of : Heart trouble. Hx Family Cardiac Disorders: Yes Hx Family Respiratory Disorders: No Hx Family Cancer: No Hx Family GI Disorders: No Hx Family Genitourinary Disorders: No Hx Family Endocrine Disorder: No Hx Family Musculoskeletal Disorders: No Hx Family Neuromuscular Disorders: No Hx Family Neurologic Disorders: Yes (TIA) Hx Family HEENT Disorders: No Hx Family Autoimmune Disorders: No Hx Family Reproductive Disorders: No Hx Family Psychosocial Disorders: No Hx Family Medical Disorders: No Father Adopted: [place]: Zack Jaimes Family Member Ethnicity: Non- Living Status: Age at : 77 Cause of : Perforated ulcers and pertonitis. Hx Family Cardiac Disorders: No Hx Family Respiratory Disorders: Yes (Asthma) Hx Family Cancer: No Hx Family GI Disorders: Yes (Ulcers) Hx Family Genitourinary Disorders: No Hx Family Endocrine Disorder: No Hx Family Musculoskeletal Disorders: No Hx Family Neuromuscular Disorders: No Hx Family Neurologic Disorders: No Hx Family HEENT Disorders: No Hx Family Autoimmune Disorders: No Hx Family Reproductive Disorders: No Hx Family Psychosocial Disorders: No Hx Family Medical Disorders: No Medications and Allergies Gabapentin [Neurontin] 300 mg PO QAM 05/20/15 [History] Sodium Bicarbonate 1,950 mg PO BID 05/20/15 [History] Darbepoetin [Aranesp] 150 mcg IJ Q2W 05/24/16 [History] Cholecalciferol (D-3) [Vitamin D] 1,000 unit PO DAILY 05/27/16 [History] Cyanocobalamin (B-12) [Vitamin B12] 1,000 mcg SQ QWEEK 05/27/16 [History] Gabapentin [Neurontin] 600 mg PO HS 05/27/16 [History] Glucosamn/Condroitn/C/Mn/[place] [Cvs Glucosamine Chondroitin Tb] 1 tab PO DAILY 05/27/16 [History] Multivit,Th Iron,Other Min [Therems-M] 1 tab PO DAILY 05/27/16 [History] Vitamin E (Dl,Tocopheryl Acet) [Vitamin E] 400 unit PO DAILY 05/27/16 [History] Aspirin Enteric Coated [Aspirin EC] 81 mg PO DAILY #30 05/22/17 [Rx] Diltiazem CD (24hr) [Cardizem CD] 360 mg PO DAILY #30 05/22/17 [Rx] Levothyroxine [Synthroid] 50 mcg PO 0630 #30 tab 05/22/17 [Rx] Metoprolol [Lopressor] 100 mg PO BID #60 tab 05/22/17 [Rx] HYDROcodone/Acet 10/325 mg [Bodega 10-325 mg] 1 tab PO Q4HR PRN #5 tablet [Rx] Omeprazole [PriLOSEC] 40 mg PO DAILY@0730 capsule. 06/10/17 [Rx] Furosemide [Lasix] 40 mg PO BID 06/16/17 [History] 3 Allergy/AdvReac Type Severity Reaction Status Date / Time codeine Allergy Rash Verified 06/15/17 22:17 fluoxetine [From Prozac] Allergy Rash Verified 06/15/17 22:17 haloperidol [From Haldol] Allergy See Verified 06/15/17 22:17 Comments nalbuphine [From Nubain] Allergy Rash Verified 06/15/17 22:17 Sulfa (Sulfonamide Allergy Rash Verified 06/15/17 22:17 Antibiotics) All systems: reviewed and no additional remarkable complaints except as stated ( nausea/vomiting now improved, weakness, low back and neck pain,) Palliative Care-Exam - Constitutional Vitals: Temp Pulse Resp BP Pulse Ox 98.2 F 127 18 104/72 97 06/17/17 09:24 06/17/17 10:00 06/17/17 09:24 06/17/17 10:00 06/17/17 09:24 General appearance: Present: mild distress - Head Head Exam: Present: normal inspection, normocephalic - Eye Eye exam: Present: normal appearance, PERRL - Expanded ENT Exam Mouth Exam: Present: dry mucosa - Respiratory Respiratory exam: Present: decreased breath sounds, CTAB - Cardiovascular Cardiovascular exam: Present: irregular rhythm, tachycardia - GI/Abdominal Exam GI/Abdominal exam: Present: soft additional comments: ostomy with thick liquid stool - Extremities Exam Additional comments: AV access to left arm noted. 2+ edema to bilateral lower extremities - Neurological Exam Neurological exam: Present: alert, oriented X3, strengths equal and symetr throughout - Psychiatric Psychiatric exam: Present: normal affect, normal mood - Skin Skin exam: Present: dry, pallor, warm Internal Medicine - CN: Reslt - Labs CBC & Chem 7: 06/17/17 05:16 06/17/17 05:16 Labs: Short CBC 06/17/17 Range/Units 05:16 WBC 19.7 H (4.3-11.1) K/mcL Hgb 10.2 L (11.5-15.4) g/dL Hct 33.9 L (35.3-44.9) % Plt Count 413 H (140-400) K/mcL Neutrophils # 14.1 H (1.6-8.9) K/mcL BMP 06/17/17 05:16 Sodium 136 Potassium 5.4 H Chloride 101 Carbon Dioxide 20 BUN 12 Creatinine 2.62 H Glucose 95 Calcium 8.4 L - ABG Interpretation ABG results: PT/INR, D-dimer PT 10.7 Seconds (9.4-12.1) 06/15/17 23:05 - Impressions Impressions KUB X-Ray 06/17/17 06:00 IMPRESSION: Nonspecific abdominal bowel gas pattern. No gaseous distention of bowel loops apparent . D/ / Mart Lancaster MD / Mart Lancaster MD Interpreting Provider: Mart Lancaster MD Consult Discharge Plan - Plan Referrals: Kaleigh Beckham MD [Primary Care Provider] - Palliative Quality Palliative Quality: Screen for Code Status: Yes, Screen for Goals of Care: Yes, Screen for Pain: Yes, If Pain Regimen Started, Initiate Bowel Regimen: Yes, Screen for Nausea/Vomitting: Yes
[2017-06-17] MEDS: Metoprolol 100 MG TABLET PO SCH ×2 (10:48→20:11)
[2017-06-17] MEDS: Aspirin Enteric Coated 81 MG Tablet PO SCH (10:49)
--- NOTE | 2017-06-17 13:48 | Internal Med Progress Note ---
Date of Encounter: 06/17/17 Time of Encounter: 11:55 - Assessment and plan (1) Urinary tract infection Current Visit: No Status: Acute Assessment and plan: Leukocytosis likely secondary to UTI, improved from previous day continue Ceftriaxone IV f/u urine cultures Qualifiers: Urinary tract infection type: acute cystitis Hematuria presence: without hematuria Qualified Code(s): N30.00 - Acute cystitis without hematuria (2) Small bowel obstruction due to adhesions Current Visit: Yes Status: Resolved Assessment and plan: resolved normal bowel sounds with stool in ostomy bag tolerating clear liquid diet, will advance as tolerated (3) Abdominal pain Current Visit: Yes Status: Resolved Assessment and plan: resolved at this time Qualifiers: Abdominal location: epigastric Qualified Code(s): R10.13 - Epigastric pain (4) Atrial fibrillation with RVR Current Visit: No Status: Chronic Assessment and plan: Has history of Afib diagnosed in May 2017 Noted to be in poorly controlled Afib as pt had not received her scheduled dose of PO cardizem and Metoprolol due to NPO status because of SBO Pt was started on cardizem gtt as her HR persisted in 120s despite IVP cardizem Currently rate is better controlled, she is tolerating PO intake and is started back on her PO home meds. will titrate off cardizem gtt. Pt not on anticoagulation due to history of bleeds and recurrent falls. Pt was diagnosed with Afib in May 2017 and was recently discharged. At that time she was not placed on coumadin due to her associated risks and pt refusal (5) ESRD (end stage renal disease) on dialysis Current Visit: Yes Status: Acute Assessment and plan: Nephrology input appreciated continue HD (MWF) as outpatient (6) Anemia in chronic kidney disease (CKD) Current Visit: No Status: Chronic Assessment and plan: H&H low but acceptable pt receiving Aranesp during HD no acute bleeding reported at this time will continue to monitor and transfuse as needed Qualifiers: Chronic kidney disease stage: on chronic dialysis Qualified Code(s): N18.6 - End stage renal disease; D63.1 - Anemia in chronic kidney disease; D63.1 - Anemia in chronic kidney disease; Z99.2 - Dependence on renal dialysis; Z99.2 - Dependence on renal dialysis; Z99.2 - Dependence on renal dialysis; Z99.2 - Dependence on renal dialysis (7) CHF (congestive heart failure) Current Visit: No Status: Chronic Assessment and plan: no signs of acute exacerbation continue home medications Qualifiers: Congestive heart failure type: diastolic Congestive heart failure chronicity: chronic Qualified Code(s): I50.32 - Chronic diastolic (congestive ) heart failure (8) Counseling regarding advanced care planning and goals of care Current Visit: Yes Status: Acute Assessment and plan: Palliative care consultation appreciated (9) DVT prophylaxis Current Visit: No Status: Acute Assessment and plan: Heparin SQ (10) GERD (gastroesophageal reflux disease) Current Visit: No Status: Chronic Assessment and plan: continue home dose of Omeprazole Qualifiers: Esophagitis presence: esophagitis presence not specified Qualified Code(s) : K21.9 - Gastro-esophageal reflux disease without esophagitis - Subjective Interval history: Pt is an 81y/o female admitted for abd pain secondary to SBO. Pt seen and examined at bedside. SBO appears to have been resolved, noted to have good stool output in the ostomy bag tolerating clear liquid diet well and denies any nausea/vomiting. Noted to be in poorly controlled Afib as pt had not received her scheduled dose of PO cardizem and Metoprolol due to NPO status because of SBO Pt was started on cardizem gtt as her HR persisted in 120s despite IVP cardizem Currently rate is better controlled, she is tolerating PO intake and is started back on her PO home meds. will titrate off cardizem gtt. Pt not on anticoagulation due to history of bleeds and recurrent falls. Pt was diagnosed with Afib in May 2017 and was recently discharged. At that time she was not placed on coumadin due to her associated risks and pt refusal. - Constitutional Vitals: Temp Pulse Resp BP Pulse Ox 98.2 F 98 18 111/63 95 06/17/17 12:48 06/17/17 12:48 06/17/17 12:48 06/17/17 12:48 06/17/17 12:48 General appearance: Present: A&O X 3 (frail appearing elderly female), no acute distress, answers questions appropriately - Head Head exam: Present: atraumatic, normocephalic - Eye Eye exam: Present: conjuntiva pink, sclera anicteric - Respiratory Respiratory exam: Absent: respiratory distress, wheezes - Cardiovascular Cardiovascular exam: Present: irregular rhythm, +S1, +S2 - GI/Abdominal GI/Abdominal exam: Present: normal bowel sounds, soft, no peritoneal signs. Absent: distended, tenderness Additional comments: ostomy bag in place with stool in bag - Extremities Exam Extremities exam: Present: warm, radial pulses palpable and symmetrical. Absent : calf tenderness, pedal edema - Neurological Exam Neurological exam: Present: alert, oriented X3 - Psychiatric Psychiatric exam: Present: normal affect, normal mood Internal Medicine: Result - Labs CBC & Chem 7: 06/17/17 05:16 06/17/17 05:16 Labs: Short CBC 06/17/17 Range/Units 05:16 WBC 19.7 H (4.3-11.1) K/mcL Hgb 10.2 L (11.5-15.4) g/dL Hct 33.9 L (35.3-44.9) % Plt Count 413 H (140-400) K/mcL Neutrophils # 14.1 H (1.6-8.9) K/mcL BMP 06/17/17 05:16 Sodium 136 Potassium 5.4 H Chloride 101 Carbon Dioxide 20 BUN 12 Creatinine 2.62 H Glucose 95 Calcium 8.4 L - ABG Interpretation ABG results: PT/INR, D-dimer PT 10.7 Seconds (9.4-12.1) 06/15/17 23:05 - Impressions Impressions KUB X-Ray 06/17/17 06:00 IMPRESSION: Nonspecific abdominal bowel gas pattern. No gaseous distention of bowel loops apparent . D/ / Mart Lancaster MD / Mart Lancaster MD Interpreting Provider: Mart Lancaster MD Consult Discharge Plan - Plan Referrals: Kaleigh Beckham MD [Primary Care Provider] -
[2017-06-17] MEDS ORDERED: Ipratropium/Albuterol Neb 3 ML IH PRN (13:56)
[2017-06-17] MEDS: Diltiazem CD (24hr) 180 MG CAPSULE PO SCH (14:03)
[2017-06-17] MEDS: Furosemide 40 MG TABLET PO SCH (17:38)
[2017-06-17] MEDS: Gabapentin 300 MG CAPSULE PO SCH (20:10)
[2017-06-18] MEDS ORDERED: *HR* Metoprolol 5 MG/5 ML VIAL IVP ONE (00:14)
[2017-06-18] MEDS: *HR* HYDROmorphone (PF) 1 MG/ML SYRINGE IVP PRN ×5 (00:23→23:45)
[2017-06-18 05:40] LABS: Basophils # 0.1 K/mcL (0.0-0.2); Basophils % 0.3 %; Eosinophils % 0.2 %; Hematocrit 32.5 % (35.3-44.9); Hemoglobin 9.7 g/dL (11.5-15.4); Immature Granulocytes % 1.4 % (0-4); Lymphocytes # 1.2 K/mcL (0.6-4.6); Lymphocytes % 6.3 %; Mean Corpuscular HGB Conc 29.8 g/dL (31.6-35.5); Mean Corpuscular Volume 100.6 fL (83.0-100.0); Mean Platelet Volume 10.4 fL (9.4-12.4); Monocytes # 4.1 K/mcL (0.0-1.3); Monocytes % 21.8 %; Platelet Count 473 K/mcL (140-400); Red Blood Count 3.23 M/mcL (3.82-4.97); Red Cell Distribution Width 21.3 % (11.5-14.5)
[2017-06-18] MEDS: *HR* Heparin 5,000 UNIT/ML VIAL SQ SCH ×2 (05:46→18:40)
[2017-06-18 05:56] LABS: Neutrophils # 13.2 K/mcL (1.6-8.9)
[2017-06-18 05:57] LABS: Calcium 8.7 mg/dL (8.6-10.8); Magnesium 1.8 mg/dL (1.6-2.6); Phosphorous 4.6 mg/dL (2.3-4.7); Potassium 4.7 mEq/L (3.5-4.5)
[2017-06-18 06:16] LABS: Platelet Estimate Increased (Normal)
[2017-06-18 06:17] LABS: Anisocytosis 1+ (Not Present); Macrocytosis Present (Not Present)
[2017-06-18] MEDS ORDERED: 0.9 % Sodium Chloride 250 ML IVC PRN (08:11)
[2017-06-18] MEDS ORDERED: 0.9 % Sodium Chloride 1,000 ML PRIME SCH (08:15)
[2017-06-18] MEDS ORDERED: NON-FORMULARY MEDICATION 1 EACH EACH (Glucosamn/Condroitn/C/Mn/Boron [Cvs Glucosamine Chon PO SCH (09:00)
[2017-06-18] MEDS: Aspirin Enteric Coated 81 MG Tablet PO SCH (09:38)
[2017-06-18] MEDS: Gabapentin 300 MG CAPSULE PO SCH ×2 (09:39→21:06)
--- NOTE | 2017-06-18 09:46 | Nephrology Progress Note ---
Date of Encounter: 06/18/17 Time of Encounter: 09:05 - Assessment and Plan (1) End-stage renal disease needing dialysis Current Visit: No Status: Chronic SBO- adhesions on CT. Currently denies abdominal discomfort, liquid stool in ostomy. HD today, keeping MWF schedule. Orders given Subjective Interval history: Resting quietly. Seen on HD. Denies abdominal discomfort. Objective - Vital Signs Vital signs: Vital Signs Temp Pulse Resp BP Pulse Ox 06/18/17 08:48 99.9 F H 116 18 142/76 95 06/18/17 08:42 99.1 F 112 14 129/83 95 06/18/17 04:19 97.8 F 60 18 110/60 94 06/17/17 23:36 99.1 F 114 19 110/66 99 06/17/17 19:12 98.2 F 90 15 104/59 98 06/17/17 17:38 96/45 06/17/17 16:02 98.3 F 94 17 113/70 97 06/17/17 12:48 98.2 F 98 18 111/63 95 06/17/17 11:28 109 06/17/17 11:00 98.2 F 131 16 108/64 96 06/17/17 10:18 130 115/66 06/17/17 10:00 128 18 110/70 96 Intake and Output 06/17/17 06/18/17 06/18/17 23:59 07:59 15:59 Intake Total 300 / 300 360 / 360 Output Total 250 / 250 100 / 100 Balance 50 / 50 -100 / -100 360 / 360 Intake: Oral 300 / 300 360 / 360 Output: Urine 50 / 50 Urethral (Petersen) 50 / 50 Stool 200 / 200 100 / 100 Other: Meal Breakfast Breakfast Percent of Meal Consumed 50% 50% Stool Characteristics Seedy Stool Color Brown Weight 46.8 kg Patient Weight 06/18/17 23:59 Weight 46.8 kg - General Appearance General appearance: Present: frail EENT: Present: mucous membranes moist Respiratory: Present: clear Cardiology: Present: edema, regular rate, regular rhythm Gastrointestinal: Present: normoactive bowel sounds, no tenderness Integumentary: Present: warm and dry Neurologic: Present: alert and oriented x3 Psychiatric: Present: mood/affect appropriate, cooperative - Lab 06/18/17 05:02 06/18/17 05:02 Most recent lab results Calcium 8.7 mg/dL (8.6-10.8) 06/18/17 05:02 Phosphorus 4.6 mg/dL (2.3-4.7) 06/18/17 05:02 Magnesium 1.8 mg/dL (1.6-2.6) 06/18/17 05:02 Consult Discharge Plan - Plan Referrals: Kaleigh Beckham MD [Primary Care Provider] -
[2017-06-18] MEDS: Diltiazem CD (24hr) 180 MG CAPSULE PO SCH (10:16)
--- NOTE | 2017-06-18 11:41 | Palliative Progress Note ---
Date of Encounter: 06/18/17 Time of Encounter: 07:45 - Assessment and plan (1) End-stage renal disease needing dialysis Current Visit: No Status: Chronic Assessment and plan: Patient wishes to continue getting dialysis. She is scheduled for dialysis today. (2) Urinary tract infection Current Visit: No Status: Acute Assessment and plan: On antibiotics per primary team. Culture shows no growth. Qualifiers: Urinary tract infection type: acute cystitis Hematuria presence: without hematuria Qualified Code(s): N30.00 - Acute cystitis without hematuria (3) Nausea & vomiting Current Visit: Yes Status: Acute Qualifiers: Vomiting type: unspecified Vomiting Intractability: non-intractable Qualified Code(s): R11.2 - Nausea with vomiting, unspecified (4) Back pain Current Visit: Yes Status: Acute Assessment and plan: Patient states the medication is not helping adequately. I did notice that her dose had been adjusted yesterday. Admitted every 2 hours so she can continue to get the medication more frequently and therefore she may be a little tolerated better. Qualifiers: Back pain location: low back pain Qualified Code(s): M54.5 - Low back pain ; G89.29 - Other chronic pain; G89.29 - Other chronic pain (5) Counseling regarding advanced care planning and goals of care Current Visit: Yes Status: Acute Assessment and plan: CODE STATUS DNR CCA, DNI. She is now off Cardizem drip. And is to continue getting dialysis. And ultimately to return to her ECF. Social work will be working with her today regarding her MPOA. He expresses that she is not currently slightly better since initiating dialysis. And they wish to have all treatment modalities continued as well. As the patient wishes to continue with aggressive care as does the family. Palliative we will go ahead and follow from a distance. - Time Spent With Patient Total time spent is greater than 50% in coordination of care (as documented) at patient's floor/unit and/or counseling patient: - Subjective Interval history: She complains of pain all over. Medications have been requested. In use to be okay with having dialysis, dates her breathing is okay. She is eating at least to some degree, not having any trouble with nausea and vomiting. - Constitutional Vitals: Abnormal lab results WBC 18.9 K/mcL (4.3-11.1) H 06/18/17 05:02 RBC 3.23 M/mcL (3.82-4.97) L 06/18/17 05:02 Hgb 9.7 g/dL (11.5-15.4) L 06/18/17 05:02 Hct 32.5 % (35.3-44.9) L 06/18/17 05:02 MCV 100.6 fL (83.0-100.0) H 06/18/17 05:02 MCHC 29.8 g/dL (31.6-35.5) L 06/18/17 05:02 RDW 21.3 % (11.5-14.5) H 06/18/17 05:02 Plt Count 473 K/mcL (140-400) H 06/18/17 05:02 Neutrophils # 13.2 K/mcL (1.6-8.9) H 06/18/17 05:02 Monocytes # 4.1 K/mcL (0.0-1.3) H 06/18/17 05:02 Nucleated RBCs/100 WBC 0.1 /100 WBC (0) H 06/15/17 23:05 Platelet Estimate Increased (Normal) H 06/18/17 05:02 Anisocytosis 1+ (Not Present) A 06/18/17 05:02 Macrocytosis Present (Not Present) A 06/18/17 05:02 APTT 22.8 Seconds (26.0-36.0) L 06/15/17 23:05 Sodium 135 mEq/L (136-145) L 06/18/17 05:02 Potassium 4.7 mEq/L (3.5-4.5) H 06/18/17 05:02 Creatinine 3.40 mg/dL (0.57-1.11) H 06/18/17 05:02 Est GFR ( Amer) 16 (> 60) L 06/18/17 05:02 Est GFR (Non-Af Amer) 13 (> 60) L 06/18/17 05:02 BUN/Creatinine Ratio 5 (6-26) L 06/18/17 05:02 Glucose 117 mg/dL (70-99) H 06/18/17 05:02 Alkaline Phosphatase 163 Units/L (38-126) H 06/15/17 23:05 Albumin 2.5 g/dL (3.5-5.0) L 06/15/17 23:05 Albumin/Globulin Ratio 0.7 (1.1-2.2) L 06/15/17 23:05 Urine Clarity Turbid (Clear) A 06/15/17 23:45 Ur Specific Dent 1.028 (1.010-1.025) H 06/15/17 23:45 Urine Protein >=300 mg/dL (Neg-Trace) H 06/15/17 23:45 Urine Ketones Trace mg/dL (Negative) H 06/15/17 23:45 Urine Blood Large (Negative) H 06/15/17 23:45 Urine Bilirubin Small (Negative) H 06/15/17 23:45 Ur Leukocyte Esterase Moderate (Negative) H 06/15/17 23:45 Urine Microscopic RBC 15-30 per hpf (0-3) H 06/15/17 23:45 Urine Microscopic WBC 5-15 per hpf (0-3) H 06/15/17 23:45 Ur Culture Indicated? YES (NO) A 06/15/17 23:45 General appearance: Present: no acute distress, thin - Head Head exam: Present: atraumatic, normal inspection - Eye Eye exam: Present: normal appearance - ENT ENT exam: Present: mucous membranes moist - Respiratory Respiratory exam: Present: decreased breath sounds - Cardiovascular Cardiovascular exam: Present: irregular rhythm - GI/Abdominal GI/Abdominal exam: Present: normal bowel sounds, soft. Absent: tenderness ( Tool in ostomy bag) - Extremities Exam Extremities exam: Present: pedal edema - Neurological Exam Neurological exam: Present: alert, oriented X3 - Psychiatric Psychiatric exam: Absent: agitated, anxious - Skin Skin exam: Present: dry, warm Palliative Quality Palliative Quality: Screen for Code Status: Yes, Screen for Goals of Care: Yes, Screen for Pain: Yes, If Pain Regimen Started, Initiate Bowel Regimen: Yes, Screen for Nausea/Vomitting: Yes - Labs CBC & Chem 7: 06/18/17 05:02 06/18/17 05:02 Labs: Laboratory Results - last 24 hr 06/18/17 06/18/17 05:02 05:02 WBC 18.9 H RBC 3.23 L Hgb 9.7 L Hct 32.5 L MCV 100.6 H MCH 30.0 MCHC 29.8 L RDW 21.3 H Plt Count 473 H MPV 10.4 Immature Gran % 1.4 Seg Neutrophils % 70.0 Lymphocytes % 6.3 Monocytes % 21.8 Eosinophils % 0.2 Basophils % 0.3 Neutrophils # 13.2 H Lymphocytes # 1.2 Monocytes # 4.1 H Eosinophils # 0.0 Basophils # 0.1 Platelet Estimate Increased H Anisocytosis 1+ A Macrocytosis Present A Sodium 135 L Potassium 4.7 H Chloride 99 Carbon Dioxide 27 BUN 17 Creatinine 3.40 H Est GFR ( Amer) 16 L Est GFR (Non-Af Amer) 13 L BUN/Creatinine Ratio 5 L Glucose 117 H Calculated Osmolality 283 Calcium 8.7 Phosphorus 4.6 Magnesium 1.8 - ABG Interpretation ABG results: PT/INR, D-dimer PT 10.7 Seconds (9.4-12.1) 06/15/17 23:05 Consult Discharge Plan - Plan Referrals: Kaleigh Beckham MD [Primary Care Provider] - (patient is from [place])
[2017-06-18] MEDS: Metoprolol 100 MG TABLET PO SCH ×2 (11:49→21:06)
[2017-06-18] MEDS: Furosemide 40 MG TABLET PO SCH ×2 (11:50→18:40)
--- NOTE | 2017-06-18 13:48 | Internal Med Progress Note ---
Date of Encounter: 06/18/17 Time of Encounter: 13:45 - Assessment and plan (1) Atrial fibrillation with RVR Current Visit: No Status: Chronic Assessment and plan: Has history of Afib diagnosed in May 2017 continue Cardizem gtt and titrate to HR<110 continue PO BB And cardizem as BP permits Pt not on anticoagulation due to history of bleeds and recurrent falls. Pt was diagnosed with Afib in May 2017 and was recently discharged. At that time she was not placed on coumadin due to her associated risks and pt refusal (2) Urinary tract infection Current Visit: No Status: Acute Assessment and plan: Leukocytosis likely secondary to UTI, improved from previous day continue Ceftriaxone IV f/u urine cultures Qualifiers: Urinary tract infection type: acute cystitis Hematuria presence: without hematuria Qualified Code(s): N30.00 - Acute cystitis without hematuria (3) Small bowel obstruction due to adhesions Current Visit: Yes Status: Resolved Assessment and plan: resolved normal bowel sounds with stool in ostomy bag tolerating PO intake well (4) Abdominal pain Current Visit: Yes Status: Resolved Assessment and plan: resolved at this time Qualifiers: Abdominal location: epigastric Qualified Code(s): R10.13 - Epigastric pain (5) ESRD (end stage renal disease) on dialysis Current Visit: Yes Status: Acute Assessment and plan: Nephrology input appreciated continue HD (MWF) as outpatient s/p HD today() (6) Anemia in chronic kidney disease (CKD) Current Visit: No Status: Chronic Assessment and plan: H&H low but acceptable pt receiving Aranesp during HD no acute bleeding reported at this time will continue to monitor and transfuse as needed Qualifiers: Chronic kidney disease stage: on chronic dialysis Qualified Code(s): N18.6 - End stage renal disease; D63.1 - Anemia in chronic kidney disease; D63.1 - Anemia in chronic kidney disease; Z99.2 - Dependence on renal dialysis; Z99.2 - Dependence on renal dialysis; Z99.2 - Dependence on renal dialysis; Z99.2 - Dependence on renal dialysis (7) CHF (congestive heart failure) Current Visit: No Status: Chronic Assessment and plan: no signs of acute exacerbation continue home medications Qualifiers: Congestive heart failure type: diastolic Congestive heart failure chronicity: chronic Qualified Code(s): I50.32 - Chronic diastolic (congestive ) heart failure (8) Counseling regarding advanced care planning and goals of care Current Visit: Yes Status: Acute Assessment and plan: Palliative care consultation appreciated (9) DVT prophylaxis Current Visit: No Status: Acute Assessment and plan: Heparin SQ (10) GERD (gastroesophageal reflux disease) Current Visit: No Status: Chronic Assessment and plan: continue home dose of Omeprazole Qualifiers: Esophagitis presence: esophagitis presence not specified Qualified Code(s) : K21.9 - Gastro-esophageal reflux disease without esophagitis - Subjective Interval history: Pt is an 81y/o female admitted for abd pain secondary to SBO. SBO resolved, tolerating PO intake Pt seen and examined at bedside. Pt was seen by me numerous times throughout the day. She was initially found to have poorly-controlled atrial fibrillation for which she was started on Cardizem drip, she was able to come off the Cardizem drip once her home medications were resumed. However today during dialysis she was noted to have heart rate sustaining in the 160s with A. fib. She was noted to have labile blood pressure and was not able to receive her beta sai prior to dialysis. She was given her Cardizem by mouth during dialysis without adequate control of her heart rate,due to which she was started on Cardizem drip. At this time she is resting comfortably in bed and denies any chest pain, palpitations, shortness of breath. She continues to have diffuse body pains are chronic in nature. - Constitutional Vitals: Temp Pulse Resp BP Pulse Ox 98.0 F 96 18 131/41 96 06/18/17 13:22 06/18/17 13:22 06/18/17 13:22 06/18/17 13:22 06/18/17 13:22 General appearance: Present: A&O X 3 (frail appearing elderly female), no acute distress, answers questions appropriately - Head Head exam: Present: atraumatic, normocephalic - Eye Eye exam: Present: conjuntiva pink, sclera anicteric - Respiratory Respiratory exam: Absent: rales, respiratory distress, wheezes - Cardiovascular Cardiovascular exam: Present: irregular rhythm, +S1, +S2, tachycardia - GI/Abdominal GI/Abdominal exam: Present: normal bowel sounds, soft. Absent: distended ( colostomy bag intact), tenderness - Extremities Exam Extremities exam: Present: warm, radial pulses palpable and symmetrical. Absent : calf tenderness, cyanotic, pedal edema - Neurological Exam Neurological exam: Present: alert, oriented X3 - Psychiatric Psychiatric exam: Present: normal affect, normal mood Internal Medicine: Result - Labs CBC & Chem 7: 06/18/17 05:02 06/18/17 05:02 Labs: Short CBC 06/18/17 Range/Units 05:02 WBC 18.9 H (4.3-11.1) K/mcL Hgb 9.7 L (11.5-15.4) g/dL Hct 32.5 L (35.3-44.9) % Plt Count 473 H (140-400) K/mcL Neutrophils # 13.2 H (1.6-8.9) K/mcL BMP 06/18/17 05:02 Sodium 135 L Potassium 4.7 H Chloride 99 Carbon Dioxide 27 BUN 17 Creatinine 3.40 H Glucose 117 H Calcium 8.7 - ABG Interpretation ABG results: PT/INR, D-dimer PT 10.7 Seconds (9.4-12.1) 06/15/17 23:05 Consult Discharge Plan - Plan Referrals: Kaleigh Beckham MD [Primary Care Provider] - (patient is from [place])
[2017-06-18] MEDS ORDERED: 0.9 % Sodium Chloride 1,000 ML ONE (17:57)
--- NOTE | 2017-06-18 21:12 | Anesthesia Evaluation PreOp ---
Date of Encounter: 06/18/17 Time of Encounter: 21:07 - Past History Planned Operation: Bilat. Stone extraction Cardiac History: Denies any Significant Hx, CHF, HTN, Arrhythmia (Afib), Other ( mild-mod. 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 stent placement) : No Alcohol Use: none Drug use: none Medications and Allergies Gabapentin [Neurontin] 300 mg PO QAM 05/20/15 [History] Sodium Bicarbonate 1,950 mg PO BID 05/20/15 [History] Darbepoetin [Aranesp] 150 mcg IJ Q2W 05/24/16 [History] Cholecalciferol (D-3) [Vitamin D] 1,000 unit PO DAILY 05/27/16 [History] Cyanocobalamin (B-12) [Vitamin B12] 1,000 mcg SQ QWEEK 05/27/16 [History] Gabapentin [Neurontin] 600 mg PO HS 05/27/16 [History] Glucosamn/[place]roitn/C/Mn/[place] [[facility] Glucosamine Chondroitin Tb] 1 tab PO DAILY 05/27/16 [History] Multivit,Th Iron,Other Min [Therems-M] 1 tab PO DAILY 05/27/16 [History] Vitamin E (Dl,Tocopheryl Acet) [Vitamin E] 400 unit PO DAILY 05/27/16 [History] Aspirin Enteric Coated [Aspirin EC] 81 mg PO DAILY #30 05/22/17 [Rx] Diltiazem CD (24hr) [Cardizem CD] 360 mg PO DAILY #30 05/22/17 [Rx] Levothyroxine [Synthroid] 50 mcg PO 0630 #30 tab 05/22/17 [Rx] Metoprolol [Lopressor] 100 mg PO BID #60 tab 05/22/17 [Rx] HYDROcodone/Acet 10/325 mg [[place] 10-325 mg] 1 tab PO Q4HR PRN #5 tablet [Rx] Omeprazole [PriLOSEC] 40 mg PO DAILY@0730 capsule. 06/10/17 [Rx] Furosemide [Lasix] 40 mg PO BID 06/16/17 [History] 3 Allergy/AdvReac Type Severity Reaction Status Date / Time codeine Allergy Rash Verified 06/15/17 22:17 fluoxetine [From Prozac] Allergy Rash Verified 06/15/17 22:17 haloperidol [From Haldol] Allergy See Verified 06/15/17 22:17 Comments nalbuphine [From Nubain] Allergy Rash Verified 06/15/17 22:17 Sulfa (Sulfonamide Allergy Rash Verified 06/15/17 22:17 Antibiotics) - Meds/Allergy Pre-op Review Medications Reviewed: Yes Allergies Reviewed: Yes Beta Blockers on Current Med List: Yes Anesthesia Results - Labs 06/18/17 05:02 06/18/17 05:02 05/25/2016 Echo Impressions: LVEF 60-65%. Normal left ventricular size and systolic function. There is evidence of moderate diastolic dysfunction of the left ventricle. Normal right ventricular size and function. Mild-moderate aortic stenosis. Mild tricuspid regurgitation. Estimated RVSP was 42 mmHg. Mild pulmonary hypertension. The IVC is not dilated. - Imaging EKG: image reviewed (Afib) Anesthesia Exam O2 Sat Weight 46.8 kg O2 Sat by Pulse Oximetry 96 O2 Sat by Pulse Oximetry 92 O2 Sat by Pulse Oximetry 96 O2 Sat by Pulse Oximetry 96 O2 Sat by Pulse Oximetry 93 O2 Sat by Pulse Oximetry 94 O2 Sat by Pulse Oximetry 100 O2 Sat by Pulse Oximetry 100 O2 Sat by Pulse Oximetry 96 O2 Sat by Pulse Oximetry 95 O2 Sat by Pulse Oximetry 95 O2 Sat by Pulse Oximetry 94 O2 Sat by Pulse Oximetry 99 Vital Signs Temp Pulse Resp BP Pulse Ox 98.7 F 88 14 107/54 94 06/15/17 22:17 06/15/17 22:17 06/15/17 22:17 06/15/17 22:17 06/15/17 22:17 Height: 5'3'' Weight: 103# NPO (# of Hours): > 8 hrs Pain Scale: 0 Pain Scale Used: Numeric (1 - 10) - HEENT Pupil (Motor): Pupils equal, EOMI Mallampati: II Teeth: Poor dentition Oral Opening: Greater than 3 - 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
[2017-06-19] MEDS: *HR* Heparin 5,000 UNIT/ML VIAL SQ SCH ×2 (06:53→18:04)
[2017-06-19 06:59] LABS: Potassium 4.8 mEq/L (3.5-4.5)
[2017-06-19 07:00] LABS: Calcium 8.2 mg/dL (8.6-10.8); Magnesium 1.5 mg/dL (1.6-2.6); Phosphorous 3.6 mg/dL (2.3-4.7)
[2017-06-19 07:25] LABS: Basophils # 0.1 K/mcL (0.0-0.2); Basophils % 0.3 %; Eosinophils % 0.2 %; Hematocrit 30.6 % (35.3-44.9); Hemoglobin 9.3 g/dL (11.5-15.4); Immature Granulocytes % 1.3 % (0-4); Lymphocytes # 1.7 K/mcL (0.6-4.6); Lymphocytes % 8.9 %; Mean Corpuscular HGB Conc 30.4 g/dL (31.6-35.5); Mean Corpuscular Hemoglobin 29.9 pg (28.0-33.3); Mean Corpuscular Volume 98.4 fL (83.0-100.0); Monocytes # 4.3 K/mcL (0.0-1.3); Monocytes % 22.9 %; Neutrophils # 12.5 K/mcL (1.6-8.9); Platelet Count 355 K/mcL (140-400); Red Blood Count 3.11 M/mcL (3.82-4.97); Red Cell Distribution Width 20.7 % (11.5-14.5); Segmented Neutrophils % 66.4 %
[2017-06-19] MEDS ORDERED: Magnesium Sulfate 1 GM in D5% in Water 100 ML IVPB ONE (07:42)
--- NOTE | 2017-06-19 08:02 | Nephrology Progress Note ---
Date of Encounter: 06/19/17 Time of Encounter: 07:45 - Assessment and Plan (1) End-stage renal disease needing dialysis Current Visit: No Status: Chronic SBO- adhesions on CT. Currently denies abdominal discomfort. No HD today. Cardizem gtt, AR 104. Tentatively scheduled for bilat. stone extraction on Wednesday. Subjective Interval history: Resting quietly. Denies abdominal discomfort. Remains on Cardizem gtt. AR 104. Objective - Vital Signs Vital signs: Vital Signs Temp Pulse Resp BP Pulse Ox 06/19/17 07:48 97.5 F L 121 17 143/88 97 06/19/17 04:10 98.1 F 104 16 130/70 99 06/19/17 00:09 98.8 F 100 16 131/74 95 06/18/17 20:41 98.9 F 106 18 121/70 96 06/18/17 15:31 98.3 F 91 16 139/53 92 06/18/17 13:22 98.0 F 96 18 131/41 96 06/18/17 12:58 97.6 F 118 18 152/53 96 06/18/17 12:29 98.3 F 138 16 104/72 93 06/18/17 12:20 98.1 F 126 18 131/67 94 06/18/17 11:45 97.5 F L 18 112/76 06/18/17 11:40 116/84 06/18/17 11:35 108/48 06/18/17 11:27 97.0 F L 156 18 112/96 100 06/18/17 11:20 104/58 06/18/17 11:05 90/52 06/18/17 10:50 97.6 F 140 16 115/92 100 06/18/17 10:35 115/62 06/18/17 10:20 99/84 06/18/17 10:05 89/61 06/18/17 09:50 91/56 06/18/17 09:49 98.0 F 112 16 110/81 06/18/17 09:40 96 06/18/17 09:35 110/81 06/18/17 09:20 131/77 06/18/17 09:05 98.0 F 18 150/78 06/18/17 08:48 99.9 F H 116 18 142/76 95 06/18/17 08:42 99.1 F 112 14 129/83 95 Intake and Output 06/18/17 06/18/17 06/19/17 15:59 23:59 07:59 Intake Total 1211.0 / 1211.0 0 / 0 Output Total 2575 / 2575 250 / 250 Balance -1364.0 / -1364.0 -250 / -250 Intake: IV Fluids 11.0 / 11.0 Cardizem 125 MG In Dextrose 5% 11.0 / 11.0 100 ML @ 5 MG/HR 5 mls/hr IVC . Q24H [facility] Rx#:[id number] Oral 600 / 600 0 / 0 Intake, Rinseback and Flushes 600 / 600 Output: Urine 50 / 50 Stool 300 / 300 100 / 100 Total Dialysis (HD) Output 2225 / 2225 Catheter 150 / 150 Other: Meal Lunch No fluids given. Percent of Meal Consumed 50% Stool Consistency liquid liquid Stool Color Brown Green Green Weight 44.6 kg Hemodialysis Net Fluid Removed 1625 (mL) Patient Weight 06/19/17 23:59 Weight 44.6 kg - General Appearance General appearance: Present: frail EENT: Present: mucous membranes moist Neck: Present: no JVD Respiratory: Present: clear Cardiology: Present: edema, regular rate, regular rhythm Additional Comments: trace pitting Gastrointestinal: Present: normoactive bowel sounds, no tenderness Integumentary: Present: warm and dry Neurologic: Present: alert and oriented x3 Psychiatric: Present: mood/affect appropriate, cooperative - Lab 06/18/17 05:02 06/19/17 06:37 Most recent lab results Calcium 8.2 mg/dL (8.6-10.8) L 06/19/17 06:37 Phosphorus 3.6 mg/dL (2.3-4.7) 06/19/17 06:37 Magnesium 1.5 mg/dL (1.6-2.6) L 06/19/17 06:37 Consult Discharge Plan - Plan Referrals: Kaleigh Beckham MD [Primary Care Provider] - (patient is from [place])
[2017-06-19 08:20] LABS: Anisocytosis 2+ (Not Present); Hypochromasia Present (Not Present); Microcytosis Present (Not Present); Platelet Estimate Normal (Normal)
[2017-06-19 08:22] LABS: Poikilocytosis 1+ (Not Present)
[2017-06-19] MEDS: Metoprolol 100 MG TABLET PO SCH ×2 (09:37→21:59)
[2017-06-19] MEDS: Aspirin Enteric Coated 81 MG Tablet PO SCH (09:38)
[2017-06-19] MEDS: Furosemide 40 MG TABLET PO SCH ×2 (09:38→18:02)
[2017-06-19] MEDS: Gabapentin 300 MG CAPSULE PO SCH ×2 (09:38→21:58)
[2017-06-19] MEDS: Diltiazem CD (24hr) 180 MG CAPSULE PO SCH (11:07)
[2017-06-19] MEDS ORDERED: Acetaminophen 325 MG TABLET PO PRN (16:18)
--- NOTE | 2017-06-19 17:11 | Internal Med Progress Note ---
Date of Encounter: 06/19/17 Time of Encounter: 17:09 - Assessment and plan (1) Atrial fibrillation with RVR Current Visit: No Status: Chronic Assessment and plan: Has history of Afib diagnosed in May 2017 Rate controlled with PO cardizem and metoprolol off cardizem gtt not on anticoagulation due to history of bleed and recurrent falls (2) Urinary tract infection Current Visit: No Status: Acute Assessment and plan: Leukocytosis likely secondary to UTI, improved from previous day continue Ceftriaxone IV Qualifiers: Urinary tract infection type: acute cystitis Hematuria presence: without hematuria Qualified Code(s): N30.00 - Acute cystitis without hematuria (3) Small bowel obstruction due to adhesions Current Visit: Yes Status: Resolved Assessment and plan: resolved normal bowel sounds with stool in ostomy bag tolerating PO intake well (4) Abdominal pain Current Visit: Yes Status: Resolved Assessment and plan: resolved at this time Qualifiers: Abdominal location: epigastric Qualified Code(s): R10.13 - Epigastric pain (5) ESRD (end stage renal disease) on dialysis Current Visit: Yes Status: Acute Assessment and plan: Nephrology input appreciated continue HD (MWF) as outpatient s/p HD today() (6) Anemia in chronic kidney disease (CKD) Current Visit: No Status: Chronic Assessment and plan: H&H low but acceptable pt receiving Aranesp during HD no acute bleeding reported at this time will continue to monitor and transfuse as needed Qualifiers: Chronic kidney disease stage: on chronic dialysis Qualified Code(s): N18.6 - End stage renal disease; D63.1 - Anemia in chronic kidney disease; D63.1 - Anemia in chronic kidney disease; Z99.2 - Dependence on renal dialysis; Z99.2 - Dependence on renal dialysis; Z99.2 - Dependence on renal dialysis; Z99.2 - Dependence on renal dialysis (7) CHF (congestive heart failure) Current Visit: No Status: Chronic Assessment and plan: no signs of acute exacerbation continue home medications Qualifiers: Congestive heart failure type: diastolic Congestive heart failure chronicity: chronic Qualified Code(s): I50.32 - Chronic diastolic (congestive ) heart failure (8) Counseling regarding advanced care planning and goals of care Current Visit: Yes Status: Acute Assessment and plan: Palliative care consultation appreciated (9) DVT prophylaxis Current Visit: No Status: Acute Assessment and plan: Heparin SQ (10) GERD (gastroesophageal reflux disease) Current Visit: No Status: Chronic Assessment and plan: continue home dose of Omeprazole Qualifiers: Esophagitis presence: esophagitis presence not specified Qualified Code(s) : K21.9 - Gastro-esophageal reflux disease without esophagitis - Subjective Interval history: Pt is an 81y/o female admitted for abd pain secondary to SBO. SBO resolved, tolerating PO intake Pt seen and examined at bedside. Resting in bed. Off cardizem gtt. Reports of chronic b/l LE pain and requesting her home dose of opiates, however noted to have HR in 60s. NO overnight events reported - Constitutional Vitals: Temp Pulse Resp BP Pulse Ox 98.1 F 65 17 118/71 97 06/19/17 16:08 06/19/17 16:08 06/19/17 16:08 06/19/17 16:08 06/19/17 16:08 General appearance: Present: A&O X 3 (frail appearing elderly female), no acute distress, underweight, answers questions appropriately - Head Head exam: Present: atraumatic, normocephalic - Eye Eye exam: Present: conjuntiva pink, sclera anicteric - Respiratory Respiratory exam: Present: CTAB. Absent: respiratory distress, wheezes - Cardiovascular Cardiovascular exam: Present: irregular rhythm, +S1, +S2. Absent: diastolic murmur, systolic murmur - GI/Abdominal GI/Abdominal exam: Present: normal bowel sounds, soft. Absent: distended ( ostomy intact-stool in bag), tenderness - Extremities Exam Extremities exam: Present: warm, radial pulses palpable and symmetrical. Absent : calf tenderness, cyanotic, pedal edema - Neurological Exam Neurological exam: Present: alert, oriented X3 Internal Medicine: Result - Labs CBC & Chem 7: 06/19/17 07:13 06/19/17 06:37 Labs: Short CBC 06/19/17 Range/Units 07:13 WBC 18.8 H (4.3-11.1) K/mcL Hgb 9.3 L (11.5-15.4) g/dL Hct 30.6 L (35.3-44.9) % Plt Count 355 (140-400) K/mcL Neutrophils # 12.5 H (1.6-8.9) K/mcL BMP 06/19/17 06:37 Sodium 137 Potassium 4.8 H Chloride 99 Carbon Dioxide 29 BUN 14 Creatinine 2.84 H Glucose 137 H Calcium 8.2 L - ABG Interpretation ABG results: PT/INR, D-dimer PT 10.7 Seconds (9.4-12.1) 06/15/17 23:05 Consult Discharge Plan - Plan Referrals: Kaleigh Beckham MD [Primary Care Provider] - (patient is from [place])
[2017-06-19] MEDS: *HR* HYDROcodone/Acet 5/325 mg TABLET PO PRN ×2 (18:04→22:26)
[2017-06-20] MEDS: *HR* HYDROcodone/Acet 5/325 mg TABLET PO PRN ×2 (03:52→09:20)
[2017-06-20] MEDS: *HR* Heparin 5,000 UNIT/ML VIAL SQ SCH ×2 (05:54→18:09)
[2017-06-20 07:20] LABS: Basophils % 0.3 %; Eosinophils # 0.2 K/mcL (0.0-0.6); Eosinophils % 1.2 %; Hematocrit 28.3 % (35.3-44.9); Hemoglobin 8.2 g/dL (11.5-15.4); Immature Granulocytes % 1.2 % (0-4); Lymphocytes # 1.8 K/mcL (0.6-4.6); Lymphocytes % 13.8 %; Mean Corpuscular Hemoglobin 28.7 pg (28.0-33.3); Mean Platelet Volume 10.4 fL (9.4-12.4); Monocytes # 2.8 K/mcL (0.0-1.3); Monocytes % 21.6 %; Platelet Count 473 K/mcL (140-400); Red Blood Count 2.86 M/mcL (3.82-4.97); Red Cell Distribution Width 20.4 % (11.5-14.5); Segmented Neutrophils % 61.9 %
[2017-06-20 07:40] LABS: Neutrophils # 8.1 K/mcL (1.6-8.9)
[2017-06-20] MEDS ORDERED: Magnesium Sulfate 1 GM in D5% in Water 100 ML IVPB ONE (07:46)
[2017-06-20 07:47] LABS: Calcium 8.8 mg/dL (8.6-10.8); Magnesium 1.9 mg/dL (1.6-2.6); Phosphorous 3.9 mg/dL (2.3-4.7); Potassium 4.6 mEq/L (3.5-4.5)
--- NOTE | 2017-06-20 08:02 | Nephrology Progress Note ---
Date of Encounter: 06/20/17 Time of Encounter: 07:45 - Assessment and Plan (1) End-stage renal disease needing dialysis Current Visit: No Status: Chronic SBO- adhesions on CT. Currently denies abdominal discomfort. No HD today, keeping MWF schedule. Tentatively scheduled for bilat. stone extraction on Wednesday. Subjective Interval history: Resting quietly. Denies abdominal discomfort. Oral Diltiazem, AR 110. Objective - Vital Signs Vital signs: Vital Signs Temp Pulse Resp BP Pulse Ox 06/20/17 07:52 98.4 F 124 17 140/90 96 06/20/17 03:46 98.4 F 110 17 136/80 93 06/19/17 23:36 98.6 F 96 16 132/77 95 06/19/17 19:44 98.4 F 77 19 123/82 93 06/19/17 16:08 98.1 F 65 17 118/71 97 06/19/17 14:00 102 136/73 06/19/17 13:27 115 128/93 06/19/17 11:02 98.4 F 118 16 129/89 97 06/19/17 09:00 97 Intake and Output 06/19/17 06/19/17 06/20/17 15:59 23:59 07:59 Intake Total 277.9 / 277.9 0 / 0 Output Total 75 / 75 250 / 250 100 / 100 Balance 202.9 / 202.9 -250 / -250 -100 / -100 Intake: IV Fluids 277.9 / 277.9 Cardizem 125 MG In Dextrose 5% 75.9 / 75.9 100 ML @ 5 MG/HR 5 mls/hr IVC . Q24H [facility] Rx#:[id number] Magnesium Sulfate 1 GM In 102 / 102 Dextrose 5% 100 ML @ 100 mls/hr IVPB ONCE ONE Rx#:[id number] Rocephin 1,000 MG In Dextrose 5 100 / 100 % (Minibag+) 100 ML 100 ML @ 200 mls/hr IVPB Q24H [facility] Rx#: [id number] Oral 0 / 0 0 / 0 Output: Urine 75 / 75 Urethral (Peters[place]) 75 / 75 Stool 150 / 150 100 / 100 Catheter 100 / 100 Other: Meal Dinner Percent of Meal Consumed 75% Stool Size Small Stool Consistency liquid Stool Color Brown Brown Weight 48.2 kg Patient Weight 06/20/17 23:59 Weight 48.2 kg - General Appearance General appearance: Present: frail EENT: Present: mucous membranes moist Neck: Present: no JVD Respiratory: Present: clear Cardiology: Present: no edema, irregular rhythm Additional Comments: trace LE Gastrointestinal: Present: normoactive bowel sounds, no tenderness, no guarding Integumentary: Present: warm and dry Neurologic: Present: alert and oriented x3 Psychiatric: Present: mood/affect appropriate, cooperative - Lab 06/20/17 06:10 06/19/17 06:37 Most recent lab results Calcium 8.2 mg/dL (8.6-10.8) L 06/19/17 06:37 Phosphorus 3.6 mg/dL (2.3-4.7) 06/19/17 06:37 Magnesium 1.5 mg/dL (1.6-2.6) L 06/19/17 06:37 Consult Discharge Plan - Plan Referrals: Kaleigh Beckham MD [Primary Care Provider] - (patient is from [place])
[2017-06-20] MEDS: Metoprolol 100 MG TABLET PO SCH ×2 (09:21→21:53)
[2017-06-20] MEDS: Gabapentin 300 MG CAPSULE PO SCH ×2 (09:21→21:53)
[2017-06-20] MEDS: Diltiazem CD (24hr) 180 MG CAPSULE PO SCH (09:21)
[2017-06-20] MEDS: Aspirin Enteric Coated 81 MG Tablet PO SCH (09:21)
[2017-06-20] MEDS: Furosemide 40 MG TABLET PO SCH ×2 (09:21→17:38)
[2017-06-20] MEDS ORDERED: *HR* HYDROcodone/Acet 5/325 mg TABLET PO ONE ×2 (11:33→17:48)
--- NOTE | 2017-06-20 12:07 | Internal Med Progress Note ---
Date of Encounter: 06/20/17 Time of Encounter: 12:02 - Assessment and plan (1) Atrial fibrillation with RVR Current Visit: No Status: Chronic Assessment and plan: Has history of Afib diagnosed in May 2017 Rate controlled with PO cardizem and metoprolol not on anticoagulation due to history of bleed and recurrent falls (2) Urinary tract infection Current Visit: No Status: Acute Assessment and plan: Leukocytosis likely secondary to UTI, improved from previous day continue Ceftriaxone IV Qualifiers: Urinary tract infection type: acute cystitis Hematuria presence: without hematuria Qualified Code(s): N30.00 - Acute cystitis without hematuria (3) Small bowel obstruction due to adhesions Current Visit: Yes Status: Resolved Assessment and plan: resolved normal bowel sounds with stool in ostomy bag tolerating PO intake well (4) Abdominal pain Current Visit: Yes Status: Resolved Assessment and plan: resolved at this time Qualifiers: Abdominal location: epigastric Qualified Code(s): R10.13 - Epigastric pain (5) ESRD (end stage renal disease) on dialysis Current Visit: Yes Status: Acute Assessment and plan: Nephrology input appreciated continue HD (MW) as outpatient s/p HD () (6) Anemia in chronic kidney disease (CKD) Current Visit: No Status: Chronic Assessment and plan: H&H low but acceptable pt receiving Aranesp during HD no acute bleeding reported at this time will continue to monitor and transfuse as needed Qualifiers: Chronic kidney disease stage: on chronic dialysis Qualified Code(s): N18.6 - End stage renal disease; D63.1 - Anemia in chronic kidney disease; D63.1 - Anemia in chronic kidney disease; Z99.2 - Dependence on renal dialysis; Z99.2 - Dependence on renal dialysis; Z99.2 - Dependence on renal dialysis; Z99.2 - Dependence on renal dialysis (7) CHF (congestive heart failure) Current Visit: No Status: Chronic Assessment and plan: no signs of acute exacerbation continue home medications Qualifiers: Congestive heart failure type: diastolic Congestive heart failure chronicity: chronic Qualified Code(s): I50.32 - Chronic diastolic (congestive ) heart failure (8) Counseling regarding advanced care planning and goals of care Current Visit: Yes Status: Acute Assessment and plan: Palliative care consultation appreciated (9) DVT prophylaxis Current Visit: No Status: Acute Assessment and plan: Heparin SQ (10) GERD (gastroesophageal reflux disease) Current Visit: No Status: Chronic Assessment and plan: continue home dose of Omeprazole Qualifiers: Esophagitis presence: esophagitis presence not specified Qualified Code(s) : K21.9 - Gastro-esophageal reflux disease without esophagitis (11) Hypomagnesemia Current Visit: Yes Status: Acute Assessment and plan: Mg supplemented continue to monitor electrolytes and replace as needed - Subjective Interval history: Pt is an 81y/o female admitted for abd pain secondary to SBO. SBO resolved, tolerating PO intake Pt seen and examined at bedside. Resting in bed. Reports of generalized body pain, restarted home dose of pain medications No overnight events reported. Initially pt was scheduled for a b/l stone retraction(ureteral calculi) by urology, this procedure is cancelled at this. Pt to follow up with urology and reschedule this procedure on an outpatient basis - Constitutional Vitals: Temp Pulse Resp BP Pulse Ox 98.0 F 96 17 132/83 98 06/20/17 11:36 06/20/17 11:36 06/20/17 11:36 06/20/17 11:36 06/20/17 11:36 General appearance: Present: A&O X 3 (frail appearing elderly female), no acute distress, underweight, answers questions appropriately - Head Head exam: Present: atraumatic, normocephalic - Eye Eye exam: Present: conjuntiva pink, sclera anicteric - Respiratory Respiratory exam: Present: CTAB. Absent: accessory muscle use, rales, rhonchi, wheezes - Cardiovascular Cardiovascular exam: Present: irregular rhythm, +S1, +S2 - GI/Abdominal GI/Abdominal exam: Present: normal bowel sounds, soft, no peritoneal signs. Absent: distended, tenderness Additional comments: ostomy intact, stool in ostomy bag - Extremities Exam Extremities exam: Present: warm, radial pulses palpable and symmetrical. Absent : calf tenderness, cyanotic, pedal edema - Neurological Exam Neurological exam: Present: alert, oriented X3 - Psychiatric Psychiatric exam: Present: normal affect, normal mood Internal Medicine: Result - Labs CBC & Chem 7: 06/20/17 06:10 06/20/17 06:10 Labs: Short CBC 06/20/17 Range/Units 06:10 WBC 13.0 H (4.3-11.1) K/mcL Hgb 8.2 L (11.5-15.4) g/dL Hct 28.3 L (35.3-44.9) % Plt Count 473 H (140-400) K/mcL Neutrophils # 8.1 (1.6-8.9) K/mcL BMP 06/20/17 06:10 Sodium 136 Potassium 4.6 H Chloride 96 L Carbon Dioxide 30 H BUN 19 Creatinine 3.34 H Glucose 114 H Calcium 8.8 - ABG Interpretation ABG results: PT/INR, D-dimer PT 10.7 Seconds (9.4-12.1) 06/15/17 23:05 Consult Discharge Plan - Plan Referrals: Kaleigh Beckham MD [Primary Care Provider] - (patient is from [place])
[2017-06-21] MEDS: *HR* HYDROcodone/Acet 10/325 mg TABLET PO PRN ×5 (00:50→21:38)
[2017-06-21 06:13] LABS: Hematocrit 31.7 % (35.3-44.9); Hemoglobin 9.5 g/dL (11.5-15.4); Mean Corpuscular Hemoglobin 29.5 pg (28.0-33.3); Mean Corpuscular Volume 98.4 fL (83.0-100.0); Mean Platelet Volume 10.4 fL (9.4-12.4); Platelet Count 488 K/mcL (140-400); Red Blood Count 3.22 M/mcL (3.82-4.97); Red Cell Distribution Width 20.4 % (11.5-14.5)
[2017-06-21 06:16] LABS: Magnesium 2.1 mg/dL (1.6-2.6); Phosphorous 4.4 mg/dL (2.3-4.7); Potassium 5.1 mEq/L (3.5-4.5)
[2017-06-21] MEDS: *HR* Heparin 5,000 UNIT/ML VIAL SQ SCH ×2 (06:47→17:23)
[2017-06-21 07:39] LABS: Lymphocytes # 0.4 K/mcL (0.6-4.6); Monocytes # 2.1 K/mcL (0.0-1.3); Neutrophils # 8.1 K/mcL (1.6-8.9); Platelet Estimate Normal (Normal)
[2017-06-21 07:40] LABS: Anisocytosis 1+ (Not Present); Polychromasia 1+ (Not Present)
[2017-06-21] MEDS: Gabapentin 300 MG CAPSULE PO SCH (07:55)
[2017-06-21] MEDS: Furosemide 40 MG TABLET PO SCH ×2 (07:55→17:23)
[2017-06-21] MEDS: Diltiazem CD (24hr) 180 MG CAPSULE PO SCH (07:55)
[2017-06-21] MEDS: Aspirin Enteric Coated 81 MG Tablet PO SCH (07:55)
[2017-06-21] MEDS ORDERED: 0.9 % Sodium Chloride 250 ML IVC PRN (08:25)
--- NOTE | 2017-06-21 08:25 | Nephrology Progress Note ---
Date of Encounter: 06/21/17 Time of Encounter: 08:24 - Assessment and Plan (1) End-stage renal disease needing dialysis Current Visit: No Status: Chronic Patient will undergo her usual dialysis today. Orders have been submitted. She continues to have issues with neck pain and stiffness. (2) A-fib Current Visit: Yes Status: Chronic Qualifiers: Atrial fibrillation type: chronic Qualified Code(s): I48.2 - Chronic atrial fibrillation (3) Small bowel obstruction due to adhesions Current Visit: Yes Status: Resolved Subjective Interval history: The patient's main complaint is that of neck pain and stiffness. She denies any abdominal pain. She says her ostomy is functioning well. She is scheduled for her usual dialysis today. Blood pressure is stable. Heart rate is running around 117. Objective - Vital Signs Vital signs: Vital Signs Temp Pulse Resp BP Pulse Ox 06/21/17 03:53 97.7 F 117 16 141/93 97 06/21/17 00:57 105 06/20/17 23:34 98.3 F 83 16 126/62 97 06/20/17 19:20 97 06/20/17 19:11 98.1 F 79 16 102/59 97 06/20/17 16:20 99.0 F 46 16 95/47 97 06/20/17 11:36 98.0 F 96 17 132/83 98 06/20/17 09:00 98 Intake and Output 06/20/17 06/21/17 06/21/17 23:59 07:59 15:59 Intake Total 120 / 120 0 / 0 Output Total 600 / 600 Balance -480 / -480 0 / 0 Intake: Oral 120 / 120 0 / 0 Output: Urine 0 / 0 Stool 600 / 600 Other: Meal Dinner Percent of Meal Consumed 75% Stool Size Large Stool Consistency liquid Stool Color Yellow Green Weight 48.8 kg Patient Weight 06/21/17 23:59 Weight 48.8 kg - General Appearance Exam: Patient is alert and oriented. She is in no acute distress. Lungs breath sounds otherwise clear. Heart irregular rate and rhythm. Abdomen is soft and nontender. A colostomy is present. There is some mild lower extremity swelling but improved compared to previous exams. There is a functioning AV graft in the left upper extremity. There is a PICC line in the right upper extremity. - Lab 06/21/17 05:44 06/21/17 05:44 Most recent lab results Calcium 9.0 mg/dL (8.6-10.8) 06/21/17 05:44 Phosphorus 4.4 mg/dL (2.3-4.7) 06/21/17 05:44 Magnesium 2.1 mg/dL (1.6-2.6) 06/21/17 05:44 Consult Discharge Plan - Plan Referrals: Kaleigh Beckham MD [Primary Care Provider] - (patient is from [place])
[2017-06-21] MEDS: Metoprolol 100 MG TABLET PO SCH ×2 (08:53→20:55)
--- NOTE | 2017-06-21 09:20 | Event Note ---
Date of Encounter: 06/21/17 Time of Encounter: 09:10 Patient awake and alert - C/o neck pain. Ate all of breakfast. States she is feeling better. Re-addressed goals of care, and she continues to desire current treatment, dialysis, return to rehab with the goal of returning home independently. Code status has already been established. Anticipate D/C back to [facility] for rehab soon. Palliative will sign off. Please call if needed.
[2017-06-21] MEDS ORDERED: *HR* HYDROmorphone (PF) 1 MG/ML SYRINGE IVP PRN (11:47)
[2017-06-21] MEDS ORDERED: 0.9 % Sodium Chloride 2,000 ML ONE (11:54)
--- NOTE | 2017-06-21 12:55 | Internal Med Progress Note ---
Date of Encounter: 06/21/17 Time of Encounter: 11:05 - Assessment and plan (1) Atrial fibrillation with RVR Current Visit: No Status: Chronic Assessment and plan: Has history of Afib diagnosed in May 2017 Rate controlled with PO cardizem and metoprolol not on anticoagulation due to history of bleed and recurrent falls continue to closely monitor, currently tachycardic in dialysis, if pt's HR remains within control without cardizem gtt, likely d/c in am to ECF (2) Urinary tract infection Current Visit: No Status: Acute Assessment and plan: Leukocytosis likely secondary to UTI continue Ceftriaxone IV Qualifiers: Urinary tract infection type: acute cystitis Hematuria presence: without hematuria Qualified Code(s): N30.00 - Acute cystitis without hematuria (3) Small bowel obstruction due to adhesions Current Visit: Yes Status: Resolved Assessment and plan: resolved normal bowel sounds with stool in ostomy bag tolerating PO intake well (4) Abdominal pain Current Visit: Yes Status: Resolved Assessment and plan: resolved at this time Qualifiers: Abdominal location: epigastric Qualified Code(s): R10.13 - Epigastric pain (5) ESRD (end stage renal disease) on dialysis Current Visit: Yes Status: Acute Assessment and plan: Nephrology input appreciated continue HD (MWF) as outpatient s/p HD () (6) Anemia in chronic kidney disease (CKD) Current Visit: No Status: Chronic Assessment and plan: H&H low but acceptable pt receiving Aranesp during HD no acute bleeding reported at this time will continue to monitor and transfuse as needed Qualifiers: Chronic kidney disease stage: on chronic dialysis Qualified Code(s): N18.6 - End stage renal disease; D63.1 - Anemia in chronic kidney disease; D63.1 - Anemia in chronic kidney disease; Z99.2 - Dependence on renal dialysis; Z99.2 - Dependence on renal dialysis; Z99.2 - Dependence on renal dialysis; Z99.2 - Dependence on renal dialysis (7) CHF (congestive heart failure) Current Visit: No Status: Chronic Assessment and plan: no signs of acute exacerbation continue home medications Qualifiers: Congestive heart failure type: diastolic Congestive heart failure chronicity: chronic Qualified Code(s): I50.32 - Chronic diastolic (congestive ) heart failure (8) Counseling regarding advanced care planning and goals of care Current Visit: Yes Status: Acute Assessment and plan: Palliative care consultation appreciated (9) DVT prophylaxis Current Visit: No Status: Acute Assessment and plan: Heparin SQ (10) GERD (gastroesophageal reflux disease) Current Visit: No Status: Chronic Assessment and plan: continue home dose of Omeprazole Qualifiers: Esophagitis presence: esophagitis presence not specified Qualified Code(s) : K21.9 - Gastro-esophageal reflux disease without esophagitis (11) Hypomagnesemia Current Visit: Yes Status: Resolved - Subjective Interval history: Pt is an 81y/o female admitted for abd pain secondary to SBO. SBO resolved, tolerating PO intake Pt seen and examined in hemodialysis. Noted to be tachycardic during dialysis but reports of feeling better compared to previous day will closely monitor HR, if sustaining HR in 120s, will start cardizem gtt. - Constitutional Vitals: Temp Pulse Resp BP Pulse Ox 97.5 F L 96 15 117/69 97 06/21/17 09:30 06/21/17 12:37 06/21/17 12:37 06/21/17 12:37 06/21/17 08:12 General appearance: Present: A&O X 3 (frail appearing elderly female), no acute distress, underweight, answers questions appropriately - Head Head exam: Present: atraumatic, normocephalic - Eye Eye exam: Present: conjuntiva pink, sclera anicteric - Respiratory Respiratory exam: Absent: respiratory distress, wheezes - Cardiovascular Cardiovascular exam: Present: irregular rhythm, +S1, +S2, tachycardia. Absent: diastolic murmur, gallop, rubs, systolic murmur - GI/Abdominal GI/Abdominal exam: Present: normal bowel sounds, soft, no peritoneal signs. Absent: distended, tenderness Additional comments: ostomy intact-stool in colostomy bag - Extremities Exam Extremities exam: Present: warm, radial pulses palpable and symmetrical. Absent : calf tenderness, cyanotic, pedal edema - Neurological Exam Neurological exam: Present: alert, oriented X3 - Psychiatric Psychiatric exam: Present: normal affect, normal mood Internal Medicine: Result - Labs CBC & Chem 7: 06/21/17 05:44 06/21/17 05:44 Labs: Short CBC 06/21/17 Range/Units 05:44 WBC 10.7 (4.3-11.1) K/mcL Hgb 9.5 L (11.5-15.4) g/dL Hct 31.7 L (35.3-44.9) % Plt Count 488 H (140-400) K/mcL Neutrophils # 8.1 (1.6-8.9) K/mcL BMP 06/21/17 05:44 Sodium 135 L Potassium 5.1 H Chloride 96 L Carbon Dioxide 30 H BUN 24 H Creatinine 4.05 H Glucose 113 H Calcium 9.0 - ABG Interpretation ABG results: PT/INR, D-dimer PT 10.7 Seconds (9.4-12.1) 06/15/17 23:05 Consult Discharge Plan - Plan Referrals: Kaleigh Beckham MD [Primary Care Provider] - (patient is from [place])
[2017-06-21] MEDS ORDERED: Gabapentin 300 MG CAPSULE PO SCH (21:00)
[2017-06-22] MEDS: *HR* HYDROcodone/Acet 10/325 mg TABLET PO PRN ×3 (04:40→13:18)
[2017-06-22] MEDS: *HR* Heparin 5,000 UNIT/ML VIAL SQ SCH (05:51)
[2017-06-22 07:20] LABS: Calcium 9.2 mg/dL (8.6-10.8); Magnesium 1.8 mg/dL (1.6-2.6); Phosphorous 3.9 mg/dL (2.3-4.7); Potassium 5.5 mEq/L (3.5-4.5)
--- NOTE | 2017-06-22 07:49 | Nephrology Progress Note ---
Date of Encounter: 06/22/17 Time of Encounter: 07:47 - Assessment and Plan (1) End-stage renal disease needing dialysis Current Visit: No Status: Chronic The patient will continue to be supported with dialysis every Wednesday. She stable from a renal perspective. She continues to experience neck pain and decreased range of motion. She may benefit from some heat therapy. (2) A-fib Current Visit: Yes Status: Chronic Qualifiers: Atrial fibrillation type: chronic Qualified Code(s): I48.2 - Chronic atrial fibrillation (3) Small bowel obstruction due to adhesions Current Visit: Yes Status: Resolved Subjective Interval history: The patient continues to experience neck pain and stiffness. Otherwise she says she is doing well. She did undergo dialysis yesterday. Vital signs are stable. Heart rate is running around 98. Objective - Vital Signs Vital signs: Vital Signs Temp Pulse Resp BP Pulse Ox 06/22/17 02:40 98.0 F 98 16 137/93 99 06/21/17 23:09 98.2 F 108 17 125/66 100 06/21/17 19:48 97.7 F 91 17 113/68 100 06/21/17 17:14 98.3 F 83 15 114/73 97 06/21/17 14:24 112/65 06/21/17 12:40 97.2 F L 15 115/44 06/21/17 12:37 96 15 117/69 06/21/17 12:30 117/69 06/21/17 12:00 118/69 06/21/17 11:30 112/50 06/21/17 11:00 103/61 06/21/17 10:30 106/54 06/21/17 10:00 126/67 06/21/17 09:30 97.5 F L 15 123/68 06/21/17 08:12 97 Intake and Output 06/21/17 06/21/17 06/22/17 15:59 23:59 07:59 Intake Total 600 / 600 Output Total 2500 / 2500 850 / 850 75 / 75 Balance -1900 / -1900 -850 / -850 -75 / -75 Intake: Oral 0 / 0 Intake, Rinseback and Flushes 600 / 600 Output: Urine 300 / 300 Urethral ([place]) 300 / 300 Stool 600 / 600 850 / 850 Total Dialysis (HD) Output 1600 / 1600 Catheter 75 / 75 Other: Stool Consistency liquid liquid Stool Characteristics Normal for Patient Normal for Patient Stool Color Green Brown Yellow Weight 43.8 kg Hemodialysis Net Fluid Removed 1000 (mL) Patient Weight 06/22/17 23:59 Weight 43.8 kg - General Appearance Exam: Patient is alert and oriented. She is in no acute distress. She appears chronically ill. Lungs managed breath sounds. Heart irregular rate and rhythm. Abdomen is soft and nontender. A colostomy is present. There is mild peripheral edema. There is a left arm AV graft with evidence of a recent infiltration. - Lab 06/21/17 05:44 06/22/17 06:31 Most recent lab results Calcium 9.2 mg/dL (8.6-10.8) 06/22/17 06:31 Phosphorus 3.9 mg/dL (2.3-4.7) 06/22/17 06:31 Magnesium 1.8 mg/dL (1.6-2.6) 06/22/17 06:31 Consult Discharge Plan - Plan Referrals: Kaleigh Beckham MD [Primary Care Provider] - (patient is from [employer])
[2017-06-22] MEDS: Aspirin Enteric Coated 81 MG Tablet PO SCH (07:52)
[2017-06-22] MEDS: Metoprolol 100 MG TABLET PO SCH (07:52)
[2017-06-22] MEDS: Furosemide 40 MG TABLET PO SCH (07:52)
[2017-06-22] MEDS: Gabapentin 300 MG CAPSULE PO SCH (07:52)
[2017-06-22] MEDS: Diltiazem CD (24hr) 180 MG CAPSULE PO SCH (07:52)
[2017-06-22 07:57] LABS: Hematocrit 30.8 % (35.3-44.9); Mean Corpuscular HGB Conc 29.2 g/dL (31.6-35.5); Mean Corpuscular Hemoglobin 29.4 pg (28.0-33.3); Mean Corpuscular Volume 100.7 fL (83.0-100.0); Mean Platelet Volume 10.6 fL (9.4-12.4); Nucleated Red Blood Cells 0.2 /100 WBC (0); Platelet Count 535 K/mcL (140-400); Red Blood Count 3.06 M/mcL (3.82-4.97); Red Cell Distribution Width 20.2 % (11.5-14.5)
[2017-06-22 09:39] LABS: Thyroid Stimulating Hormone 4.175 mcIU/mL (0.350-4.840)
[2017-06-22 10:30] VITALS: BP 110/67
[2017-06-22 11:51] LABS: Anisocytosis 2+ (Not Present); Basophils # 0.2 K/mcL (0.0-0.2); Eosinophils # 0.4 K/mcL (0.0-0.6); Lymphocytes # 1.8 K/mcL (0.6-4.6); Macrocytosis Present (Not Present); Monocytes # 1.2 K/mcL (0.0-1.3); Neutrophils # 6.5 K/mcL (1.6-8.9); Platelet Estimate Increased (Normal); Polychromasia 1+ (Not Present)
[2017-06-22 11:52] LABS: Poikilocytosis 1+ (Not Present)
--- NOTE | 2017-06-22 14:25 | Discharge Summary ---
Date of Encounter: 06/22/17 Time of Encounter: 14:23 - Discharge Diagnosis (1) Small bowel obstruction due to adhesions Priority: Primary Status: Resolved (2) Abdominal pain Priority: Secondary Status: Resolved Qualifiers: Abdominal location: epigastric Qualified Code(s): R10.13 - Epigastric pain (3) Anemia in chronic kidney disease (CKD) Priority: Secondary Status: Chronic Qualifiers: Chronic kidney disease stage: on chronic dialysis Qualified Code(s): N18.6 - End stage renal disease; D63.1 - Anemia in chronic kidney disease; D63.1 - Anemia in chronic kidney disease; Z99.2 - Dependence on renal dialysis; Z99.2 - Dependence on renal dialysis; Z99.2 - Dependence on renal dialysis; Z99.2 - Dependence on renal dialysis (4) Atrial fibrillation with RVR Priority: Secondary Status: Chronic (5) CHF (congestive heart failure) Priority: Secondary Status: Chronic Qualifiers: Congestive heart failure type: diastolic Congestive heart failure chronicity: chronic Qualified Code(s): I50.32 - Chronic diastolic (congestive ) heart failure (6) DVT prophylaxis Priority: Secondary Status: Acute (7) ESRD (end stage renal disease) on dialysis Priority: Secondary Status: Acute (8) GERD (gastroesophageal reflux disease) Priority: Secondary Status: Chronic Qualifiers: Esophagitis presence: esophagitis presence not specified Qualified Code(s) : K21.9 - Gastro-esophageal reflux disease without esophagitis (9) Hypomagnesemia Priority: Secondary Status: Resolved (10) Urinary tract infection Priority: Secondary Status: Resolved Qualifiers: Urinary tract infection type: acute cystitis Hematuria presence: without hematuria Qualified Code(s): N30.00 - Acute cystitis without hematuria - Discharge Medications Prescriptions: HYDROcodone/Acet 10/325 mg [[place] 10-325 mg] 1 tab PO Q4HR PRN #10 tablet PRN Reason: Pain Gabapentin [Neurontin] 300 mg PO BID #20 capsule Home Medications: Sodium Bicarbonate 1,950 mg PO BID 05/20/15 [History] Darbepoetin [Aranesp] 150 mcg IJ Q2W 05/24/16 [History] Cholecalciferol (D-3) [Vitamin D] 1,000 unit PO DAILY 05/27/16 [History] Cyanocobalamin (B-12) [Vitamin B12] 1,000 mcg SQ QWEEK 05/27/16 [History] Glucosamn/[place]n/C/Mn/[place] [[facility] Glucosamine Chondroitin Tb] 1 tab PO DAILY 05/27/16 [History] Multivit,Th Iron,Other Min [Therems-M] 1 tab PO DAILY 05/27/16 [History] Vitamin E (Dl,Tocopheryl Acet) [Vitamin E] 400 unit PO DAILY 05/27/16 [History] Aspirin Enteric Coated [Aspirin EC] 81 mg PO DAILY #30 05/22/17 [Rx] Diltiazem CD (24hr) [Cardizem CD] 360 mg PO DAILY #30 05/22/17 [Rx] Levothyroxine [Synthroid] 50 mcg PO 0630 #30 tab 05/22/17 [Rx] Metoprolol [Lopressor] 100 mg PO BID #60 tab 05/22/17 [Rx] Omeprazole [PriLOSEC] 40 mg PO DAILY@0730 capsule. 06/10/17 [Rx] Furosemide [Lasix] 40 mg PO BID 06/16/17 [History] Gabapentin [Neurontin] 300 mg PO BID #20 capsule 06/22/17 [Rx] HYDROcodone/Acet 10/325 mg [[place] 10-325 mg] 1 tab PO Q4HR PRN #10 tablet [Rx] Allergies/Adverse Reactions: 3 Allergy/AdvReac Type Severity Reaction Status Date / Time codeine Allergy Rash Verified 06/15/17 22:17 fluoxetine [From Prozac] Allergy Rash Verified 06/15/17 22:17 haloperidol [From Haldol] Allergy See Verified 06/15/17 22:17 Comments nalbuphine [From Nubain] Allergy Rash Verified 06/15/17 22:17 Sulfa (Sulfonamide Allergy Rash Verified 06/15/17 22:17 Antibiotics) Date of admission: 06/16/17 09:19 Primary care physician: Kaleigh Hallman Consults: 06/16/17 09:26 Consult to Nutrition [CONS] Routine Comment: Consulting Provider: NUTRITION Reason for Dietary Consult: Other Other:: Severe protein calorie malnutrition 06/17/17 07:44 Consult to Palliative Care [CONS] Routine Comment: Consulting Provider: Palliative Care [place] Reason for Consult: goals of care Call Completed: Yes 06/18/17 08:15 Consult to Dialysis [CONS] ONCE 06/18/17 14:10 Consult to Invasive Line Access Team [CONS] Routine Reason for Consult: poor access Line Type: EPIV 06/21/17 08:30 Consult to Dialysis [CONS] ONCE Discharging clinician: [facility] Anticipated date of discharge: 06/22/17 - Patient Status Disposition: Transfer SNF Condition: Fair Functional capacity at discharge: bed bound Overall status at discharge: patient is progressing back to baseline - Discharge Instructions Instructions: Hydrocodone/Acetaminophen (By mouth), Gabapentin (By mouth), Atrial Fibrillation (DC) Follow Up With: Kaleigh Beckham MD [Primary Care Provider] - (patient is from [place]) - Diet and Activity Activity: increase activity as tolerated, wear oxygen at all times Diet: advance to your usual diet, low fat, low cholesterol, low salt diet Hospital course: Ms. Arciniega is a 81 year old female with history of CHF, A. fib, COPD, hypertension, GERD, end-stage renal disease was admitted here with possible small bowel obstruction per CT scan after she presented to the ER with complaints of nausea and vomiting and abdominal pain. She was kept nothing by mouth and was treated supportively. Surgery was consulted. Patient continued to have good despite the abnormal CT scan findings. She was not recommended any surgical intervention. Patient also did not wish to undergo any surgery if she required it. She was also diagnosed with acute urinary tract infection and was treated with IV antibiotics. Her abdominal pain resolved with supportive care and since then she has been doing well. She did develop A. fib with RVR and required intravenous Cardizem drip. After her heart rate was controlled, she was transitioned to oral Cardizem. While her heart rate has been intermittently elevated since then it has mostly been well controlled. No further changes have been made to her underlying rate controlling medications. She is on Cardizem 360 mg by mouth daily and metoprolol 100 mg by mouth twice a day. She is not on any anticoagulation due to her advanced age and underlying comorbidities including prior history of GI bleed. At this time, she is clinically stable for discharge back to group home facility. She has completed 6 days of intravenous antibiotics for her urinary tract infection. Her urine culture was negative. She does not require any further antibiotics. Patient does have a chronic indwelling Petersen catheter which does increase her risk of recurrent urinary tract infections. - Time Spent with Patient Total time spent providing and/or coordinating discharge services: Greater than 30 minutes (35 min) - Constitutional Vitals: Temp Pulse Resp BP Pulse Ox 97.6 F 83 17 110/67 99 06/22/17 10:29 06/22/17 10:29 06/22/17 10:29 06/22/17 10:29 06/22/17 10:29 General appearance: Present: cooperative, A&O X 3, no acute distress, underweight, answers questions appropriately - Neck Neck exam general surgery: Present: supple, trachea midline. Absent: lymphadenopathy - Respiratory Respiratory exam: Present: CTAB. Absent: accessory muscle use, rales, rhonchi, wheezes - Cardiovascular Cardiovascular exam: Present: RRR, +S1, +S2. Absent: diastolic murmur, gallop, rubs, systolic murmur - GI/Abdominal GI/Abdominal exam: Present: normal bowel sounds, soft, no peritoneal signs. Absent: distended, tenderness - Extremities Exam Extremities exam: Present: warm, radial pulses palpable and symmetrical. Absent : calf tenderness, cyanotic, pedal edema - Neurological Exam Neurological exam: Present: alert, oriented X3, no focal deficits. Absent: facial droop, speech deficit
--- NOTE | 2017-06-22 14:36 | Physician Discharge Referral ---
[facility] Referral Info Transfer To: [facility] Provider in Charge after Transfer: PCP Institutional Level of Care: Skilled - Diagnosis (1) Small bowel obstruction due to adhesions Priority: Primary Status: Resolved (2) Abdominal pain Priority: Secondary Status: Resolved (3) Anemia in chronic kidney disease (CKD) Priority: Secondary Status: Chronic (4) Atrial fibrillation with RVR Priority: Secondary Status: Chronic (5) CHF (congestive heart failure) Priority: Secondary Status: Chronic (6) DVT prophylaxis Priority: Secondary Status: Acute (7) ESRD (end stage renal disease) on dialysis Priority: Secondary Status: Acute (8) GERD (gastroesophageal reflux disease) Priority: Secondary Status: Chronic (9) Hypomagnesemia Priority: Secondary Status: Resolved (10) Urinary tract infection Priority: Secondary Status: Resolved Prognosis: Fair Aware of Diagnosis: Patient, Family Aware of Prognosis: Patient, Family - Transfer Medications Prescriptions: HYDROcodone/Acet 10/325 mg [[place] 10-325 mg] 1 tab PO Q4HR PRN #10 tablet PRN Reason: Pain Gabapentin [Neurontin] 300 mg PO BID #20 capsule Home Medications: Sodium Bicarbonate 1,950 mg PO BID 05/20/15 [History] Darbepoetin [Aranesp] 150 mcg IJ Q2W 05/24/16 [History] Cholecalciferol (D-3) [Vitamin D] 1,000 unit PO DAILY 05/27/16 [History] Cyanocobalamin (B-12) [Vitamin B12] 1,000 mcg SQ QWEEK 05/27/16 [History] Glucosamn/[place]/C/Mn/[place] [[facility] Glucosamine Chondroitin Tb] 1 tab PO DAILY 05/27/16 [History] Multivit,Th Iron,Other Min [Therems-M] 1 tab PO DAILY 05/27/16 [History] Vitamin E (Dl,Tocopheryl Acet) [Vitamin E] 400 unit PO DAILY 05/27/16 [History] Aspirin Enteric Coated [Aspirin EC] 81 mg PO DAILY #30 05/22/17 [Rx] Diltiazem CD (24hr) [Cardizem CD] 360 mg PO DAILY #30 05/22/17 [Rx] Levothyroxine [Synthroid] 50 mcg PO 0630 #30 tab 05/22/17 [Rx] Metoprolol [Lopressor] 100 mg PO BID #60 tab 05/22/17 [Rx] Omeprazole [PriLOSEC] 40 mg PO DAILY@0730 capsule. 06/10/17 [Rx] Furosemide [Lasix] 40 mg PO BID 06/16/17 [History] Gabapentin [Neurontin] 300 mg PO BID #20 capsule 06/22/17 [Rx] HYDROcodone/Acet 10/325 mg [[place] 10-325 mg] 1 tab PO Q4HR PRN #10 tablet [Rx] Allergies/Adverse Reactions: 3 Allergy/AdvReac Type Severity Reaction Status Date / Time codeine Allergy Rash Verified 06/15/17 22:17 fluoxetine [From Prozac] Allergy Rash Verified 06/15/17 22:17 haloperidol [From Haldol] Allergy See Verified 06/15/17 22:17 Comments nalbuphine [From Nubain] Allergy Rash Verified 06/15/17 22:17 Sulfa (Sulfonamide Allergy Rash Verified 06/15/17 22:17 Antibiotics) - Respiratory Orders Oxygen / L per min (3) Smoking Cessation: Smoking cessation has been advised. For more information, call the [place] Tobacco Quit Line at 7-089-TLRY-NOW. - Ancillary Orders May consult with Dentist, Receiver Dispatcher, Plaster Molder PRN - Advance Directives Code Status: DNR-Arrest/Don't Intubate - Mobility Orders Other (per PT eval) - Rehabiliation Orders Rehab Potential: Fair Rehab Orders: Evaluation for Physical Therapy, Evaluation for Occupational Therapy - Diet Orders Cardiac CERTIFICATION: I certify that the transfer of the above named patient to an Extended Care Facility is necessary for the continuing treatment of the diagnosis listed. The above information is true and accurate reflection of patient's current condition. Confidential - Redisclosure prohibited without a patient's written consent.
== END 2017-06-22 16:09 | DRG 388 ==
LOC: EMEROO 22:13 → 3NENU 22:13 → SUATTDRO 06-16 09:19 → 2ANU 06-16 17:36
PROVIDERS: ADMIT Internal Medicine; ATTEND Internal Medicine

== ENCOUNTER 2017-07-05 17:57 | Inpatient (IN) ==
[~2017-07-05 17:57] MED LIST: *HR* Etomidate 20 MG/10 ML AMPUL IVP ONE
[2017-07-05] MEDS ORDERED: 0.9 % Sodium Chloride 500 ML IVC ONE (18:11)
[2017-07-05] MEDS ORDERED: Propofol 500 MG/50 ML INFUS..BTL ONE (18:28)
[2017-07-05 18:39] LABS: VBG HCO3 10 mEq/L (21-27); VBG PCO2 50 mmHg (41-51); VBG PH 6.91 pH Units (7.32-7.42); VBG PO2 62 mmHg (25-50)
[2017-07-05 19:01] LABS: INR 1.4; Prothrombin Time 14.7 Seconds (9.4-12.1)
[2017-07-05] MEDS ORDERED: 0.9 % Sodium Chloride 1,000 ML ONE (19:02)
[2017-07-05 19:05] LABS: Red Cell Distribution Width 21.1 % (11.5-14.5)
[2017-07-05 19:06] LABS: Hematocrit 31.9 % (35.3-44.9); Mean Corpuscular HGB Conc 28.2 g/dL (31.6-35.5); Mean Platelet Volume 12.2 fL (9.4-12.4); Nucleated Red Blood Cells 0.3 /100 WBC (0); Platelet Count 327 K/mcL (140-400)
[2017-07-05 19:11] LABS: Albumin 2.5 g/dL (3.5-5.0); Albumin/Globulin Ratio 0.8 (1.1-2.2); Bilirubin,Direct 0.2 mg/dL (0.0-0.5); Bilirubin,Total 0.2 mg/dL (0.2-1.2); Calcium 8.4 mg/dL (8.6-10.8); Globulin 3.1 g/dL (2.4-3.5); Magnesium 2.4 mg/dL (1.6-2.6); Phosphorous 7.8 mg/dL (2.3-4.7); Total Protein 5.6 g/dL (6.0-8.3)
[2017-07-05 19:13] LABS: Potassium 7.3 mEq/L (3.5-4.5)
[2017-07-05 19:55] LABS: Bilirubin,Urine Negative (Negative); Blood,Urine Large (Negative); Clarity,Urine Cloudy (Clear); Color,Urine Dark Yellow (Yellow); Glucose,Urine (UA) Normal (Normal); Ketones,Urine Trace mg/dL (Negative); Leukocyte Esterase,Urine Large (Negative); Nitrite,Urine Negative (Negative); PH,Urine 5.5 pH Units (5.0-8.0); Protein,Urine >=300 mg/dL (Neg-Trace); Specific Gravity,Urine 1.025 (1.010-1.025); Urobilinogen,Urine Normal (Normal)
[2017-07-05 19:55] LABS: Smudge Cells Present (Not Present); Toxic Granulation Present (Not Present)
[2017-07-05 19:56] LABS: Platelet Estimate Normal (Normal)
[2017-07-05 19:58] LABS: WBC,Urine TNTC per hpf (0-3)
[2017-07-05 19:58] LABS: Lymphocytes # 6.3 K/mcL (0.6-4.6); Macrocytosis Present (Not Present); Monocytes # 1.9 K/mcL (0.0-1.3); Neutrophils # 38.1 K/mcL (1.6-8.9)
[2017-07-05 19:59] LABS: Calcium 9.6 mg/dL (8.6-10.8)
[2017-07-05 19:59] LABS: Anisocytosis 1+ (Not Present)
--- NOTE | 2017-07-05 20:07 | Emergency Department Note ---
Disposition Clinical Impression: Bradycardia, Hyperkalemia, Acidosis, Elevated lactic acid level, Hypotension, Leukocytosis, unspecified, Anemia in chronic kidney disease (CKD), ESRD (end stage renal disease) on dialysis Respiratory failure Qualifiers: Chronicity: acute Respiratory failure complication: unspecified whether with hypoxia or hypercapnia Qualified Code(s): J96.00 - Acute respiratory failure, unspecified whether with hypoxia or hypercapnia Disposition: Admitted As Inpatient Condition: Fair General Adult HPI - General Chief complaint: ED Recheck/Abnormal Lab/Rx Stated complaint: "hypotension during thrombectomy/fistula Time Seen by Provider: 07/05/17 18:01 Source: EMS - History of Present Illness Pain Scale: 0 - Related Data Home Medications Medication Instructions Recorded Confirmed Sodium Bicarbonate 1,950 mg PO BID 05/20/15 07/05/17 Darbepoetin [Aranesp] 150 mcg SQ Q2W 05/24/16 07/05/17 Cholecalciferol (D-3) [Vitamin D] 1,000 unit PO DAILY 05/27/16 07/05/17 Cyanocobalamin (B-12) [Vitamin B12] 1,000 mcg SQ QWEEK 05/27/16 07/05/17 Glucosamn/Condroitn/C/Mn/[employer] 1 tab PO DAILY 05/27/16 07/05/17 [Cvs Glucosamine Chondroitin Tb] Multivit,Th Iron,Other Min 1 tab PO DAILY 05/27/16 07/05/17 [Therems-M] Vitamin E (Dl,Tocopheryl Acet) 400 unit PO DAILY 05/27/16 07/05/17 [Vitamin E] Furosemide [Lasix] 40 mg PO BID 06/16/17 07/05/17 Diltiazem HCl [Diltiazem 24Hr Cd] 360 mg PO DAILY 07/05/17 07/05/17 HYDROcodone/Acet 10/325 mg [[place] 1 tab PO Q8H PRN 07/05/17 07/05/17 10-325 mg] Ibuprofen [Motrin] 600 mg PO BID 07/05/17 07/05/17 Metoprolol [Lopressor] 100 mg PO BID 07/05/17 07/05/17 Omeprazole [PriLOSEC] 40 mg PO DAILY 07/05/17 07/05/17 Previous Rx's Medication Instructions Recorded Aspirin Enteric Coated [Aspirin EC] 81 mg PO DAILY #30 05/22/17 Levothyroxine [Synthroid] 50 mcg PO 0630 #30 tab 05/22/17 Gabapentin [Neurontin] 300 mg PO BID #20 capsule 06/22/17 Allergies Allergy/AdvReac Type Severity Reaction Status Date / Time codeine Allergy Rash Verified 06/15/17 22:17 fluoxetine [From Prozac] Allergy Rash Verified 06/15/17 22:17 haloperidol [From Haldol] Allergy See Verified 06/15/17 22:17 Comments nalbuphine [From Nubain] Allergy Rash Verified 06/15/17 22:17 Sulfa (Sulfonamide Allergy Rash Verified 06/15/17 22:17 Antibiotics) Past Medical History - Past Medical History Medical history: Reports: arthritis, cancer, CHF, COPD, GERD, GI bleed, hypertension, osteoporosis, renal disease, other Surgical history: Reports: appendectomy, , cholecystectomy, colectomy, colostomy, hysterectomy, BLAKE/BSO, other Psychiatric history: Reports: anxiety, depression, other - Social History Smoking Status: Never smoker Smokeless Tobacco Status: No Alcohol use: Reports: none Drug use: Reports: none Physical Exam - General General appearance: lethargic Course Vital Signs Temperature 0 F L 07/05/17 18:11 Pulse Rate 24 07/05/17 18:11 Respiratory Rate 12 07/05/17 18:11 Blood Pressure 54/30 07/05/17 18:11 O2 Sat by Pulse Oximetry 89 07/05/17 18:11 Temperature 99.2 F 07/06/17 15:07 Pulse Rate 92 07/06/17 15:00 Respiratory Rate 17 07/06/17 15:31 Blood Pressure 98/64 07/06/17 15:31 O2 Sat by Pulse Oximetry 100 07/06/17 15:31 Oxygen Delivery Oxygen Delivery Ventilator Procedures - Intubation Time out performed: Yes sedative: Etomidate Mg Given: 20 paralytic: Succinylcholine Mg Given: 100 Laryngoscope: Isidro ET Tube Size: 7 ET Tube Uncuffed: No Tube Secured Depth (cm): 22 Tube Secured Location: lips Tube Placement Confirmation: visualized tube passing through cords, equal breath sounds bilaterally, no breath sounds over epigastrium, confirmation by capnometry Patient Tolerated Procedure: well Intubation Complications: none Medical Decision Making - Lab Data Result diagrams: 07/06/17 03:45 07/06/17 03:45 Lab Results 07/05/17 07/05/17 07/05/17 Range/Units 18:34 18:37 18:37 WBC 48.2 H* (4.3-11.1) K/mcL RBC 2.90 L (3.82-4.97) M/mcL Hgb 9.0 L (11.5-15.4) g/dL Hct 31.9 L (35.3-44.9) % MCV 110.0 H D (83.0-100.0) fL MCH 31.0 (28.0-33.3) pg MCHC 28.2 L (31.6-35.5) g/dL RDW 21.1 H (11.5-14.5) % Plt Count 327 (140-400) K/mcL MPV 12.2 (9.4-12.4) fL Seg Neutrophils % 73.0 % Band Neutrophils % 6.0 H (0-4) % Lymphocytes % 13.0 % Monocytes % 4.0 % Metamyelocytes % 2.0 H (0) % Myelocytes % 2.0 H (0) % Neutrophils # 38.1 H (1.6-8.9) K/mcL Lymphocytes # 6.3 H (0.6-4.6) K/mcL Monocytes # 1.9 H (0.0-1.3) K/mcL Nucleated RBCs/100 WBC 0.3 H (0) /100 WBC Smudge Cells Present A (Not Present) Toxic Granulation Present A (Not Present) Platelet Estimate Normal (Normal) Anisocytosis 1+ A (Not Present) Macrocytosis Present A (Not Present) PT 14.7 H (9.4-12.1) Seconds INR 1.4 ABG pH (7.32-7.45) pH Units ABG pCO2 (35-45) mmHg ABG pO2 (85-104) mmHg ABG HCO3 (21-27) mEq/L ABG Total CO2 (20-26) mEq/L ABG O2 Saturation (95-98) % ABG Base Excess (-2 to 3) mEq/L VBG pH 6.91 L* (7.32-7.42) pH Units VBG pCO2 50 (41-51) mmHg VBG pO2 62 H (25-50) mmHg VBG HCO3 10 L (21-27) mEq/L Sodium (136-145) mEq/L Potassium (3.5-4.5) mEq/L Chloride (98-109) mEq/L Carbon Dioxide (19-29) mEq/L BUN (7-20) mg/dL Creatinine (0.57-1.11) mg/dL Est GFR ( Amer) (> 60) Est GFR (Non-Af Amer) (> 60) BUN/Creatinine Ratio (6-26) Glucose (70-99) mg/dL Calculated Osmolality (280-300) Lactic Acid (0.5-2.2) mmol/L Calcium (8.6-10.8) mg/dL Phosphorus (2.3-4.7) mg/dL Magnesium (1.6-2.6) mg/dL Total Bilirubin (0.2-1.2) mg/dL Direct Bilirubin (0.0-0.5) mg/dL Indirect Bilirubin (0.0-1.2) mg/dL AST (5-34) Units/L ALT (0-55) Units/L Alkaline Phosphatase (38-126) Units/L Troponin I (0-0.03) ng/mL Serum Total Protein (6.0-8.3) g/dL Albumin (3.5-5.0) g/dL Globulin (2.4-3.5) g/dL Albumin/Globulin Ratio (1.1-2.2) Urine Color (Yellow) Urine Clarity (Clear) Urine pH (5.0-8.0) pH Units Ur Specific [place] (1.010-1.025) Urine Protein (Neg-Trace) mg/dL Urine Glucose (UA) (Normal) mg/dL Urine Ketones (Negative) mg/dL Urine Blood (Negative) Urine Nitrite (Negative) Urine Bilirubin (Negative) Urine Urobilinogen (Normal) mg/dL Ur Leukocyte Esterase (Negative) Urine Microscopic RBC (0-3) per hpf Urine Microscopic WBC (0-3) per hpf Ur Squamous Epith Cells (None-Few) per lpf Urine Bacteria (None-Few) per hpf Ur Culture Indicated? (NO) A. baumannii (PCR) (Not Detect) Alycia albicans (PCR) (Not Detect) C. glabrata (PCR) (Not Detect) C. krusei (PCR) (Not Detect) C. parapsilosis (PCR) (Not Detect) C. tropicalis (PCR) (Not Detect) Enterobacteriac sp PCR (Not Detect) E. cloacae complex PCR (Not Detect) Enterococcus sp PCR (Not Detect) E. coli (PCR) (Not Detect) H. influenzae (PCR) (Not Detect) Klebsiella oxytoca PCR (Not Detect) Klebsiella pneumoniae (Not Detect) List. monocytogenes PCR (Not Detect) N. meningitidis (PCR) (Not Detect) Proteus species (PCR) (Not Detect) Serratia marcescens PCR (Not Detect) Staphylococcus sp PCR (Not Detect) Staph aureus (PCR) (Not Detect) mecA-Methicil Res Gene (Not Detect) Streptococcus sp PCR (Not Detect) Group A Strep DNA (Not Detect) Group B Strep (PCR) (Not Detect) Strep pneumoniae (PCR) (Not Detect) P. aeruginosa (PCR) (Not Detect) Reese/B-Vanco Res Genes (Not Detect) KPC (blaKPC) Detect PCR (Not Detect) Person Notif of Crit Blood Type Antibody Screen 07/05/17 07/05/17 07/05/17 Range/Units 18:37 18:37 18:37 WBC (4.3-11.1) K/mcL RBC (3.82-4.97) M/mcL Hgb (11.5-15.4) g/dL Hct (35.3-44.9) % MCV (83.0-100.0) fL MCH (28.0-33.3) pg MCHC (31.6-35.5) g/dL RDW (11.5-14.5) % Plt Count (140-400) K/mcL MPV (9.4-12.4) fL Seg Neutrophils % % Band Neutrophils % (0-4) % Lymphocytes % % Monocytes % % Metamyelocytes % (0) % Myelocytes % (0) % Neutrophils # (1.6-8.9) K/mcL Lymphocytes # (0.6-4.6) K/mcL Monocytes # (0.0-1.3) K/mcL Nucleated RBCs/100 WBC (0) /100 WBC Smudge Cells (Not Present) Toxic Granulation (Not Present) Platelet Estimate (Normal) Anisocytosis (Not Present) Macrocytosis (Not Present) PT (9.4-12.1) Seconds INR ABG pH (7.32-7.45) pH Units ABG pCO2 (35-45) mmHg ABG pO2 (85-104) mmHg ABG HCO3 (21-27) mEq/L ABG Total CO2 (20-26) mEq/L ABG O2 Saturation (95-98) % ABG Base Excess (-2 to 3) mEq/L VBG pH (7.32-7.42) pH Units VBG pCO2 (41-51) mmHg VBG pO2 (25-50) mmHg VBG HCO3 (21-27) mEq/L Sodium 140 (136-145) mEq/L Potassium 7.3 H* (3.5-4.5) mEq/L Chloride 106 (98-109) mEq/L Carbon Dioxide 8 L* (19-29) mEq/L BUN 39 H (7-20) mg/dL Creatinine 5.04 H (0.57-1.11) mg/dL Est GFR ( Amer) 10 L (> 60) Est GFR (Non-Af Amer) 8 L (> 60) BUN/Creatinine Ratio 8 (6-26) Glucose 174 H (70-99) mg/dL Calculated Osmolality 304 H (280-300) Lactic Acid (0.5-2.2) mmol/L Calcium 8.4 L (8.6-10.8) mg/dL Phosphorus 7.8 H (2.3-4.7) mg/dL Magnesium 2.4 (1.6-2.6) mg/dL Total Bilirubin 0.2 (0.2-1.2) mg/dL Direct Bilirubin 0.2 (0.0-0.5) mg/dL Indirect Bilirubin 0.0 (0.0-1.2) mg/dL AST 53 H (5-34) Units/L ALT 28 (0-55) Units/L Alkaline Phosphatase 129 H (38-126) Units/L Troponin I 0.02 (0-0.03) ng/mL Serum Total Protein 5.6 L (6.0-8.3) g/dL Albumin 2.5 L (3.5-5.0) g/dL Globulin 3.1 (2.4-3.5) g/dL Albumin/Globulin Ratio 0.8 L (1.1-2.2) Urine Color (Yellow) Urine Clarity (Clear) Urine pH (5.0-8.0) pH Units Ur Specific [place] (1.010-1.025) Urine Protein (Neg-Trace) mg/dL Urine Glucose (UA) (Normal) mg/dL Urine Ketones (Negative) mg/dL Urine Blood (Negative) Urine Nitrite (Negative) Urine Bilirubin (Negative) Urine Urobilinogen (Normal) mg/dL Ur Leukocyte Esterase (Negative) Urine Microscopic RBC (0-3) per hpf Urine Microscopic WBC (0-3) per hpf Ur Squamous Epith Cells (None-Few) per lpf Urine Bacteria (None-Few) per hpf Ur Culture Indicated? (NO) A. baumannii (PCR) (Not Detect) Alycia albicans (PCR) (Not Detect) C. glabrata (PCR) (Not Detect) C. krusei (PCR) (Not Detect) C. parapsilosis (PCR) (Not Detect) C. tropicalis (PCR) (Not Detect) Enterobacteriac sp PCR (Not Detect) E. cloacae complex PCR (Not Detect) Enterococcus sp PCR (Not Detect) E. coli (PCR) (Not Detect) H. influenzae (PCR) (Not Detect) Klebsiella oxytoca PCR (Not Detect) Klebsiella pneumoniae (Not Detect) List. monocytogenes PCR (Not Detect) N. meningitidis (PCR) (Not Detect) Proteus species (PCR) (Not Detect) Serratia marcescens PCR (Not Detect) Staphylococcus sp PCR (Not Detect) Staph aureus (PCR) (Not Detect) mecA-Methicil Res Gene (Not Detect) Streptococcus sp PCR (Not Detect) Group A Strep DNA (Not Detect) Group B Strep (PCR) (Not Detect) Strep pneumoniae (PCR) (Not Detect) P. aeruginosa (PCR) (Not Detect) Reese/B-Vanco Res Genes (Not Detect) KPC (blaKPC) Detect PCR (Not Detect) Person Notif of Crit Blood Type O POSITIVE Antibody Screen NEGATIVE 07/05/17 07/05/17 07/05/17 Range/Units 18:37 19:31 19:37 WBC (4.3-11.1) K/mcL RBC (3.82-4.97) M/mcL Hgb (11.5-15.4) g/dL Hct (35.3-44.9) % MCV (83.0-100.0) fL MCH (28.0-33.3) pg MCHC (31.6-35.5) g/dL RDW (11.5-14.5) % Plt Count (140-400) K/mcL MPV (9.4-12.4) fL Seg Neutrophils % % Band Neutrophils % (0-4) % Lymphocytes % % Monocytes % % Metamyelocytes % (0) % Myelocytes % (0) % Neutrophils # (1.6-8.9) K/mcL Lymphocytes # (0.6-4.6) K/mcL Monocytes # (0.0-1.3) K/mcL Nucleated RBCs/100 WBC (0) /100 WBC Smudge Cells (Not Present) Toxic Granulation (Not Present) Platelet Estimate (Normal) Anisocytosis (Not Present) Macrocytosis (Not Present) PT (9.4-12.1) Seconds INR ABG pH (7.32-7.45) pH Units ABG pCO2 (35-45) mmHg ABG pO2 (85-104) mmHg ABG HCO3 (21-27) mEq/L ABG Total CO2 (20-26) mEq/L ABG O2 Saturation (95-98) % ABG Base Excess (-2 to 3) mEq/L VBG pH (7.32-7.42) pH Units VBG pCO2 (41-51) mmHg VBG pO2 (25-50) mmHg VBG HCO3 (21-27) mEq/L Sodium (136-145) mEq/L Potassium (3.5-4.5) mEq/L Chloride (98-109) mEq/L Carbon Dioxide (19-29) mEq/L BUN (7-20) mg/dL Creatinine (0.57-1.11) mg/dL Est GFR ( Amer) (> 60) Est GFR (Non-Af Amer) (> 60) BUN/Creatinine Ratio (6-26) Glucose (70-99) mg/dL Calculated Osmolality (280-300) Lactic Acid > 13.4 H* (0.5-2.2) mmol/L Calcium (8.6-10.8) mg/dL Phosphorus (2.3-4.7) mg/dL Magnesium (1.6-2.6) mg/dL Total Bilirubin (0.2-1.2) mg/dL Direct Bilirubin (0.0-0.5) mg/dL Indirect Bilirubin (0.0-1.2) mg/dL AST (5-34) Units/L ALT (0-55) Units/L Alkaline Phosphatase (38-126) Units/L Troponin I (0-0.03) ng/mL Serum Total Protein (6.0-8.3) g/dL Albumin (3.5-5.0) g/dL Globulin (2.4-3.5) g/dL Albumin/Globulin Ratio (1.1-2.2) Urine Color Dark Yellow (Yellow) Urine Clarity Cloudy A (Clear) Urine pH 5.5 (5.0-8.0) pH Units Ur Specific [place] 1.025 (1.010-1.025) Urine Protein >=300 H (Neg-Trace) mg/dL Urine Glucose (UA) Normal (Normal) mg/dL Urine Ketones Trace H (Negative) mg/dL Urine Blood Large H (Negative) Urine Nitrite Negative (Negative) Urine Bilirubin Negative (Negative) Urine Urobilinogen Normal (Normal) mg/dL Ur Leukocyte Esterase Large H (Negative) Urine Microscopic RBC Present (0-3) per hpf Urine Microscopic WBC TNTC H (0-3) per hpf Ur Squamous Epith Cells Present (None-Few) per lpf Urine Bacteria Present (None-Few) per hpf Ur Culture Indicated? YES A (NO) A. baumannii (PCR) Not Detected (Not Detect) Alycia albicans (PCR) Not Detected (Not Detect) C. glabrata (PCR) Not Detected (Not Detect) C. krusei (PCR) Not Detected (Not Detect) C. parapsilosis (PCR) Not Detected (Not Detect) C. tropicalis (PCR) Not Detected (Not Detect) Enterobacteriac sp PCR Not Detected (Not Detect) E. cloacae complex PCR Not Detected (Not Detect) Enterococcus sp PCR DETECTED A (Not Detect) E. coli (PCR) Not Detected (Not Detect) H. influenzae (PCR) Not Detected (Not Detect) Klebsiella oxytoca PCR Not Detected (Not Detect) Klebsiella pneumoniae Not Detected (Not Detect) List. monocytogenes PCR Not Detected (Not Detect) N. meningitidis (PCR) Not Detected (Not Detect) Proteus species (PCR) Not Detected (Not Detect) Serratia marcescens PCR Not Detected (Not Detect) Staphylococcus sp PCR Not Detected (Not Detect) Staph aureus (PCR) Not Detected (Not Detect) mecA-Methicil Res Gene Not Detected (Not Detect) Streptococcus sp PCR Not Detected (Not Detect) Group A Strep DNA Not Detected (Not Detect) Group B Strep (PCR) Not Detected (Not Detect) Strep pneumoniae (PCR) Not Detected (Not Detect) P. aeruginosa (PCR) Not Detected (Not Detect) Reese/B-Vanco Res Genes Not Detected (Not Detect) KPC (blaKPC) Detect PCR Not Detected (Not Detect) Person Notif of Crit Blood Type Antibody Screen 07/05/17 07/05/17 07/05/17 Range/Units 19:37 20:44 22:10 WBC (4.3-11.1) K/mcL RBC (3.82-4.97) M/mcL Hgb (11.5-15.4) g/dL Hct (35.3-44.9) % MCV (83.0-100.0) fL MCH (28.0-33.3) pg MCHC (31.6-35.5) g/dL RDW (11.5-14.5) % Plt Count (140-400) K/mcL MPV (9.4-12.4) fL Seg Neutrophils % % Band Neutrophils % (0-4) % Lymphocytes % % Monocytes % % Metamyelocytes % (0) % Myelocytes % (0) % Neutrophils # (1.6-8.9) K/mcL Lymphocytes # (0.6-4.6) K/mcL Monocytes # (0.0-1.3) K/mcL Nucleated RBCs/100 WBC (0) /100 WBC Smudge Cells (Not Present) Toxic Granulation (Not Present) Platelet Estimate (Normal) Anisocytosis (Not Present) Macrocytosis (Not Present) PT (9.4-12.1) Seconds INR ABG pH 7.05 L* (7.32-7.45) pH Units ABG pCO2 37 (35-45) mmHg ABG pO2 460 H (85-104) mmHg ABG HCO3 10 L (21-27) mEq/L ABG Total CO2 11 L (20-26) mEq/L ABG O2 Saturation 100 H (95-98) % ABG Base Excess -19 L (-2 to 3) mEq/L VBG pH (7.32-7.42) pH Units VBG pCO2 (41-51) mmHg VBG pO2 (25-50) mmHg VBG HCO3 (21-27) mEq/L Sodium 139 (136-145) mEq/L Potassium 6.1 H D (3.5-4.5) mEq/L Chloride 105 (98-109) mEq/L Carbon Dioxide 10 L* (19-29) mEq/L BUN 37 H (7-20) mg/dL Creatinine 5.08 H (0.57-1.11) mg/dL Est GFR ( Amer) 10 L (> 60) Est GFR (Non-Af Amer) 8 L (> 60) BUN/Creatinine Ratio 7 (6-26) Glucose 234 H (70-99) mg/dL Calculated Osmolality 304 H (280-300) Lactic Acid 13.8 H* (0.5-2.2) mmol/L Calcium 9.6 (8.6-10.8) mg/dL Phosphorus (2.3-4.7) mg/dL Magnesium (1.6-2.6) mg/dL Total Bilirubin (0.2-1.2) mg/dL Direct Bilirubin (0.0-0.5) mg/dL Indirect Bilirubin (0.0-1.2) mg/dL AST (5-34) Units/L ALT (0-55) Units/L Alkaline Phosphatase (38-126) Units/L Troponin I (0-0.03) ng/mL Serum Total Protein (6.0-8.3) g/dL Albumin (3.5-5.0) g/dL Globulin (2.4-3.5) g/dL Albumin/Globulin Ratio (1.1-2.2) Urine Color (Yellow) Urine Clarity (Clear) Urine pH (5.0-8.0) pH Units Ur Specific [place] (1.010-1.025) Urine Protein (Neg-Trace) mg/dL Urine Glucose (UA) (Normal) mg/dL Urine Ketones (Negative) mg/dL Urine Blood (Negative) Urine Nitrite (Negative) Urine Bilirubin (Negative) Urine Urobilinogen (Normal) mg/dL Ur Leukocyte Esterase (Negative) Urine Microscopic RBC (0-3) per hpf Urine Microscopic WBC (0-3) per hpf Ur Squamous Epith Cells (None-Few) per lpf Urine Bacteria (None-Few) per hpf Ur Culture Indicated? (NO) A. baumannii (PCR) (Not Detect) Alycia albicans (PCR) (Not Detect) C. glabrata (PCR) (Not Detect) C. krusei (PCR) (Not Detect) C. parapsilosis (PCR) (Not Detect) C. tropicalis (PCR) (Not Detect) Enterobacteriac sp PCR (Not Detect) E. cloacae complex PCR (Not Detect) Enterococcus sp PCR (Not Detect) E. coli (PCR) (Not Detect) H. influenzae (PCR) (Not Detect) Klebsiella oxytoca PCR (Not Detect) Klebsiella pneumoniae (Not Detect) List. monocytogenes PCR (Not Detect) N. meningitidis (PCR) (Not Detect) Proteus species (PCR) (Not Detect) Serratia marcescens PCR (Not Detect) Staphylococcus sp PCR (Not Detect) Staph aureus (PCR) (Not Detect) mecA-Methicil Res Gene (Not Detect) Streptococcus sp PCR (Not Detect) Group A Strep DNA (Not Detect) Group B Strep (PCR) (Not Detect) Strep pneumoniae (PCR) (Not Detect) P. aeruginosa (PCR) (Not Detect) Reese/B-Vanco Res Genes (Not Detect) KPC (blaKPC) Detect PCR (Not Detect) Person Notif of Sukumar DUDLEY Blood Type Antibody Screen 07/05/17 Range/Units 22:10 WBC (4.3-11.1) K/mcL RBC (3.82-4.97) M/mcL Hgb (11.5-15.4) g/dL Hct (35.3-44.9) % MCV (83.0-100.0) fL MCH (28.0-33.3) pg MCHC (31.6-35.5) g/dL RDW (11.5-14.5) % Plt Count (140-400) K/mcL MPV (9.4-12.4) fL Seg Neutrophils % % Band Neutrophils % (0-4) % Lymphocytes % % Monocytes % % Metamyelocytes % (0) % Myelocytes % (0) % Neutrophils # (1.6-8.9) K/mcL Lymphocytes # (0.6-4.6) K/mcL Monocytes # (0.0-1.3) K/mcL Nucleated RBCs/100 WBC (0) /100 WBC Smudge Cells (Not Present) Toxic Granulation (Not Present) Platelet Estimate (Normal) Anisocytosis (Not Present) Macrocytosis (Not Present) PT (9.4-12.1) Seconds INR ABG pH (7.32-7.45) pH Units ABG pCO2 (35-45) mmHg ABG pO2 (85-104) mmHg ABG HCO3 (21-27) mEq/L ABG Total CO2 (20-26) mEq/L ABG O2 Saturation (95-98) % ABG Base Excess (-2 to 3) mEq/L VBG pH (7.32-7.42) pH Units VBG pCO2 (41-51) mmHg VBG pO2 (25-50) mmHg VBG HCO3 (21-27) mEq/L Sodium 137 (136-145) mEq/L Potassium 5.7 H (3.5-4.5) mEq/L Chloride 103 (98-109) mEq/L Carbon Dioxide 10 L* (19-29) mEq/L BUN 39 H (7-20) mg/dL Creatinine 4.92 H (0.57-1.11) mg/dL Est GFR ( Amer) 10 L (> 60) Est GFR (Non-Af Amer) 8 L (> 60) BUN/Creatinine Ratio 8 (6-26) Glucose 479 H (70-99) mg/dL Calculated Osmolality 315 H (280-300) Lactic Acid (0.5-2.2) mmol/L Calcium 8.5 L (8.6-10.8) mg/dL Phosphorus (2.3-4.7) mg/dL Magnesium (1.6-2.6) mg/dL Total Bilirubin (0.2-1.2) mg/dL Direct Bilirubin (0.0-0.5) mg/dL Indirect Bilirubin (0.0-1.2) mg/dL AST (5-34) Units/L ALT (0-55) Units/L Alkaline Phosphatase (38-126) Units/L Troponin I (0-0.03) ng/mL Serum Total Protein (6.0-8.3) g/dL Albumin (3.5-5.0) g/dL Globulin (2.4-3.5) g/dL Albumin/Globulin Ratio (1.1-2.2) Urine Color (Yellow) Urine Clarity (Clear) Urine pH (5.0-8.0) pH Units Ur Specific [place] (1.010-1.025) Urine Protein (Neg-Trace) mg/dL Urine Glucose (UA) (Normal) mg/dL Urine Ketones (Negative) mg/dL Urine Blood (Negative) Urine Nitrite (Negative) Urine Bilirubin (Negative) Urine Urobilinogen (Normal) mg/dL Ur Leukocyte Esterase (Negative) Urine Microscopic RBC (0-3) per hpf Urine Microscopic WBC (0-3) per hpf Ur Squamous Epith Cells (None-Few) per lpf Urine Bacteria (None-Few) per hpf Ur Culture Indicated? (NO) A. baumannii (PCR) (Not Detect) Alycia albicans (PCR) (Not Detect) C. glabrata (PCR) (Not Detect) C. krusei (PCR) (Not Detect) C. parapsilosis (PCR) (Not Detect) C. tropicalis (PCR) (Not Detect) Enterobacteriac sp PCR (Not Detect) E. cloacae complex PCR (Not Detect) Enterococcus sp PCR (Not Detect) E. coli (PCR) (Not Detect) H. influenzae (PCR) (Not Detect) Klebsiella oxytoca PCR (Not Detect) Klebsiella pneumoniae (Not Detect) List. monocytogenes PCR (Not Detect) N. meningitidis (PCR) (Not Detect) Proteus species (PCR) (Not Detect) Serratia marcescens PCR (Not Detect) Staphylococcus sp PCR (Not Detect) Staph aureus (PCR) (Not Detect) mecA-Methicil Res Gene (Not Detect) Streptococcus sp PCR (Not Detect) Group A Strep DNA (Not Detect) Group B Strep (PCR) (Not Detect) Strep pneumoniae (PCR) (Not Detect) P. aeruginosa (PCR) (Not Detect) Reese/B-Vanco Res Genes (Not Detect) KPC (blaKPC) Detect PCR (Not Detect) Person Notif of Crit Blood Type Antibody Screen Attestation Statement - Attestation Attestation: PLEASE MERGE WITH OTHER CHART. THIS IS A PROCEDURE NOTE.I personally supervised the pt's intubation, please see note for details. Completed without complication.
[2017-07-05 20:09] LABS: Potassium 6.1 mEq/L (3.5-4.5)
[2017-07-05] MEDS ORDERED: Insulin Regular, Human 100 UNIT/ML IV ONE (20:18)
[2017-07-05] MEDS ORDERED: *HR* Dextrose 50 % in Water (Syg) 50 ML SYRINGE IVP ONE (20:19)
[2017-07-05 20:48] LABS: Bacteria,Urine Present per hpf (None-Few); RBC,Urine Present per hpf (0-3); Squamous Epithelial Cell,Urine Present per lpf (None-Few)
[2017-07-05] MEDS ORDERED: Piperacillin/Tazobactam 3.375 GM in D5% in Water (Mini-Bag+) 100 ML IVPB ONE (20:49)
[2017-07-05 20:50] LABS: ABG Base Excess -19 mEq/L (-2 to 3); ABG HCO3 10 mEq/L (21-27); ABG Oxygen Saturation 100 % (95-98); ABG PCO2 37 mmHg (35-45); ABG PH 7.05 pH Units (7.32-7.45); ABG PO2 460 mmHg (85-104); ABG TCO2 11 mEq/L (20-26)
[2017-07-05] MEDS: Sodium Bicarbonate 150 MEQ in D5% in Water 1,000 ML IVC SCH (21:54)
[2017-07-05] MEDS: EPINEPHrine 1 MG in D5% in Water 250 ML IVC SCH (21:56)
[2017-07-05] MEDS ORDERED: Vancomycin 500 MG in D5% in Water 250 ML IVPB ONE (22:08)
--- NOTE | 2017-07-05 22:14 | Emergency Department Note ---
Disposition Clinical Impression: Bradycardia, Hyperkalemia, Acidosis, Elevated lactic acid level, ESRD (end stage renal disease) on dialysis Respiratory failure Qualifiers: Chronicity: acute Respiratory failure complication: unspecified whether with hypoxia or hypercapnia Qualified Code(s): J96.00 - Acute respiratory failure, unspecified whether with hypoxia or hypercapnia Hypotension Qualifiers: Hypotension type: unspecified hypotension type Qualified Code(s): I95.9 - Hypotension, unspecified Leukocytosis, unspecified Qualifiers: Leukocytosis type: unspecified Qualified Code(s): D72.829 - Elevated white blood cell count, unspecified Anemia in chronic kidney disease (CKD) Qualifiers: Chronic kidney disease stage: stage 4 (severe) Qualified Code(s): N18.4 - Chronic kidney disease, stage 4 (severe) Disposition: Admitted As Inpatient Condition: Fair General Adult HPI - General Chief complaint: ED Recheck/Abnormal Lab/Rx Stated complaint: "hypotension during thrombectomy/fistula Time Seen by Provider: 07/05/17 18:01 Source: EMS Mode of arrival: EMS Limitations: no limitations Nursing Notes Reviewed: Yes Vital Signs Reviewed: Yes - History of Present Illness HPI Narrative: Patient initially presents by EMS from [facility] for further evaluation of hypotension. Patient was at dialysis when she was unable to have her graft accessed. She went to [facility] to have a thrombectomy performed. After the thrombectomy the patient's initial systolic blood pressure was 70 systolic. The patient was given a fluid bolus and was transferred to [facility] for further evaluation as she gets all of her medical care at her facility. The patient was initially evaluated and found to be cachectic as well as pale looking. The patient's mental status was awake alert and oriented 3. She knew her name as well as where she was what date it was. Patient's voice was soft. During the evaluation her voice became weaker and she became less responsive. Her heart rate continued to decline until was approximately 27. A rapid response was called and an immediate femoral central line was placed on the right side. The central line is not sterile. He will need to be replaced later during her stay. Blood was sent from the central line for further evaluation. During this time the patient was also intubated as per procedure note. Patient was placed on a ventilator. During the patient' s critical state she was given atropine as well as 1 mg of epinephrine 2. The patient received sodium bicarbonate as well as calcium chloride. The patient was placed on epinephrine and sodium bicarbonate drip. The tibial IO was placed in the left tibia by Dr. Mack. The patient's initial blood gas showed a pH of 7.9. The potassium was greater than 7. Dr. Thompson was consult it and agrees to emergent dialysis if a temporary dialysis catheter can be placed. Temporary dialysis catheter placed at bedside. See procedure note. Confirmed to be in place. Dr. Thompson was contacted and the dialysis team will be able to dialyze her in the ICU. The hospitalist was consult and the patient was then admitted to the ICU. During her stay her blood pressure has been stable. She was sedated with propofol. Patient has become much more responsive during her prolonged stay and procedures. The case was discussed with the son who did come to the hospital. He understands mother's critical condition. She would not want chest compressions. She would not want heroic measures if they do not result in a good outcome. He states that since she was intubated at this time he would like to give her 24-48 hours to see if she will make her recovery. He does not want to withdraw care at this time. He will be available tomorrow for further discussion of patient's overall management. He requests that we call his cell phone and if unable to reach him leave a message as his cell phone service at his work is sometimes minimal. Pain Scale: 0 - Related Data Home Medications Medication Instructions Recorded Confirmed Sodium Bicarbonate 1,950 mg PO BID 05/20/15 07/05/17 Darbepoetin [Aranesp] 150 mcg SQ Q2W 05/24/16 07/05/17 Cholecalciferol (D-3) [Vitamin D] 1,000 unit PO DAILY 05/27/16 07/05/17 Cyanocobalamin (B-12) [Vitamin B12] 1,000 mcg SQ QWEEK 05/27/16 07/05/17 Glucosamn/[place]n/C/Mn/[place] 1 tab PO DAILY 05/27/16 07/05/17 [Cvs Glucosamine Chondroitin Tb] Multivit,Th Iron,Other Min 1 tab PO DAILY 05/27/16 07/05/17 [Therems-M] Vitamin E (Dl,Tocopheryl Acet) 400 unit PO DAILY 05/27/16 07/05/17 [Vitamin E] Furosemide [Lasix] 40 mg PO BID 06/16/17 07/05/17 Diltiazem HCl [Diltiazem 24Hr Cd] 360 mg PO DAILY 07/05/17 07/05/17 HYDROcodone/Acet 10/325 mg [[place] 1 tab PO Q8H PRN 07/05/17 07/05/17 10-325 mg] Ibuprofen [Motrin] 600 mg PO BID 07/05/17 07/05/17 Metoprolol [Lopressor] 100 mg PO BID 07/05/17 07/05/17 Omeprazole [PriLOSEC] 40 mg PO DAILY 07/05/17 07/05/17 Previous Rx's Medication Instructions Recorded Aspirin Enteric Coated [Aspirin EC] 81 mg PO DAILY #30 05/22/17 Levothyroxine [Synthroid] 50 mcg PO 0630 #30 tab 05/22/17 Gabapentin [Neurontin] 300 mg PO BID #20 capsule 06/22/17 Allergies Allergy/AdvReac Type Severity Reaction Status Date / Time codeine Allergy Rash Verified 06/15/17 22:17 fluoxetine [From Prozac] Allergy Rash Verified 06/15/17 22:17 haloperidol [From Haldol] Allergy See Verified 06/15/17 22:17 Comments nalbuphine [From Nubain] Allergy Rash Verified 06/15/17 22:17 Sulfa (Sulfonamide Allergy Rash Verified 06/15/17 22:17 Antibiotics) Limitations: ROS unobtainable due to patients medical condition Past Medical History - Past Medical History Medical history: Reports: arthritis, cancer, CHF, COPD, GERD, GI bleed, hypertension, osteoporosis, renal disease, other Surgical history: Reports: appendectomy, , cholecystectomy, colectomy, colostomy, hysterectomy, BLAKE/BSO, other Psychiatric history: Reports: anxiety, depression, other - Social History Smoking Status: Never smoker Smokeless Tobacco Status: No Alcohol use: Reports: none Drug use: Reports: none Physical Exam - General Limitations: physical limitation General appearance: lethargic - Head Head exam: atraumatic, normocephalic, other (catchectic) - Eye Eye exam: Present: normal appearance, PERRL - ENT ENT exam: normal exam, normal oropharynx - Neck Neck exam: Present: normal inspection - Chest Chest inspection: Present: normal inspection, symmetric chest wall rise - Respiratory Respiratory exam: Present: normal lung sounds bilaterally. Absent: respiratory distress - Cardiovascular Cardiovascular exam: Present: normal rhythm, bradycardia - Abdominal Exam Abdominal exam: Present: soft, Non-Tender - Extremities Exam Extremities exam: Present: other (no thrill to dialysis graft.) - Back Exam Back exam: Present: normal inspection - Neurological Exam Neurological exam: Present: alert - Psychiatric Psychiatric exam: Present: flat affect - Skin Skin exam: Present: warm, dry Course - Consultations Consultation #1: Discussed with Dr. Thompson. Dr. Thompson recommends dialysis if able to place dialysis catheter. Dialysis catheter placed at bedside. Dr. Thompson notified. Patient will undergo dialysis later tonight. Consultation #2: Discussed with the hospitalist. Patient accepted for admission. Recommends vancomycin as well as repeat ABG and basic metabolic panel. Recommend CT chest abdomen and pelvis. Vital Signs Temperature 0 F L 07/05/17 18:11 Pulse Rate 24 07/05/17 18:11 Respiratory Rate 12 07/05/17 18:11 Blood Pressure 54/30 07/05/17 18:11 O2 Sat by Pulse Oximetry 89 07/05/17 18:11 Temperature 99.2 F 07/06/17 15:07 Pulse Rate 92 07/06/17 14:00 Respiratory Rate 17 07/06/17 14:00 Blood Pressure 98/64 07/06/17 14:00 O2 Sat by Pulse Oximetry 100 07/06/17 14:00 Oxygen Delivery Oxygen Delivery Ventilator Procedures - Central Line Placement Right Femoral Central Line Inserted*: Yes Central Line Catheter Replacement*: Yes Central Line Insertion: emergent Ultrasound Used for Placement: Yes Central Line Lumen Inserted: triple Post Procedure: sutured in place, good blood return, all ports aspirated, flushed, capped, guide wire removed and visualized Post Procedure X-Ray: tip of catheter in good position Patient Tolerated Procedure: well, no complications Complications: none, other (NON STERILE PLACEMENT - EMERGENT - MAGDALENO ARREST) Date: 07/05/17 Right IJ Central Line Inserted*: Yes Central Line Catheter Replacement*: Yes Central Line Insertion: emergent Consent Obtained: verbal consent (of son) Procedural Pause: verify patient name and date of , timeout performed per policy, farhan and assess the site, assemble equipment and verify supplies, perform hand hygiene During the Procedure: clinician is wearing sterile gloves, cap, mask,& gown during insertion, sterile field and sterile technique are maintained, patient's face is covered with drape or mask and wearing a cap, everyone in room is wearing a mask Prep the Procedure Site: apply chloraprep to the skin using a back and forth scrubbing motion, apply chloraprep for 30 seconds (upper body), 1-2 min ( femoral sites), allow prep to dry, drape the patient with a full body drape Local Anesthetic: lidocaine 1% Ultrasound Used for Placement: Yes Central Line Lumen Inserted: triple Post Procedure: sutured in place, good blood return, all ports aspirated, flushed, capped, sterile dressing applied, guide wire removed and visualized, dressing is dated Patient Tolerated Procedure: well, no complications Complications: none, other (DIALYSIS CATHETER) Medical Decision Making - Medical Records Medical records reviewed: Yes I reviewed the patient's medical records. - Lab Data Lab results reviewed: Yes I reviewed the patient's lab results. Result diagrams: 07/06/17 03:45 07/06/17 03:45 Lab Results 07/05/17 07/05/17 07/05/17 Range/Units 18:34 18:37 18:37 WBC 48.2 H* (4.3-11.1) K/mcL RBC 2.90 L (3.82-4.97) M/mcL Hgb 9.0 L (11.5-15.4) g/dL Hct 31.9 L (35.3-44.9) % MCV 110.0 H D (83.0-100.0) fL MCH 31.0 (28.0-33.3) pg MCHC 28.2 L (31.6-35.5) g/dL RDW 21.1 H (11.5-14.5) % Plt Count 327 (140-400) K/mcL MPV 12.2 (9.4-12.4) fL Seg Neutrophils % 73.0 % Band Neutrophils % 6.0 H (0-4) % Lymphocytes % 13.0 % Monocytes % 4.0 % Metamyelocytes % 2.0 H (0) % Myelocytes % 2.0 H (0) % Neutrophils # 38.1 H (1.6-8.9) K/mcL Lymphocytes # 6.3 H (0.6-4.6) K/mcL Monocytes # 1.9 H (0.0-1.3) K/mcL Nucleated RBCs/100 WBC 0.3 H (0) /100 WBC Smudge Cells Present A (Not Present) Toxic Granulation Present A (Not Present) Platelet Estimate Normal (Normal) Anisocytosis 1+ A (Not Present) Macrocytosis Present A (Not Present) PT 14.7 H (9.4-12.1) Seconds INR 1.4 ABG pH (7.32-7.45) pH Units ABG pCO2 (35-45) mmHg ABG pO2 (85-104) mmHg ABG HCO3 (21-27) mEq/L ABG Total CO2 (20-26) mEq/L ABG O2 Saturation (95-98) % ABG Base Excess (-2 to 3) mEq/L VBG pH 6.91 L* (7.32-7.42) pH Units VBG pCO2 50 (41-51) mmHg VBG pO2 62 H (25-50) mmHg VBG HCO3 10 L (21-27) mEq/L Sodium (136-145) mEq/L Potassium (3.5-4.5) mEq/L Chloride (98-109) mEq/L Carbon Dioxide (19-29) mEq/L BUN (7-20) mg/dL Creatinine (0.57-1.11) mg/dL Est GFR ( Amer) (> 60) Est GFR (Non-Af Amer) (> 60) BUN/Creatinine Ratio (6-26) Glucose (70-99) mg/dL Calculated Osmolality (280-300) Lactic Acid (0.5-2.2) mmol/L Calcium (8.6-10.8) mg/dL Phosphorus (2.3-4.7) mg/dL Magnesium (1.6-2.6) mg/dL Total Bilirubin (0.2-1.2) mg/dL Direct Bilirubin (0.0-0.5) mg/dL Indirect Bilirubin (0.0-1.2) mg/dL AST (5-34) Units/L ALT (0-55) Units/L Alkaline Phosphatase (38-126) Units/L Troponin I (0-0.03) ng/mL Serum Total Protein (6.0-8.3) g/dL Albumin (3.5-5.0) g/dL Globulin (2.4-3.5) g/dL Albumin/Globulin Ratio (1.1-2.2) Urine Color (Yellow) Urine Clarity (Clear) Urine pH (5.0-8.0) pH Units Ur Specific [place] (1.010-1.025) Urine Protein (Neg-Trace) mg/dL Urine Glucose (UA) (Normal) mg/dL Urine Ketones (Negative) mg/dL Urine Blood (Negative) Urine Nitrite (Negative) Urine Bilirubin (Negative) Urine Urobilinogen (Normal) mg/dL Ur Leukocyte Esterase (Negative) Urine Microscopic RBC (0-3) per hpf Urine Microscopic WBC (0-3) per hpf Ur Squamous Epith Cells (None-Few) per lpf Urine Bacteria (None-Few) per hpf Ur Culture Indicated? (NO) A. baumannii (PCR) (Not Detect) Alycia albicans (PCR) (Not Detect) C. glabrata (PCR) (Not Detect) C. krusei (PCR) (Not Detect) C. parapsilosis (PCR) (Not Detect) C. tropicalis (PCR) (Not Detect) Enterobacteriac sp PCR (Not Detect) E. cloacae complex PCR (Not Detect) Enterococcus sp PCR (Not Detect) E. coli (PCR) (Not Detect) H. influenzae (PCR) (Not Detect) Klebsiella oxytoca PCR (Not Detect) Klebsiella pneumoniae (Not Detect) List. monocytogenes PCR (Not Detect) N. meningitidis (PCR) (Not Detect) Proteus species (PCR) (Not Detect) Serratia marcescens PCR (Not Detect) Staphylococcus sp PCR (Not Detect) Staph aureus (PCR) (Not Detect) mecA-Methicil Res Gene (Not Detect) Streptococcus sp PCR (Not Detect) Group A Strep DNA (Not Detect) Group B Strep (PCR) (Not Detect) Strep pneumoniae (PCR) (Not Detect) P. aeruginosa (PCR) (Not Detect) Reese/B-Vanco Res Genes (Not Detect) KPC (blaKPC) Detect PCR (Not Detect) Person Notif of Crit Blood Type Antibody Screen 07/05/17 07/05/17 07/05/17 Range/Units 18:37 18:37 18:37 WBC (4.3-11.1) K/mcL RBC (3.82-4.97) M/mcL Hgb (11.5-15.4) g/dL Hct (35.3-44.9) % MCV (83.0-100.0) fL MCH (28.0-33.3) pg MCHC (31.6-35.5) g/dL RDW (11.5-14.5) % Plt Count (140-400) K/mcL MPV (9.4-12.4) fL Seg Neutrophils % % Band Neutrophils % (0-4) % Lymphocytes % % Monocytes % % Metamyelocytes % (0) % Myelocytes % (0) % Neutrophils # (1.6-8.9) K/mcL Lymphocytes # (0.6-4.6) K/mcL Monocytes # (0.0-1.3) K/mcL Nucleated RBCs/100 WBC (0) /100 WBC Smudge Cells (Not Present) Toxic Granulation (Not Present) Platelet Estimate (Normal) Anisocytosis (Not Present) Macrocytosis (Not Present) PT (9.4-12.1) Seconds INR ABG pH (7.32-7.45) pH Units ABG pCO2 (35-45) mmHg ABG pO2 (85-104) mmHg ABG HCO3 (21-27) mEq/L ABG Total CO2 (20-26) mEq/L ABG O2 Saturation (95-98) % ABG Base Excess (-2 to 3) mEq/L VBG pH (7.32-7.42) pH Units VBG pCO2 (41-51) mmHg VBG pO2 (25-50) mmHg VBG HCO3 (21-27) mEq/L Sodium 140 (136-145) mEq/L Potassium 7.3 H* (3.5-4.5) mEq/L Chloride 106 (98-109) mEq/L Carbon Dioxide 8 L* (19-29) mEq/L BUN 39 H (7-20) mg/dL Creatinine 5.04 H (0.57-1.11) mg/dL Est GFR ( Amer) 10 L (> 60) Est GFR (Non-Af Amer) 8 L (> 60) BUN/Creatinine Ratio 8 (6-26) Glucose 174 H (70-99) mg/dL Calculated Osmolality 304 H (280-300) Lactic Acid (0.5-2.2) mmol/L Calcium 8.4 L (8.6-10.8) mg/dL Phosphorus 7.8 H (2.3-4.7) mg/dL Magnesium 2.4 (1.6-2.6) mg/dL Total Bilirubin 0.2 (0.2-1.2) mg/dL Direct Bilirubin 0.2 (0.0-0.5) mg/dL Indirect Bilirubin 0.0 (0.0-1.2) mg/dL AST 53 H (5-34) Units/L ALT 28 (0-55) Units/L Alkaline Phosphatase 129 H (38-126) Units/L Troponin I 0.02 (0-0.03) ng/mL Serum Total Protein 5.6 L (6.0-8.3) g/dL Albumin 2.5 L (3.5-5.0) g/dL Globulin 3.1 (2.4-3.5) g/dL Albumin/Globulin Ratio 0.8 L (1.1-2.2) Urine Color (Yellow) Urine Clarity (Clear) Urine pH (5.0-8.0) pH Units Ur Specific [place] (1.010-1.025) Urine Protein (Neg-Trace) mg/dL Urine Glucose (UA) (Normal) mg/dL Urine Ketones (Negative) mg/dL Urine Blood (Negative) Urine Nitrite (Negative) Urine Bilirubin (Negative) Urine Urobilinogen (Normal) mg/dL Ur Leukocyte Esterase (Negative) Urine Microscopic RBC (0-3) per hpf Urine Microscopic WBC (0-3) per hpf Ur Squamous Epith Cells (None-Few) per lpf Urine Bacteria (None-Few) per hpf Ur Culture Indicated? (NO) A. baumannii (PCR) (Not Detect) Alycia albicans (PCR) (Not Detect) C. glabrata (PCR) (Not Detect) C. krusei (PCR) (Not Detect) C. parapsilosis (PCR) (Not Detect) C. tropicalis (PCR) (Not Detect) Enterobacteriac sp PCR (Not Detect) E. cloacae complex PCR (Not Detect) Enterococcus sp PCR (Not Detect) E. coli (PCR) (Not Detect) H. influenzae (PCR) (Not Detect) Klebsiella oxytoca PCR (Not Detect) Klebsiella pneumoniae (Not Detect) List. monocytogenes PCR (Not Detect) N. meningitidis (PCR) (Not Detect) Proteus species (PCR) (Not Detect) Serratia marcescens PCR (Not Detect) Staphylococcus sp PCR (Not Detect) Staph aureus (PCR) (Not Detect) mecA-Methicil Res Gene (Not Detect) Streptococcus sp PCR (Not Detect) Group A Strep DNA (Not Detect) Group B Strep (PCR) (Not Detect) Strep pneumoniae (PCR) (Not Detect) P. aeruginosa (PCR) (Not Detect) Reese/B-Vanco Res Genes (Not Detect) KPC (blaKPC) Detect PCR (Not Detect) Person Notif of Crit Blood Type O POSITIVE Antibody Screen NEGATIVE 07/05/17 07/05/17 07/05/17 Range/Units 18:37 19:31 19:37 WBC (4.3-11.1) K/mcL RBC (3.82-4.97) M/mcL Hgb (11.5-15.4) g/dL Hct (35.3-44.9) % MCV (83.0-100.0) fL MCH (28.0-33.3) pg MCHC (31.6-35.5) g/dL RDW (11.5-14.5) % Plt Count (140-400) K/mcL MPV (9.4-12.4) fL Seg Neutrophils % % Band Neutrophils % (0-4) % Lymphocytes % % Monocytes % % Metamyelocytes % (0) % Myelocytes % (0) % Neutrophils # (1.6-8.9) K/mcL Lymphocytes # (0.6-4.6) K/mcL Monocytes # (0.0-1.3) K/mcL Nucleated RBCs/100 WBC (0) /100 WBC Smudge Cells (Not Present) Toxic Granulation (Not Present) Platelet Estimate (Normal) Anisocytosis (Not Present) Macrocytosis (Not Present) PT (9.4-12.1) Seconds INR ABG pH (7.32-7.45) pH Units ABG pCO2 (35-45) mmHg ABG pO2 (85-104) mmHg ABG HCO3 (21-27) mEq/L ABG Total CO2 (20-26) mEq/L ABG O2 Saturation (95-98) % ABG Base Excess (-2 to 3) mEq/L VBG pH (7.32-7.42) pH Units VBG pCO2 (41-51) mmHg VBG pO2 (25-50) mmHg VBG HCO3 (21-27) mEq/L Sodium (136-145) mEq/L Potassium (3.5-4.5) mEq/L Chloride (98-109) mEq/L Carbon Dioxide (19-29) mEq/L BUN (7-20) mg/dL Creatinine (0.57-1.11) mg/dL Est GFR ( Amer) (> 60) Est GFR (Non-Af Amer) (> 60) BUN/Creatinine Ratio (6-26) Glucose (70-99) mg/dL Calculated Osmolality (280-300) Lactic Acid > 13.4 H* (0.5-2.2) mmol/L Calcium (8.6-10.8) mg/dL Phosphorus (2.3-4.7) mg/dL Magnesium (1.6-2.6) mg/dL Total Bilirubin (0.2-1.2) mg/dL Direct Bilirubin (0.0-0.5) mg/dL Indirect Bilirubin (0.0-1.2) mg/dL AST (5-34) Units/L ALT (0-55) Units/L Alkaline Phosphatase (38-126) Units/L Troponin I (0-0.03) ng/mL Serum Total Protein (6.0-8.3) g/dL Albumin (3.5-5.0) g/dL Globulin (2.4-3.5) g/dL Albumin/Globulin Ratio (1.1-2.2) Urine Color Dark Yellow (Yellow) Urine Clarity Cloudy A (Clear) Urine pH 5.5 (5.0-8.0) pH Units Ur Specific [place] 1.025 (1.010-1.025) Urine Protein >=300 H (Neg-Trace) mg/dL Urine Glucose (UA) Normal (Normal) mg/dL Urine Ketones Trace H (Negative) mg/dL Urine Blood Large H (Negative) Urine Nitrite Negative (Negative) Urine Bilirubin Negative (Negative) Urine Urobilinogen Normal (Normal) mg/dL Ur Leukocyte Esterase Large H (Negative) Urine Microscopic RBC Present (0-3) per hpf Urine Microscopic WBC TNTC H (0-3) per hpf Ur Squamous Epith Cells Present (None-Few) per lpf Urine Bacteria Present (None-Few) per hpf Ur Culture Indicated? YES A (NO) A. baumannii (PCR) Not Detected (Not Detect) Alycia albicans (PCR) Not Detected (Not Detect) C. glabrata (PCR) Not Detected (Not Detect) C. krusei (PCR) Not Detected (Not Detect) C. parapsilosis (PCR) Not Detected (Not Detect) C. tropicalis (PCR) Not Detected (Not Detect) Enterobacteriac sp PCR Not Detected (Not Detect) E. cloacae complex PCR Not Detected (Not Detect) Enterococcus sp PCR DETECTED A (Not Detect) E. coli (PCR) Not Detected (Not Detect) H. influenzae (PCR) Not Detected (Not Detect) Klebsiella oxytoca PCR Not Detected (Not Detect) Klebsiella pneumoniae Not Detected (Not Detect) List. monocytogenes PCR Not Detected (Not Detect) N. meningitidis (PCR) Not Detected (Not Detect) Proteus species (PCR) Not Detected (Not Detect) Serratia marcescens PCR Not Detected (Not Detect) Staphylococcus sp PCR Not Detected (Not Detect) Staph aureus (PCR) Not Detected (Not Detect) mecA-Methicil Res Gene Not Detected (Not Detect) Streptococcus sp PCR Not Detected (Not Detect) Group A Strep DNA Not Detected (Not Detect) Group B Strep (PCR) Not Detected (Not Detect) Strep pneumoniae (PCR) Not Detected (Not Detect) P. aeruginosa (PCR) Not Detected (Not Detect) Reese/B-Vanco Res Genes Not Detected (Not Detect) KPC (blaKPC) Detect PCR Not Detected (Not Detect) Person Notif of Crit Blood Type Antibody Screen 07/05/17 07/05/17 07/05/17 Range/Units 19:37 20:44 22:10 WBC (4.3-11.1) K/mcL RBC (3.82-4.97) M/mcL Hgb (11.5-15.4) g/dL Hct (35.3-44.9) % MCV (83.0-100.0) fL MCH (28.0-33.3) pg MCHC (31.6-35.5) g/dL RDW (11.5-14.5) % Plt Count (140-400) K/mcL MPV (9.4-12.4) fL Seg Neutrophils % % Band Neutrophils % (0-4) % Lymphocytes % % Monocytes % % Metamyelocytes % (0) % Myelocytes % (0) % Neutrophils # (1.6-8.9) K/mcL Lymphocytes # (0.6-4.6) K/mcL Monocytes # (0.0-1.3) K/mcL Nucleated RBCs/100 WBC (0) /100 WBC Smudge Cells (Not Present) Toxic Granulation (Not Present) Platelet Estimate (Normal) Anisocytosis (Not Present) Macrocytosis (Not Present) PT (9.4-12.1) Seconds INR ABG pH 7.05 L* (7.32-7.45) pH Units ABG pCO2 37 (35-45) mmHg ABG pO2 460 H (85-104) mmHg ABG HCO3 10 L (21-27) mEq/L ABG Total CO2 11 L (20-26) mEq/L ABG O2 Saturation 100 H (95-98) % ABG Base Excess -19 L (-2 to 3) mEq/L VBG pH (7.32-7.42) pH Units VBG pCO2 (41-51) mmHg VBG pO2 (25-50) mmHg VBG HCO3 (21-27) mEq/L Sodium 139 (136-145) mEq/L Potassium 6.1 H D (3.5-4.5) mEq/L Chloride 105 (98-109) mEq/L Carbon Dioxide 10 L* (19-29) mEq/L BUN 37 H (7-20) mg/dL Creatinine 5.08 H (0.57-1.11) mg/dL Est GFR ( Amer) 10 L (> 60) Est GFR (Non-Af Amer) 8 L (> 60) BUN/Creatinine Ratio 7 (6-26) Glucose 234 H (70-99) mg/dL Calculated Osmolality 304 H (280-300) Lactic Acid 13.8 H* (0.5-2.2) mmol/L Calcium 9.6 (8.6-10.8) mg/dL Phosphorus (2.3-4.7) mg/dL Magnesium (1.6-2.6) mg/dL Total Bilirubin (0.2-1.2) mg/dL Direct Bilirubin (0.0-0.5) mg/dL Indirect Bilirubin (0.0-1.2) mg/dL AST (5-34) Units/L ALT (0-55) Units/L Alkaline Phosphatase (38-126) Units/L Troponin I (0-0.03) ng/mL Serum Total Protein (6.0-8.3) g/dL Albumin (3.5-5.0) g/dL Globulin (2.4-3.5) g/dL Albumin/Globulin Ratio (1.1-2.2) Urine Color (Yellow) Urine Clarity (Clear) Urine pH (5.0-8.0) pH Units Ur Specific [place] (1.010-1.025) Urine Protein (Neg-Trace) mg/dL Urine Glucose (UA) (Normal) mg/dL Urine Ketones (Negative) mg/dL Urine Blood (Negative) Urine Nitrite (Negative) Urine Bilirubin (Negative) Urine Urobilinogen (Normal) mg/dL Ur Leukocyte Esterase (Negative) Urine Microscopic RBC (0-3) per hpf Urine Microscopic WBC (0-3) per hpf Ur Squamous Epith Cells (None-Few) per lpf Urine Bacteria (None-Few) per hpf Ur Culture Indicated? (NO) A. baumannii (PCR) (Not Detect) Alycia albicans (PCR) (Not Detect) C. glabrata (PCR) (Not Detect) C. krusei (PCR) (Not Detect) C. parapsilosis (PCR) (Not Detect) C. tropicalis (PCR) (Not Detect) Enterobacteriac sp PCR (Not Detect) E. cloacae complex PCR (Not Detect) Enterococcus sp PCR (Not Detect) E. coli (PCR) (Not Detect) H. influenzae (PCR) (Not Detect) Klebsiella oxytoca PCR (Not Detect) Klebsiella pneumoniae (Not Detect) List. monocytogenes PCR (Not Detect) N. meningitidis (PCR) (Not Detect) Proteus species (PCR) (Not Detect) Serratia marcescens PCR (Not Detect) Staphylococcus sp PCR (Not Detect) Staph aureus (PCR) (Not Detect) mecA-Methicil Res Gene (Not Detect) Streptococcus sp PCR (Not Detect) Group A Strep DNA (Not Detect) Group B Strep (PCR) (Not Detect) Strep pneumoniae (PCR) (Not Detect) P. aeruginosa (PCR) (Not Detect) Reese/B-Vanco Res Genes (Not Detect) KPC (blaKPC) Detect PCR (Not Detect) Person Notif of Sukumar DUDLEY Blood Type Antibody Screen 07/05/17 Range/Units 22:10 WBC (4.3-11.1) K/mcL RBC (3.82-4.97) M/mcL Hgb (11.5-15.4) g/dL Hct (35.3-44.9) % MCV (83.0-100.0) fL MCH (28.0-33.3) pg MCHC (31.6-35.5) g/dL RDW (11.5-14.5) % Plt Count (140-400) K/mcL MPV (9.4-12.4) fL Seg Neutrophils % % Band Neutrophils % (0-4) % Lymphocytes % % Monocytes % % Metamyelocytes % (0) % Myelocytes % (0) % Neutrophils # (1.6-8.9) K/mcL Lymphocytes # (0.6-4.6) K/mcL Monocytes # (0.0-1.3) K/mcL Nucleated RBCs/100 WBC (0) /100 WBC Smudge Cells (Not Present) Toxic Granulation (Not Present) Platelet Estimate (Normal) Anisocytosis (Not Present) Macrocytosis (Not Present) PT (9.4-12.1) Seconds INR ABG pH (7.32-7.45) pH Units ABG pCO2 (35-45) mmHg ABG pO2 (85-104) mmHg ABG HCO3 (21-27) mEq/L ABG Total CO2 (20-26) mEq/L ABG O2 Saturation (95-98) % ABG Base Excess (-2 to 3) mEq/L VBG pH (7.32-7.42) pH Units VBG pCO2 (41-51) mmHg VBG pO2 (25-50) mmHg VBG HCO3 (21-27) mEq/L Sodium 137 (136-145) mEq/L Potassium 5.7 H (3.5-4.5) mEq/L Chloride 103 (98-109) mEq/L Carbon Dioxide 10 L* (19-29) mEq/L BUN 39 H (7-20) mg/dL Creatinine 4.92 H (0.57-1.11) mg/dL Est GFR ( Amer) 10 L (> 60) Est GFR (Non-Af Amer) 8 L (> 60) BUN/Creatinine Ratio 8 (6-26) Glucose 479 H (70-99) mg/dL Calculated Osmolality 315 H (280-300) Lactic Acid (0.5-2.2) mmol/L Calcium 8.5 L (8.6-10.8) mg/dL Phosphorus (2.3-4.7) mg/dL Magnesium (1.6-2.6) mg/dL Total Bilirubin (0.2-1.2) mg/dL Direct Bilirubin (0.0-0.5) mg/dL Indirect Bilirubin (0.0-1.2) mg/dL AST (5-34) Units/L ALT (0-55) Units/L Alkaline Phosphatase (38-126) Units/L Troponin I (0-0.03) ng/mL Serum Total Protein (6.0-8.3) g/dL Albumin (3.5-5.0) g/dL Globulin (2.4-3.5) g/dL Albumin/Globulin Ratio (1.1-2.2) Urine Color (Yellow) Urine Clarity (Clear) Urine pH (5.0-8.0) pH Units Ur Specific [place] (1.010-1.025) Urine Protein (Neg-Trace) mg/dL Urine Glucose (UA) (Normal) mg/dL Urine Ketones (Negative) mg/dL Urine Blood (Negative) Urine Nitrite (Negative) Urine Bilirubin (Negative) Urine Urobilinogen (Normal) mg/dL Ur Leukocyte Esterase (Negative) Urine Microscopic RBC (0-3) per hpf Urine Microscopic WBC (0-3) per hpf Ur Squamous Epith Cells (None-Few) per lpf Urine Bacteria (None-Few) per hpf Ur Culture Indicated? (NO) A. baumannii (PCR) (Not Detect) Alycia albicans (PCR) (Not Detect) C. glabrata (PCR) (Not Detect) C. krusei (PCR) (Not Detect) C. parapsilosis (PCR) (Not Detect) C. tropicalis (PCR) (Not Detect) Enterobacteriac sp PCR (Not Detect) E. cloacae complex PCR (Not Detect) Enterococcus sp PCR (Not Detect) E. coli (PCR) (Not Detect) H. influenzae (PCR) (Not Detect) Klebsiella oxytoca PCR (Not Detect) Klebsiella pneumoniae (Not Detect) List. monocytogenes PCR (Not Detect) N. meningitidis (PCR) (Not Detect) Proteus species (PCR) (Not Detect) Serratia marcescens PCR (Not Detect) Staphylococcus sp PCR (Not Detect) Staph aureus (PCR) (Not Detect) mecA-Methicil Res Gene (Not Detect) Streptococcus sp PCR (Not Detect) Group A Strep DNA (Not Detect) Group B Strep (PCR) (Not Detect) Strep pneumoniae (PCR) (Not Detect) P. aeruginosa (PCR) (Not Detect) Reese/B-Vanco Res Genes (Not Detect) KPC (blaKPC) Detect PCR (Not Detect) Person Notif of Crit Blood Type Antibody Screen - Radiology Data Radiology results reviewed: Yes I reviewed the patient's radiology results. - EKG Data EKG #1 EKG attestation: Yes I reviewed and interpreted this EKG. EKG results narrative: EKG shows a ventricular rate of 71/m. Possible junctional rhythm. QRS 189. QTC 414. EKG significantly changed from previous EKG earlier today that was at 27 bpm. Patient with wide complex and possibly peaked T waves. On initial EKG just prior to becoming unresponsive Critical Care Time Critical Care Time: Yes Total Critical Care Time: 120 Attestation: The high probability of a clinically significant, sudden or life threatening deterioration of the [CV] system(s) required my full and direct attention, intervention and personal management. The aggregate critical care time was [120 ] minutes. This time is in addition to time spent performing reported procedures but includes the following: [x] Data Review and interpretation [x] Patient assessment and monitoring of vital signs [x] Documentation [x] Medication orders and management Attestation Statement - Attestation Attestation: I examined this patient and my medical decision-making was reviewed with the Resident Physician, Dr. Singer. I agree with the documented findings, disposition and treatment plan as described except to the extent set forth below. Pt is an 81 yowf with hx ESRD on HD who was brought to our facility following thrombectomy of her AV fistula at [facility], where the pt became hypotensive. Pt received IVF and transferred to our facility for further eval. Pt awake and alert, oriented x 3 on arrival to ED, but hypotensive. Shortly after I entered room to evaluate pt, following resident's initial assessment, pt became profoundly bradycardic and hypotensive, and became unresponsive. Pt maintained a pulse throughout. Immediate medical alert was called, and pt had a R femoral TLC placed for emergent medications, and was intubated. Please see procedure notes. Pt received epi/atropine x 2 with improvement in HR/BP, and started on an epi gtt. ABG following intubation showed metabolic acidosis with pH =6.9. Pt given IV CaCl, bicarb and bicarb gtt initiated, due to suspected hyperkalemia because of her hx ESRD and missing HD today due to occlusion of fistula. Propofol initiated for sedation. Labs sent. CXR obtained. Cardiology and Nephrology consulted from the ED. I agree with the pt's physical exam findings as documented. Pt arrived with unstable VS. Pt remained in critical condition. EKG, both on arrival and following resuscitation, documented in chart. CXR with ETT and NGT placement confirmed. Labs show hyperkalemia, with renal fx, c/w hx ESRD. With this information, we contacted Nephrology. Agreed to come in to dialyze pt if we could place temporary dialysis catheter. Pt's son consented to placement of temp dialysis catheter and dialysis. Pt also with significant leukocytosis, obtained pancxs, and empiric antibx, with IVF boluses. Pt with anemia, likely secondary to CKD. Pt with elev lactate at 13.8. Will trend with ongoing IVF and epi gtt. Spoke with pt's son at length who requests DNRCCA, and no heroic measures be taken to prolong pt's life, but agreed to dialysis and current mgmt. Will reassess with ICU physician and specialists in the morning. ICU attending contacted and accepted pt for admission, requested that pt receive CT chest/abd/pelvis enroute to ICU and they will f/u on further imaging results.
[2017-07-05 22:31] LABS: Calcium 8.5 mg/dL (8.6-10.8); Potassium 5.7 mEq/L (3.5-4.5)
--- NOTE | 2017-07-05 23:29 | Internal Med History&Physical ---
<Moisés Hemphill - Last Filed: 07/06/17 01:38> Date of Encounter: 07/06/17 Time of Encounter: 23:37 Assessment and Plan (1) Septic shock Current visit: Yes Status: Acute Tachypnic at 24 before intubation. WBC 48,000 - Hypotensive requiring pressor support. Continue Epinephrine drip to maintain MAP >65. Will consider levophed gtt - Lactic acid 13.8 most recently. - Source unknown at this time. GI panel pending. Urine culture pending, UA containing WBCs. CXR showing bilateral pleural effusions - Abdominal CT pending. GI prophylaxis with famotidine. - Continue Vanc, Zosyn, flagyl - Repeat lactic acid and ABG with AM labs. (2) Metabolic acidosis, increased anion gap Current visit: Yes Status: Acute - ABG most recently showing metabolic acidosis with pH of 7.08, bicarb 10, CO2 37 - Uncompensated . AG 24 - Likely cause of Lactic acidosis given lactic acid of 13.8 vs uremia vs combination - Septic shock workup as above - Also suspicion for bowel ischemia, abscess, c.diff. Pt reportedly has had multiple bowel resections in past possibly due to ischemia. AFib not on A/C - Dr. Farias consulted in ED, to receive HD tonight - Pt on ventilatory support (3) Acute respiratory failure with hypoxia Current visit: No Status: Acute ABG showing metabolic acidosis, uncompensated. - Pt intubated in ED. - A/C ventilatory support. Rate of 24, Tv 350, PEEP 5, FiO2 50. - Repeat ABG with AM labs. - Continue bicarb gtt, propofol gtt, fentanyl gtt to RS scale 3 (4) Chronic kidney disease, stage V Current visit: Yes Status: Acute BUN/Cr of 39/4.92 - ESRD on dialysis - Dr. Farias consulted in ED -Pt to be dialyzed tonight. - ABG and labs following. (5) Hyperglycemia Current visit: Yes Status: Acute BS noted to be in 350s. - Begin insulin gtt with careful monitoring. (6) DVT prophylaxis Current visit: Yes Status: Acute Internal Medicine - H&P: HPI Chief complaint: Hypotension Admitted From: Emergency Dept Plans for Post Hospital Care: Home History of present illness: Ms. Arciniega is a 81 year old female who presented to ED from [facility] for hypotension during thrombectomy session. HPI is unobtainable due to pt being intubated, no family present at bedside. Please see ED note for further information. Per ED note, Pt was transferred from [facility] for hypotension during thrombectomy where she was sent for non functioning dialysis fistula today. She was reportedly AOx3 and responsive however weak upon presentation to ED, however she became unresponsive, bradycardic as low as 27 bmp, and rapid response was called. She was intubated and had a right femoral arterial line placed. She was started on epi ggt as well as bicarb gtt. ABG showed pH of 7.08 with bicarb 10. ED resident spoke with sons who were present and they stated that pt is DNR-CCA-DNI however they were in agreement for intubation tonight. They state they are OK with reversible causes treatment. Family not present during admission interview for information. This will need to be clarified when family is present next. Past Med Surg Social Fam HX - Past Medical History Medical history: arthritis, cancer, CHF, COPD, GERD, GI bleed, hypertension, osteoporosis, renal disease, other Psychiatric history: anxiety, depression, other - Past Surgical History Surgical History: appendectomy, , cholecystectomy, colectomy, colostomy , hysterectomy, BLAKE/BSO, other - Social History Smoking Status: Never smoker Smokeless Tobacco Status: No Alcohol use: none Drug use: none - Family History Mother Adopted: No Family Member Ethnicity: Non- Living Status: Hx Family Cardiac Disorders: Yes Hx Family Respiratory Disorders: No Hx Family Cancer: No Hx Family GI Disorders: No Hx Family Endocrine Disorder: No Hx Family Neuromuscular Disorders: No Hx Family Neurologic Disorders: Yes (TIA) Hx Family HEENT Disorders: No Hx Family Autoimmune Disorders: No Father Adopted: No Family Member Ethnicity: Non- Living Status: Hx Family Cardiac Disorders: No Hx Family Respiratory Disorders: Yes (Asthma) Hx Family Cancer: No Hx Family GI Disorders: Yes (Ulcers) Hx Family Endocrine Disorder: No Hx Family Neuromuscular Disorders: No Hx Family Neurologic Disorders: No Hx Family HEENT Disorders: No Hx Family Autoimmune Disorders: No Internal Medicine - H&P: Meds Sodium Bicarbonate 1,950 mg PO BID 05/20/15 [History] Darbepoetin [Aranesp] 150 mcg SQ Q2W 05/24/16 [History] Cholecalciferol (D-3) [Vitamin D] 1,000 unit PO DAILY 05/27/16 [History] Cyanocobalamin (B-12) [Vitamin B12] 1,000 mcg SQ QWEEK 05/27/16 [History] Glucosamn/Condroitn/C/Mn/[place] [Cvs Glucosamine Chondroitin Tb] 1 tab PO DAILY 05/27/16 [History] Multivit,Th Iron,Other Min [Therems-M] 1 tab PO DAILY 05/27/16 [History] Vitamin E (Dl,Tocopheryl Acet) [Vitamin E] 400 unit PO DAILY 05/27/16 [History] Aspirin Enteric Coated [Aspirin EC] 81 mg PO DAILY #30 05/22/17 [Rx] Levothyroxine [Synthroid] 50 mcg PO 0630 #30 tab 05/22/17 [Rx] Furosemide [Lasix] 40 mg PO BID 06/16/17 [History] Gabapentin [Neurontin] 300 mg PO BID #20 capsule 06/22/17 [Rx] Diltiazem HCl [Diltiazem 24Hr Cd] 360 mg PO DAILY 07/05/17 [History] HYDROcodone/Acet 10/325 mg [Freedom 10-325 mg] 1 tab PO Q8H PRN 07/05/17 [History] Ibuprofen [Motrin] 600 mg PO BID 07/05/17 [History] Metoprolol [Lopressor] 100 mg PO BID 07/05/17 [History] Omeprazole [PriLOSEC] 40 mg PO DAILY 07/05/17 [History] 3 Allergy/AdvReac Type Severity Reaction Status Date / Time codeine Allergy Rash Verified 06/15/17 22:17 fluoxetine [From Prozac] Allergy Rash Verified 06/15/17 22:17 haloperidol [From Haldol] Allergy See Verified 06/15/17 22:17 Comments nalbuphine [From Nubain] Allergy Rash Verified 06/15/17 22:17 Sulfa (Sulfonamide Allergy Rash Verified 06/15/17 22:17 Antibiotics) ROS unobtainable: due to endotracheal tube All Systems PM: A 10-system review of systems was performed and is negative for pertinent findings except as documented above in the HPI. - Constitutional Vitals: Temp Pulse Resp BP Pulse Ox 97.3 F L 76 16 101/42 100 07/05/17 19:45 07/05/17 23:19 07/05/17 23:19 07/05/17 23:19 07/05/17 23:19 Exam: Gen.: Vitals noted. Pt intubated and sedated. Cachectic appearing. HEENT: Endotracheal tube in place.Normocephalic, atraumatic, MMM Cardiac: Bradycardic. irregularly irregular rhythm, no murmur, +S1/S2 Pulmonary: Ventilator hooked up. Air sounds in bilateral sandoval. Course breath sounds. equal chest expansion Abdomen: soft, BS+. Incision scar on midline abdominal wall. Extremities: no BLE edema, nontender calf, no cyanosis or clubbing Neuro: Intubated and sedated. Internal Med - H&P Results - Labs CBC & Chem 7: 07/05/17 18:37 07/05/17 22:10 <Nona Springer - Last Filed: 07/06/17 02:25> Date of Encounter: 07/06/17 Internal Medicine - H&P: HPI History of present illness: Ms. Arciniega is a 81 year old female All Systems PM: A 10-system review of systems was performed and is negative for pertinent findings except as documented above in the HPI. - Constitutional Vitals: Temp Pulse Resp BP Pulse Ox 97.5 F L 84 24 114/46 99 07/06/17 01:00 07/06/17 02:00 07/06/17 02:00 07/06/17 02:00 07/06/17 02:00 Internal Med - H&P Results - Labs CBC & Chem 7: 07/05/17 18:37 07/05/17 22:10 - ABG Interpretation ABG results: 07/05/17 23:35 ABG pH 7.08 L* ABG pCO2 34 L ABG pO2 134 H D ABG HCO3 10 L ABG Total CO2 11 L ABG O2 Saturation 98 ABG Base Excess -19 L - Attending Attestation I saw and examined patient and discussed plan with the resident. I agree with plan and findings above. Patient is critically ill, with septic shock, high anion gap metabolic acidosis seen on ABG uncompensated. Prognosis is extremely guarded at best. Critical Care time spent excluding procedures: 36 minutes.
[2017-07-05 23:42] LABS: ABG Base Excess -19 mEq/L (-2 to 3); ABG HCO3 10 mEq/L (21-27); ABG Oxygen Saturation 98 % (95-98); ABG PCO2 34 mmHg (35-45); ABG PH 7.08 pH Units (7.32-7.45); ABG PO2 134 mmHg (85-104); ABG TCO2 11 mEq/L (20-26)
[2017-07-06] MEDS ORDERED: Naloxone 0.4 MG/ML INJ IVP PRN (00:03)
[2017-07-06] MEDS ORDERED: Acetaminophen 650 MG RECTAL SUPP RC PRN (00:03)
[2017-07-06] MEDS ORDERED: Ondansetron 4 MG/2 ML VIAL IVP PRN (00:03)
[2017-07-06] MEDS ORDERED: *HR* Dextrose 50 % in Water (Syg) 50 ML SYRINGE IVP PRN ×2 (01:01→09:00)
[2017-07-06] MEDS ORDERED: D5% in Water 1,000 ML IVC PRN (01:01)
[2017-07-06] MEDS ORDERED: Dextrose Gel 15 GM PO PRN ×2 (01:01)
[2017-07-06] MEDS: FentaNYL (PF) 1,000 MCG in 0.9 % Sodium Chloride 80 ML IVC SCH (01:06)
[2017-07-06] MEDS ORDERED: 0.9 % Sodium Chloride 250 ML IVC PRN (01:07)
[2017-07-06] MEDS ORDERED: Albumin 25% 12.5gm/50mL 12.5 GM/50 ML IV.SOLN IVPB PRN (01:07)
[2017-07-06] MEDS ORDERED: Insulin LISPRO 300 UNITS/3 ML VIAL SQ SCH ×2 (01:15→12:00)
[2017-07-06] MEDS ORDERED: 0.9 % Sodium Chloride 1,000 ML PRIME SCH (01:15)
[2017-07-06] MEDS ORDERED: Insulin Human Regular 100 UNIT in 0.9 % Sodium Chloride 100 ML IVC SCH ×2 (01:45→09:00)
[2017-07-06] MEDS ORDERED: Vancomycin 2,000 MG in D5% in Water 500 ML IVPB SCH (02:00)
[2017-07-06] MEDS: EPINEPHrine 1 MG in D5% in Water 250 ML IVC SCH (02:07)
[2017-07-06] MEDS: Norepinephrine 4 MG in D5% in Water 250 ML IVC SCH ×4 (02:32→16:33)
[2017-07-06] MEDS: Piperacillin/Tazobactam 3.375 GM in D5% in Water (Mini-Bag+) 100 ML IVPB SCH ×2 (02:55→17:46)
[2017-07-06 04:01] LABS: Basophils % 0.4 %; Hemoglobin 9.1 g/dL (11.5-15.4); Lymphocytes % 2.8 %; Nucleated Red Blood Cells 0.4 /100 WBC (0)
[2017-07-06 04:02] LABS: Basophils # 0.1 K/mcL (0.0-0.2); Hematocrit 29.8 % (35.3-44.9); Immature Granulocytes % 2.5 % (0-4); Lymphocytes # 0.9 K/mcL (0.6-4.6); Mean Corpuscular HGB Conc 30.5 g/dL (31.6-35.5); Mean Corpuscular Hemoglobin 30.1 pg (28.0-33.3); Mean Corpuscular Volume 98.7 fL (83.0-100.0); Mean Platelet Volume 11.1 fL (9.4-12.4); Monocytes # 2.9 K/mcL (0.0-1.3); Monocytes % 8.8 %; Neutrophils # 28.3 K/mcL (1.6-8.9); Platelet Count 370 K/mcL (140-400); Red Blood Count 3.02 M/mcL (3.82-4.97); Red Cell Distribution Width 20.5 % (11.5-14.5); Segmented Neutrophils % 85.5 %
[2017-07-06 04:13] LABS: Calcium 8.1 mg/dL (8.6-10.8); Magnesium 1.6 mg/dL (1.6-2.6)
[2017-07-06 04:17] LABS: Potassium 3.2 mEq/L (3.5-4.5)
[2017-07-06 04:33] LABS: Anisocytosis 3+ (Not Present); Macrocytosis Present (Not Present); Platelet Estimate Normal (Normal); Toxic Granulation Present (Not Present)
[2017-07-06 04:34] LABS: Large Platelets Present (Not Present)
[2017-07-06 04:35] LABS: ABG Base Excess 3 mEq/L (-2 to 3); ABG HCO3 27 mEq/L (21-27); ABG Oxygen Saturation 97 % (95-98); ABG PCO2 38 mmHg (35-45); ABG PH 7.45 pH Units (7.32-7.45); ABG PO2 88 mmHg (85-104); ABG TCO2 28 mEq/L (20-26); Blood Gas Modality ASSIST CONTROL; Blood Gas PEEP 5 cm H2O; Blood Gas Respiration Rate 18; Blood Gas VT 350 cc
[2017-07-06 04:50] LABS: Hemoglobin A1C 4.8 %
[2017-07-06] MEDS ORDERED: Magnesium Sulfate 1 GM in D5% in Water 100 ML IVPB ONE (04:58)
[2017-07-06] MEDS: *HR* Heparin 5,000 UNIT/ML VIAL SQ SCH ×2 (05:34→19:29)
[2017-07-06] MEDS: Sodium Bicarbonate 150 MEQ in D5% in Water 1,000 ML IVC SCH (05:35)
[2017-07-06] MEDS ORDERED: MetroNIDAZOLE 500 MG/100 ML 500 MG/100 ML BAG IVPB SCH (06:00)
[2017-07-06] MEDS ORDERED: Famotidine 20 MG/2 ML VIAL IVP SCH (06:00)
--- NOTE | 2017-07-06 08:09 | Nephrology Consult Note ---
Date of Encounter: 07/06/17 Time of Encounter: 08:06 Assessment and Plan (1) End-stage renal disease needing dialysis Current Visit: No Status: Chronic Patient has end-stage renal disease. She received urgent dialysis last evening because of hyperkalemia, bradycardia, and severe metabolic acidosis. Those parameters are currently improved. She did recently undergo a thrombectomy of the left AV graft. Currently the graft has an audible bruit. She continues to exhibit a clinical picture of septic shock with lactic acidosis and hypotension. Cultures are pending. She will require empiric antibiotics and close management. She will not require any additional dialysis today. (2) Sepsis Current Visit: No Status: Acute Qualifiers: Sepsis type: sepsis due to unspecified organism Qualified Code(s): A41.9 - Sepsis, unspecified organism (3) Metabolic acidosis Current Visit: No Status: Chronic (4) Acute respiratory failure with hypoxia Current Visit: No Status: Acute History of Present Illness - History of Present Illness This is an 81-year-old female with end-stage renal disease. She receives dialysis every Wednesday in [place]. The patient presented to the outpatient dialysis unit yesterday with a thrombosed AV graft. She subsequently went to [facility] and underwent a successful thrombectomy. She was noted to be hypotensive. Systolic blood pressure was in the 70s to 80s. She subsequently was transferred to the [place] emergency room and admitted to the hospital for further evaluation and management. Patient was noted to have an elevated white blood cell count of 48,000, she was hyperkalemic with a potassium of 7.3. And she had severe metabolic acidosis with a CO2 level of 10. Patient had a temporary dialysis catheter placed in the emergency room and then underwent urgent dialysis last night to assist with management of the hyperkalemia and metabolic acidosis. She is maintained on Levophed for blood pressure support. Currently she remains on the ventilator. Blood pressure is 82/45. Metabolic acidosis has improved. She still has an elevated lactic acid level although better than last night. Her serum potassium is down to 3.2. CO2 levels up to 23. Her AV graft actually does have a bruit. Past Med Surg Social Fam HX - Past Medical History Medical history: arthritis, cancer, CHF, COPD, GERD, GI bleed, hypertension, osteoporosis, renal disease, other Psychiatric history: anxiety, depression, other - Past Surgical History Surgical History: appendectomy, , cholecystectomy, colectomy, colostomy , hysterectomy, BLAKE/BSO, other - Social History Smoking Status: Never smoker Smokeless Tobacco Status: No Alcohol use: none Drug use: none - Family History Mother Adopted: No Family Member Ethnicity: Non- Living Status: Hx Family Cardiac Disorders: Yes Hx Family Respiratory Disorders: No Hx Family Cancer: No Hx Family GI Disorders: No Hx Family Endocrine Disorder: No Hx Family Neuromuscular Disorders: No Hx Family Neurologic Disorders: Yes (TIA) Hx Family HEENT Disorders: No Hx Family Autoimmune Disorders: No Father Adopted: No Family Member Ethnicity: Non- Living Status: Hx Family Cardiac Disorders: No Hx Family Respiratory Disorders: Yes (Asthma) Hx Family Cancer: No Hx Family GI Disorders: Yes (Ulcers) Hx Family Endocrine Disorder: No Hx Family Neuromuscular Disorders: No Hx Family Neurologic Disorders: No Hx Family HEENT Disorders: No Hx Family Autoimmune Disorders: No Medications and Allergies Sodium Bicarbonate 1,950 mg PO BID 05/20/15 [History] Darbepoetin [Aranesp] 150 mcg SQ Q2W 05/24/16 [History] Cholecalciferol (D-3) [Vitamin D] 1,000 unit PO DAILY 05/27/16 [History] Cyanocobalamin (B-12) [Vitamin B12] 1,000 mcg SQ QWEEK 05/27/16 [History] Glucosamn/Condroitn/C/Mn/[place] [Cvs Glucosamine Chondroitin Tb] 1 tab PO DAILY 05/27/16 [History] Multivit,Th Iron,Other Min [Therems-M] 1 tab PO DAILY 05/27/16 [History] Vitamin E (Dl,Tocopheryl Acet) [Vitamin E] 400 unit PO DAILY 05/27/16 [History] Aspirin Enteric Coated [Aspirin EC] 81 mg PO DAILY #30 05/22/17 [Rx] Levothyroxine [Synthroid] 50 mcg PO 0630 #30 tab 05/22/17 [Rx] Furosemide [Lasix] 40 mg PO BID 06/16/17 [History] Gabapentin [Neurontin] 300 mg PO BID #20 capsule 06/22/17 [Rx] Diltiazem HCl [Diltiazem 24Hr Cd] 360 mg PO DAILY 07/05/17 [History] HYDROcodone/Acet 10/325 mg [[place] 10-325 mg] 1 tab PO Q8H PRN 07/05/17 [History] Ibuprofen [Motrin] 600 mg PO BID 07/05/17 [History] Metoprolol [Lopressor] 100 mg PO BID 07/05/17 [History] Omeprazole [PriLOSEC] 40 mg PO DAILY 07/05/17 [History] 3 Allergy/AdvReac Type Severity Reaction Status Date / Time codeine Allergy Rash Verified 06/15/17 22:17 fluoxetine [From Prozac] Allergy Rash Verified 06/15/17 22:17 haloperidol [From Haldol] Allergy See Verified 06/15/17 22:17 Comments nalbuphine [From Nubain] Allergy Rash Verified 06/15/17 22:17 Sulfa (Sulfonamide Allergy Rash Verified 06/15/17 22:17 Antibiotics) Review of Systems ROS unobtainable: due to mental status Exam - Vital Signs Vital signs: Initial Vital Signs Temp Pulse Resp BP Pulse Ox 0 F L 24 12 54/30 89 07/05/17 18:11 07/05/17 18:11 07/05/17 18:11 07/05/17 18:11 07/05/17 18:11 Vital Signs - Last 8 Hours Temp Pulse Resp BP Pulse Ox 07/06/17 08:00 96.5 F L 69 14 96/54 100 07/06/17 07:52 96.5 F L 80 14 96/54 100 07/06/17 07:25 96.5 F L 07/06/17 05:56 73 14 82/45 100 07/06/17 05:44 14 100 07/06/17 05:00 80 14 114/60 100 07/06/17 04:00 97.3 F L 87 18 137/56 07/06/17 03:50 97.3 F L 87 18 111/55 100 07/06/17 03:35 115/49 07/06/17 03:21 18 123/51 100 07/06/17 03:20 123/51 07/06/17 03:05 113/63 07/06/17 02:50 127/56 07/06/17 02:49 101 19 101/45 99 07/06/17 02:40 101/45 07/06/17 02:35 89/55 07/06/17 02:20 100/44 07/06/17 02:05 113/45 07/06/17 02:00 84 24 114/46 99 07/06/17 01:50 16 99/42 07/06/17 01:10 24 108/48 100 07/06/17 01:00 97.5 F L 72 18 107/66 100 07/06/17 00:18 16 113/85 07/06/17 00:12 26 107/60 94 Intake and Output 07/05/17 07/06/17 07/06/17 23:59 07:59 15:59 Intake Total 3108 / 3108 Output Total 600 / 600 Balance 2508 / 2508 Intake: IV Fluids 2508 / 2508 EPINEPHrine 1 MG In Dextrose 5% 452 / 452 250 ML @ 5 MCG/MIN 75.3 mls/hr IVC CONT [facility] Rx#:[id number] Levophed 4 MG In Dextrose 5% 254 / 254 250 ML @ 5 MCG/MIN 19.05 mls/hr IVC CONT [facility] Rx#:[id number] Diprivan 1,000 mg In 100 ml @ 5 100 / 100 MCG/KG/MIN 1.089 mls/hr IVC . Q24H [facility] Rx#:[id number] Sodium Bicarbonate 150 MEQ In 1150 / 1150 Dextrose 5% 1,000 ML @ 150 mls/ hr IVC .[id number] [facility] Rx#: [id number] Magnesium Sulfate 1 GM In 102 / 102 Dextrose 5% 100 ML @ 100 mls/hr IVPB ONCE ONE Rx#:[id number] Flagyl Premix 500 MG/100 ML 500 100 / 100 mg In 100 ml @ 100 mls/hr IVPB Q6HR [facility] Rx#:[id number] Zosyn 3.375 GM In Dextrose 5% ( 100 / 100 Minibag+) 100 ML 100 ML @ 25 mls/hr IVPB Q12H [facility] Rx#: [id number] Vancocin 500 MG In Dextrose 5% 250 / 250 250 ML @ 167 mls/hr IVPB ONCE ONE Rx#:[id number] Oral 0 / 0 Intake, Rinseback and Flushes 600 / 600 Output: Urine 0 / 0 Stool 0 / 0 Total Dialysis (HD) Output 600 / 600 Catheter 0 / 0 Gastric Drainage 0 / 0 Other: Weight 46 kg Blood Glucose* 307 Hemodialysis Net Fluid Removed 0 (mL) Patient Weight 07/06/17 23:59 Weight 46 kg - General Appearance Exam: Patient is sedated on the ventilator. She is in no acute distress. Lungs coarse breath sounds. Heart irregular rate and rhythm consistent with atrial fibrillation. Abdomen is soft. Bowel sounds are present. A colostomy is present with stool in the ostomy bag. She has mild lower extremity swelling. There is a left arm AV graft with an audible bruit. There is a temporary dialysis catheter in the right internal jugular vein. There is a triple-lumen femoral catheter in place as well. Results - Lab Results 07/06/17 03:45 07/06/17 03:45 Most recent lab results ABG pH 7.45 pH Units (7.32-7.45) D 07/06/17 04:31 ABG pCO2 38 mmHg (35-45) 07/06/17 04:31 ABG pO2 88 mmHg (85-104) D 07/06/17 04:31 ABG HCO3 27 mEq/L (21-27) 07/06/17 04:31 ABG O2 Saturation 97 % (95-98) 07/06/17 04:31 Calcium 8.1 mg/dL (8.6-10.8) L 07/06/17 03:45 Phosphorus 7.8 mg/dL (2.3-4.7) H 07/05/17 18:37 Magnesium 1.6 mg/dL (1.6-2.6) 07/06/17 03:45 Consult Discharge Plan - Plan Referrals: Kaleigh Beckham MD [Primary Care Provider] -
[2017-07-06 08:11] LABS: blaKPC Carbapenem-Resist Gene Not Detected (Not Detect); mecA Methicillin-Resist Gene Not Detected (Not Detect); vanA/B Vancomycin-Resist Genes Not Detected (Not Detect)
[2017-07-06 08:12] LABS: Acinetobacter baumannii by PCR Not Detected (Not Detect); Candida albicans by PCR Not Detected (Not Detect); Candida glabrata by PCR Not Detected (Not Detect); Candida krusei by PCR Not Detected (Not Detect); Candida parapsilosis by PCR Not Detected (Not Detect); Candida tropicalis by PCR Not Detected (Not Detect); Enterococcus by PCR ***DETECTED*** (Not Detect); Escherichia coli by PCR Not Detected (Not Detect); Klebsiella oxytoca by PCR Not Detected (Not Detect); Klebsiella pneumoniae by PCR Not Detected (Not Detect); Pseudomonas aeruginosa by PCR Not Detected (Not Detect); Serratia marcescens by PCR Not Detected (Not Detect); Staphylococcus aureus by PCR Not Detected (Not Detect); Streptococcus agalactiae(B)PCR Not Detected (Not Detect); Streptococcus by PCR Not Detected (Not Detect); Streptococcus pneumoniae PCR Not Detected (Not Detect); Streptococcus pyogenes (A) PCR Not Detected (Not Detect)
[2017-07-06] MEDS ORDERED: Potassium Chloride 40 MEQ, Lidocaine 1% 2 ML in D5% in Water 500 ML IVPB ONE (08:41)
--- NOTE | 2017-07-06 09:03 | Pulmonology Progress Note ---
<Michael Marc - Last Filed: 07/06/17 11:44> Date of Encounter: 07/06/17 Time of Encounter: 09:03 Assessment and Plan (1) Septic shock Current Visit: Yes Status: Acute Septic shock, Enterococcus bacteremia - Improved TMax 98.7, HR 69-101, BP 82-127/45-63 WBC down to 33.1, Lactic Acid down to 5.3 Levofed 12mcg/min GGT, MAP 68 Continue Vanc/Zosyn day 2 pending sensitivities, DC Flagyl CT Abd/pelvis positive for low grade small bowel obstruction Repeat Cultures (2) Acute respiratory failure with hypoxia Current Visit: No Status: Acute Acute respiratory failure, ventilator supported Vent Settings: AC Rate 14 Vt 450 PEEP 5 FIO2 50 ABG is appropriate with current vent settings (3) Metabolic acidosis, increased anion gap Current Visit: Yes Status: Resolved Resolved (4) Chronic kidney disease, stage V Current Visit: Yes Status: 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 BUN 15 Cr 2.03 s/p HD AV Graft in Left forearm, temp HD catheter in R. IJ Nephrology on board for management of HD (5) Pleural effusion Current Visit: No Status: Acute Bilateral pleural effusion, infection vs. chf vs. other source BNP 1525, LVEF 60-65% Consult to IR for diagnostic right sided thoracentesis (6) Hyperglycemia Current Visit: Yes Status: Acute Hyperglycemia in setting of septic shock POC Glucose 158-342 Initiate Insulin drip with q1hr accucheck Objective PUL Vital signs: Last Vital Signs Temp 96.5 F L 07/06/17 08:00 Pulse 80 07/06/17 08:55 Resp 16 07/06/17 08:55 BP 98/57 07/06/17 08:55 Pulse Ox 99 07/06/17 08:55 General appearance: asleep, appears uncomfortable, other (Cachectic in appearance) Eyes: nonicteric ENT: oropharynx moist Neck: supple Effort: normal Auscultation: bilateral: clear, diminished breath sounds Cardiovascular: irregular rhythm (Atrial fibrillation) Gastrointestinal: normoactive bowel sounds, non-distended, other (Colostomy bag present) Integumentary: normal Extremities: no cyanosis, no clubbing, edema (+1 edema in LEs b/l), other (Left arm AV present with palpable thrill and audible bruit) Musculoskeletal: no deformities non-focal exam, pupils equal and round, unable to assess due to mental status other (Patient sedated) Lines: R. IJ Temp HD Catheter, R. Femoral CVC, Right Hand IV, OG tube Ventilator Settings Ventilator Settings: Ventilator Settings, Last 8 Hours Ventilator Mode A/C Ventilator Mode A/C Ventilator Mode A/C Ventilator Mode A/C Ventilator Mode A/C Ventilator Mode A/C Ventilator Mode A/C Ventilator Mode A/C Ventilator Mode A/C Ventilator Mode A/C Ventilator Mode A/C Ventilator Tidal Volume 350 Setting Ventilator Tidal Volume 350 Setting Ventilator Tidal Volume 350 Setting Ventilator Tidal Volume 350 Setting Ventilator Tidal Volume 350 Setting Ventilator Tidal Volume 350 Setting Ventilator Tidal Volume 350 Setting Ventilator Tidal Volume 350 Setting Ventilator Tidal Volume 350 Setting Ventilator Tidal Volume 350 Setting Ventilator Tidal Volume 350 Setting Ventilator Respiratory Rate 14 Setting Ventilator Respiratory Rate 14 Setting Ventilator Respiratory Rate 14 Setting Ventilator Respiratory Rate 14 Setting Ventilator Respiratory Rate 14 Setting Ventilator Respiratory Rate 18 Setting Ventilator Respiratory Rate 18 Setting Ventilator Respiratory Rate 18 Setting Ventilator Respiratory Rate 18 Setting Ventilator Respiratory Rate 18 Setting Ventilator Respiratory Rate 18 Setting Actual Respiratory Rate 17 Actual Respiratory Rate 14 Actual Respiratory Rate 14 Actual Respiratory Rate 14 Actual Respiratory Rate 14 Actual Respiratory Rate 18 Actual Respiratory Rate 18 Actual Respiratory Rate 18 Actual Respiratory Rate 18 Actual Respiratory Rate 23 Positive End Expiratory 5 Pressure Positive End Expiratory 5 Pressure Positive End Expiratory 5 Pressure Positive End Expiratory 5 Pressure Positive End Expiratory 5 Pressure Positive End Expiratory 5 Pressure Positive End Expiratory 5 Pressure Positive End Expiratory 5 Pressure Positive End Expiratory 5 Pressure Positive End Expiratory 5 Pressure Positive End Expiratory 5 Pressure Peak Inspiratory Airway 21 Pressure Peak Inspiratory Airway 24 Pressure Peak Inspiratory Airway 24 Pressure Peak Inspiratory Airway 24 Pressure Peak Inspiratory Airway 25 Pressure Peak Inspiratory Airway 23 Pressure Peak Inspiratory Airway 23 Pressure Peak Inspiratory Airway 23 Pressure Peak Inspiratory Airway 22 Pressure Peak Inspiratory Airway 22 Pressure Results - Laboratory Findings CBC and BMP: 07/06/17 03:45 07/06/17 03:45 ABG ABG pH 7.45 pH Units (7.32-7.45) D 07/06/17 04:31 ABG pCO2 38 mmHg (35-45) 07/06/17 04:31 ABG pO2 88 mmHg (85-104) D 07/06/17 04:31 ABG O2 Saturation 97 % (95-98) 07/06/17 04:31 PT/INR, D-dimer PT 14.7 Seconds (9.4-12.1) H 07/05/17 18:37 Abnormal lab findings: Abnormal lab results WBC 33.1 K/mcL (4.3-11.1) H* 07/06/17 03:45 RBC 3.02 M/mcL (3.82-4.97) L 07/06/17 03:45 Hgb 9.1 g/dL (11.5-15.4) L 07/06/17 03:45 Hct 29.8 % (35.3-44.9) L 07/06/17 03:45 MCHC 30.5 g/dL (31.6-35.5) L 07/06/17 03:45 RDW 20.5 % (11.5-14.5) H 07/06/17 03:45 Band Neutrophils % 6.0 % (0-4) H 07/05/17 18:37 Metamyelocytes % 2.0 % (0) H 07/05/17 18:37 Myelocytes % 2.0 % (0) H 07/05/17 18:37 Neutrophils # 28.3 K/mcL (1.6-8.9) H 07/06/17 03:45 Monocytes # 2.9 K/mcL (0.0-1.3) H 07/06/17 03:45 Nucleated RBCs/100 WBC 0.4 /100 WBC (0) H 07/06/17 03:45 Smudge Cells Present (Not Present) A 07/05/17 18:37 Toxic Granulation Present (Not Present) A 07/06/17 03:45 Large Platelets Present (Not Present) A 07/06/17 03:45 Anisocytosis 3+ (Not Present) A 07/06/17 03:45 Macrocytosis Present (Not Present) A 07/06/17 03:45 PT 14.7 Seconds (9.4-12.1) H 07/05/17 18:37 ABG Total CO2 28 mEq/L (20-26) H 07/06/17 04:31 VBG pH 6.91 pH Units (7.32-7.42) L* 07/05/17 18:34 VBG pO2 62 mmHg (25-50) H 07/05/17 18:34 VBG HCO3 10 mEq/L (21-27) L 07/05/17 18:34 Potassium 3.2 mEq/L (3.5-4.5) L D 07/06/17 03:45 Creatinine 2.03 mg/dL (0.57-1.11) H D 07/06/17 03:45 Est GFR ( Amer) 28 (> 60) L 07/06/17 03:45 Est GFR (Non-Af Amer) 23 (> 60) L 07/06/17 03:45 Glucose 293 mg/dL (70-99) H 07/06/17 03:45 POC Glucose 305 (58-89) H 07/06/17 05:56 Calculated Osmolality 304 (280-300) H 07/06/17 03:45 Lactic Acid 5.3 mmol/L (0.5-2.2) H* 07/06/17 03:45 Calcium 8.1 mg/dL (8.6-10.8) L 07/06/17 03:45 Phosphorus 7.8 mg/dL (2.3-4.7) H 07/05/17 18:37 AST 53 Units/L (5-34) H 07/05/17 18:37 Alkaline Phosphatase 129 Units/L (38-126) H 07/05/17 18:37 B-Natriuretic Peptide 1525 pg/mL (0-100) H 07/06/17 03:45 Serum Total Protein 5.6 g/dL (6.0-8.3) L 07/05/17 18:37 Albumin 2.5 g/dL (3.5-5.0) L 07/05/17 18:37 Albumin/Globulin Ratio 0.8 (1.1-2.2) L 07/05/17 18:37 Urine Clarity Cloudy (Clear) A 07/05/17 19:31 Urine Protein >=300 mg/dL (Neg-Trace) H 07/05/17 19:31 Urine Ketones Trace mg/dL (Negative) H 07/05/17 19:31 Urine Blood Large (Negative) H 07/05/17 19:31 Ur Leukocyte Esterase Large (Negative) H 07/05/17 19:31 Urine Microscopic WBC TNTC per hpf (0-3) H 07/05/17 19:31 Ur Culture Indicated? YES (NO) A 07/05/17 19:31 Enterococcus sp PCR DETECTED (Not Detect) A 07/05/17 18:37 - Clinical Findings Intake & Output: Intake & Output 07/05/17 07/06/17 07/06/17 23:59 07:59 15:59 Intake Total 3108 / 3108 Output Total 600 / 600 Balance 2508 / 2508 Weight 46 kg Consult Discharge Plan - Plan Referrals: Kaleigh Beckham MD [Primary Care Provider] - <Phuong Moreno - Last Filed: 07/06/17 21:53> Date of Encounter: 07/06/17 Subjective Principal diagnosis: Septic shock with Pneumonia Interval history: HPI : 81 year old male with past medical history signficant for ESRD on Dialysis was having a thrombectomy session in [facility] became hypotensive was transferred to [place] found to be septic shock was intubated had peak T waves in the EKG had a emergent dialysis session was admitted to the ICU patient was in severe both respiratory and metabolic acidosis . Patient during last admission wanted to be DNR CCA with DNI if she doesnt turn around in 24 hrs they wanted to extubate and make her comfortable .Lot of the history was taken from chart record . ROS cannot be obtained because patient is intubated Past medical history as entered on File Family , Personal history , Surgical History as entered in file . Objective PUL Vital signs: Last Vital Signs Temp 100.4 F H 07/06/17 20:31 Pulse 123 07/06/17 20:53 Resp 28 07/06/17 20:53 BP 108/57 07/06/17 20:53 Pulse Ox 100 07/06/17 20:53 Ventilator Settings Ventilator Settings: Ventilator Settings, Last 8 Hours Ventilator Mode A/C Ventilator Mode A/C Ventilator Mode A/C Ventilator Mode A/C Ventilator Tidal Volume 350 Setting Ventilator Tidal Volume 350 Setting Ventilator Tidal Volume 350 Setting Ventilator Tidal Volume 350 Setting Ventilator Respiratory Rate 14 Setting Ventilator Respiratory Rate 14 Setting Ventilator Respiratory Rate 14 Setting Ventilator Respiratory Rate 14 Setting Actual Respiratory Rate 17 Actual Respiratory Rate 17 Actual Respiratory Rate 15 Actual Respiratory Rate 15 Positive End Expiratory 5 Pressure Positive End Expiratory 5 Pressure Positive End Expiratory 5 Pressure Positive End Expiratory 5 Pressure Peak Inspiratory Airway 25 Pressure Peak Inspiratory Airway 23 Pressure Peak Inspiratory Airway 23 Pressure Peak Inspiratory Airway 21 Pressure Results - Laboratory Findings CBC and BMP: 07/06/17 03:45 07/06/17 03:45 ABG ABG pH 7.45 pH Units (7.32-7.45) D 07/06/17 04:31 ABG pCO2 38 mmHg (35-45) 07/06/17 04:31 ABG pO2 88 mmHg (85-104) D 07/06/17 04:31 ABG O2 Saturation 97 % (95-98) 07/06/17 04:31 PT/INR, D-dimer PT 14.7 Seconds (9.4-12.1) H 07/05/17 18:37 Abnormal lab findings: Abnormal lab results WBC 33.1 K/mcL (4.3-11.1) H* 07/06/17 03:45 RBC 3.02 M/mcL (3.82-4.97) L 07/06/17 03:45 Hgb 9.1 g/dL (11.5-15.4) L 07/06/17 03:45 Hct 29.8 % (35.3-44.9) L 07/06/17 03:45 MCHC 30.5 g/dL (31.6-35.5) L 07/06/17 03:45 RDW 20.5 % (11.5-14.5) H 07/06/17 03:45 Band Neutrophils % 6.0 % (0-4) H 07/05/17 18:37 Metamyelocytes % 2.0 % (0) H 07/05/17 18:37 Myelocytes % 2.0 % (0) H 07/05/17 18:37 Neutrophils # 28.3 K/mcL (1.6-8.9) H 07/06/17 03:45 Monocytes # 2.9 K/mcL (0.0-1.3) H 07/06/17 03:45 Nucleated RBCs/100 WBC 0.4 /100 WBC (0) H 07/06/17 03:45 Smudge Cells Present (Not Present) A 07/05/17 18:37 Toxic Granulation Present (Not Present) A 07/06/17 03:45 Large Platelets Present (Not Present) A 07/06/17 03:45 Anisocytosis 3+ (Not Present) A 07/06/17 03:45 Macrocytosis Present (Not Present) A 07/06/17 03:45 PT 14.7 Seconds (9.4-12.1) H 07/05/17 18:37 ABG Total CO2 28 mEq/L (20-26) H 07/06/17 04:31 VBG pH 6.91 pH Units (7.32-7.42) L* 07/05/17 18:34 VBG pO2 62 mmHg (25-50) H 07/05/17 18:34 VBG HCO3 10 mEq/L (21-27) L 07/05/17 18:34 Potassium 3.2 mEq/L (3.5-4.5) L D 07/06/17 03:45 Creatinine 2.03 mg/dL (0.57-1.11) H D 07/06/17 03:45 Est GFR ( Amer) 28 (> 60) L 07/06/17 03:45 Est GFR (Non-Af Amer) 23 (> 60) L 07/06/17 03:45 Glucose 293 mg/dL (70-99) H 07/06/17 03:45 POC Glucose 128 (58-89) H 07/06/17 18:38 Calculated Osmolality 304 (280-300) H 07/06/17 03:45 Lactic Acid 5.3 mmol/L (0.5-2.2) H* 07/06/17 03:45 Calcium 8.1 mg/dL (8.6-10.8) L 07/06/17 03:45 Phosphorus 7.8 mg/dL (2.3-4.7) H 07/05/17 18:37 AST 53 Units/L (5-34) H 07/05/17 18:37 Alkaline Phosphatase 129 Units/L (38-126) H 07/05/17 18:37 B-Natriuretic Peptide 1525 pg/mL (0-100) H 07/06/17 03:45 Serum Total Protein 5.6 g/dL (6.0-8.3) L 07/05/17 18:37 Albumin 2.5 g/dL (3.5-5.0) L 07/05/17 18:37 Albumin/Globulin Ratio 0.8 (1.1-2.2) L 07/05/17 18:37 Urine Clarity Cloudy (Clear) A 07/05/17 19:31 Urine Protein >=300 mg/dL (Neg-Trace) H 07/05/17 19:31 Urine Ketones Trace mg/dL (Negative) H 07/05/17 19:31 Urine Blood Large (Negative) H 07/05/17 19:31 Ur Leukocyte Esterase Large (Negative) H 07/05/17 19:31 Urine Microscopic WBC TNTC per hpf (0-3) H 07/05/17 19:31 Ur Culture Indicated? YES (NO) A 07/05/17 19:31 Enterococcus sp PCR DETECTED (Not Detect) A 07/05/17 18:37 - Clinical Findings Intake & Output: Intake & Output 07/06/17 07/06/17 07/06/17 07:59 15:59 23:59 Intake Total 3108 / 3108 264 / 264 254 / 254 Output Total 600 / 600 0 / 0 0 / 0 Balance 2508 / 2508 264 / 264 254 / 254 Weight 46 kg - Attending Attestation I agree with resident what he documented in his Note as History and Physical Exam Labs and Imaging reviewed . Ventilator data reviewed . 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 Will continue lung protective strategy for ventilation.Gas exchange looks decent Cardiac : Septic shock complicated by diastolic heart failure with high BNP GI : Will start trophic feed as tolerated PPI Renal : CVVH background of ESRD , nephrology following ID : Most likely due to pneumonia cultures pending to continue broad spectrum antibiotics. Endo: Insulin coverage Code status : DNRA family leaning towards comfort care spoke with Paolo son coming from [place] leaning towards comfort care. I spent 35 minutes of critical care time which involves complex medical decision making in maintaining vital organ function and prevention of deterioration
[2017-07-06 10:00] LABS: Adenovirus F 40/41 PCR Not detected (Not detect); Astrovirus PCR Not detected (Not detect); C.difficile Toxin A/B by PCR Not detected (Not detect); Campylobacter by PCR Not detected (Not detect); Cryptosporidium by PCR Not detected (Not detect); Cyclospora cayetanensis PCR Not detected (Not detect); E. coli O157 by PCR Not detected (Not detect); Entamoeba histolytica PCR Not detected (Not detect); Enteroaggregative E.coli(EAEC) Not detected (Not detect); Enteropathogenic E.coli(EPEC) Not detected (Not detect); Enterotoxigenic E.coli (ETEC) Not detected (Not detect); Giardia lamblia PCR Not detected (Not detect); Norovirus GI/GII PCR Not detected (Not detect); Plesiomonas shigelloides PCR Not detected (Not detect); Rotavirus A PCR Not detected (Not detect); Salmonella PCR Not detected (Not detect); Sapovirus PCR Not detected (Not detect); Shig/EnteroinvasiveE coli EIEC Not detected (Not detect); Shigalike tox-prod E coli STEC Not detected (Not detect); Vibrio PCR Not detected (Not detect); Vibrio cholerae PCR Not detected (Not detect); Yersinia enterocolitica PCR Not detected (Not detect)
[2017-07-06] MEDS ORDERED: Lacri-Lube 3.5 GM TUBE BOTH EYES PRN (10:47)
[2017-07-06] MEDS ORDERED: Albuterol 2.5 MG/3 ML NEBULIZER IH PRN (10:49)
[2017-07-06] MEDS ORDERED: Vancomycin 500 MG in D5% in Water (Mini-Bag+) 100 ML IVPB ONE (12:00)
[2017-07-06] MEDS: Lacri-Lube 3.5 GM TUBE BOTH EYES SCH ×4 (13:32→23:26)
[2017-07-06] MEDS: Vancomycin 500 MG in D5% in Water 100 ML IVPB ONE ×2 (15:35→15:50)
[2017-07-06 15:58] LABS: Hepatitis B Surface Antigen Nonreactive (Nonreactive)
--- NOTE | 2017-07-06 17:23 | Electrocardiograph Report ---
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
--- NOTE | 2017-07-06 17:25 | Electrocardiograph Report ---
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
[2017-07-06] MEDS: Chlorhexidine Rinse 15 ML MOUTHWASH MM SCH (21:04)
[2017-07-07] MEDS: Norepinephrine 4 MG in D5% in Water 250 ML IVC SCH (00:02)
[2017-07-07] MEDS: FentaNYL (PF) 1,000 MCG in 0.9 % Sodium Chloride 80 ML IVC SCH (02:38)
[2017-07-07] MEDS: Piperacillin/Tazobactam 3.375 GM in D5% in Water (Mini-Bag+) 100 ML IVPB SCH (03:04)
[2017-07-07] MEDS: Lacri-Lube 3.5 GM TUBE BOTH EYES SCH ×2 (03:05→08:29)
[2017-07-07 03:47] LABS: Basophils % 0.1 %; Eosinophils % 0.1 %; Hematocrit 23.4 % (35.3-44.9); Immature Granulocytes % 0.9 % (0-4); Lymphocytes # 1.5 K/mcL (0.6-4.6); Lymphocytes % 8.3 %; Mean Corpuscular HGB Conc 31.2 g/dL (31.6-35.5); Mean Corpuscular Hemoglobin 29.9 pg (28.0-33.3); Mean Corpuscular Volume 95.9 fL (83.0-100.0); Mean Platelet Volume 11.5 fL (9.4-12.4); Monocytes # 1.9 K/mcL (0.0-1.3); Monocytes % 10.1 %; Nucleated Red Blood Cells 0.2 /100 WBC (0); Platelet Count 225 K/mcL (140-400); Red Blood Count 2.44 M/mcL (3.82-4.97); Red Cell Distribution Width 20.9 % (11.5-14.5); Segmented Neutrophils % 80.5 %
[2017-07-07 03:59] LABS: Potassium 4.7 mEq/L (3.5-4.5)
[2017-07-07 04:17] LABS: Hemoglobin 7.3 g/dL (11.5-15.4)
[2017-07-07] MEDS: *HR* Heparin 5,000 UNIT/ML VIAL SQ SCH ×2 (04:49→17:10)
[2017-07-07] MEDS: Pantoprazole 40 MG VIAL IVP SCH (08:32)
[2017-07-07] MEDS: Chlorhexidine Rinse 15 ML MOUTHWASH MM SCH (08:32)
[2017-07-07] MEDS ORDERED: Aminoglycoside Consult 1 EACH MC ONE (09:39)
--- NOTE | 2017-07-07 09:53 | Pulmonology Progress Note ---
<Michael Marc - Last Filed: 07/07/17 14:23> Date of Encounter: 07/07/17 Time of Encounter: 08:45 Assessment and Plan (1) Septic shock Current Visit: Yes Status: Acute Septic shock, Source Enterococcus UTI/bacteremia - Improved TMax 100.4, HR 88-123, BP 86-117/50-70 WBC down to 18.6, Repeat cultures pending Continue Vanc/Zosyn day [address] Abd/pelvis positive for low grade small bowel obstruction (2) Acute cerebrovascular accident (CVA) Current Visit: Yes Status: Acute Acute ischemic stroke of R. MCA and R. PICA on CT Upon waking from sedation, the patient was found to have weakness in right arm CT: Findings are consistent with small acute infarcts in the posterior right frontal lobe, in the right MCA vascular territory and posterior right cerebellar hemisphere, in the right PICA vascular territory. Time of CVAs is unknown, patient not a candidate for tPA Initiate ASA, Statin. The patient is currently on DVT Prophylaxis with subq heparin Consult neurology, recommended MRI + Carotid duplex US. Patient's family refuses MRI (3) Acute respiratory failure with hypoxia Current Visit: Yes Status: Acute Acute hypoxic respiratory failure s/p terminal extubation Status has improved. Patient remains well oxygenated on 3L NC PRN BiPAP Patient's family is prepared to discontinue aggressive measures (4) Metabolic acidosis, increased anion gap Current Visit: Yes Status: Resolved Resolved (5) Chronic kidney disease, stage V Current Visit: Yes Status: 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 BUN 22 Cr 3.25, HD scheduled for today AV Graft in Left forearm, temp HD catheter in R. IJ Nephrology on board for management of HD (6) Pleural effusion Current Visit: Yes Status: Acute Bilateral pleural effusion, infection vs. chf vs. other source BNP 1525, LVEF 60-65% Consult to IR for diagnostic right sided thoracentesis on hold pending family discussion about treatment goals (7) Hyperglycemia Current Visit: Yes Status: Acute Hyperglycemia in setting of septic shock POC Glucose 74-164, Goal 120-180 Subjective Principal diagnosis: Septic shock from UTI Interval history: The patient's respiratory status improved overnight and she was extubated. She was taken off levofed drip without complication. She remains somnolent but arousable this morning. Overnight nurses noted that she was unable to move her left arm. This morning she has some movement in her left arm. CT demonstrated two new infarcts. I spoke with the patients son who affirmed that the family is not interested in pursuing agressive measures, including MRI of the brain. He was not prepaed to remove the patient's central venos catheters at this time, but mentioned that he would be open to having that conversation this evening when he is here. Objective PUL Vital signs: Last Vital Signs Temp 98.3 F 07/07/17 08:00 Pulse 105 07/07/17 09:00 Resp 12 07/07/17 09:00 BP 105/59 07/07/17 09:00 Pulse Ox 100 07/07/17 09:00 General appearance: asleep Eyes: nonicteric ENT: oropharynx moist Neck: supple Effort: normal Auscultation: bilateral: wheezes, rhonchi Cardiovascular: irregular rhythm Gastrointestinal: normoactive bowel sounds, soft, non-distended Integumentary: normal Extremities: no cyanosis, no clubbing, edema (1+ b/l extremities ) Musculoskeletal: no deformities, ROM normal non-focal exam, pupils equal and round, other (Alert to touch, oriented. Motor strength left upper extremity decreased 1-2/5. 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 IJ Temp HD Cath, Right Femoral cath, Petersen Catheter Results - Laboratory Findings CBC and BMP: 07/07/17 03:00 07/07/17 03:00 ABG ABG pH 7.45 pH Units (7.32-7.45) D 07/06/17 04:31 ABG pCO2 38 mmHg (35-45) 07/06/17 04:31 ABG pO2 88 mmHg (85-104) D 07/06/17 04:31 ABG O2 Saturation 97 % (95-98) 07/06/17 04:31 PT/INR, D-dimer PT 14.7 Seconds (9.4-12.1) H 07/05/17 18:37 Abnormal lab findings: Abnormal lab results WBC 18.6 K/mcL (4.3-11.1) H 07/07/17 03:00 RBC 2.44 M/mcL (3.82-4.97) L 07/07/17 03:00 Hgb 7.3 g/dL (11.5-15.4) L D 07/07/17 03:00 Hct 23.4 % (35.3-44.9) L 07/07/17 03:00 MCHC 31.2 g/dL (31.6-35.5) L 07/07/17 03:00 RDW 20.9 % (11.5-14.5) H 07/07/17 03:00 Band Neutrophils % 6.0 % (0-4) H 07/05/17 18:37 Metamyelocytes % 2.0 % (0) H 07/05/17 18:37 Myelocytes % 2.0 % (0) H 07/05/17 18:37 Neutrophils # 15.0 K/mcL (1.6-8.9) H 07/07/17 03:00 Monocytes # 1.9 K/mcL (0.0-1.3) H 07/07/17 03:00 Nucleated RBCs/100 WBC 0.2 /100 WBC (0) H 07/07/17 03:00 Smudge Cells Present (Not Present) A 07/05/17 18:37 Toxic Granulation Present (Not Present) A 07/06/17 03:45 Large Platelets Present (Not Present) A 07/06/17 03:45 Anisocytosis 3+ (Not Present) A 07/06/17 03:45 Macrocytosis Present (Not Present) A 07/06/17 03:45 PT 14.7 Seconds (9.4-12.1) H 07/05/17 18:37 ABG Total CO2 28 mEq/L (20-26) H 07/06/17 04:31 VBG pH 6.91 pH Units (7.32-7.42) L* 07/05/17 18:34 VBG pO2 62 mmHg (25-50) H 07/05/17 18:34 VBG HCO3 10 mEq/L (21-27) L 07/05/17 18:34 Sodium 132 mEq/L (136-145) L D 07/07/17 03:00 Potassium 4.7 mEq/L (3.5-4.5) H D 07/07/17 03:00 Chloride 97 mEq/L (98-109) L 07/07/17 03:00 BUN 22 mg/dL (7-20) H 07/07/17 03:00 Creatinine 3.25 mg/dL (0.57-1.11) H D 07/07/17 03:00 Est GFR ( Amer) 17 (> 60) L 07/07/17 03:00 Est GFR (Non-Af Amer) 14 (> 60) L 07/07/17 03:00 Glucose 140 mg/dL (70-99) H 07/07/17 03:00 POC Glucose 127 (58-89) H 07/07/17 07:29 Lactic Acid 5.3 mmol/L (0.5-2.2) H* 07/06/17 03:45 Calcium 8.0 mg/dL (8.6-10.8) L 07/07/17 03:00 Phosphorus 7.8 mg/dL (2.3-4.7) H 07/05/17 18:37 AST 53 Units/L (5-34) H 07/05/17 18:37 Alkaline Phosphatase 129 Units/L (38-126) H 07/05/17 18:37 B-Natriuretic Peptide 1525 pg/mL (0-100) H 07/06/17 03:45 Serum Total Protein 5.6 g/dL (6.0-8.3) L 07/05/17 18:37 Albumin 2.5 g/dL (3.5-5.0) L 07/05/17 18:37 Albumin/Globulin Ratio 0.8 (1.1-2.2) L 07/05/17 18:37 Urine Clarity Cloudy (Clear) A 07/05/17 19:31 Urine Protein >=300 mg/dL (Neg-Trace) H 07/05/17 19:31 Urine Ketones Trace mg/dL (Negative) H 07/05/17 19:31 Urine Blood Large (Negative) H 07/05/17 19:31 Ur Leukocyte Esterase Large (Negative) H 07/05/17 19:31 Urine Microscopic WBC TNTC per hpf (0-3) H 07/05/17 19:31 Ur Culture Indicated? YES (NO) A 07/05/17 19:31 Enterococcus sp PCR DETECTED (Not Detect) A 07/05/17 18:37 - Microbiology Findings Microbiology Findings: Microbiology, Last 48 Hours 07/06/17 11:39 Blood Culture - Preliminary Central Venous Catheter Gram Positive Cocci - Clinical Findings Intake & Output: Intake & Output 07/06/17 07/07/17 07/07/17 23:59 07:59 15:59 Intake Total 354 / 354 354 / 354 Output Total 200 / 200 175 / 175 Balance 154 / 154 179 / 179 Weight 48.4 kg Consult Discharge Plan - Plan Referrals: Kaleigh Beckham MD [Primary Care Provider] - <Phuong Moreno - Last Filed: 07/07/17 22:25> Date of Encounter: 07/07/17 Objective PUL Vital signs: Last Vital Signs Temp 98.1 F 07/07/17 20:55 Pulse 123 07/07/17 22:00 Resp 12 07/07/17 22:00 BP 99/63 07/07/17 22:00 Pulse Ox 97 07/07/17 22:00 Results - Laboratory Findings CBC and BMP: 07/07/17 03:00 07/07/17 03:00 ABG ABG pH 7.45 pH Units (7.32-7.45) D 07/06/17 04:31 ABG pCO2 38 mmHg (35-45) 07/06/17 04:31 ABG pO2 88 mmHg (85-104) D 07/06/17 04:31 ABG O2 Saturation 97 % (95-98) 07/06/17 04:31 PT/INR, D-dimer PT 14.7 Seconds (9.4-12.1) H 07/05/17 18:37 Abnormal lab findings: Abnormal lab results WBC 18.6 K/mcL (4.3-11.1) H 07/07/17 03:00 RBC 2.44 M/mcL (3.82-4.97) L 07/07/17 03:00 Hgb 7.3 g/dL (11.5-15.4) L D 07/07/17 03:00 Hct 23.4 % (35.3-44.9) L 07/07/17 03:00 MCHC 31.2 g/dL (31.6-35.5) L 07/07/17 03:00 RDW 20.9 % (11.5-14.5) H 07/07/17 03:00 Band Neutrophils % 6.0 % (0-4) H 07/05/17 18:37 Metamyelocytes % 2.0 % (0) H 07/05/17 18:37 Myelocytes % 2.0 % (0) H 07/05/17 18:37 Neutrophils # 15.0 K/mcL (1.6-8.9) H 07/07/17 03:00 Monocytes # 1.9 K/mcL (0.0-1.3) H 07/07/17 03:00 Nucleated RBCs/100 WBC 0.2 /100 WBC (0) H 07/07/17 03:00 Smudge Cells Present (Not Present) A 07/05/17 18:37 Toxic Granulation Present (Not Present) A 07/06/17 03:45 Large Platelets Present (Not Present) A 07/06/17 03:45 Anisocytosis 3+ (Not Present) A 07/06/17 03:45 Macrocytosis Present (Not Present) A 07/06/17 03:45 PT 14.7 Seconds (9.4-12.1) H 07/05/17 18:37 ABG Total CO2 28 mEq/L (20-26) H 07/06/17 04:31 VBG pH 6.91 pH Units (7.32-7.42) L* 07/05/17 18:34 VBG pO2 62 mmHg (25-50) H 07/05/17 18:34 VBG HCO3 10 mEq/L (21-27) L 07/05/17 18:34 Sodium 132 mEq/L (136-145) L D 07/07/17 03:00 Potassium 4.7 mEq/L (3.5-4.5) H D 07/07/17 03:00 Chloride 97 mEq/L (98-109) L 07/07/17 03:00 BUN 22 mg/dL (7-20) H 07/07/17 03:00 Creatinine 3.25 mg/dL (0.57-1.11) H D 07/07/17 03:00 Est GFR ( Amer) 17 (> 60) L 07/07/17 03:00 Est GFR (Non-Af Amer) 14 (> 60) L 07/07/17 03:00 Glucose 140 mg/dL (70-99) H 07/07/17 03:00 POC Glucose 107 (58-89) H 07/07/17 20:09 Lactic Acid 5.3 mmol/L (0.5-2.2) H* 07/06/17 03:45 Calcium 8.0 mg/dL (8.6-10.8) L 07/07/17 03:00 Phosphorus 7.8 mg/dL (2.3-4.7) H 07/05/17 18:37 AST 53 Units/L (5-34) H 07/05/17 18:37 Alkaline Phosphatase 129 Units/L (38-126) H 07/05/17 18:37 B-Natriuretic Peptide 1525 pg/mL (0-100) H 07/06/17 03:45 Serum Total Protein 5.6 g/dL (6.0-8.3) L 07/05/17 18:37 Albumin 2.5 g/dL (3.5-5.0) L 07/05/17 18:37 Albumin/Globulin Ratio 0.8 (1.1-2.2) L 07/05/17 18:37 Urine Clarity Cloudy (Clear) A 07/05/17 19:31 Urine Protein >=300 mg/dL (Neg-Trace) H 07/05/17 19:31 Urine Ketones Trace mg/dL (Negative) H 07/05/17 19:31 Urine Blood Large (Negative) H 07/05/17 19:31 Ur Leukocyte Esterase Large (Negative) H 07/05/17 19:31 Urine Microscopic WBC TNTC per hpf (0-3) H 07/05/17 19:31 Ur Culture Indicated? YES (NO) A 07/05/17 19:31 Enterococcus sp PCR DETECTED (Not Detect) A 07/05/17 18:37 - Microbiology Findings Microbiology Findings: Microbiology, Last 48 Hours 07/06/17 11:39 Blood Culture - Preliminary Central Venous Catheter Gram Positive Cocci - Clinical Findings Intake & Output: Intake & Output 07/07/17 07/07/17 07/07/17 07:59 15:59 23:59 Intake Total 354 / 354 0 / 0 600 / 600 Output Total 175 / 175 350 / 350 1020 / 1020 Balance 179 / 179 -350 / -350 -420 / -420 - Attending Attestation I agree with resident what is documented in his Note as History and Physical Exam Labs and Imaging reviewed . 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 Pulm : Patient was extubated at the request of the family in line with patient wishes , patient is nasal cannula V/Q mismatch is lot better today Cardiac : Septic shock complicated by diastolic heart failure with high BNP due to enterococcus bactremia GI :Patient is going to get swallow evaluation To continue PPI. Renal : CVVH background of ESRD , nephrology following to do dialysis on the fistula if it accomplished will remove the dialysis catheter ID : Most likely due to pneumonia and entercoccus UTI continue broad spectrum antibiotics. Endo: Insulin coverage Code status : DNRA DNI no aggressive measures no vasopressors , no intubation in the view of stroke , sons are thinking to make her comfortable.
[2017-07-07] MEDS ORDERED: 0.9 % Sodium Chloride 250 ML IVC PRN (12:31)
--- NOTE | 2017-07-07 12:31 | Nephrology Progress Note ---
Date of Encounter: 07/07/17 Time of Encounter: 12:29 - Assessment and Plan (1) End-stage renal disease needing dialysis Current Visit: No Status: Chronic Patient will undergo dialysis today. We will use her AV graft. If that functions normally we can then remove the temporary dialysis catheter from the right internal jugular vein. (2) Sepsis Current Visit: No Status: Acute Qualifiers: Sepsis type: sepsis due to unspecified organism Qualified Code(s): A41.9 - Sepsis, unspecified organism (3) Metabolic acidosis Current Visit: No Status: Chronic (4) Acute respiratory failure with hypoxia Current Visit: Yes Status: Acute Subjective Principal diagnosis: Septic shock from UTI Interval history: Patient is extubated. She is off vasopressors. A recent CT scan shows several areas of acute infarction of the brain. Cultures are growing enterococcus from both the urine in the blood. Hemoglobin is 7.5. White count continues to improve. Objective - Vital Signs Vital signs: Vital Signs Temp Pulse Resp BP Pulse Ox 07/07/17 12:00 98.2 F 115 12 93/50 100 07/07/17 11:00 107 14 98/54 100 07/07/17 10:00 105 12 91/51 100 07/07/17 09:00 105 12 105/59 100 07/07/17 08:00 98.3 F 101 12 94/55 100 07/07/17 07:00 113 10 96/56 100 07/07/17 06:00 112 12 99/55 100 07/07/17 04:42 112 12 95/64 100 07/07/17 04:08 23 77/50 94 07/07/17 03:54 98.0 F 122 30 90/50 96 07/07/17 03:09 113 07/07/17 02:56 113 20 96/46 95 07/07/17 02:00 105 29 102/49 95 07/07/17 01:00 112 20 100/51 100 07/07/17 00:05 20 86/51 100 07/07/17 00:00 114 14 86/51 100 07/06/17 23:19 107 07/06/17 23:00 98.2 F 101 18 110/53 100 07/06/17 22:00 113 23 94/50 100 07/06/17 20:53 123 28 108/57 100 07/06/17 20:31 100.4 F H 10/31/17 20:09 117 07/06/17 20:01 23 117/53 99 07/06/17 20:00 105 23 117/53 98 07/06/17 19:00 122 23 105/70 99 07/06/17 18:00 109 15 115/54 99 07/06/17 17:30 17 115/64 100 07/06/17 17:07 88 07/06/17 17:00 105 16 115/64 100 07/06/17 16:00 93 14 100/60 100 07/06/17 15:31 17 98/64 100 07/06/17 15:07 99.2 F 07/06/17 15:00 92 14 112/56 100 07/06/17 14:00 99.2 F 92 17 98/64 100 07/06/17 13:20 15 90/51 100 07/06/17 13:00 93 21 90/51 100 Intake and Output 07/06/17 07/07/17 07/07/17 23:59 07:59 15:59 Intake Total 354 / 354 354 / 354 Output Total 200 / 200 175 / 175 150 / 150 Balance 154 / 154 179 / 179 -150 / -150 Intake: IV Fluids 354 / 354 354 / 354 Levophed 4 MG In Dextrose 5% 254 / 254 254 / 254 250 ML @ 5 MCG/MIN 19.05 mls/hr IVC CONT KRISTA Rx#:[id number] Zosyn 3.375 GM In Dextrose 5% ( 100 / 100 100 / 100 Minibag+) 100 ML 100 ML @ 25 mls/hr IVPB Q12H KRISTA Rx#: [id number] Oral 0 / 0 0 / 0 Output: Stool 150 / 150 150 / 150 150 / 150 Catheter 50 / 50 25 / 25 0 / 0 Other: Weight 48.4 kg Blood Glucose* 164 127 128 - General Appearance Exam: Patient appears chronically ill. She is in no acute distress. Lungs diminished breath sounds. Heart irregular rate and rhythm consistent with atrial fibrillation. Abdomen is soft. A colostomy is present. There is mild lower extremity swelling. There is a functioning AV graft in the left upper extremity. As a temporary dialysis catheter in the right internal jugular vein. - Lab 07/07/17 03:00 07/07/17 03:00 Most recent lab results ABG pH 7.45 pH Units (7.32-7.45) D 07/06/17 04:31 ABG pCO2 38 mmHg (35-45) 07/06/17 04:31 ABG pO2 88 mmHg (85-104) D 07/06/17 04:31 ABG HCO3 27 mEq/L (21-27) 07/06/17 04:31 ABG O2 Saturation 97 % (95-98) 07/06/17 04:31 Calcium 8.0 mg/dL (8.6-10.8) L 07/07/17 03:00 Phosphorus 7.8 mg/dL (2.3-4.7) H 07/05/17 18:37 Magnesium 1.6 mg/dL (1.6-2.6) 07/06/17 03:45 Consult Discharge Plan - Plan Referrals: Kaleigh Beckham MD [Primary Care Provider] -
[2017-07-07] MEDS ORDERED: Acetaminophen 650 MG RECTAL SUPP RC PRN (14:43)
[2017-07-07] MEDS: Insulin LISPRO 300 UNITS/3 ML VIAL SQ SCH ×3 (14:44→20:20)
[2017-07-07] MEDS: Aspirin Enteric Coated 81 MG Tablet PO SCH (14:44)
[2017-07-07] MEDS: *HR* FentaNYL (PF) 100 MCG/2 ML VIAL IVP PRN (14:56)
--- NOTE | 2017-07-07 15:25 | Neurology - Consult Note ---
Date of Encounter: 07/07/17 Time of Encounter: 15:25 Assessment and Plan (1) Acute cerebrovascular accident (CVA) Current Visit: Yes Status: Acute This patient was noted to have an acute infarct in the right hemisphere in both anterior and posterior circulation perhaps could be an embolic she did have a multiple risk factors and recently was in the septic shock and also has lines placed in. Total in this condition there is a possibility that it could be a septic emboli but considering his only on the right side is less likely but at the same time localized to embolic source may be that he is not particularly carotid stenosis or perhaps could be from the heart. At the same time we have to look for any other embolic source and particularly any of the lines it was placed in. At the moment family does not want any aggressive measures and wanted to keep her comfortable at this time I would suggest that we should keep only on an aspirin as it not interested in any workup including echo mri and carotid. Would like to hold on. (recent Echocardiogram was negative for any embolic source) Perhaps best would be to keep her comfortable monitor her blood pressure keeping his stable range plan Discussed with the icu team and family who is at the bedside (2) ESRD (end stage renal disease) on dialysis Current Visit: Yes Status: Acute (3) Septic shock Current Visit: Yes Status: Acute History of Present Illness HPI: Ms. Arciniega is a 81 year old female past medical history signficant for ESRD on Dialysis was having a thrombectomy session in [facility] became hypotensive was transferred to [place] found to be septic shock was intubated , had a emergent dialysis session was admitted to the ICU patient was in severe both respiratory and metabolic acidosis . The patient's respiratory status improved overnight and she was extubated today she remains drowsy, but arousable. Overnight nurses noted that she was unable to move her left arm. so pt had CT scan , demonstrated two new infarcts in right fronto parietal and right cerebellum, in PICA distribution. PT is DNR CC and family is not interested in pursuing agressive measures, including MRI of the brain. Now patient is more awake she is able to have a conversation able to recognize the family and also follow simple commands Past Med Surg Social Fam HX - Past Medical History Medical history: arthritis, cancer, CHF, COPD, GERD, GI bleed, hypertension, osteoporosis, renal disease, other Psychiatric history: anxiety, depression, other - Past Surgical History Surgical History: appendectomy, , cholecystectomy, colectomy, colostomy , hysterectomy, BLAKE/BSO, other - Social History Smoking Status: Never smoker Smokeless Tobacco Status: No Alcohol use: none Drug use: none - Family History Mother Adopted: No Family Member Ethnicity: Non- Living Status: Hx Family Cardiac Disorders: Yes Hx Family Respiratory Disorders: No Hx Family Cancer: No Hx Family GI Disorders: No Hx Family Endocrine Disorder: No Hx Family Neuromuscular Disorders: No Hx Family Neurologic Disorders: Yes (TIA) Hx Family HEENT Disorders: No Hx Family Autoimmune Disorders: No Father Adopted: No Family Member Ethnicity: Non- Living Status: Hx Family Cardiac Disorders: No Hx Family Respiratory Disorders: Yes (Asthma) Hx Family Cancer: No Hx Family GI Disorders: Yes (Ulcers) Hx Family Endocrine Disorder: No Hx Family Neuromuscular Disorders: No Hx Family Neurologic Disorders: No Hx Family HEENT Disorders: No Hx Family Autoimmune Disorders: No Medications and Allergies Sodium Bicarbonate 1,950 mg PO BID 05/20/15 [History] Darbepoetin [Aranesp] 150 mcg SQ Q2W 05/24/16 [History] Cholecalciferol (D-3) [Vitamin D] 1,000 unit PO DAILY 05/27/16 [History] Cyanocobalamin (B-12) [Vitamin B12] 1,000 mcg SQ QWEEK 05/27/16 [History] Glucosamn/Condroitn/C/Mn/Flora [Cvs Glucosamine Chondroitin Tb] 1 tab PO DAILY 05/27/16 [History] Multivit,Th Iron,Other Min [Therems-M] 1 tab PO DAILY 05/27/16 [History] Vitamin E (Dl,Tocopheryl Acet) [Vitamin E] 400 unit PO DAILY 05/27/16 [History] Aspirin Enteric Coated [Aspirin EC] 81 mg PO DAILY #30 05/22/17 [Rx] Levothyroxine [Synthroid] 50 mcg PO 0630 #30 tab 05/22/17 [Rx] Furosemide [Lasix] 40 mg PO BID 06/16/17 [History] Gabapentin [Neurontin] 300 mg PO BID #20 capsule 06/22/17 [Rx] Diltiazem HCl [Diltiazem 24Hr Cd] 360 mg PO DAILY 07/05/17 [History] HYDROcodone/Acet 10/325 mg [[place] 10-325 mg] 1 tab PO Q8H PRN 07/05/17 [History] Ibuprofen [Motrin] 600 mg PO BID 07/05/17 [History] Metoprolol [Lopressor] 100 mg PO BID 07/05/17 [History] Omeprazole [PriLOSEC] 40 mg PO DAILY 07/05/17 [History] 3 Allergy/AdvReac Type Severity Reaction Status Date / Time codeine Allergy Rash Verified 06/15/17 22:17 fluoxetine [From Prozac] Allergy Rash Verified 06/15/17 22:17 haloperidol [From Haldol] Allergy See Verified 06/15/17 22:17 Comments nalbuphine [From Nubain] Allergy Rash Verified 06/15/17 22:17 Sulfa (Sulfonamide Allergy Rash Verified 06/15/17 22:17 Antibiotics) All Systems: A 10-system review of systems was performed and is negative for pertinent findings except as documented above in the HPI. 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 mathematics teacher, quadriceps, tibialis Anterior, toe extension (EHL), plantarflexion Detailed sensory examination: intact Reflexes: Biceps: 1+, Triceps: 1+, Patella: 0, Achilles: 0 Mental Status Examination: awake, alert, oriented to person, answers questions appropriately, opens eyes to voice, follows simple commands, localizes noxious stimulation Cranial nerve examination: PERRL, no facial asymmetry is present, no dysarthria Ataxia: left upper extremity (Patient noted to have left upper extremity weakness and generalized weakness) Results - Laboratory Findings CBC and BMP: 07/07/17 03:00 07/07/17 03:00 Abnormal lab findings: Abnormal lab results WBC 18.6 K/mcL (4.3-11.1) H 07/07/17 03:00 RBC 2.44 M/mcL (3.82-4.97) L 07/07/17 03:00 Hgb 7.3 g/dL (11.5-15.4) L D 07/07/17 03:00 Hct 23.4 % (35.3-44.9) L 07/07/17 03:00 MCHC 31.2 g/dL (31.6-35.5) L 07/07/17 03:00 RDW 20.9 % (11.5-14.5) H 07/07/17 03:00 Band Neutrophils % 6.0 % (0-4) H 07/05/17 18:37 Metamyelocytes % 2.0 % (0) H 07/05/17 18:37 Myelocytes % 2.0 % (0) H 07/05/17 18:37 Neutrophils # 15.0 K/mcL (1.6-8.9) H 07/07/17 03:00 Monocytes # 1.9 K/mcL (0.0-1.3) H 07/07/17 03:00 Nucleated RBCs/100 WBC 0.2 /100 WBC (0) H 07/07/17 03:00 Smudge Cells Present (Not Present) A 07/05/17 18:37 Toxic Granulation Present (Not Present) A 07/06/17 03:45 Large Platelets Present (Not Present) A 07/06/17 03:45 Anisocytosis 3+ (Not Present) A 07/06/17 03:45 Macrocytosis Present (Not Present) A 07/06/17 03:45 PT 14.7 Seconds (9.4-12.1) H 07/05/17 18:37 ABG Total CO2 28 mEq/L (20-26) H 07/06/17 04:31 VBG pH 6.91 pH Units (7.32-7.42) L* 07/05/17 18:34 VBG pO2 62 mmHg (25-50) H 07/05/17 18:34 VBG HCO3 10 mEq/L (21-27) L 07/05/17 18:34 Sodium 132 mEq/L (136-145) L D 07/07/17 03:00 Potassium 4.7 mEq/L (3.5-4.5) H D 07/07/17 03:00 Chloride 97 mEq/L (98-109) L 07/07/17 03:00 BUN 22 mg/dL (7-20) H 07/07/17 03:00 Creatinine 3.25 mg/dL (0.57-1.11) H D 07/07/17 03:00 Est GFR ( Amer) 17 (> 60) L 07/07/17 03:00 Est GFR (Non-Af Amer) 14 (> 60) L 07/07/17 03:00 Glucose 140 mg/dL (70-99) H 07/07/17 03:00 POC Glucose 128 (58-89) H 07/07/17 12:17 Lactic Acid 5.3 mmol/L (0.5-2.2) H* 07/06/17 03:45 Calcium 8.0 mg/dL (8.6-10.8) L 07/07/17 03:00 Phosphorus 7.8 mg/dL (2.3-4.7) H 07/05/17 18:37 AST 53 Units/L (5-34) H 07/05/17 18:37 Alkaline Phosphatase 129 Units/L (38-126) H 07/05/17 18:37 B-Natriuretic Peptide 1525 pg/mL (0-100) H 07/06/17 03:45 Serum Total Protein 5.6 g/dL (6.0-8.3) L 07/05/17 18:37 Albumin 2.5 g/dL (3.5-5.0) L 07/05/17 18:37 Albumin/Globulin Ratio 0.8 (1.1-2.2) L 07/05/17 18:37 Urine Clarity Cloudy (Clear) A 07/05/17 19:31 Urine Protein >=300 mg/dL (Neg-Trace) H 07/05/17 19:31 Urine Ketones Trace mg/dL (Negative) H 07/05/17 19:31 Urine Blood Large (Negative) H 07/05/17 19:31 Ur Leukocyte Esterase Large (Negative) H 07/05/17 19:31 Urine Microscopic WBC TNTC per hpf (0-3) H 07/05/17 19:31 Ur Culture Indicated? YES (NO) A 07/05/17 19:31 Enterococcus sp PCR DETECTED (Not Detect) A 07/05/17 18:37 Consult Discharge Plan - Plan Referrals: Kaleigh Beckham MD [Primary Care Provider] -
[2017-07-07] MEDS ORDERED: Vancomycin 500 MG in D5% in Water (Mini-Bag+) 100 ML IVPB ONE (18:00)
[2017-07-07] MEDS: *HR* HYDROcodone/Acet 10/325 mg TABLET PO PRN (20:26)
[2017-07-07] MEDS ORDERED: D5% in Water 250 ML ONE (20:51)
[2017-07-08] MEDS: Insulin LISPRO 300 UNITS/3 ML VIAL SQ SCH ×6 (02:14→23:30)
[2017-07-08 03:21] LABS: Basophils % 0.1 %; Eosinophils % 0.1 %; Hematocrit 21.3 % (35.3-44.9); Hemoglobin 6.5 g/dL (11.5-15.4); Immature Granulocytes % 0.7 % (0-4); Lymphocytes # 1.2 K/mcL (0.6-4.6); Lymphocytes % 8.7 %; Mean Corpuscular HGB Conc 30.5 g/dL (31.6-35.5); Mean Corpuscular Hemoglobin 30.1 pg (28.0-33.3); Mean Corpuscular Volume 98.6 fL (83.0-100.0); Mean Platelet Volume 11.1 fL (9.4-12.4); Monocytes # 1.9 K/mcL (0.0-1.3); Monocytes % 13.6 %; Neutrophils # 10.5 K/mcL (1.6-8.9); Platelet Count 185 K/mcL (140-400); Red Blood Count 2.16 M/mcL (3.82-4.97); Segmented Neutrophils % 76.8 %
[2017-07-08 03:34] LABS: Calcium 8.1 mg/dL (8.6-10.8); Potassium 4.4 mEq/L (3.5-4.5)
[2017-07-08] MEDS: *HR* Heparin 5,000 UNIT/ML VIAL SQ SCH ×2 (05:12→18:26)
[2017-07-08] MEDS: Ampicillin 2 GM in 0.9 % Sodium Chloride Mini Bag 100 ML IVPB SCH ×2 (07:39→18:27)
[2017-07-08] MEDS: Pantoprazole 40 MG VIAL IVP SCH (07:41)
[2017-07-08] MEDS: Aspirin Enteric Coated 81 MG Tablet PO SCH (08:02)
[2017-07-08] MEDS: *HR* HYDROcodone/Acet 10/325 mg TABLET PO PRN ×3 (08:02→19:33)
--- NOTE | 2017-07-08 08:28 | Pulmonology Progress Note ---
<Michael Thayer - Last Filed: 07/08/17 08:28> Date of Encounter: 07/08/17 Time of Encounter: 08:28 Subjective Principal diagnosis: Septic shock from UTI Objective PUL Vital signs: Last Vital Signs Temp 99.2 F 07/08/17 08:12 Pulse 134 07/08/17 08:12 Resp 20 07/08/17 08:12 BP 96/68 07/08/17 08:12 Pulse Ox 100 07/08/17 08:12 Results - Laboratory Findings CBC and BMP: 07/08/17 03:05 07/08/17 03:05 ABG ABG pH 7.45 pH Units (7.32-7.45) D 07/06/17 04:31 ABG pCO2 38 mmHg (35-45) 07/06/17 04:31 ABG pO2 88 mmHg (85-104) D 07/06/17 04:31 ABG O2 Saturation 97 % (95-98) 07/06/17 04:31 PT/INR, D-dimer PT 14.7 Seconds (9.4-12.1) H 07/05/17 18:37 Abnormal lab findings: Abnormal lab results WBC 13.6 K/mcL (4.3-11.1) H 07/08/17 03:05 RBC 2.16 M/mcL (3.82-4.97) L 07/08/17 03:05 Hgb 6.5 g/dL (11.5-15.4) L 07/08/17 03:05 Hct 21.3 % (35.3-44.9) L 07/08/17 03:05 MCHC 30.5 g/dL (31.6-35.5) L 07/08/17 03:05 RDW 21.0 % (11.5-14.5) H 07/08/17 03:05 Band Neutrophils % 6.0 % (0-4) H 07/05/17 18:37 Metamyelocytes % 2.0 % (0) H 07/05/17 18:37 Myelocytes % 2.0 % (0) H 07/05/17 18:37 Neutrophils # 10.5 K/mcL (1.6-8.9) H 07/08/17 03:05 Monocytes # 1.9 K/mcL (0.0-1.3) H 07/08/17 03:05 Nucleated RBCs/100 WBC 0.2 /100 WBC (0) H 07/07/17 03:00 Smudge Cells Present (Not Present) A 07/05/17 18:37 Toxic Granulation Present (Not Present) A 07/06/17 03:45 Large Platelets Present (Not Present) A 07/06/17 03:45 Anisocytosis 3+ (Not Present) A 07/06/17 03:45 Macrocytosis Present (Not Present) A 07/06/17 03:45 PT 14.7 Seconds (9.4-12.1) H 07/05/17 18:37 ABG Total CO2 28 mEq/L (20-26) H 07/06/17 04:31 VBG pH 6.91 pH Units (7.32-7.42) L* 07/05/17 18:34 VBG pO2 62 mmHg (25-50) H 07/05/17 18:34 VBG HCO3 10 mEq/L (21-27) L 07/05/17 18:34 Creatinine 2.21 mg/dL (0.57-1.11) H 07/08/17 03:05 Est GFR ( Amer) 26 (> 60) L 07/08/17 03:05 Est GFR (Non-Af Amer) 21 (> 60) L 07/08/17 03:05 BUN/Creatinine Ratio 5 (6-26) L 07/08/17 03:05 POC Glucose 112 (58-89) H 07/08/17 07:05 Lactic Acid 5.3 mmol/L (0.5-2.2) H* 07/06/17 03:45 Calcium 8.1 mg/dL (8.6-10.8) L 07/08/17 03:05 Phosphorus 7.8 mg/dL (2.3-4.7) H 07/05/17 18:37 AST 53 Units/L (5-34) H 07/05/17 18:37 Alkaline Phosphatase 129 Units/L (38-126) H 07/05/17 18:37 B-Natriuretic Peptide 1525 pg/mL (0-100) H 07/06/17 03:45 Serum Total Protein 5.6 g/dL (6.0-8.3) L 07/05/17 18:37 Albumin 2.5 g/dL (3.5-5.0) L 07/05/17 18:37 Albumin/Globulin Ratio 0.8 (1.1-2.2) L 07/05/17 18:37 Urine Clarity Cloudy (Clear) A 07/05/17 19:31 Urine Protein >=300 mg/dL (Neg-Trace) H 07/05/17 19:31 Urine Ketones Trace mg/dL (Negative) H 07/05/17 19:31 Urine Blood Large (Negative) H 07/05/17 19:31 Ur Leukocyte Esterase Large (Negative) H 07/05/17 19:31 Urine Microscopic WBC TNTC per hpf (0-3) H 07/05/17 19:31 Ur Culture Indicated? YES (NO) A 07/05/17 19:31 Enterococcus sp PCR DETECTED (Not Detect) A 07/05/17 18:37 - Microbiology Findings Microbiology Findings: Microbiology, Last 48 Hours 07/06/17 12:08 Blood Culture - Preliminary Peripheral Venipuncture No growth. 07/06/17 11:39 Blood Culture - Final Central Venous Catheter Enterococcus species - Clinical Findings Intake & Output: Intake & Output 07/07/17 07/08/17 07/08/17 23:59 07:59 15:59 Intake Total 600 / 600 0 / 0 Output Total 1020 / 1020 165 / 165 Balance -420 / -420 -165 / -165 Consult Discharge Plan - Plan Referrals: Kaleigh Beckham MD [Primary Care Provider] - <Braulio Patel W - Last Filed: 07/08/17 10:18> Date of Encounter: 07/08/17 Objective PUL Vital signs: Last Vital Signs Temp 99.2 F 07/08/17 08:12 Pulse 124 07/08/17 09:00 Resp 15 07/08/17 09:00 BP 98/77 07/08/17 09:00 Pulse Ox 100 07/08/17 09:00 Results - Laboratory Findings CBC and BMP: 07/08/17 03:05 07/08/17 03:05 ABG ABG pH 7.45 pH Units (7.32-7.45) D 07/06/17 04:31 ABG pCO2 38 mmHg (35-45) 07/06/17 04:31 ABG pO2 88 mmHg (85-104) D 07/06/17 04:31 ABG O2 Saturation 97 % (95-98) 07/06/17 04:31 PT/INR, D-dimer PT 14.7 Seconds (9.4-12.1) H 07/05/17 18:37 Abnormal lab findings: Abnormal lab results WBC 13.6 K/mcL (4.3-11.1) H 07/08/17 03:05 RBC 2.16 M/mcL (3.82-4.97) L 07/08/17 03:05 Hgb 6.5 g/dL (11.5-15.4) L 07/08/17 03:05 Hct 21.3 % (35.3-44.9) L 07/08/17 03:05 MCHC 30.5 g/dL (31.6-35.5) L 07/08/17 03:05 RDW 21.0 % (11.5-14.5) H 07/08/17 03:05 Band Neutrophils % 6.0 % (0-4) H 07/05/17 18:37 Metamyelocytes % 2.0 % (0) H 07/05/17 18:37 Myelocytes % 2.0 % (0) H 07/05/17 18:37 Neutrophils # 10.5 K/mcL (1.6-8.9) H 07/08/17 03:05 Monocytes # 1.9 K/mcL (0.0-1.3) H 07/08/17 03:05 Nucleated RBCs/100 WBC 0.2 /100 WBC (0) H 07/07/17 03:00 Smudge Cells Present (Not Present) A 07/05/17 18:37 Toxic Granulation Present (Not Present) A 07/06/17 03:45 Large Platelets Present (Not Present) A 07/06/17 03:45 Anisocytosis 3+ (Not Present) A 07/06/17 03:45 Macrocytosis Present (Not Present) A 07/06/17 03:45 PT 14.7 Seconds (9.4-12.1) H 07/05/17 18:37 ABG Total CO2 28 mEq/L (20-26) H 07/06/17 04:31 VBG pH 6.91 pH Units (7.32-7.42) L* 07/05/17 18:34 VBG pO2 62 mmHg (25-50) H 07/05/17 18:34 VBG HCO3 10 mEq/L (21-27) L 07/05/17 18:34 Creatinine 2.21 mg/dL (0.57-1.11) H 07/08/17 03:05 Est GFR ( Amer) 26 (> 60) L 07/08/17 03:05 Est GFR (Non-Af Amer) 21 (> 60) L 07/08/17 03:05 BUN/Creatinine Ratio 5 (6-26) L 07/08/17 03:05 POC Glucose 112 (58-89) H 07/08/17 07:05 Lactic Acid 5.3 mmol/L (0.5-2.2) H* 07/06/17 03:45 Calcium 8.1 mg/dL (8.6-10.8) L 07/08/17 03:05 Phosphorus 7.8 mg/dL (2.3-4.7) H 07/05/17 18:37 AST 53 Units/L (5-34) H 07/05/17 18:37 Alkaline Phosphatase 129 Units/L (38-126) H 07/05/17 18:37 B-Natriuretic Peptide 1525 pg/mL (0-100) H 07/06/17 03:45 Serum Total Protein 5.6 g/dL (6.0-8.3) L 07/05/17 18:37 Albumin 2.5 g/dL (3.5-5.0) L 07/05/17 18:37 Albumin/Globulin Ratio 0.8 (1.1-2.2) L 07/05/17 18:37 Urine Clarity Cloudy (Clear) A 07/05/17 19:31 Urine Protein >=300 mg/dL (Neg-Trace) H 07/05/17 19:31 Urine Ketones Trace mg/dL (Negative) H 07/05/17 19:31 Urine Blood Large (Negative) H 07/05/17 19:31 Ur Leukocyte Esterase Large (Negative) H 07/05/17 19:31 Urine Microscopic WBC TNTC per hpf (0-3) H 07/05/17 19:31 Ur Culture Indicated? YES (NO) A 07/05/17 19:31 Enterococcus sp PCR DETECTED (Not Detect) A 07/05/17 18:37 - Microbiology Findings Microbiology Findings: Microbiology, Last 48 Hours 07/06/17 12:08 Blood Culture - Preliminary Peripheral Venipuncture No growth. 07/06/17 11:39 Blood Culture - Final Central Venous Catheter Enterococcus species - Clinical Findings Intake & Output: Intake & Output 07/07/17 07/08/17 07/08/17 23:59 07:59 15:59 Intake Total 600 / 600 0 / 0 Output Total 1020 / 1020 165 / 165 Balance -420 / -420 -165 / -165 - Attending Attestation I examined this patient and my medical decision-making was reviewed with the Resident Physician. I agree with the documented findings, disposition and treatment plan as described except to the extent set forth below. We independently had [id number] contact with the patient Patient seen and examined at bedside Labs, radiology, chart personally reviewed. Management was reviewed during multidisciplinary critical care rounds. Neuropsych: Acute MCA stroke. No further w/u per family's request. Cont Asa and Statin Pulm:Good saturation on minimal supplemental oxygen per nasal cannula for goal Sao2 around 92%. Cards: Vasodilatory Shock s/t to Sepsis resolved. Afib with RVR treating with BB which we will titrate FEN-GI:Speech and Swallow eval. recs for pureed diet Renal:ESRD cont dialysis per protocol ID: Enterococcal UTi cont Heme/Onc: DVT prophylaxis given. Holding anticoagulation (full) for acute C [facility] Endo: Glucose Monitored Integ/MSK: Skin Care per routine ICU Nursing Protocol to prevent ulcers. Lines: All lines examined without evidence of infection. Dispo: Transfer to tele when rate controlled. CODE: Palliative care consult to address ongoing goals of care. Currently DNAR
[2017-07-08] MEDS ORDERED: *HR* Metoprolol 5 MG/5 ML VIAL IVP PRN (09:03)
--- NOTE | 2017-07-08 10:07 | Neurology Progress Note ---
Date of Encounter: 07/08/17 Time of Encounter: 07:30 Assessment and Plan (1) Acute cerebrovascular accident (CVA) Current Visit: Yes Status: Acute At this time I would still recommend that we should continue her on aspirin continue to monitor the blood pressure keep her comfortable other treatment is as per ICU team. will sign off please call if needed (2) ESRD (end stage renal disease) on dialysis Current Visit: Yes Status: Acute (3) Septic shock Current Visit: Yes Status: Acute Subjective Principal diagnosis: cva Interval history: Patient remained stable no other new focal findings on examination reported by the staff. No apparent workup for the stroke because family wants patient to be comfortable and did not want any aggressive measures Objective - Constitutional Vitals: Temp Pulse Resp BP Pulse Ox 99.2 F 124 15 98/77 100 07/08/17 08:12 07/08/17 09:00 07/08/17 09:00 07/08/17 09:00 07/08/17 09:00 - Neurological Exam Motor examination - left side: 2/5: deltoids, biceps, triceps, wrist flexion, wrist extension, 3/5: hip flexors, hose mender, quadriceps, tibialis Anterior, toe extension (EHL), plantarflexion Sensation intact: Present: intact Mental Status Examination: Present: awake, alert, oriented to person, answers questions appropriately, opens eyes to voice, follows simple commands, localizes noxious stimulation Cranial nerve examination: Present: PERRL, no facial asymmetry is present, no dysarthria Results - Laboratory Findings CBC and BMP: 07/08/17 03:05 07/08/17 03:05 Abnormal lab findings: Abnormal lab results WBC 13.6 K/mcL (4.3-11.1) H 07/08/17 03:05 RBC 2.16 M/mcL (3.82-4.97) L 07/08/17 03:05 Hgb 6.5 g/dL (11.5-15.4) L 07/08/17 03:05 Hct 21.3 % (35.3-44.9) L 07/08/17 03:05 MCHC 30.5 g/dL (31.6-35.5) L 07/08/17 03:05 RDW 21.0 % (11.5-14.5) H 07/08/17 03:05 Band Neutrophils % 6.0 % (0-4) H 07/05/17 18:37 Metamyelocytes % 2.0 % (0) H 07/05/17 18:37 Myelocytes % 2.0 % (0) H 07/05/17 18:37 Neutrophils # 10.5 K/mcL (1.6-8.9) H 07/08/17 03:05 Monocytes # 1.9 K/mcL (0.0-1.3) H 07/08/17 03:05 Nucleated RBCs/100 WBC 0.2 /100 WBC (0) H 07/07/17 03:00 Smudge Cells Present (Not Present) A 07/05/17 18:37 Toxic Granulation Present (Not Present) A 07/06/17 03:45 Large Platelets Present (Not Present) A 07/06/17 03:45 Anisocytosis 3+ (Not Present) A 07/06/17 03:45 Macrocytosis Present (Not Present) A 07/06/17 03:45 PT 14.7 Seconds (9.4-12.1) H 07/05/17 18:37 ABG Total CO2 28 mEq/L (20-26) H 07/06/17 04:31 VBG pH 6.91 pH Units (7.32-7.42) L* 07/05/17 18:34 VBG pO2 62 mmHg (25-50) H 07/05/17 18:34 VBG HCO3 10 mEq/L (21-27) L 07/05/17 18:34 Creatinine 2.21 mg/dL (0.57-1.11) H 07/08/17 03:05 Est GFR ( Amer) 26 (> 60) L 07/08/17 03:05 Est GFR (Non-Af Amer) 21 (> 60) L 07/08/17 03:05 BUN/Creatinine Ratio 5 (6-26) L 07/08/17 03:05 POC Glucose 112 (58-89) H 07/08/17 07:05 Lactic Acid 5.3 mmol/L (0.5-2.2) H* 07/06/17 03:45 Calcium 8.1 mg/dL (8.6-10.8) L 07/08/17 03:05 Phosphorus 7.8 mg/dL (2.3-4.7) H 07/05/17 18:37 AST 53 Units/L (5-34) H 07/05/17 18:37 Alkaline Phosphatase 129 Units/L (38-126) H 07/05/17 18:37 B-Natriuretic Peptide 1525 pg/mL (0-100) H 07/06/17 03:45 Serum Total Protein 5.6 g/dL (6.0-8.3) L 07/05/17 18:37 Albumin 2.5 g/dL (3.5-5.0) L 07/05/17 18:37 Albumin/Globulin Ratio 0.8 (1.1-2.2) L 07/05/17 18:37 Urine Clarity Cloudy (Clear) A 07/05/17 19:31 Urine Protein >=300 mg/dL (Neg-Trace) H 07/05/17 19:31 Urine Ketones Trace mg/dL (Negative) H 07/05/17 19:31 Urine Blood Large (Negative) H 07/05/17 19:31 Ur Leukocyte Esterase Large (Negative) H 07/05/17 19:31 Urine Microscopic WBC TNTC per hpf (0-3) H 07/05/17 19:31 Ur Culture Indicated? YES (NO) A 07/05/17 19:31 Enterococcus sp PCR DETECTED (Not Detect) A 07/05/17 18:37 Consult Discharge Plan - Plan Referrals: Kaleigh Beckham MD [Primary Care Provider] -
--- NOTE | 2017-07-08 10:09 | Nephrology Progress Note ---
Date of Encounter: 07/08/17 Time of Encounter: 09:40 - Assessment and Plan (1) End-stage renal disease needing dialysis Current Visit: No Status: Chronic No HD today, keeping MWF schedule. Subjective Principal diagnosis: cva Interval history: Extubated, nasal O2. arouses easily, tracks but nonverbal. PRBC's infusing. Objective - Vital Signs Vital signs: Vital Signs Temp Pulse Resp BP Pulse Ox 07/08/17 09:00 124 15 98/77 100 07/08/17 08:12 99.2 F 134 20 96/68 100 07/08/17 08:00 135 17 123/82 100 07/08/17 07:57 99 F 129 18 123/82 100 07/08/17 07:32 99.2 F 07/08/17 07:00 125 20 120/74 100 07/08/17 06:00 128 18 115/65 100 07/08/17 05:00 122 19 108/61 100 07/08/17 04:46 98.2 F 07/08/17 04:00 128 19 104/64 100 07/08/17 03:00 63 15 108/69 100 07/08/17 02:00 129 12 96/69 100 07/08/17 01:00 128 14 98/60 100 07/08/17 00:00 99.9 F H 135 12 102/66 100 07/07/17 23:00 129 14 93/58 100 07/07/17 22:00 123 12 99/63 97 07/07/17 21:00 140 14 108/67 100 07/07/17 20:55 98.1 F 14 121/7 07/07/17 20:45 117/75 07/07/17 20:30 102/73 07/07/17 20:24 98.1 F 07/07/17 20:15 110/73 07/07/17 20:00 153 21 106/63 100 07/07/17 19:45 87/59 07/07/17 19:30 98/53 07/07/17 19:15 93/64 07/07/17 19:00 147 15 94/55 100 07/07/17 18:45 114/77 07/07/17 18:30 105/64 07/07/17 18:15 97.4 F L 14 98/68 07/07/17 18:00 122 16 107/71 100 07/07/17 17:00 121 13 105/72 99 07/07/17 16:00 116 07/07/17 15:00 98.1 F 120 14 96/52 99 07/07/17 14:00 107 12 98/58 100 07/07/17 13:00 122 10 99/64 100 07/07/17 12:00 98.2 F 115 12 93/50 100 07/07/17 11:00 107 14 98/54 100 Intake and Output 07/07/17 07/08/17 07/08/17 23:59 07:59 15:59 Intake Total 600 / 600 0 / 0 Output Total 1020 / 1020 165 / 165 Balance -420 / -420 -165 / -165 Intake: Oral 0 / 0 Blood Product 0 / 0 Rbcs Leuko Poor As-3 2nd Unit 0 / 0 [id number] Intake, Rinseback and Flushes 600 / 600 Output: Urine 0 / 0 Stool 150 / 150 125 / 125 Total Dialysis (HD) Output 870 / 870 Catheter 40 / 40 Other: Blood Glucose* 107 112 Hemodialysis Net Fluid Removed 270 (mL) - General Appearance General appearance: Present: chronically ill, frail EENT: Present: mucous membranes moist Neck: Present: no JVD Respiratory: Present: clear Cardiology: Present: no edema, irregular rhythm Gastrointestinal: Present: hypoactive bowel sounds Integumentary: Present: warm and dry - Lab 07/08/17 03:05 07/08/17 03:05 Most recent lab results ABG pH 7.45 pH Units (7.32-7.45) D 07/06/17 04:31 ABG pCO2 38 mmHg (35-45) 07/06/17 04:31 ABG pO2 88 mmHg (85-104) D 07/06/17 04:31 ABG HCO3 27 mEq/L (21-27) 07/06/17 04:31 ABG O2 Saturation 97 % (95-98) 07/06/17 04:31 Calcium 8.1 mg/dL (8.6-10.8) L 07/08/17 03:05 Phosphorus 7.8 mg/dL (2.3-4.7) H 07/05/17 18:37 Magnesium 1.6 mg/dL (1.6-2.6) 07/06/17 03:45 Consult Discharge Plan - Plan Referrals: Kaleigh Beckham MD [Primary Care Provider] -
[2017-07-08] MEDS: *HR* FentaNYL (PF) 100 MCG/2 ML VIAL IVP PRN ×3 (12:21→23:04)
--- NOTE | 2017-07-08 13:05 | Palliative - Consult Note ---
Date of Encounter: 07/08/17 Time of Encounter: 13:00 - Assessment and Plan (1) Dysphagia Current Visit: Yes Status: Acute Assessment and plan: Continue speech therapy. Currently on pureed diet with no liquids. MOnitor Qualifiers: Dysphagia type: unspecified Qualified Code(s): R13.10 - Dysphagia, unspecified (2) Generalized pain Current Visit: Yes Status: Acute Assessment and plan: Continue low dose Fentanyl IVP as needed. Patient states this is keeping her comfortable. (3) Goals of care, counseling/discussion Current Visit: Yes Status: Acute Assessment and plan: Reached son Paolo via telephone, however, service was interrupted and unable to have good discussion. He works in [employer] at [employer], and gets little service in the building. He is aware of pt current clinical condition. Discussed speech therapy eval and inability to take in liquids safely at this point. Discussed with pt and son possibly need to decide on artificial feedings. Both pt and son stated that they do not think PEG tube is desired, however, son request continuation of speech therapy to continue until he is able to come to hospital to discuss. He states he has issues at work, and unable to get away to come to hospital anytime soon. I discussed that it was important he make arrangements to visit and discuss, he took my contact information and said he would see what he could do, but may be "first of week" before he can get here. Patient has no POA, and has 3 sons, but did state she would desire Kasie to make decision for her if she is unable. She appears to be very alert and able to make own decisions at this time. 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 Arciniega is a 81 year old female known to the palliative care team from a previous visit who initially presented by EMS from [facility] for further evaluation of hypotension. She had been at [facility] for rehab stay. Patient was at dialysis when she was unable to have her graft accessed. She went to [facility] to have a thrombectomy performed. After the thrombectomy the patient's initial systolic blood pressure was 70 systolic. The patient was given a fluid bolus and was transferred to [place]. While in ER, pt condition and mental status deteriorated, heart rate decreased to 27, and she was intubated. After the son arrived, he addressed that code status was DNR/DNI, but since pt was already intubated, desired to remain on vent a few days to see if she improved. Since that time, she has been extubated. It was noted she had left sided weakness, and CT head was performed. Demonstrated small acute infarcts in the posterior right frontal lobe, in the right MCA vascular territory and posterior rightcerebellar hemisphere, in the right PICA vascular territory. EF 60 % withh mod-severe tricuspid stenosis, moderate aortic stenosis as well. She failed swallow eval and unsafe to take liquids. Palliative care was consulted to assist with goals of care discussion. CC: Thania Parnell MD Past Med Surg Social Fam HX - Past Medical History Medical history: arthritis, cancer, CHF, COPD, GERD, GI bleed, hypertension, osteoporosis, renal disease, other Psychiatric history: anxiety, depression, other - Past Surgical History Surgical History: appendectomy, , cholecystectomy, colectomy, colostomy , hysterectomy, BLAKE/BSO, other - Social History Smoking Status: Never smoker Smokeless Tobacco Status: No Alcohol use: none Drug use: none - Family History Mother Adopted: No Family Member Ethnicity: Non- Living Status: Hx Family Cardiac Disorders: Yes Hx Family Respiratory Disorders: No Hx Family Cancer: No Hx Family GI Disorders: No Hx Family Endocrine Disorder: No Hx Family Neuromuscular Disorders: No Hx Family Neurologic Disorders: Yes (TIA) Hx Family HEENT Disorders: No Hx Family Autoimmune Disorders: No Father Adopted: No Family Member Ethnicity: Non- Living Status: Hx Family Cardiac Disorders: No Hx Family Respiratory Disorders: Yes (Asthma) Hx Family Cancer: No Hx Family GI Disorders: Yes (Ulcers) Hx Family Endocrine Disorder: No Hx Family Neuromuscular Disorders: No Hx Family Neurologic Disorders: No Hx Family HEENT Disorders: No Hx Family Autoimmune Disorders: No Medications and Allergies Sodium Bicarbonate 1,950 mg PO BID 05/20/15 [History] Darbepoetin [Aranesp] 150 mcg SQ Q2W 05/24/16 [History] Cholecalciferol (D-3) [Vitamin D] 1,000 unit PO DAILY 05/27/16 [History] Cyanocobalamin (B-12) [Vitamin B12] 1,000 mcg SQ QWEEK 05/27/16 [History] Glucosamn/Condroitn/C/Mn/Dodson [Cvs Glucosamine Chondroitin Tb] 1 tab PO DAILY 05/27/16 [History] Multivit,Th Iron,Other Min [Therems-M] 1 tab PO DAILY 05/27/16 [History] Vitamin E (Dl,Tocopheryl Acet) [Vitamin E] 400 unit PO DAILY 05/27/16 [History] Aspirin Enteric Coated [Aspirin EC] 81 mg PO DAILY #30 05/22/17 [Rx] Levothyroxine [Synthroid] 50 mcg PO 0630 #30 tab 05/22/17 [Rx] Furosemide [Lasix] 40 mg PO BID 06/16/17 [History] Gabapentin [Neurontin] 300 mg PO BID #20 capsule 06/22/17 [Rx] Diltiazem HCl [Diltiazem 24Hr Cd] 360 mg PO DAILY 07/05/17 [History] HYDROcodone/Acet 10/325 mg [[place] 10-325 mg] 1 tab PO Q8H PRN 07/05/17 [History] Ibuprofen [Motrin] 600 mg PO BID 07/05/17 [History] Metoprolol [Lopressor] 100 mg PO BID 07/05/17 [History] Omeprazole [PriLOSEC] 40 mg PO DAILY 07/05/17 [History] 3 Allergy/AdvReac Type Severity Reaction Status Date / Time codeine Allergy Rash Verified 06/15/17 22:17 fluoxetine [From Prozac] Allergy Rash Verified 06/15/17 22:17 haloperidol [From Haldol] Allergy See Verified 06/15/17 22:17 Comments nalbuphine [From Nubain] Allergy Rash Verified 06/15/17 22:17 Sulfa (Sulfonamide Allergy Rash Verified 06/15/17 22:17 Antibiotics) All systems: reviewed and no additional remarkable complaints except as stated ( c/o bilateral leg discomfort, left sided weakness,) Palliative Care-Exam - Constitutional Vitals: Temp Pulse Resp BP Pulse Ox 99.6 F 124 15 132/79 100 07/08/17 11:35 07/08/17 12:00 07/08/17 12:00 07/08/17 12:00 07/08/17 12:00 General appearance: Present: thin - Head Head Exam: Present: normal inspection, normocephalic - Respiratory Respiratory exam: Present: decreased breath sounds, CTAB - Cardiovascular Cardiovascular exam: Present: irregular rhythm - GI/Abdominal Exam GI/Abdominal exam: Present: normal bowel sounds, soft - Catheter Type: Urethral (Petersen) - Extremities Exam Extremities exam: Present: normal capillary refill, normal inspection - Neurological Exam Neurological exam: Present: alert Additional comments: Oriented to name and place and year, answers questions appropriately Follows commands. Left arm weakness, does make attempt to lift off the bed. - Skin Skin exam: Present: dry, pallor, warm Internal Medicine - CN: Reslt - Labs CBC & Chem 7: 07/08/17 03:05 07/08/17 03:05 Labs: Short CBC 07/08/17 Range/Units 03:05 WBC 13.6 H (4.3-11.1) K/mcL Hgb 6.5 L (11.5-15.4) g/dL Hct 21.3 L (35.3-44.9) % Plt Count 185 (140-400) K/mcL Neutrophils # 10.5 H (1.6-8.9) K/mcL BMP 07/08/17 03:05 Sodium 137 Potassium 4.4 Chloride 101 Carbon Dioxide 28 BUN 12 D Creatinine 2.21 H Glucose 95 Calcium 8.1 L - ABG Interpretation ABG results: ABG ABG pH 7.45 pH Units (7.32-7.45) D 07/06/17 04:31 ABG pCO2 38 mmHg (35-45) 07/06/17 04:31 ABG pO2 88 mmHg (85-104) D 07/06/17 04:31 ABG O2 Saturation 97 % (95-98) 07/06/17 04:31 PT/INR, D-dimer PT 14.7 Seconds (9.4-12.1) H 07/05/17 18:37 Consult Discharge Plan - Plan Referrals: Kaleigh Beckham MD [Primary Care Provider] - Palliative Quality Palliative Quality: Screen for Code Status: Yes, Screen for Goals of Care: Yes, Screen for Pain: Yes, If Pain Regimen Started, Initiate Bowel Regimen: NA, Screen for Nausea/Vomitting: Yes Code Status: 07/05/17 23:40 Resuscitation Status: Active [RES] Routine Comment: Resuscitation Status: DNR-Comfort Care-Arrest 07/06/17 20:48 CODE [Resuscitation Status: Active] [RES] Routine Comment: Resuscitation Status: [id number]
[2017-07-09] MEDS: Norepinephrine 4 MG in D5% in Water 250 ML IVC SCH (03:03)
[2017-07-09] MEDS: *HR* FentaNYL (PF) 100 MCG/2 ML VIAL IVP PRN (03:19)
[2017-07-09] MEDS: *HR* HYDROcodone/Acet 10/325 mg TABLET PO PRN ×4 (03:20→23:17)
[2017-07-09 03:31] LABS: Basophils % 0.3 %; Eosinophils % 0.3 %; Hematocrit 30.2 % (35.3-44.9); Immature Granulocytes % 1.2 % (0-4); Lymphocytes # 1.7 K/mcL (0.6-4.6); Lymphocytes % 11.6 %; Mean Corpuscular HGB Conc 29.5 g/dL (31.6-35.5); Mean Corpuscular Hemoglobin 29.8 pg (28.0-33.3); Mean Platelet Volume 11.4 fL (9.4-12.4); Monocytes # 2.8 K/mcL (0.0-1.3); Monocytes % 18.9 %; Neutrophils # 10.1 K/mcL (1.6-8.9); Nucleated Red Blood Cells 0.3 /100 WBC (0); Platelet Count 170 K/mcL (140-400); Red Blood Count 2.99 M/mcL (3.82-4.97); Red Cell Distribution Width 22.5 % (11.5-14.5); Segmented Neutrophils % 67.7 %
[2017-07-09 03:51] LABS: Hemoglobin 8.9 g/dL (11.5-15.4)
[2017-07-09 04:00] LABS: Calcium 8.2 mg/dL (8.6-10.8); Magnesium 1.7 mg/dL (1.6-2.6)
[2017-07-09 05:27] LABS: Anisocytosis 2+ (Not Present); Platelet Estimate Normal (Normal); Polychromasia 1+ (Not Present)
[2017-07-09] MEDS: Insulin LISPRO 300 UNITS/3 ML VIAL SQ SCH (06:10)
[2017-07-09] MEDS: Ampicillin 2 GM in 0.9 % Sodium Chloride Mini Bag 100 ML IVPB SCH ×2 (06:20→18:58)
[2017-07-09] MEDS: *HR* Heparin 5,000 UNIT/ML VIAL SQ SCH ×2 (06:22→18:43)
[2017-07-09] MEDS ORDERED: *HR* FentaNYL (PF) 100 MCG/2 ML VIAL IVP PRN (07:45)
[2017-07-09] MEDS ORDERED: Albuterol 2.5 MG/3 ML NEBULIZER IH PRN (07:45)
[2017-07-09] MEDS ORDERED: *HR* Dextrose 50 % in Water (Syg) 50 ML SYRINGE IVP PRN (07:45)
[2017-07-09] MEDS ORDERED: D5% in Water 1,000 ML IVC PRN (07:45)
[2017-07-09] MEDS ORDERED: Dextrose Gel 15 GM PO PRN ×2 (07:45)
[2017-07-09] MEDS ORDERED: Albumin 25% 12.5gm/50mL 12.5 GM/50 ML IV.SOLN IVPB PRN (07:45)
[2017-07-09] MEDS ORDERED: Naloxone 0.4 MG/ML INJ IVP PRN (07:45)
[2017-07-09] MEDS ORDERED: 0.9 % Sodium Chloride 1,000 ML PRIME SCH (07:45)
[2017-07-09] MEDS ORDERED: 0.9 % Sodium Chloride 250 ML IVC PRN ×2 (07:45→09:14)
[2017-07-09] MEDS ORDERED: Ondansetron 4 MG/2 ML VIAL IVP PRN (07:45)
[2017-07-09] MEDS ORDERED: Acetaminophen 650 MG RECTAL SUPP RC PRN (07:45)
--- NOTE | 2017-07-09 08:28 | Pulmonology Progress Note ---
Addendum entered and electronically signed by Michael Thayer, 07/09/17 08:52: Signout was provided to the admitting hospitalist, Dr. Espino, who accepted the patient in transfer to the floor. Original Note: <Michael Thayer - Last Filed: 07/09/17 08:26> Date of Encounter: 07/09/17 Time of Encounter: 08:26 Assessment and Plan (1) Sepsis Current Visit: No Status: Acute Septic shock requiring pressor therapy initially on admission. Pressor support and help. Secondary to urinary tract infection and bacteremia with enterococcus. Blood pressures been stable for the past 2 days. Repeat blood cultures today to ensure resolution. Patient is on ampicillin. Qualifiers: Sepsis type: sepsis due to unspecified organism Qualified Code(s): A41.9 - Sepsis, unspecified organism (2) Urinary tract infection Current Visit: No Status: Resolved Secondary to enterococcus. Pansensitive so the patient is on ampicillin 2 g every 12 hours. Qualifiers: Urinary tract infection type: acute cystitis Hematuria presence: without hematuria Qualified Code(s): N30.00 - Acute cystitis without hematuria (3) End-stage renal disease needing dialysis Current Visit: No Status: Chronic Continue regularly scheduled Wednesday dialysis sessions. Nephrology is following. (4) Acute respiratory failure with hypoxia Current Visit: Yes Status: Acute Patient was intubated prior to arrival to the emergency department. In discussions with the son the patient apparently did not want to be intubated so it was decided to extubate the patient compassionately. She has done well since extubation. Continue supplemental oxygen to keep oxygen saturations above 90% (5) Acute cerebrovascular accident (CVA) Current Visit: Yes Status: Acute She was found to have left-sided weakness, CT of the head was performed that showed a right MCA and right posterior circulation stroke. Neurology was consulted, and the patient was started on aspirin and statin. Discussions with the son regarding further workup revealed that the son did not want aggressive measures and declined for her to have an MRI. Continue supportive treatment. Subjective Principal diagnosis: cva Interval history: Patient seen and examined at bedside. Patient has minimal complaints at this time. She is having difficulty moving her left arm but otherwise denies pain, shortness of breath, chest pain. Objective PUL Vital signs: Last Vital Signs Temp 98.9 F 07/09/17 07:26 Pulse 128 07/09/17 07:53 Resp 16 07/09/17 07:00 BP 119/76 07/09/17 07:00 Pulse Ox 100 07/09/17 07:00 General appearance: no acute distress ENT: oropharynx moist Auscultation: bilateral: diminished breath sounds Cardiovascular: irregular rhythm (Tachycardia) Gastrointestinal: normoactive bowel sounds, soft, non-tender, non-distended Extremities: no cyanosis, no edema, no clubbing pupils equal and round, other (Patient has 2 out of 5 strength in her left upper and left lower extremity.) Results - Laboratory Findings CBC and BMP: 07/09/17 03:14 07/09/17 03:14 ABG ABG pH 7.45 pH Units (7.32-7.45) D 07/06/17 04:31 ABG pCO2 38 mmHg (35-45) 07/06/17 04:31 ABG pO2 88 mmHg (85-104) D 07/06/17 04:31 ABG O2 Saturation 97 % (95-98) 07/06/17 04:31 PT/INR, D-dimer PT 14.7 Seconds (9.4-12.1) H 07/05/17 18:37 Abnormal lab findings: Abnormal lab results WBC 14.9 K/mcL (4.3-11.1) H 07/09/17 03:14 RBC 2.99 M/mcL (3.82-4.97) L 07/09/17 03:14 Hgb 8.9 g/dL (11.5-15.4) L D 07/09/17 03:14 Hct 30.2 % (35.3-44.9) L 07/09/17 03:14 MCV 101.0 fL (83.0-100.0) H 07/09/17 03:14 MCHC 29.5 g/dL (31.6-35.5) L 07/09/17 03:14 RDW 22.5 % (11.5-14.5) H 07/09/17 03:14 Band Neutrophils % 6.0 % (0-4) H 07/05/17 18:37 Metamyelocytes % 2.0 % (0) H 07/05/17 18:37 Myelocytes % 2.0 % (0) H 07/05/17 18:37 Neutrophils # 10.1 K/mcL (1.6-8.9) H 07/09/17 03:14 Monocytes # 2.8 K/mcL (0.0-1.3) H 07/09/17 03:14 Nucleated RBCs/100 WBC 0.3 /100 WBC (0) H 07/09/17 03:14 Smudge Cells Present (Not Present) A 07/05/17 18:37 Toxic Granulation Present (Not Present) A 07/06/17 03:45 Large Platelets Present (Not Present) A 07/06/17 03:45 Polychromasia 1+ (Not Present) A 07/09/17 03:14 Anisocytosis 2+ (Not Present) A 07/09/17 03:14 Macrocytosis Present (Not Present) A 07/06/17 03:45 PT 14.7 Seconds (9.4-12.1) H 07/05/17 18:37 ABG Total CO2 28 mEq/L (20-26) H 07/06/17 04:31 VBG pH 6.91 pH Units (7.32-7.42) L* 07/05/17 18:34 VBG pO2 62 mmHg (25-50) H 07/05/17 18:34 VBG HCO3 10 mEq/L (21-27) L 07/05/17 18:34 Potassium 5.0 mEq/L (3.5-4.5) H 07/09/17 03:14 Creatinine 3.03 mg/dL (0.57-1.11) H 07/09/17 03:14 Est GFR ( Amer) 18 (> 60) L 07/09/17 03:14 Est GFR (Non-Af Amer) 15 (> 60) L 07/09/17 03:14 POC Glucose 93 (58-89) H 07/08/17 23:15 Lactic Acid 5.3 mmol/L (0.5-2.2) H* 07/06/17 03:45 Calcium 8.2 mg/dL (8.6-10.8) L 07/09/17 03:14 Phosphorus 7.8 mg/dL (2.3-4.7) H 07/05/17 18:37 AST 53 Units/L (5-34) H 07/05/17 18:37 Alkaline Phosphatase 129 Units/L (38-126) H 07/05/17 18:37 B-Natriuretic Peptide 1525 pg/mL (0-100) H 07/06/17 03:45 Serum Total Protein 5.6 g/dL (6.0-8.3) L 07/05/17 18:37 Albumin 2.5 g/dL (3.5-5.0) L 07/05/17 18:37 Albumin/Globulin Ratio 0.8 (1.1-2.2) L 07/05/17 18:37 Urine Clarity Cloudy (Clear) A 07/05/17 19:31 Urine Protein >=300 mg/dL (Neg-Trace) H 07/05/17 19:31 Urine Ketones Trace mg/dL (Negative) H 07/05/17 19:31 Urine Blood Large (Negative) H 07/05/17 19:31 Ur Leukocyte Esterase Large (Negative) H 07/05/17 19:31 Urine Microscopic WBC TNTC per hpf (0-3) H 07/05/17 19:31 Ur Culture Indicated? YES (NO) A 07/05/17 19:31 Enterococcus sp PCR DETECTED (Not Detect) A 07/05/17 18:37 - Microbiology Findings Microbiology Findings: Microbiology, Last 48 Hours 07/06/17 11:41 Blood Culture - Preliminary Central Venous Catheter No growth. 07/06/17 12:08 Blood Culture - Preliminary Peripheral Venipuncture No growth. 07/06/17 11:39 Blood Culture - Final Central Venous Catheter Enterococcus species - Clinical Findings Intake & Output: Intake & Output 07/08/17 07/09/17 07/09/17 23:59 07:59 15:59 Intake Total 100 / 100 Output Total 225 / 225 75 / 75 Balance -125 / -125 -75 / -75 Consult Discharge Plan - Plan Referrals: Kaleigh Beckham MD [Primary Care Provider] - <Braulio Patel - Last Filed: 07/09/17 11:38> Date of Encounter: 07/09/17 Objective PUL Vital signs: Last Vital Signs Temp 98.9 F 07/09/17 08:37 Pulse 130 07/09/17 08:37 Resp 16 07/09/17 08:37 BP 128/75 07/09/17 08:37 Pulse Ox 100 07/09/17 07:00 Results - Laboratory Findings CBC and BMP: 07/09/17 03:14 07/09/17 03:14 ABG ABG pH 7.45 pH Units (7.32-7.45) D 07/06/17 04:31 ABG pCO2 38 mmHg (35-45) 07/06/17 04:31 ABG pO2 88 mmHg (85-104) D 07/06/17 04:31 ABG O2 Saturation 97 % (95-98) 07/06/17 04:31 PT/INR, D-dimer PT 14.7 Seconds (9.4-12.1) H 07/05/17 18:37 Abnormal lab findings: Abnormal lab results WBC 14.9 K/mcL (4.3-11.1) H 07/09/17 03:14 RBC 2.99 M/mcL (3.82-4.97) L 07/09/17 03:14 Hgb 8.9 g/dL (11.5-15.4) L D 07/09/17 03:14 Hct 30.2 % (35.3-44.9) L 07/09/17 03:14 MCV 101.0 fL (83.0-100.0) H 07/09/17 03:14 MCHC 29.5 g/dL (31.6-35.5) L 07/09/17 03:14 RDW 22.5 % (11.5-14.5) H 07/09/17 03:14 Band Neutrophils % 6.0 % (0-4) H 07/05/17 18:37 Metamyelocytes % 2.0 % (0) H 07/05/17 18:37 Myelocytes % 2.0 % (0) H 07/05/17 18:37 Neutrophils # 10.1 K/mcL (1.6-8.9) H 07/09/17 03:14 Monocytes # 2.8 K/mcL (0.0-1.3) H 07/09/17 03:14 Nucleated RBCs/100 WBC 0.3 /100 WBC (0) H 07/09/17 03:14 Smudge Cells Present (Not Present) A 07/05/17 18:37 Toxic Granulation Present (Not Present) A 07/06/17 03:45 Large Platelets Present (Not Present) A 07/06/17 03:45 Polychromasia 1+ (Not Present) A 07/09/17 03:14 Anisocytosis 2+ (Not Present) A 07/09/17 03:14 Macrocytosis Present (Not Present) A 07/06/17 03:45 PT 14.7 Seconds (9.4-12.1) H 07/05/17 18:37 ABG Total CO2 28 mEq/L (20-26) H 07/06/17 04:31 VBG pH 6.91 pH Units (7.32-7.42) L* 07/05/17 18:34 VBG pO2 62 mmHg (25-50) H 07/05/17 18:34 VBG HCO3 10 mEq/L (21-27) L 07/05/17 18:34 Potassium 5.0 mEq/L (3.5-4.5) H 07/09/17 03:14 Creatinine 3.03 mg/dL (0.57-1.11) H 07/09/17 03:14 Est GFR ( Amer) 18 (> 60) L 07/09/17 03:14 Est GFR (Non-Af Amer) 15 (> 60) L 07/09/17 03:14 POC Glucose 93 (58-89) H 07/08/17 23:15 Lactic Acid 5.3 mmol/L (0.5-2.2) H* 07/06/17 03:45 Calcium 8.2 mg/dL (8.6-10.8) L 07/09/17 03:14 Phosphorus 7.8 mg/dL (2.3-4.7) H 07/05/17 18:37 AST 53 Units/L (5-34) H 07/05/17 18:37 Alkaline Phosphatase 129 Units/L (38-126) H 07/05/17 18:37 B-Natriuretic Peptide 1525 pg/mL (0-100) H 07/06/17 03:45 Serum Total Protein 5.6 g/dL (6.0-8.3) L 07/05/17 18:37 Albumin 2.5 g/dL (3.5-5.0) L 07/05/17 18:37 Albumin/Globulin Ratio 0.8 (1.1-2.2) L 07/05/17 18:37 Urine Clarity Cloudy (Clear) A 07/05/17 19:31 Urine Protein >=300 mg/dL (Neg-Trace) H 07/05/17 19:31 Urine Ketones Trace mg/dL (Negative) H 07/05/17 19:31 Urine Blood Large (Negative) H 07/05/17 19:31 Ur Leukocyte Esterase Large (Negative) H 07/05/17 19:31 Urine Microscopic WBC TNTC per hpf (0-3) H 07/05/17 19:31 Ur Culture Indicated? YES (NO) A 07/05/17 19:31 Enterococcus sp PCR DETECTED (Not Detect) A 07/05/17 18:37 - Microbiology Findings Microbiology Findings: Microbiology, Last 48 Hours 07/06/17 11:41 Blood Culture - Preliminary Central Venous Catheter No growth. 07/06/17 12:08 Blood Culture - Preliminary Peripheral Venipuncture No growth. 07/06/17 11:39 Blood Culture - Final Central Venous Catheter Enterococcus species - Clinical Findings Intake & Output: Intake & Output 07/08/17 07/09/17 07/09/17 23:59 07:59 15:59 Intake Total 100 / 100 Output Total 225 / 225 75 / 75 Balance -125 / -125 -75 / -75 - Attending Attestation I examined this patient and my medical decision-making was reviewed with the Resident Physician. I agree with the documented findings, disposition and treatment plan as described except to the extent set forth below. We independently had [id number] contact with the patient Patient seen and examined at bedside Labs, radiology, chart personally reviewed. Neuropsych: Acute MCA stroke. No further w/u per family's request. Cont Asa and Statin Pulm:Good saturation on minimal supplemental oxygen per nasal cannula for goal Sao2 around 92%. Cards: Vasodilatory Shock s/t to Sepsis resolved. Afib with RVR treating with kd blocking agents titrating orally. FEN-GI:Speech and Swallow eval. recs for pureed diet Renal:ESRD cont dialysis per protocol ID: Enterococcal UTi cont ABx Heme/Onc: DVT prophylaxis given. Holding anticoagulation (full) for acute C [facility] Endo: Glucose Monitored Integ/MSK: Skin Care per routine ICU Nursing Protocol to prevent ulcers. Lines: All lines examined without evidence of infection. Dispo: Transfer to tele CODE: Palliative care consulted to address ongoing goals of care. Currently DNAR Multiple medical comorbidities poor prognosis overall.
--- NOTE | 2017-07-09 08:41 | Nephrology Progress Note ---
Date of Encounter: 07/09/17 Time of Encounter: 08:30 - Assessment and Plan (1) End-stage renal disease needing dialysis Current Visit: No Status: Chronic HD today, keeping MWF schedule. Orders given. Subjective Principal diagnosis: cva Interval history: Arouses easily, appropriate answers, speech clear, very soft. Admits abdominal discomfort, soft, positive BS. Nursing states being transferred to . Objective - Vital Signs Vital signs: Vital Signs Temp Pulse Resp BP Pulse Ox 07/09/17 07:53 128 07/09/17 07:26 98.9 F 07/09/17 07:00 128 16 119/76 100 07/09/17 06:00 116 12 119/77 100 07/09/17 05:00 112 14 104/67 100 07/09/17 04:00 117 12 105/80 100 07/09/17 03:55 99.1 F 07/09/17 03:00 121 12 112/84 100 07/09/17 02:00 120 12 138/84 100 07/09/17 01:00 120 12 129/94 100 07/09/17 00:00 118 13 136/87 100 07/08/17 23:00 98.6 F 122 14 132/85 100 07/08/17 22:00 126 16 126/79 100 07/08/17 21:00 113 14 121/70 100 07/08/17 20:24 98.4 F 07/08/17 20:00 110 16 128/81 100 07/08/17 19:00 120 16 100/82 97 07/08/17 18:00 123 16 110/79 93 07/08/17 17:00 116 18 109/69 94 07/08/17 16:00 166 20 124/60 100 07/08/17 15:43 99.0 F 07/08/17 15:00 117 16 122/80 100 07/08/17 14:30 112 07/08/17 14:00 118 18 142/91 100 07/08/17 13:00 122 17 126/79 98 07/08/17 12:00 124 15 132/79 100 07/08/17 11:35 99.6 F 07/08/17 11:00 116 16 129/92 100 07/08/17 10:24 98.6 F 115 15 106/73 100 07/08/17 10:00 120 18 104/74 100 07/08/17 09:00 124 15 98/77 100 Intake and Output 07/08/17 07/09/17 07/09/17 23:59 07:59 15:59 Intake Total 100 / 100 Output Total 225 / 225 75 / 75 Balance -125 / -125 -75 / -75 Intake: IV Fluids 100 / 100 Ampicillin 2 GM In 0.9 % Sodium 100 / 100 Chloride (Mini-Bag +) 100 ML @ 200 mls/hr IVPB Q12H [facility] [place] Rx#: [id number] Output: Stool 175 / 175 50 / 50 Catheter 50 / 50 25 / 25 Other: Blood Glucose* 93 - General Appearance General appearance: Present: chronically ill, frail EENT: Present: mucous membranes moist Neck: Present: no JVD Respiratory: Present: clear Cardiology: Present: no edema, irregular rhythm Gastrointestinal: Present: normoactive bowel sounds, tenderness Integumentary: Present: warm and dry Psychiatric: Present: mood/affect appropriate, cooperative - Lab 07/09/17 03:14 07/09/17 03:14 Most recent lab results ABG pH 7.45 pH Units (7.32-7.45) D 07/06/17 04:31 ABG pCO2 38 mmHg (35-45) 07/06/17 04:31 ABG pO2 88 mmHg (85-104) D 07/06/17 04:31 ABG HCO3 27 mEq/L (21-27) 07/06/17 04:31 ABG O2 Saturation 97 % (95-98) 07/06/17 04:31 Calcium 8.2 mg/dL (8.6-10.8) L 07/09/17 03:14 Phosphorus 7.8 mg/dL (2.3-4.7) H 07/05/17 18:37 Magnesium 1.7 mg/dL (1.6-2.6) 07/09/17 03:14 Consult Discharge Plan - Plan Referrals: Kaleigh Beckham MD [Primary Care Provider] -
[2017-07-09] MEDS: Aspirin 81 MG TAB.CHEW PO SCH (09:23)
[2017-07-09] MEDS ORDERED: Acetaminophen 325 MG TABLET PO ONE (09:59)
[2017-07-09] MEDS ORDERED: *HR* Digoxin 0.5 MG/2 ML AMPUL IVP ONE (10:00)
--- NOTE | 2017-07-09 10:38 | Palliative Progress Note ---
Date of Encounter: 07/09/17 Time of Encounter: 10:30 - Assessment and plan (1) Dysphagia Current Visit: Yes Status: Acute Assessment and plan: Speech therapy continues - cleared for pureed with honey thick liquid. Qualifiers: Dysphagia type: unspecified Qualified Code(s): R13.10 - Dysphagia, unspecified (2) Generalized pain Current Visit: Yes Status: Acute Assessment and plan: Continue [place] PRN - utilized x1 this am. Monitor (3) Goals of care, counseling/discussion Current Visit: Yes Status: Acute Assessment and plan: Patient will most likely return to [place] upon discharge. Patient is alert and oriented - code status remains DNR/DNI - she does still desire to continue with current are and dialysis. (4) CHF (congestive heart failure) Current Visit: No Status: Chronic Qualifiers: Congestive heart failure type: diastolic Congestive heart failure chronicity: chronic Qualified Code(s): I50.32 - Chronic diastolic (congestive ) heart failure (5) End-stage renal disease needing dialysis Current Visit: No Status: Chronic Assessment and plan: Managed per DR. Vaughn. (6) CVA (cerebral vascular accident) Current Visit: Yes Status: Acute Assessment and plan: Will have PT/OT eval. Qualifiers: Laterality of affected vessel: unspecified Qualified Code(s): I63.019 - Cerebral infarction due to thrombosis of unspecified vertebral artery - Time Spent With Patient Total time spent is greater than 50% in coordination of care (as documented) at patient's floor/unit and/or counseling patient: 25 - 35 minutes - Subjective Interval history: Patient just moved from ICU - will be taken to dialysis soon. C/o headache and states she doesn't feel well. Notified nurse she is requesting pain medication. No family present. - Constitutional Vitals: Abnormal lab results WBC 14.9 K/mcL (4.3-11.1) H 07/09/17 03:14 RBC 2.99 M/mcL (3.82-4.97) L 07/09/17 03:14 Hgb 8.9 g/dL (11.5-15.4) L D 07/09/17 03:14 Hct 30.2 % (35.3-44.9) L 07/09/17 03:14 MCV 101.0 fL (83.0-100.0) H 07/09/17 03:14 MCHC 29.5 g/dL (31.6-35.5) L 07/09/17 03:14 RDW 22.5 % (11.5-14.5) H 07/09/17 03:14 Band Neutrophils % 6.0 % (0-4) H 07/05/17 18:37 Metamyelocytes % 2.0 % (0) H 07/05/17 18:37 Myelocytes % 2.0 % (0) H 07/05/17 18:37 Neutrophils # 10.1 K/mcL (1.6-8.9) H 07/09/17 03:14 Monocytes # 2.8 K/mcL (0.0-1.3) H 07/09/17 03:14 Nucleated RBCs/100 WBC 0.3 /100 WBC (0) H 07/09/17 03:14 Smudge Cells Present (Not Present) A 07/05/17 18:37 Toxic Granulation Present (Not Present) A 07/06/17 03:45 Large Platelets Present (Not Present) A 07/06/17 03:45 Polychromasia 1+ (Not Present) A 07/09/17 03:14 Anisocytosis 2+ (Not Present) A 07/09/17 03:14 Macrocytosis Present (Not Present) A 07/06/17 03:45 PT 14.7 Seconds (9.4-12.1) H 07/05/17 18:37 ABG Total CO2 28 mEq/L (20-26) H 07/06/17 04:31 VBG pH 6.91 pH Units (7.32-7.42) L* 07/05/17 18:34 VBG pO2 62 mmHg (25-50) H 07/05/17 18:34 VBG HCO3 10 mEq/L (21-27) L 07/05/17 18:34 Potassium 5.0 mEq/L (3.5-4.5) H 07/09/17 03:14 Creatinine 3.03 mg/dL (0.57-1.11) H 07/09/17 03:14 Est GFR ( Amer) 18 (> 60) L 07/09/17 03:14 Est GFR (Non-Af Amer) 15 (> 60) L 07/09/17 03:14 POC Glucose 93 (58-89) H 07/08/17 23:15 Lactic Acid 5.3 mmol/L (0.5-2.2) H* 07/06/17 03:45 Calcium 8.2 mg/dL (8.6-10.8) L 07/09/17 03:14 Phosphorus 7.8 mg/dL (2.3-4.7) H 07/05/17 18:37 AST 53 Units/L (5-34) H 07/05/17 18:37 Alkaline Phosphatase 129 Units/L (38-126) H 07/05/17 18:37 B-Natriuretic Peptide 1525 pg/mL (0-100) H 07/06/17 03:45 Serum Total Protein 5.6 g/dL (6.0-8.3) L 07/05/17 18:37 Albumin 2.5 g/dL (3.5-5.0) L 07/05/17 18:37 Albumin/Globulin Ratio 0.8 (1.1-2.2) L 07/05/17 18:37 Urine Clarity Cloudy (Clear) A 07/05/17 19:31 Urine Protein >=300 mg/dL (Neg-Trace) H 07/05/17 19:31 Urine Ketones Trace mg/dL (Negative) H 07/05/17 19:31 Urine Blood Large (Negative) H 07/05/17 19:31 Ur Leukocyte Esterase Large (Negative) H 07/05/17 19:31 Urine Microscopic WBC TNTC per hpf (0-3) H 07/05/17 19:31 Ur Culture Indicated? YES (NO) A 07/05/17 19:31 Enterococcus sp PCR DETECTED (Not Detect) A 07/05/17 18:37 General appearance: Present: no acute distress - Respiratory Respiratory exam: Present: decreased breath sounds, CTAB - Cardiovascular Cardiovascular exam: Present: irregular rhythm, tachycardia - GI/Abdominal GI/Abdominal exam: Present: normal bowel sounds, soft Additional comments: Ostomy with liquid stool - Neurological Exam Neurological exam: Present: alert Additional comments: Oriented to name and place. Left arm weakness - unable to do any fine motor skills, can make attempt to pick arm off bed. - Skin Skin exam: Present: dry, pallor, warm Palliative Quality Palliative Quality: Screen for Code Status: Yes, Screen for Goals of Care: Yes, Screen for Pain: Yes, If Pain Regimen Started, Initiate Bowel Regimen: NA, Screen for Nausea/Vomitting: Yes Code Status: 07/05/17 23:40 Resuscitation Status: Active [RES] Routine Comment: Resuscitation Status: DNR-Comfort Care-Arrest 07/06/17 20:48 CODE [Resuscitation Status: Active] [RES] Routine Comment: Resuscitation Status: [id number] - Labs CBC & Chem 7: 07/09/17 03:14 07/09/17 03:14 Labs: Laboratory Results - last 24 hr 07/08/17 07/08/17 07/08/17 11:06 15:24 23:15 WBC RBC Hgb Hct MCV MCH MCHC RDW Plt Count MPV Immature Gran % Seg Neutrophils % Lymphocytes % Monocytes % Eosinophils % Basophils % Neutrophils # Lymphocytes # Monocytes # Eosinophils # Basophils # Nucleated RBCs/100 WBC Platelet Estimate Polychromasia Anisocytosis Sodium Potassium Chloride Carbon Dioxide BUN Creatinine Est GFR ( Amer) Est GFR (Non-Af Amer) BUN/Creatinine Ratio Glucose POC Glucose 113 H 122 H 93 H Calculated Osmolality Calcium Magnesium Vancomycin Trough 07/09/17 07/09/17 07/09/17 03:14 03:14 03:14 WBC 14.9 H RBC 2.99 L Hgb 8.9 L D Hct 30.2 L MCV 101.0 H MCH 29.8 MCHC 29.5 L RDW 22.5 H Plt Count 170 MPV 11.4 Immature Gran % 1.2 Seg Neutrophils % 67.7 Lymphocytes % 11.6 Monocytes % 18.9 Eosinophils % 0.3 Basophils % 0.3 Neutrophils # 10.1 H Lymphocytes # 1.7 Monocytes # 2.8 H Eosinophils # 0.0 Basophils # 0.0 Nucleated RBCs/100 WBC 0.3 H Platelet Estimate Normal Polychromasia 1+ A Anisocytosis 2+ A Sodium 138 Potassium 5.0 H Chloride 104 Carbon Dioxide 21 BUN 18 Creatinine 3.03 H Est GFR ( Amer) 18 L Est GFR (Non-Af Amer) 15 L BUN/Creatinine Ratio 6 Glucose 82 POC Glucose Calculated Osmolality 287 Calcium 8.2 L Magnesium 1.7 Vancomycin Trough 16.3 - ABG Interpretation ABG results: ABG ABG pH 7.45 pH Units (7.32-7.45) D 07/06/17 04:31 ABG pCO2 38 mmHg (35-45) 07/06/17 04:31 ABG pO2 88 mmHg (85-104) D 07/06/17 04:31 ABG O2 Saturation 97 % (95-98) 07/06/17 04:31 PT/INR, D-dimer PT 14.7 Seconds (9.4-12.1) H 07/05/17 18:37 Consult Discharge Plan - Plan Referrals: Kaleigh Beckham MD [Primary Care Provider] -
[2017-07-09] MEDS ORDERED: Insulin LISPRO 300 UNITS/3 ML VIAL SQ SCH (12:00)
[2017-07-09 16:21] LABS: Calcium 8.3 mg/dL (8.6-10.8); Magnesium 1.5 mg/dL (1.6-2.6)
[2017-07-09] MEDS ORDERED: 0.9 % Sodium Chloride 2,000 ML ONE (17:14)
[2017-07-09] MEDS ORDERED: *HR* Morphine 2 MG/ML SYRINGE IVP PRN (18:57)
[2017-07-09] MEDS ORDERED: *HR* Morphine 2 MG/ML SYRINGE IVP SCH (20:00)
[2017-07-10 04:41] LABS: Basophils % 0.3 %; Eosinophils # 0.1 K/mcL (0.0-0.6); Eosinophils % 0.4 %; Hematocrit 29.5 % (35.3-44.9); Hemoglobin 8.8 g/dL (11.5-15.4); Immature Granulocytes % 2.1 % (0-4); Lymphocytes # 1.7 K/mcL (0.6-4.6); Mean Corpuscular HGB Conc 29.8 g/dL (31.6-35.5); Mean Corpuscular Hemoglobin 29.2 pg (28.0-33.3); Mean Platelet Volume 11.6 fL (9.4-12.4); Monocytes # 2.7 K/mcL (0.0-1.3); Monocytes % 19.1 %; Neutrophils # 9.3 K/mcL (1.6-8.9); Nucleated Red Blood Cells 0.1 /100 WBC (0); Platelet Count 248 K/mcL (140-400); Red Blood Count 3.01 M/mcL (3.82-4.97); Red Cell Distribution Width 21.5 % (11.5-14.5); Segmented Neutrophils % 66.1 %
[2017-07-10 04:49] LABS: Calcium 8.3 mg/dL (8.6-10.8); Magnesium 1.6 mg/dL (1.6-2.6); Potassium 4.9 mEq/L (3.5-4.5)
[2017-07-10 05:10] LABS: Anisocytosis 2+ (Not Present); Large Platelets Present (Not Present); Platelet Estimate Normal (Normal)
[2017-07-10] MEDS: *HR* Heparin 5,000 UNIT/ML VIAL SQ SCH ×2 (05:49→16:40)
[2017-07-10] MEDS: *HR* HYDROcodone/Acet 10/325 mg TABLET PO PRN ×2 (05:49→14:26)
[2017-07-10] MEDS: Ampicillin 2 GM in 0.9 % Sodium Chloride Mini Bag 100 ML IVPB SCH ×2 (06:02→19:46)
[2017-07-10] MEDS ORDERED: Pantoprazole 40 MG VIAL IVP SCH (07:30)
--- NOTE | 2017-07-10 08:15 | Palliative Progress Note ---
Date of Encounter: 07/10/17 Time of Encounter: 07:35 - Assessment and plan (1) Dysphagia Current Visit: Yes Status: Acute Assessment and plan: Is tolerating thickened fluids and pureed food, however does not like the thickened water because it is warm. Requested assistance with her eating. The patient does not want a PEG tube. Qualifiers: Dysphagia type: unspecified Qualified Code(s): R13.10 - Dysphagia, unspecified (2) Generalized pain Current Visit: Yes Status: Acute Assessment and plan: Seems well controlled with [place], would avoid morphine due to patient's renal failure. (3) Goals of care, counseling/discussion Current Visit: Yes Status: Acute Assessment and plan: The patient wishes to continue dialysis. This is being managed by nephrology. She is trying to eat and we have assisted with this with requesting assistance with each meal status is DNR CCA DNI. Will plan to follow-up on Wednesday. (4) CVA (cerebral vascular accident) Current Visit: Yes Status: Acute Assessment and plan: Per PTE valve, skilled therapy is warranted. Plan per hospitalist team Qualifiers: Laterality of affected vessel: unspecified (5) End-stage renal disease needing dialysis Current Visit: No Status: Chronic Assessment and plan: Being followed by nephrology. Plan per nephrology - Time Spent With Patient Total time spent is greater than 50% in coordination of care (as documented) at patient's floor/unit and/or counseling patient: - Subjective Interval history: Patient is doing well this morning. No complaints of except for him right shoulder into the neck pain. She describes this as a tightness in her trapezius area radiating into the neck. She relates this to an injury of several weeks ago. He is taking in some by mouth. I understand from the nursing staff she likes apple juice not like the fact the water is warm when it is combined with the thickening agent. Did request some help with eating I have ordered this. - Constitutional Vitals: Abnormal lab results WBC 14.0 K/mcL (4.3-11.1) H 07/10/17 03:41 RBC 3.01 M/mcL (3.82-4.97) L 07/10/17 03:41 Hgb 8.8 g/dL (11.5-15.4) L 07/10/17 03:41 Hct 29.5 % (35.3-44.9) L 07/10/17 03:41 MCHC 29.8 g/dL (31.6-35.5) L 07/10/17 03:41 RDW 21.5 % (11.5-14.5) H 07/10/17 03:41 Band Neutrophils % 6.0 % (0-4) H 07/05/17 18:37 Metamyelocytes % 2.0 % (0) H 07/05/17 18:37 Myelocytes % 2.0 % (0) H 07/05/17 18:37 Neutrophils # 9.3 K/mcL (1.6-8.9) H 07/10/17 03:41 Monocytes # 2.7 K/mcL (0.0-1.3) H 07/10/17 03:41 Nucleated RBCs/100 WBC 0.1 /100 WBC (0) H 07/10/17 03:41 Smudge Cells Present (Not Present) A 07/05/17 18:37 Toxic Granulation Present (Not Present) A 07/06/17 03:45 Large Platelets Present (Not Present) A 07/10/17 03:41 Polychromasia 1+ (Not Present) A 07/09/17 03:14 Anisocytosis 2+ (Not Present) A 07/10/17 03:41 Macrocytosis Present (Not Present) A 07/06/17 03:45 PT 14.7 Seconds (9.4-12.1) H 07/05/17 18:37 ABG Total CO2 28 mEq/L (20-26) H 07/06/17 04:31 VBG pH 6.91 pH Units (7.32-7.42) L* 07/05/17 18:34 VBG pO2 62 mmHg (25-50) H 07/05/17 18:34 VBG HCO3 10 mEq/L (21-27) L 07/05/17 18:34 Potassium 4.9 mEq/L (3.5-4.5) H 07/10/17 03:41 Creatinine 2.50 mg/dL (0.57-1.11) H D 07/10/17 03:41 Est GFR ( Amer) 22 (> 60) L 07/10/17 03:41 Est GFR (Non-Af Amer) 18 (> 60) L 07/10/17 03:41 BUN/Creatinine Ratio 5 (6-26) L 07/10/17 03:41 Lactic Acid 5.3 mmol/L (0.5-2.2) H* 07/06/17 03:45 Calcium 8.3 mg/dL (8.6-10.8) L 07/10/17 03:41 Phosphorus 7.8 mg/dL (2.3-4.7) H 07/05/17 18:37 AST 53 Units/L (5-34) H 07/05/17 18:37 Alkaline Phosphatase 129 Units/L (38-126) H 07/05/17 18:37 B-Natriuretic Peptide 1525 pg/mL (0-100) H 07/06/17 03:45 Serum Total Protein 5.6 g/dL (6.0-8.3) L 07/05/17 18:37 Albumin 2.5 g/dL (3.5-5.0) L 07/05/17 18:37 Albumin/Globulin Ratio 0.8 (1.1-2.2) L 07/05/17 18:37 Urine Clarity Cloudy (Clear) A 07/05/17 19:31 Urine Protein >=300 mg/dL (Neg-Trace) H 07/05/17 19:31 Urine Ketones Trace mg/dL (Negative) H 07/05/17 19:31 Urine Blood Large (Negative) H 07/05/17 19:31 Ur Leukocyte Esterase Large (Negative) H 07/05/17 19:31 Urine Microscopic WBC TNTC per hpf (0-3) H 07/05/17 19:31 Ur Culture Indicated? YES (NO) A 07/05/17 19:31 Enterococcus sp PCR DETECTED (Not Detect) A 07/05/17 18:37 General appearance: Present: no acute distress - Eye Eye exam: Present: normal appearance - Respiratory Respiratory exam: Present: decreased breath sounds - Cardiovascular Cardiovascular exam: Present: irregular rhythm - GI/Abdominal GI/Abdominal exam: Present: normal bowel sounds, soft. Absent: tenderness - Neurological Exam Neurological exam: Present: alert - Psychiatric Psychiatric exam: Absent: agitated, anxious - Skin Skin exam: Present: dry, warm Palliative Quality Palliative Quality: Screen for Code Status: Yes, Screen for Goals of Care: Yes, Screen for Pain: Yes, If Pain Regimen Started, Initiate Bowel Regimen: NA, Screen for Nausea/Vomitting: Yes Code Status: 07/05/17 23:40 Resuscitation Status: Active [RES] Routine Comment: Resuscitation Status: DNR-Comfort Care-Arrest 07/06/17 20:48 CODE [Resuscitation Status: Active] [RES] Routine Comment: Resuscitation Status: [id number] - Labs CBC & Chem 7: 07/10/17 03:41 07/10/17 03:41 Labs: Laboratory Results - last 24 hr 07/09/17 07/09/17 07/09/17 12:18 15:59 17:17 WBC RBC Hgb Hct MCV MCH MCHC RDW Plt Count MPV Immature Gran % Seg Neutrophils % Lymphocytes % Monocytes % Eosinophils % Basophils % Neutrophils # Lymphocytes # Monocytes # Eosinophils # Basophils # Nucleated RBCs/100 WBC Platelet Estimate Large Platelets Anisocytosis Sodium 142 Potassium 4.0 D Chloride 102 Carbon Dioxide 30 H BUN 8 D Creatinine 1.24 H D Est GFR ( Amer) 50 L Est GFR (Non-Af Amer) 41 L BUN/Creatinine Ratio 6 Glucose 85 POC Glucose 94 H 71 Calculated Osmolality 292 Calcium 8.3 L Magnesium 1.5 L 07/09/17 07/10/17 07/10/17 20:42 03:41 03:41 WBC 14.0 H RBC 3.01 L Hgb 8.8 L Hct 29.5 L MCV 98.0 MCH 29.2 MCHC 29.8 L RDW 21.5 H Plt Count 248 MPV 11.6 Immature Gran % 2.1 Seg Neutrophils % 66.1 Lymphocytes % 12.0 Monocytes % 19.1 Eosinophils % 0.4 Basophils % 0.3 Neutrophils # 9.3 H Lymphocytes # 1.7 Monocytes # 2.7 H Eosinophils # 0.1 Basophils # 0.0 Nucleated RBCs/100 WBC 0.1 H Platelet Estimate Normal Large Platelets Present A Anisocytosis 2+ A Sodium 137 Potassium 4.9 H Chloride 100 Carbon Dioxide 24 BUN 13 Creatinine 2.50 H D Est GFR ( Amer) 22 L Est GFR (Non-Af Amer) 18 L BUN/Creatinine Ratio 5 L Glucose 73 POC Glucose 89 Calculated Osmolality 283 Calcium 8.3 L Magnesium 1.6 07/10/17 05:52 WBC RBC Hgb Hct MCV MCH MCHC RDW Plt Count MPV Immature Gran % Seg Neutrophils % Lymphocytes % Monocytes % Eosinophils % Basophils % Neutrophils # Lymphocytes # Monocytes # Eosinophils # Basophils # Nucleated RBCs/100 WBC Platelet Estimate Large Platelets Anisocytosis Sodium Potassium Chloride Carbon Dioxide BUN Creatinine Est GFR ( Amer) Est GFR (Non-Af Amer) BUN/Creatinine Ratio Glucose POC Glucose 80 Calculated Osmolality Calcium Magnesium - Impressions Impressions Head CT 07/07/17 10:30 IMPRESSION: Findings are consistent with small acute infarcts in the posterior right frontal lobe, in the right MCA vascular territory and posterior right cerebellar hemisphere, in the right PICA vascular territory. D/ / 07/07/2017 12:11:11 Tamara Siddiqui MD / [facility] Interpreting Provider: Tamara Siddiqui MD - ABG Interpretation ABG results: ABG ABG pH 7.45 pH Units (7.32-7.45) D 07/06/17 04:31 ABG pCO2 38 mmHg (35-45) 07/06/17 04:31 ABG pO2 88 mmHg (85-104) D 07/06/17 04:31 ABG O2 Saturation 97 % (95-98) 07/06/17 04:31 PT/INR, D-dimer PT 14.7 Seconds (9.4-12.1) H 07/05/17 18:37 Consult Discharge Plan - Plan Referrals: Kaleigh Beckham MD [Primary Care Provider] -
--- NOTE | 2017-07-10 08:45 | Nephrology Progress Note ---
Date of Encounter: 07/10/17 Time of Encounter: 08:30 - Assessment and Plan (1) End-stage renal disease needing dialysis Current Visit: No Status: Chronic No HD today, keeping MWF schedule. Subjective Principal diagnosis: cva Interval history: Awake, appropriate answers, speech clear, very soft. No new complaints. Objective - Vital Signs Vital signs: Vital Signs Temp Pulse Resp BP Pulse Ox 07/10/17 06:37 99.1 F 86 16 108/52 100 07/10/17 04:04 98.7 F 94 16 125/69 100 07/10/17 00:16 98.4 F 70 16 123/53 100 07/09/17 18:52 98.8 F 94 16 115/64 100 07/09/17 17:00 97.4 F L 14 137/57 07/09/17 16:55 111/64 07/09/17 16:40 107/63 07/09/17 16:37 98.9 F 94 16 128/75 07/09/17 16:25 135/50 07/09/17 16:10 132/60 07/09/17 15:55 125/67 07/09/17 15:40 116/62 07/09/17 15:25 136/74 07/09/17 15:10 121/76 07/09/17 14:55 134/71 07/09/17 14:40 124/71 07/09/17 14:25 126/68 07/09/17 14:10 141/75 07/09/17 13:55 97.0 F L 14 131/80 07/09/17 12:43 98.9 F 99 16 128/75 Intake and Output 07/09/17 07/10/17 07/10/17 23:59 07:59 15:59 Intake Total 430 / 430 30 / 30 240 / 240 Output Total 1600 / 1600 Balance -1170 / -1170 30 / 30 240 / 240 Intake: IV Fluids 100 / 100 Ampicillin 2 GM In 0.9 % Sodium 100 / 100 Chloride (Mini-Bag +) 100 ML @ 200 mls/hr IVPB Q12H [facility] Rx#: [id number] Oral 330 / 330 30 / 30 240 / 240 Output: Urine 0 / 0 Total Dialysis (HD) Output 1600 / 1600 Other: Meal Breakfast Percent of Meal Consumed 75% Weight 44.044 kg Blood Glucose* 89 131 Hemodialysis Net Fluid Removed 1000 (mL) - General Appearance General appearance: Present: chronically ill, frail EENT: Present: mucous membranes moist Neck: Present: no JVD Respiratory: Present: clear Cardiology: Present: no edema, irregular rhythm Gastrointestinal: Present: hypoactive bowel sounds, no tenderness Integumentary: Present: warm and dry Psychiatric: Present: mood/affect appropriate, cooperative - Lab 07/10/17 03:41 07/10/17 03:41 Most recent lab results ABG pH 7.45 pH Units (7.32-7.45) D 07/06/17 04:31 ABG pCO2 38 mmHg (35-45) 07/06/17 04:31 ABG pO2 88 mmHg (85-104) D 07/06/17 04:31 ABG HCO3 27 mEq/L (21-27) 07/06/17 04:31 ABG O2 Saturation 97 % (95-98) 07/06/17 04:31 Calcium 8.3 mg/dL (8.6-10.8) L 07/10/17 03:41 Phosphorus 7.8 mg/dL (2.3-4.7) H 07/05/17 18:37 Magnesium 1.6 mg/dL (1.6-2.6) 07/10/17 03:41 Consult Discharge Plan - Plan Referrals: Kaleigh Beckham MD [Primary Care Provider] -
[2017-07-10] MEDS: Aspirin 81 MG TAB.CHEW PO SCH (09:49)
--- NOTE | 2017-07-10 11:16 | Internal Med Progress Note ---
Date of Encounter: 07/10/17 Time of Encounter: 11:13 - Assessment and plan (1) End-stage renal disease needing dialysis Current Visit: Yes Status: Chronic Assessment and plan: Renal following, management per renal (2) Sepsis Current Visit: Yes Status: Resolved Assessment and plan: With septic shock Now resolved, no longer on pressors Secondary to Enterococcus UTI and Bacteremia Afebrile, leukocytosis persists Blood culture repeated from 07/06 prelim no growth, continue IV Ampicillin Qualifiers: Sepsis type: sepsis due to unspecified organism Qualified Code(s): A41.9 - Sepsis, unspecified organism (3) Urinary tract infection Current Visit: Yes Status: Resolved Assessment and plan: As above Qualifiers: Urinary tract infection type: acute cystitis Hematuria presence: without hematuria Qualified Code(s): N30.00 - Acute cystitis without hematuria (4) COPD (chronic obstructive pulmonary disease) Current Visit: Yes Status: Chronic Assessment and plan: Not in exacerbation Continue supportive care Duonebs prn Qualifiers: COPD type: unspecified COPD Qualified Code(s): J44.9 - Chronic obstructive pulmonary disease, unspecified (5) A-fib Current Visit: Yes Status: Chronic Assessment and plan: HR controlled Not on anticoagulation Continue current meds-ASA, Diltiazem, Metoprolol Qualifiers: Atrial fibrillation type: chronic Qualified Code(s): I48.2 - Chronic atrial fibrillation (6) Respiratory failure Current Visit: Yes Status: Resolved Assessment and plan: Resolved Brought in from outside hospital intubated EXtubated successfully DNR-CC-DNI Qualifiers: Chronicity: acute Respiratory failure complication: unspecified whether with hypoxia or hypercapnia Qualified Code(s): J96.00 - Acute respiratory failure, unspecified whether with hypoxia or hypercapnia (7) Septic shock Current Visit: Yes Status: Resolved (8) Leukocytosis, unspecified Current Visit: Yes Status: Acute Assessment and plan: Improving, continue to monitor Qualifiers: Leukocytosis type: unspecified Qualified Code(s): D72.829 - Elevated white blood cell count, unspecified (9) Acute cerebrovascular accident (CVA) Current Visit: Yes Status: Acute Assessment and plan: Continue ASA, Statin Residual LUE weakness and hemineglect Continue to monitor (10) Dysphagia Current Visit: Yes Status: Acute Assessment and plan: Improving BUSINESS DEVELOPMENT RECRUITER eval noted Continue pureed diet Qualifiers: Dysphagia type: unspecified Qualified Code(s): R13.10 - Dysphagia, unspecified - Subjective Interval history: Seen and evaluated at bedside 81 F DNRCCADNI Transferred from ICU to floors admitted for acute CVA with LUE paralysis, Septic shock secondary to enterococcal UTI and bacteremia, acute resp failure s/p extubation She also has ESRD and is on HD She is awake , alert and oriented X3, speech is normal She complained of neck stiffness and pain and LUE numbness - Constitutional Vitals: Temp Pulse Resp BP Pulse Ox 99.1 F 86 16 108/52 100 07/10/17 06:37 07/10/17 06:37 07/10/17 06:37 07/10/17 06:37 07/10/17 06:37 General appearance: Present: cachectic, A&O X 3, pleasant, no acute distress - Head Head exam: Present: atraumatic, normocephalic - Eye Eye exam: Present: PERRL, conjuntiva pink, sclera anicteric Pupils: Present: PERRL Additional comments: Lt ptosis - Neck Additional comments: Hyperflexed, stiff - Respiratory Respiratory exam: Present: CTAB - Cardiovascular Cardiovascular exam: Present: +S1, +S2 - GI/Abdominal GI/Abdominal exam: Present: normal bowel sounds, soft, no peritoneal signs. Absent: distended, tenderness - Extremities Exam Extremities exam: Present: warm, radial pulses palpable and symmetrical. Absent : calf tenderness, cyanotic, pedal edema - Neurological Exam Neurological exam: Present: alert, motor sensory deficit (LUE weakness, power is 0), oriented X3. Absent: strengths equal and symetr throughout, speech deficit - Skin Skin exam: Present: dry Internal Medicine: Result - Labs CBC & Chem 7: 07/10/17 03:41 07/10/17 03:41 Labs: Short CBC 07/10/17 Range/Units 03:41 WBC 14.0 H (4.3-11.1) K/mcL Hgb 8.8 L (11.5-15.4) g/dL Hct 29.5 L (35.3-44.9) % Plt Count 248 (140-400) K/mcL Neutrophils # 9.3 H (1.6-8.9) K/mcL BMP 07/09/17 07/10/17 15:59 03:41 Sodium 142 137 Potassium 4.0 D 4.9 H Chloride 102 100 Carbon Dioxide 30 H 24 BUN 8 D 13 Creatinine 1.24 H D 2.50 H D Glucose 85 73 Calcium 8.3 L 8.3 L - ABG Interpretation ABG results: ABG ABG pH 7.45 pH Units (7.32-7.45) D 07/06/17 04:31 ABG pCO2 38 mmHg (35-45) 07/06/17 04:31 ABG pO2 88 mmHg (85-104) D 07/06/17 04:31 ABG O2 Saturation 97 % (95-98) 07/06/17 04:31 PT/INR, D-dimer PT 14.7 Seconds (9.4-12.1) H 07/05/17 18:37 - Impressions Impressions Head CT 07/07/17 10:30 IMPRESSION: Findings are consistent with small acute infarcts in the posterior right frontal lobe, in the right MCA vascular territory and posterior right cerebellar hemisphere, in the right PICA vascular territory. D/ / 07/07/2017 12:11:11 [facility] Inter[facility] Provider: Tamara Siddiqui MD Consult Discharge Plan - Plan Referrals: Kaleigh Beckham MD [Primary Care Provider] -
[2017-07-11] MEDS: *HR* HYDROcodone/Acet 10/325 mg TABLET PO PRN ×3 (00:04→22:42)
[2017-07-11] MEDS: *HR* Heparin 5,000 UNIT/ML VIAL SQ SCH ×2 (06:10→20:36)
[2017-07-11 06:26] LABS: Basophils # 0.1 K/mcL (0.0-0.2); Basophils % 0.4 %; Eosinophils # 0.2 K/mcL (0.0-0.6); Eosinophils % 1.3 %; Hematocrit 31.6 % (35.3-44.9); Hemoglobin 9.3 g/dL (11.5-15.4); Lymphocytes # 1.7 K/mcL (0.6-4.6); Mean Corpuscular HGB Conc 29.4 g/dL (31.6-35.5); Mean Corpuscular Hemoglobin 29.4 pg (28.0-33.3); Mean Platelet Volume 11.2 fL (9.4-12.4); Monocytes # 2.6 K/mcL (0.0-1.3); Monocytes % 19.1 %; Neutrophils # 8.7 K/mcL (1.6-8.9); Platelet Count 287 K/mcL (140-400); Red Blood Count 3.16 M/mcL (3.82-4.97); Red Cell Distribution Width 21.2 % (11.5-14.5); Segmented Neutrophils % 63.2 %
[2017-07-11 06:33] LABS: Calcium 8.5 mg/dL (8.6-10.8); Magnesium 1.6 mg/dL (1.6-2.6); Potassium 4.7 mEq/L (3.5-4.5)
[2017-07-11 07:49] LABS: Platelet Estimate Normal (Normal)
[2017-07-11] MEDS: Ampicillin 2 GM in 0.9 % Sodium Chloride Mini Bag 100 ML IVPB SCH ×2 (08:14→22:38)
[2017-07-11] MEDS: Aspirin 81 MG TAB.CHEW PO SCH (08:14)
--- NOTE | 2017-07-11 10:06 | Internal Med Progress Note ---
Date of Encounter: 07/11/17 Time of Encounter: 10:04 - Assessment and plan (1) End-stage renal disease needing dialysis Current Visit: Yes Status: Chronic Assessment and plan: Renal following, management per renal (2) Sepsis Current Visit: Yes Status: Resolved Assessment and plan: With septic shock Now resolved, no longer on pressors Secondary to Enterococcus UTI and Bacteremia Afebrile, leukocytosis persists but slowly improving Blood culture repeated from 07/06 prelim no growth, continue IV Ampicillin Qualifiers: Sepsis type: sepsis due to unspecified organism Qualified Code(s): A41.9 - Sepsis, unspecified organism (3) Urinary tract infection Current Visit: Yes Status: Resolved Assessment and plan: As above Qualifiers: Urinary tract infection type: acute cystitis Hematuria presence: without hematuria Qualified Code(s): N30.00 - Acute cystitis without hematuria (4) COPD (chronic obstructive pulmonary disease) Current Visit: Yes Status: Chronic Assessment and plan: Not in exacerbation Continue supportive care Duonebs prn Qualifiers: COPD type: unspecified COPD Qualified Code(s): J44.9 - Chronic obstructive pulmonary disease, unspecified (5) A-fib Current Visit: Yes Status: Chronic Assessment and plan: HR controlled Not on anticoagulation Continue current meds-ASA, Diltiazem, Metoprolol Qualifiers: Atrial fibrillation type: chronic Qualified Code(s): I48.2 - Chronic atrial fibrillation (6) Respiratory failure Current Visit: Yes Status: Resolved Assessment and plan: Resolved Brought in from outside hospital intubated EXtubated successfully DNR-CC-DNI Qualifiers: Chronicity: acute Respiratory failure complication: unspecified whether with hypoxia or hypercapnia Qualified Code(s): J96.00 - Acute respiratory failure, unspecified whether with hypoxia or hypercapnia (7) Septic shock Current Visit: Yes Status: Resolved (8) Leukocytosis, unspecified Current Visit: Yes Status: Acute Assessment and plan: Improving, continue to monitor Qualifiers: Leukocytosis type: unspecified Qualified Code(s): D72.829 - Elevated white blood cell count, unspecified (9) Acute cerebrovascular accident (CVA) Current Visit: Yes Status: Acute Assessment and plan: Continue ASA, Statin Residual LUE weakness and hemineglect Continue to monitor (10) Dysphagia Current Visit: Yes Status: Acute Assessment and plan: Improving AIR SUPPORT CONTROL OFFICER eval noted Continue pureed diet Qualifiers: Dysphagia type: unspecified Qualified Code(s): R13.10 - Dysphagia, unspecified - Subjective Interval history: Seen and evaluated at bedside 81 F DNRCCADNI Transferred from ICU to floors admitted for acute CVA with LUE paralysis, Septic shock secondary to enterococcal UTI and bacteremia, acute resp failure s/p extubation She also has ESRD and is on HD She is awake , alert and oriented X3, speech is normal She is still complaining of neck stiffness and pain and LUE numbness, she is receiving Hydrocodone/Acetaminophen for pain SW eval for return to SNF Patient is as clinically stable for her multiple medical co-morbidities - Constitutional Vitals: Temp Pulse Resp BP Pulse Ox 97.8 F 59 15 135/75 100 07/11/17 06:57 07/11/17 06:57 07/11/17 06:57 07/11/17 06:57 07/11/17 06:57 General appearance: Present: cachectic, A&O X 3, pleasant, no acute distress - Head Head exam: Present: atraumatic - ENT ENT exam: Present: mucous membranes dry Additional comments: Hyperflexed neck - Neck Neck exam general surgery: Present: supple, trachea midline. Absent: lymphadenopathy - Respiratory Respiratory exam: Present: CTAB. Absent: accessory muscle use, rales, rhonchi, wheezes - Cardiovascular Cardiovascular exam: Present: RRR, +S1, +S2. Absent: diastolic murmur, gallop, rubs, systolic murmur - GI/Abdominal GI/Abdominal exam: Present: normal bowel sounds, soft, no peritoneal signs. Absent: distended, tenderness - Additional comments: Clear urine by Petersen - Extremities Exam Extremities exam: Present: warm, radial pulses palpable and symmetrical. Absent : calf tenderness, cyanotic, pedal edema - Neurological Exam Neurological exam: Present: alert, motor sensory deficit, oriented X3. Absent: CN II-XII intact Additional comments: ALE ty is 0 Hemineglect of that side - Skin Skin exam: Present: dry, intact Internal Medicine: Result - Labs CBC & Chem 7: 07/11/17 05:41 07/11/17 05:41 Labs: Short CBC 07/11/17 Range/Units 05:41 WBC 13.8 H (4.3-11.1) K/mcL Hgb 9.3 L (11.5-15.4) g/dL Hct 31.6 L (35.3-44.9) % Plt Count 287 (140-400) K/mcL Neutrophils # 8.7 (1.6-8.9) K/mcL BMP 07/11/17 05:41 Sodium 139 Potassium 4.7 H Chloride 101 Carbon Dioxide 28 BUN 17 Creatinine 3.47 H Glucose 103 H Calcium 8.5 L - ABG Interpretation ABG results: ABG ABG pH 7.45 pH Units (7.32-7.45) D 07/06/17 04:31 ABG pCO2 38 mmHg (35-45) 07/06/17 04:31 ABG pO2 88 mmHg (85-104) D 07/06/17 04:31 ABG O2 Saturation 97 % (95-98) 07/06/17 04:31 PT/INR, D-dimer PT 14.7 Seconds (9.4-12.1) H 07/05/17 18:37 - VTE Documentation of Mechanical Device: Intermittent pneumatic compression device Consult Discharge Plan - Plan Referrals: Kaleigh Beckham MD [Primary Care Provider] -
--- NOTE | 2017-07-11 10:36 | Nephrology Progress Note ---
Date of Encounter: 07/11/17 Time of Encounter: 10:20 - Assessment and Plan (1) End-stage renal disease needing dialysis Current Visit: Yes Status: Chronic No HD today, keeping MWF schedule. Subjective Principal diagnosis: cva Interval history: Awake, appropriate answers, speech clear, very soft. No new complaints. Objective - Vital Signs Vital signs: Vital Signs Temp Pulse Resp BP Pulse Ox 07/11/17 06:57 97.8 F 59 15 135/75 100 07/11/17 04:08 98.3 F 88 16 155/76 100 07/10/17 23:08 98.3 F 80 16 137/62 99 07/10/17 20:15 97.7 F 68 16 129/64 100 07/10/17 15:23 97.1 F L 82 18 123/59 100 Intake and Output 07/11/17 07/11/17 07/11/17 00:59 07:59 15:59 Intake Total 340 / 340 Output Total Balance 340 / 340 Intake: IV Fluids 100 / 100 Ampicillin 2 GM In 0.9 % Sodium 100 / 100 Chloride (Mini-Bag +) 100 ML @ 200 mls/hr IVPB Q12H [facility] Rx#: [id number] Oral 240 / 240 Output: Urine Urethral (Petersen) Other: Meal Breakfast Percent of Meal Consumed 20% Weight Blood Glucose* Patient Weight 07/11/17 22:59 Weight 44.18 kg - General Appearance General appearance: Present: chronically ill, frail EENT: Present: mucous membranes moist Neck: Present: no JVD Respiratory: Present: clear Cardiology: Present: no edema, regular rate, regular rhythm Gastrointestinal: Present: normoactive bowel sounds, no tenderness Integumentary: Present: warm and dry Psychiatric: Present: mood/affect appropriate, cooperative - Lab 07/11/17 05:41 07/11/17 05:41 Most recent lab results ABG pH 7.45 pH Units (7.32-7.45) D 07/06/17 04:31 ABG pCO2 38 mmHg (35-45) 07/06/17 04:31 ABG pO2 88 mmHg (85-104) D 07/06/17 04:31 ABG HCO3 27 mEq/L (21-27) 07/06/17 04:31 ABG O2 Saturation 97 % (95-98) 07/06/17 04:31 Calcium 8.5 mg/dL (8.6-10.8) L 07/11/17 05:41 Phosphorus 7.8 mg/dL (2.3-4.7) H 07/05/17 18:37 Magnesium 1.6 mg/dL (1.6-2.6) 07/11/17 05:41 - VTE Documentation of Mechanical Device: Intermittent pneumatic compression device Consult Discharge Plan - Plan Referrals: Kaleigh Beckham MD [Primary Care Provider] -
[2017-07-12] MEDS: *HR* Heparin 5,000 UNIT/ML VIAL SQ SCH ×2 (06:05→18:26)
[2017-07-12 07:22] LABS: Magnesium 1.8 mg/dL (1.6-2.6)
[2017-07-12 07:23] LABS: Potassium 6.4 mEq/L (3.5-4.5)
[2017-07-12 07:24] LABS: Basophils # 0.1 K/mcL (0.0-0.2); Basophils % 0.3 %; Eosinophils # 0.1 K/mcL (0.0-0.6); Eosinophils % 0.7 %; Hematocrit 33.8 % (35.3-44.9); Hemoglobin 10.2 g/dL (11.5-15.4); Immature Granulocytes % 3.6 % (0-4); Lymphocytes # 2.3 K/mcL (0.6-4.6); Mean Corpuscular HGB Conc 30.2 g/dL (31.6-35.5); Mean Corpuscular Volume 99.4 fL (83.0-100.0); Mean Platelet Volume 12.5 fL (9.4-12.4); Monocytes # 2.6 K/mcL (0.0-1.3); Monocytes % 13.7 %; Neutrophils # 13.4 K/mcL (1.6-8.9); Platelet Count 209 K/mcL (140-400); Red Cell Distribution Width 21.2 % (11.5-14.5); Segmented Neutrophils % 69.7 %
[2017-07-12 07:45] LABS: Platelet Estimate Normal (Normal)
[2017-07-12] MEDS: Aspirin 81 MG TAB.CHEW PO SCH (08:40)
[2017-07-12] MEDS: Ampicillin 2 GM in 0.9 % Sodium Chloride Mini Bag 100 ML IVPB SCH ×2 (08:40→19:55)
[2017-07-12] MEDS ORDERED: 0.9 % Sodium Chloride 250 ML IVC PRN (08:46)
--- NOTE | 2017-07-12 08:46 | Nephrology Progress Note ---
Date of Encounter: 07/12/17 Time of Encounter: 08:45 - Assessment and Plan (1) End-stage renal disease needing dialysis Current Visit: Yes Status: Chronic The patient will undergo dialysis today on a 2K bath. She continues on ampicillin for enterococcus urinary tract infection and bacteremia. Her oral intake is very poor. She may benefit from some nutritional supplements. (2) Sepsis Current Visit: Yes Status: Resolved Qualifiers: Sepsis type: sepsis due to unspecified organism Qualified Code(s): A41.9 - Sepsis, unspecified organism (3) Metabolic acidosis Current Visit: No Status: Chronic (4) Acute respiratory failure with hypoxia Current Visit: Yes Status: Acute Subjective Principal diagnosis: cva Interval history: The patient reports she does not feel well. She has a very poor appetite. Medical record indicates that her oral intake is very poor as well. Her white count is increasing. Most recent blood cultures from August 05 are negative. She is scheduled for her usual dialysis today. Potassium is 6.4. Objective - Vital Signs Vital signs: Vital Signs Temp Pulse Resp BP Pulse Ox 07/12/17 07:56 97.5 F L 88 18 140/62 100 07/12/17 03:33 97.9 F 73 18 136/76 100 07/11/17 20:14 97.9 F 91 20 116/58 100 07/11/17 16:06 98.0 F 93 13 156/90 100 07/11/17 13:39 97.9 F 69 14 146/76 98 Intake and Output 07/11/17 07/12/17 07/12/17 23:59 07:59 15:59 Intake Total 580 / 580 Output Total 200 / 200 Balance 380 / 380 Intake: IV Fluids 100 / 100 Ampicillin 2 GM In 0.9 % Sodium 100 / 100 Chloride (Mini-Bag +) 100 ML @ 200 mls/hr IVPB Q12H [facility] Rx#: [id number] Oral 480 / 480 Output: Stool 200 / 200 Other: Meal Dinner Percent of Meal Consumed 25% Stool Consistency liquid Stool Characteristics Foamy Moonshine Weight 44.2 kg Patient Weight 07/12/17 23:59 Weight 44.2 kg - General Appearance Exam: Patient appears weak and chronically ill. She is cachectic. Lungs coarse breath sounds. There are some rales in the left base. Heart irregular rate and rhythm. Abdomen is soft. Colostomy is present. There is minimal lower extremity swelling. There is a functioning AV graft in the left upper extremity. - Lab 07/12/17 05:33 07/12/17 05:33 Most recent lab results ABG pH 7.45 pH Units (7.32-7.45) D 07/06/17 04:31 ABG pCO2 38 mmHg (35-45) 07/06/17 04:31 ABG pO2 88 mmHg (85-104) D 07/06/17 04:31 ABG HCO3 27 mEq/L (21-27) 07/06/17 04:31 ABG O2 Saturation 97 % (95-98) 07/06/17 04:31 Calcium 8.0 mg/dL (8.6-10.8) L 07/12/17 05:33 Phosphorus 7.8 mg/dL (2.3-4.7) H 07/05/17 18:37 Magnesium 1.8 mg/dL (1.6-2.6) 07/12/17 05:33 - VTE Documentation of Mechanical Device: Intermittent pneumatic compression device Consult Discharge Plan - Plan Referrals: Kaleigh Beckham MD [Primary Care Provider] -
[2017-07-12] MEDS ORDERED: Acetaminophen 325 MG TABLET PO PRN (09:27)
--- NOTE | 2017-07-12 09:56 | Palliative Progress Note ---
Date of Encounter: 07/12/17 Time of Encounter: 09:30 - Assessment and plan (1) Dysphagia Current Visit: Yes Status: Acute Assessment and plan: 720 po oral intake documented over the weekend. Remains on modified diet with thickened liquids. Monitor. Qualifiers: Dysphagia type: unspecified Qualified Code(s): R13.10 - Dysphagia, unspecified (2) Generalized pain Current Visit: Yes Status: Acute Assessment and plan: Has utilized [place] x3 last 24 hours. She appears very drowsy and difficult to keep awake. Flexeril was new for her, will decrease to 5mg po BID PRN and monitor (3) Goals of care, counseling/discussion Current Visit: Yes Status: Acute Assessment and plan: Patient appears very weak - not very verbal today, and does not stay awake to discuss. Will attempt to contact son and see if he is available to further discuss goals of care. He works long hours and is difficult to get ahold of at work. Left message with my contact information. (4) CHF (congestive heart failure) Current Visit: No Status: Chronic Qualifiers: Congestive heart failure type: diastolic Congestive heart failure chronicity: chronic Qualified Code(s): I50.32 - Chronic diastolic (congestive ) heart failure (5) End-stage renal disease needing dialysis Current Visit: Yes Status: Chronic (6) CVA (cerebral vascular accident) Current Visit: Yes Status: Acute Qualifiers: Laterality of affected vessel: unspecified - Time Spent With Patient Total time spent is greater than 50% in coordination of care (as documented) at patient's floor/unit and/or counseling patient: 25 - 35 minutes - Subjective Interval history: Patient sleeping on my arrival - awakens easily. Appears very weak - speaks in a whisper, and states she feels bad. Does not elaborate. WBC increasing today. Some po intake over the weekend - refused breakfast this am. - Constitutional Vitals: Abnormal lab results WBC 19.2 K/mcL (4.3-11.1) H 07/12/17 05:33 RBC 3.40 M/mcL (3.82-4.97) L 07/12/17 05:33 Hgb 10.2 g/dL (11.5-15.4) L 07/12/17 05:33 Hct 33.8 % (35.3-44.9) L 07/12/17 05:33 MCHC 30.2 g/dL (31.6-35.5) L 07/12/17 05:33 RDW 21.2 % (11.5-14.5) H 07/12/17 05:33 MPV 12.5 fL (9.4-12.4) H 07/12/17 05:33 Band Neutrophils % 6.0 % (0-4) H 07/05/17 18:37 Metamyelocytes % 2.0 % (0) H 07/05/17 18:37 Myelocytes % 2.0 % (0) H 07/05/17 18:37 Neutrophils # 13.4 K/mcL (1.6-8.9) H 07/12/17 05:33 Monocytes # 2.6 K/mcL (0.0-1.3) H 07/12/17 05:33 Nucleated RBCs/100 WBC 0.1 /100 WBC (0) H 07/10/17 03:41 Smudge Cells Present (Not Present) A 07/05/17 18:37 Toxic Granulation Present (Not Present) A 07/06/17 03:45 Large Platelets Present (Not Present) A 07/10/17 03:41 Polychromasia 1+ (Not Present) A 07/09/17 03:14 Anisocytosis 2+ (Not Present) A 07/10/17 03:41 Macrocytosis Present (Not Present) A 07/06/17 03:45 PT 14.7 Seconds (9.4-12.1) H 07/05/17 18:37 ABG Total CO2 28 mEq/L (20-26) H 07/06/17 04:31 VBG pH 6.91 pH Units (7.32-7.42) L* 07/05/17 18:34 VBG pO2 62 mmHg (25-50) H 07/05/17 18:34 VBG HCO3 10 mEq/L (21-27) L 07/05/17 18:34 Potassium 6.4 mEq/L (3.5-4.5) H D 07/12/17 05:33 BUN 23 mg/dL (7-20) H 07/12/17 05:33 Creatinine 3.94 mg/dL (0.57-1.11) H 07/12/17 05:33 Est GFR ( Amer) 13 (> 60) L 07/12/17 05:33 Est GFR (Non-Af Amer) 11 (> 60) L 07/12/17 05:33 POC Glucose 116 (58-89) H 07/11/17 13:37 Lactic Acid 5.3 mmol/L (0.5-2.2) H* 07/06/17 03:45 Calcium 8.0 mg/dL (8.6-10.8) L 07/12/17 05:33 Phosphorus 7.8 mg/dL (2.3-4.7) H 07/05/17 18:37 AST 53 Units/L (5-34) H 07/05/17 18:37 Alkaline Phosphatase 129 Units/L (38-126) H 07/05/17 18:37 B-Natriuretic Peptide 1525 pg/mL (0-100) H 07/06/17 03:45 Serum Total Protein 5.6 g/dL (6.0-8.3) L 07/05/17 18:37 Albumin 2.5 g/dL (3.5-5.0) L 07/05/17 18:37 Albumin/Globulin Ratio 0.8 (1.1-2.2) L 07/05/17 18:37 Urine Clarity Cloudy (Clear) A 07/05/17 19:31 Urine Protein >=300 mg/dL (Neg-Trace) H 07/05/17 19:31 Urine Ketones Trace mg/dL (Negative) H 07/05/17 19:31 Urine Blood Large (Negative) H 07/05/17 19:31 Ur Leukocyte Esterase Large (Negative) H 07/05/17 19:31 Urine Microscopic WBC TNTC per hpf (0-3) H 07/05/17 19:31 Ur Culture Indicated? YES (NO) A 07/05/17 19:31 Enterococcus sp PCR DETECTED (Not Detect) A 07/05/17 18:37 General appearance: Present: no acute distress - Respiratory Respiratory exam: Present: decreased breath sounds, CTAB Additional comments: Shallow inspiratory effort - Cardiovascular Cardiovascular exam: Present: irregular rhythm - GI/Abdominal GI/Abdominal exam: Present: normal bowel sounds, soft - Extremities Exam Extremities exam: Present: normal capillary refill, normal inspection - Neurological Exam Additional comments: Left arm weakness. Alert and oriented to name and place. Not very interactive today and wouldn't follow commands for me. - Skin Skin exam: Present: dry, pallor, warm Palliative Quality Palliative Quality: Screen for Code Status: Yes, Screen for Goals of Care: Yes, Screen for Pain: Yes, If Pain Regimen Started, Initiate Bowel Regimen: NA, Screen for Nausea/Vomitting: Yes Code Status: 07/05/17 23:40 Resuscitation Status: Active [RES] Routine Comment: Resuscitation Status: DNR-Comfort Care-Arrest 07/06/17 20:48 CODE [Resuscitation Status: Active] [RES] Routine Comment: Resuscitation Status: [id number] - Labs CBC & Chem 7: 07/12/17 05:33 07/12/17 05:33 Labs: Laboratory Results - last 24 hr 07/11/17 07/11/17 07/12/17 06:59 13:37 05:33 WBC 19.2 H RBC 3.40 L Hgb 10.2 L Hct 33.8 L MCV 99.4 MCH 30.0 MCHC 30.2 L RDW 21.2 H Plt Count 209 MPV 12.5 H Immature Gran % 3.6 Seg Neutrophils % 69.7 Lymphocytes % 12.0 Monocytes % 13.7 Eosinophils % 0.7 Basophils % 0.3 Neutrophils # 13.4 H Lymphocytes # 2.3 Monocytes # 2.6 H Eosinophils # 0.1 Basophils # 0.1 Platelet Estimate Normal Sodium Potassium Chloride Carbon Dioxide BUN Creatinine Est GFR ( Amer) Est GFR (Non-Af Amer) BUN/Creatinine Ratio Glucose POC Glucose 124 H 116 H Calculated Osmolality Calcium Magnesium 07/12/17 05:33 WBC RBC Hgb Hct MCV MCH MCHC RDW Plt Count MPV Immature Gran % Seg Neutrophils % Lymphocytes % Monocytes % Eosinophils % Basophils % Neutrophils # Lymphocytes # Monocytes # Eosinophils # Basophils # Platelet Estimate Sodium 138 Potassium 6.4 H D Chloride 103 Carbon Dioxide 22 BUN 23 H Creatinine 3.94 H Est GFR ( Amer) 13 L Est GFR (Non-Af Amer) 11 L BUN/Creatinine Ratio 6 Glucose 76 POC Glucose Calculated Osmolality 288 Calcium 8.0 L Magnesium 1.8 - ABG Interpretation ABG results: ABG ABG pH 7.45 pH Units (7.32-7.45) D 07/06/17 04:31 ABG pCO2 38 mmHg (35-45) 07/06/17 04:31 ABG pO2 88 mmHg (85-104) D 07/06/17 04:31 ABG O2 Saturation 97 % (95-98) 07/06/17 04:31 PT/INR, D-dimer PT 14.7 Seconds (9.4-12.1) H 07/05/17 18:37 Consult Discharge Plan - Plan Referrals: Kaleigh Beckham MD [Primary Care Provider] -
[2017-07-12] MEDS ORDERED: *HR* Morphine 2 MG/ML SYRINGE IVP PRN (12:04)
--- NOTE | 2017-07-12 12:26 | Internal Med Progress Note ---
Date of Encounter: 07/12/17 Time of Encounter: 12:23 - Assessment and plan (1) End-stage renal disease needing dialysis Current Visit: Yes Status: Chronic Assessment and plan: K 6.4 this morning Renal following, management per renal (2) Sepsis Current Visit: Yes Status: Resolved Assessment and plan: With septic shock Now resolved, no longer on pressors Secondary to Enterococcus UTI and Bacteremia Leukocytosis persists but slowly improving, slightly increased this morning, as well as other cell lines, possibly dehydration from poor oral intake Afebrile, continue to monitor Blood culture repeated from 07/06 prelim no growth, continue IV Ampicillin Qualifiers: Sepsis type: sepsis due to unspecified organism Qualified Code(s): A41.9 - Sepsis, unspecified organism (3) Urinary tract infection Current Visit: Yes Status: Resolved Assessment and plan: As above Qualifiers: Urinary tract infection type: acute cystitis Hematuria presence: without hematuria Qualified Code(s): N30.00 - Acute cystitis without hematuria (4) COPD (chronic obstructive pulmonary disease) Current Visit: Yes Status: Chronic Assessment and plan: Not in exacerbation Continue supportive care Duonebs prn Qualifiers: COPD type: unspecified COPD Qualified Code(s): J44.9 - Chronic obstructive pulmonary disease, unspecified (5) A-fib Current Visit: Yes Status: Chronic Assessment and plan: HR controlled Not on anticoagulation Continue current meds-ASA, Diltiazem, Metoprolol Qualifiers: Atrial fibrillation type: chronic Qualified Code(s): I48.2 - Chronic atrial fibrillation (6) Respiratory failure Current Visit: Yes Status: Resolved Assessment and plan: Resolved Brought in from outside hospital intubated EXtubated successfully DNR-CC-DNI Qualifiers: Chronicity: acute Respiratory failure complication: unspecified whether with hypoxia or hypercapnia Qualified Code(s): J96.00 - Acute respiratory failure, unspecified whether with hypoxia or hypercapnia (7) Septic shock Current Visit: Yes Status: Resolved (8) Leukocytosis, unspecified Current Visit: Yes Status: Acute Assessment and plan: Persistent, continue to monitor Qualifiers: Leukocytosis type: unspecified Qualified Code(s): D72.829 - Elevated white blood cell count, unspecified (9) Acute cerebrovascular accident (CVA) Current Visit: Yes Status: Acute Assessment and plan: Continue ASA, Statin Residual LUE weakness and hemineglect Continue to monitor (10) Dysphagia Current Visit: Yes Status: Acute Assessment and plan: Improving [employer]IE[employer] huong noted Continue pureed diet Qualifiers: Dysphagia type: unspecified Qualified Code(s): R13.10 - Dysphagia, unspecified - Subjective Interval history: 81 F [id number] Transferred from ICU to floors admitted for acute CVA with LUE paralysis, Septic shock secondary to enterococcal UTI and bacteremia, acute resp failure s/p extubation She also has ESRD and is on HD Today, patient is very lethargic and states she feels tired and cold. She states " I wanted this to be over a long time ago" She is seen during HD. She also has worsening leukocytosis, possibly from dehydration - Constitutional Vitals: Temp Pulse Resp BP Pulse Ox 97.5 F L 88 18 116/44 100 07/12/17 10:30 07/12/17 07:56 07/12/17 10:30 07/12/17 10:30 07/12/17 07:56 General appearance: Present: cachectic, mild distress, A&O X 3, pleasant - Head Head exam: Present: atraumatic, normocephalic - Eye Eye exam: Present: PERRL, conjuntiva pink, sclera anicteric Pupils: Present: PERRL - Neck Additional comments: hyperextended - Respiratory Respiratory exam: Present: CTAB. Absent: accessory muscle use, rales, rhonchi, wheezes - Cardiovascular Cardiovascular exam: Present: irregular rhythm, +S1, +S2. Absent: diastolic murmur, gallop, rubs, systolic murmur - GI/Abdominal GI/Abdominal exam: Present: normal bowel sounds, soft, no peritoneal signs. Absent: distended, tenderness - Extremities Exam Extremities exam: Present: warm, radial pulses palpable and symmetrical. Absent : calf tenderness, cyanotic, pedal edema - Neurological Exam Neurological exam: Present: alert, CN II-XII intact, motor sensory deficit, oriented X3. Absent: no focal deficits, strengths equal and symetr throughout, pronater drift, facial droop, speech deficit - Skin Skin exam: Present: dry Internal Medicine: Result - Labs CBC & Chem 7: 07/12/17 05:33 07/12/17 05:33 Labs: Short CBC 07/12/17 Range/Units 05:33 WBC 19.2 H (4.3-11.1) K/mcL Hgb 10.2 L (11.5-15.4) g/dL Hct 33.8 L (35.3-44.9) % Plt Count 209 (140-400) K/mcL Neutrophils # 13.4 H (1.6-8.9) K/mcL BMP 07/12/17 05:33 Sodium 138 Potassium 6.4 H D Chloride 103 Carbon Dioxide 22 BUN 23 H Creatinine 3.94 H Glucose 76 Calcium 8.0 L - ABG Interpretation ABG results: ABG ABG pH 7.45 pH Units (7.32-7.45) D 07/06/17 04:31 ABG pCO2 38 mmHg (35-45) 07/06/17 04:31 ABG pO2 88 mmHg (85-104) D 07/06/17 04:31 ABG O2 Saturation 97 % (95-98) 07/06/17 04:31 PT/INR, D-dimer PT 14.7 Seconds (9.4-12.1) H 07/05/17 18:37 - VTE Documentation of Mechanical Device: Intermittent pneumatic compression device Consult Discharge Plan - Plan Referrals: Kaleigh Beckham MD [Primary Care Provider] -
[2017-07-12] MEDS ORDERED: 0.9 % Sodium Chloride 2,000 ML ONE (19:38)
[2017-07-12] MEDS: *HR* HYDROcodone/Acet 10/325 mg TABLET PO PRN (19:55)
[2017-07-13] MEDS: *HR* HYDROcodone/Acet 10/325 mg TABLET PO PRN ×3 (01:58→20:27)
[2017-07-13] MEDS: *HR* Heparin 5,000 UNIT/ML VIAL SQ SCH ×2 (05:51→17:14)
[2017-07-13 07:50] LABS: Basophils # 0.1 K/mcL (0.0-0.2); Basophils % 0.5 %; Eosinophils % 0.1 %; Hematocrit 39.1 % (35.3-44.9); Hemoglobin 11.6 g/dL (11.5-15.4); Immature Granulocytes % 4.5 % (0-4); Lymphocytes # 2.2 K/mcL (0.6-4.6); Lymphocytes % 12.2 %; Mean Corpuscular HGB Conc 29.7 g/dL (31.6-35.5); Mean Corpuscular Hemoglobin 29.6 pg (28.0-33.3); Mean Corpuscular Volume 99.7 fL (83.0-100.0); Mean Platelet Volume 11.2 fL (9.4-12.4); Monocytes # 2.3 K/mcL (0.0-1.3); Monocytes % 12.9 %; Neutrophils # 12.5 K/mcL (1.6-8.9); Platelet Count 425 K/mcL (140-400); Red Blood Count 3.92 M/mcL (3.82-4.97); Red Cell Distribution Width 21.8 % (11.5-14.5); Segmented Neutrophils % 69.8 %
[2017-07-13 07:58] LABS: Calcium 8.7 mg/dL (8.6-10.8); Magnesium 1.7 mg/dL (1.6-2.6)
[2017-07-13 07:59] LABS: Potassium 4.3 mEq/L (3.5-4.5)
[2017-07-13] MEDS: Aspirin 81 MG TAB.CHEW PO SCH (08:39)
[2017-07-13] MEDS: Ampicillin 2 GM in 0.9 % Sodium Chloride Mini Bag 100 ML IVPB SCH ×2 (08:53→19:05)
--- NOTE | 2017-07-13 10:28 | Palliative Progress Note ---
Date of Encounter: 07/13/17 Time of Encounter: 09:50 - Assessment and plan (1) Dysphagia Current Visit: Yes Status: Acute Assessment and plan: Tolerating current diet well, but oral intake has been poor. Staff did report that she ate a good bit during the night. Refused breakfast this am. Qualifiers: Dysphagia type: unspecified Qualified Code(s): R13.10 - Dysphagia, unspecified (2) Generalized pain Current Visit: Yes Status: Acute Assessment and plan: Continue [place] PRN. Utilized x2 last 24 hours. (3) Goals of care, counseling/discussion Current Visit: Yes Status: Acute Assessment and plan: Addressed goals of care with pt this am, as she is more alert and interactive. She defers all decision to her son Paolo and ask that I discuss with him. She stated she would leave things in his hands. Paolo is supposed to call me today when able - he is currently working. From yesterday's conversation, he was going to speak with his brother and make some decision regarding his mother' s care. I discussed briefly with Dr. Farias this am, she is tolerating dialysis, however, has been in a decline for some time. Will continue to follow and discuss with son today. (4) CHF (congestive heart failure) Current Visit: No Status: Chronic Qualifiers: Congestive heart failure type: diastolic Congestive heart failure chronicity: chronic Qualified Code(s): I50.32 - Chronic diastolic (congestive ) heart failure (5) End-stage renal disease needing dialysis Current Visit: Yes Status: Chronic (6) CVA (cerebral vascular accident) Current Visit: Yes Status: Acute Qualifiers: Laterality of affected vessel: unspecified - Time Spent With Patient Total time spent is greater than 50% in coordination of care (as documented) at patient's floor/unit and/or counseling patient: - Subjective Interval history: Patient awake and more interactive today. Ate some during the night. Denies pain, Assisted to reposition in bed. Left arm with increased edema. No family present. Leukocytosis decreased some from yesterday. - Constitutional Vitals: Abnormal lab results WBC 17.9 K/mcL (4.3-11.1) H 07/13/17 06:58 MCHC 29.7 g/dL (31.6-35.5) L 07/13/17 06:58 RDW 21.8 % (11.5-14.5) H 07/13/17 06:58 Plt Count 425 K/mcL (140-400) H D 07/13/17 06:58 Immature Gran % 4.5 % (0-4) H 07/13/17 06:58 Band Neutrophils % 6.0 % (0-4) H 07/05/17 18:37 Metamyelocytes % 2.0 % (0) H 07/05/17 18:37 Myelocytes % 2.0 % (0) H 07/05/17 18:37 Neutrophils # 12.5 K/mcL (1.6-8.9) H 07/13/17 06:58 Monocytes # 2.3 K/mcL (0.0-1.3) H 07/13/17 06:58 Nucleated RBCs/100 WBC 0.1 /100 WBC (0) H 07/10/17 03:41 Smudge Cells Present (Not Present) A 07/05/17 18:37 Toxic Granulation Present (Not Present) A 07/06/17 03:45 Large Platelets Present (Not Present) A 07/10/17 03:41 Polychromasia 1+ (Not Present) A 07/09/17 03:14 Anisocytosis 2+ (Not Present) A 07/10/17 03:41 Macrocytosis Present (Not Present) A 07/06/17 03:45 PT 14.7 Seconds (9.4-12.1) H 07/05/17 18:37 ABG Total CO2 28 mEq/L (20-26) H 07/06/17 04:31 VBG pH 6.91 pH Units (7.32-7.42) L* 07/05/17 18:34 VBG pO2 62 mmHg (25-50) H 07/05/17 18:34 VBG HCO3 10 mEq/L (21-27) L 07/05/17 18:34 Creatinine 2.96 mg/dL (0.57-1.11) H 07/13/17 06:58 Est GFR ( Amer) 18 (> 60) L 07/13/17 06:58 Est GFR (Non-Af Amer) 15 (> 60) L 07/13/17 06:58 BUN/Creatinine Ratio 5 (6-26) L 07/13/17 06:58 Glucose 139 mg/dL (70-99) H 07/13/17 06:58 POC Glucose 116 (58-89) H 07/11/17 13:37 Lactic Acid 5.3 mmol/L (0.5-2.2) H* 07/06/17 03:45 Phosphorus 7.8 mg/dL (2.3-4.7) H 07/05/17 18:37 AST 53 Units/L (5-34) H 07/05/17 18:37 Alkaline Phosphatase 129 Units/L (38-126) H 07/05/17 18:37 B-Natriuretic Peptide 1525 pg/mL (0-100) H 07/06/17 03:45 Serum Total Protein 5.6 g/dL (6.0-8.3) L 07/05/17 18:37 Albumin 2.5 g/dL (3.5-5.0) L 07/05/17 18:37 Albumin/Globulin Ratio 0.8 (1.1-2.2) L 07/05/17 18:37 Urine Clarity Cloudy (Clear) A 07/05/17 19:31 Urine Protein >=300 mg/dL (Neg-Trace) H 07/05/17 19:31 Urine Ketones Trace mg/dL (Negative) H 07/05/17 19:31 Urine Blood Large (Negative) H 07/05/17 19:31 Ur Leukocyte Esterase Large (Negative) H 07/05/17 19:31 Urine Microscopic WBC TNTC per hpf (0-3) H 07/05/17 19:31 Ur Culture Indicated? YES (NO) A 07/05/17 19:31 Enterococcus sp PCR DETECTED (Not Detect) A 07/05/17 18:37 General appearance: Present: no acute distress - Respiratory Respiratory exam: Present: decreased breath sounds, CTAB Additional comments: Shallow inspiratory effort - Cardiovascular Cardiovascular exam: Present: +S1, +S2 - GI/Abdominal GI/Abdominal exam: Present: normal bowel sounds, soft - Extremities Exam Additional comments: Left arm edema - Neurological Exam Additional comments: Awake alert, oriented x2. Left arm weakness remains. Follows simple commands - Skin Skin exam: Present: dry, pallor, warm Palliative Quality Palliative Quality: Screen for Code Status: Yes, Screen for Goals of Care: Yes, Screen for Pain: Yes, If Pain Regimen Started, Initiate Bowel Regimen: NA, Screen for Nausea/Vomitting: Yes Code Status: 07/05/17 23:40 Resuscitation Status: Active [RES] Routine Comment: Resuscitation Status: DNR-Comfort Care-Arrest 07/06/17 20:48 CODE [Resuscitation Status: Active] [RES] Routine Comment: Resuscitation Status: [id number] - Labs CBC & Chem 7: 07/13/17 06:58 07/13/17 06:58 Labs: Laboratory Results - last 24 hr 07/13/17 07/13/17 06:58 06:58 WBC 17.9 H RBC 3.92 Hgb 11.6 Hct 39.1 MCV 99.7 MCH 29.6 MCHC 29.7 L RDW 21.8 H Plt Count 425 H D MPV 11.2 Immature Gran % 4.5 H Seg Neutrophils % 69.8 Lymphocytes % 12.2 Monocytes % 12.9 Eosinophils % 0.1 Basophils % 0.5 Neutrophils # 12.5 H Lymphocytes # 2.2 Monocytes # 2.3 H Eosinophils # 0.0 Basophils # 0.1 Sodium 143 Potassium 4.3 D Chloride 100 Carbon Dioxide 29 BUN 14 Creatinine 2.96 H Est GFR ( Amer) 18 L Est GFR (Non-Af Amer) 15 L BUN/Creatinine Ratio 5 L Glucose 139 H Calculated Osmolality 299 Calcium 8.7 Magnesium 1.7 - ABG Interpretation ABG results: ABG ABG pH 7.45 pH Units (7.32-7.45) D 07/06/17 04:31 ABG pCO2 38 mmHg (35-45) 07/06/17 04:31 ABG pO2 88 mmHg (85-104) D 07/06/17 04:31 ABG O2 Saturation 97 % (95-98) 07/06/17 04:31 PT/INR, D-dimer PT 14.7 Seconds (9.4-12.1) H 07/05/17 18:37 Consult Discharge Plan - Plan Referrals: Kaleigh Beckham MD [Primary Care Provider] -
--- NOTE | 2017-07-13 16:41 | Internal Med Progress Note ---
Date of Encounter: 07/13/17 Time of Encounter: 10:40 - Assessment and plan (1) Sepsis Current Visit: Yes Status: Resolved Assessment and plan: With septic shock - now resolved Secondary to Enterococcus UTI and Bacteremia Leukocytosis persists but slowly improving, slightly increased this morning, as well as other cell lines, possibly dehydration from poor oral intake Afebrile, continue to monitor Blood culture repeated from 07/06 prelim no growth, continue IV Ampicillin Qualifiers: Sepsis type: sepsis due to unspecified organism Qualified Code(s): A41.9 - Sepsis, unspecified organism (2) Urinary tract infection Current Visit: Yes Status: Resolved Assessment and plan: Plan as above Qualifiers: Urinary tract infection type: acute cystitis Hematuria presence: without hematuria Qualified Code(s): N30.00 - Acute cystitis without hematuria (3) End-stage renal disease needing dialysis Current Visit: Yes Status: Chronic Assessment and plan: K 4.3 this morning Nephrology following, appreciate input (4) COPD (chronic obstructive pulmonary disease) Current Visit: Yes Status: Chronic Assessment and plan: COPD, stable - Not in exacerbation Continue supportive care, Duonebs prn Qualifiers: COPD type: unspecified COPD Qualified Code(s): J44.9 - Chronic obstructive pulmonary disease, unspecified (5) Afib Current Visit: No Status: Chronic Assessment and plan: Chronic A. fib, rate controlled Continue Cardizem, Lopressor Qualifiers: Atrial fibrillation type: chronic Qualified Code(s): I48.2 - Chronic atrial fibrillation (6) Respiratory failure Current Visit: Yes Status: Resolved Assessment and plan: Resolved Brought in from outside hospital intubated EXtubated successfully , DNR-CC-DNI Qualifiers: Chronicity: acute Respiratory failure complication: unspecified whether with hypoxia or hypercapnia Qualified Code(s): J96.00 - Acute respiratory failure, unspecified whether with hypoxia or hypercapnia (7) Acute cerebrovascular accident (CVA) Current Visit: Yes Status: Acute Assessment and plan: Continue ASA, Statin Residual LUE weakness and hemineglect Continue to monitor (8) Dysphagia Current Visit: Yes Status: Acute Assessment and plan: Improving ASSIST[employer]ESS[employer] eval noted Continue pureed diet Qualifiers: Dysphagia type: unspecified Qualified Code(s): R13.10 - Dysphagia, unspecified - Time Spent With Patient 25 - 35 minutes - Subjective Interval history: Examined this morning. Patient is awake and alert. Not in any distress. Denies chest pain or shortness of breath. No fever. Hemodynamically stable. Complains of poor appetite. Also complains of generalized weakness. No other acute events or complaints. - Constitutional Vitals: Temp Pulse Resp BP Pulse Ox 98.1 F 117 17 119/76 100 07/13/17 15:06 07/13/17 15:06 07/13/17 15:06 07/13/17 15:06 07/13/17 15:06 General appearance: Present: cachectic, cooperative, A&O X 3, pleasant, no acute distress, underweight, answers questions appropriately - Head Head exam: Present: atraumatic - Eye Eye exam: Present: EOMI - ENT ENT exam: Present: mucous membranes dry - Respiratory Respiratory exam: Present: CTAB. Absent: rales, rhonchi, wheezes, tachypnea - Cardiovascular Cardiovascular exam: Present: irregular rhythm, +S1, +S2 - GI/Abdominal GI/Abdominal exam: Present: soft. Absent: distended, firm, guarding, tenderness - Extremities Exam Extremities exam: Present: radial pulses palpable and symmetrical. Absent: calf tenderness, cyanotic, pedal edema Additional comments: Left upper extremity 3+ edema present - Neurological Exam Neurological exam: Present: alert, CN II-XII intact, oriented X3, no focal deficits. Absent: facial droop, speech deficit Internal Medicine: Result - Labs CBC & Chem 7: 07/13/17 06:58 07/13/17 06:58 Labs: Short CBC 07/13/17 Range/Units 06:58 WBC 17.9 H (4.3-11.1) K/mcL Hgb 11.6 (11.5-15.4) g/dL Hct 39.1 (35.3-44.9) % Plt Count 425 H D (140-400) K/mcL Neutrophils # 12.5 H (1.6-8.9) K/mcL BMP 07/13/17 06:58 Sodium 143 Potassium 4.3 D Chloride 100 Carbon Dioxide 29 BUN 14 Creatinine 2.96 H Glucose 139 H Calcium 8.7 - ABG Interpretation ABG results: ABG ABG pH 7.45 pH Units (7.32-7.45) D 07/06/17 04:31 ABG pCO2 38 mmHg (35-45) 07/06/17 04:31 ABG pO2 88 mmHg (85-104) D 07/06/17 04:31 ABG O2 Saturation 97 % (95-98) 07/06/17 04:31 PT/INR, D-dimer PT 14.7 Seconds (9.4-12.1) H 07/05/17 18:37 - VTE Documentation of Mechanical Device: Intermittent pneumatic compression device Consult Discharge Plan - Plan Referrals: Kaleigh Beckham MD [Primary Care Provider] -
[2017-07-14] MEDS: *HR* Heparin 5,000 UNIT/ML VIAL SQ SCH ×2 (05:21→19:00)
[2017-07-14 06:29] LABS: Basophils # 0.1 K/mcL (0.0-0.2); Basophils % 0.4 %; Eosinophils # 0.1 K/mcL (0.0-0.6); Hematocrit 32.7 % (35.3-44.9); Immature Granulocytes % 4.7 % (0-4); Lymphocytes # 2.1 K/mcL (0.6-4.6); Lymphocytes % 15.6 %; Mean Corpuscular HGB Conc 30.6 g/dL (31.6-35.5); Mean Corpuscular Hemoglobin 30.2 pg (28.0-33.3); Mean Corpuscular Volume 98.8 fL (83.0-100.0); Monocytes # 1.9 K/mcL (0.0-1.3); Neutrophils # 8.7 K/mcL (1.6-8.9); Platelet Count 346 K/mcL (140-400); Red Blood Count 3.31 M/mcL (3.82-4.97); Red Cell Distribution Width 21.3 % (11.5-14.5); Segmented Neutrophils % 64.3 %
[2017-07-14 07:15] LABS: Calcium 8.4 mg/dL (8.6-10.8); Potassium 4.6 mEq/L (3.5-4.5)
[2017-07-14] MEDS ORDERED: 0.9 % Sodium Chloride 250 ML IVC PRN (08:17)
--- NOTE | 2017-07-14 08:17 | Nephrology Progress Note ---
Date of Encounter: 07/14/17 Time of Encounter: 08:15 - Assessment and Plan (1) End-stage renal disease needing dialysis Current Visit: Yes Status: Chronic Patient will undergo dialysis today. Her overall prognosis however appears to be poor. Her white blood cell count is improving with continued antibiotics. (2) Sepsis Current Visit: Yes Status: Resolved Qualifiers: Sepsis type: sepsis due to unspecified organism Qualified Code(s): A41.9 - Sepsis, unspecified organism (3) Metabolic acidosis Current Visit: No Status: Chronic (4) Acute respiratory failure with hypoxia Current Visit: Yes Status: Acute Subjective Principal diagnosis: cva Interval history: The patient is clinically about the same. She appears quite fragile and weak. Her oral intake remains poor. Palliative cares and discussion with the patient' s son regarding the future course of care. She will undergo her usual dialysis today. Objective - Vital Signs Vital signs: Vital Signs Temp Pulse Resp BP Pulse Ox 07/14/17 03:15 97.5 F L 94 12 136/80 100 07/13/17 23:04 95/50 07/13/17 23:03 97.4 F L 62 20 98/35 100 07/13/17 19:25 97.4 F L 84 20 116/42 99 07/13/17 15:06 98.1 F 117 17 119/76 100 07/13/17 11:05 98.2 F 86 15 137/80 100 Intake and Output 07/13/17 07/14/17 07/14/17 23:59 07:59 15:59 Intake Total 100 / 100 Output Total 575 / 575 Balance -475 / -475 Intake: IV Fluids 100 / 100 Ampicillin 2 GM In 0.9 % Sodium 100 / 100 Chloride (Mini-Bag +) 100 ML @ 200 mls/hr IVPB Q12H [facility] Rx#: [id number] Output: Stool 575 / 575 Other: Stool Color Brown Blood Glucose* 254 126 - General Appearance Exam: Patient is alert and oriented. However she appears quite weak. Lungs symmetric breath sounds. Heart irregular rate and rhythm. Abdomen is benign. A colostomy is present. There is no lower extremity swelling. There is a functioning AV graft in the left upper extremity. - Lab 07/14/17 05:43 07/14/17 05:43 Most recent lab results ABG pH 7.45 pH Units (7.32-7.45) D 07/06/17 04:31 ABG pCO2 38 mmHg (35-45) 07/06/17 04:31 ABG pO2 88 mmHg (85-104) D 07/06/17 04:31 ABG HCO3 27 mEq/L (21-27) 07/06/17 04:31 ABG O2 Saturation 97 % (95-98) 07/06/17 04:31 Calcium 8.4 mg/dL (8.6-10.8) L 07/14/17 05:43 Phosphorus 7.8 mg/dL (2.3-4.7) H 07/05/17 18:37 Magnesium 1.7 mg/dL (1.6-2.6) 07/13/17 06:58 - VTE Documentation of Mechanical Device: Intermittent pneumatic compression device Consult Discharge Plan - Plan Referrals: Kaleigh Beckham MD [Primary Care Provider] -
[2017-07-14] MEDS: Aspirin 81 MG TAB.CHEW PO SCH (08:49)
[2017-07-14] MEDS: Ampicillin 2 GM in 0.9 % Sodium Chloride Mini Bag 100 ML IVPB SCH ×2 (08:49→19:00)
--- NOTE | 2017-07-14 09:30 | Palliative Progress Note ---
Date of Encounter: 07/14/17 Time of Encounter: 09:25 - Assessment and plan (1) Dysphagia Current Visit: Yes Status: Acute Assessment and plan: Tolerating modified diet well and staff reports she is eating more. Qualifiers: Dysphagia type: unspecified Qualified Code(s): R13.10 - Dysphagia, unspecified (2) Generalized pain Current Visit: Yes Status: Acute Assessment and plan: Has norco available PRN. Utilized x2 last 24 hours. (3) Goals of care, counseling/discussion Current Visit: Yes Status: Acute Assessment and plan: Patient's son Paolo called me this am. States he had a good conversation with pt yesterday evening. He stated that he expressed to her "permission" and the opportunity to focus on comfort care only and told her if she desire to discontinue dialysis, family understood and would support her decision. She told him she was feeling better, and DOES WANT to continue with her dialysis treatments and current management for infection. She would not elaborate on this discussion today, but would indicate by head nod that they did discuss, and she desire to continue current course of care. Paolo plans for her to return to ECF when stable for discharge. Her code status remains DNR/DNI. We did discuss that if/when either pt does not tolerate dialysis, or no longer desires, that ECF aids social worker can assist with that transition. (4) CHF (congestive heart failure) Current Visit: No Status: Chronic Qualifiers: Congestive heart failure type: diastolic Congestive heart failure chronicity: chronic Qualified Code(s): I50.32 - Chronic diastolic (congestive ) heart failure (5) End-stage renal disease needing dialysis Current Visit: Yes Status: Chronic (6) CVA (cerebral vascular accident) Current Visit: Yes Status: Acute Qualifiers: Laterality of affected vessel: unspecified - Time Spent With Patient Total time spent is greater than 50% in coordination of care (as documented) at patient's floor/unit and/or counseling patient: 25 - 35 minutes - Subjective Interval history: Patient awakens easily. Denies pain or discomfort. Less interactive than yesterday - mostly responding by head nods and not desiring to answer questions. Although there is not much documented on I&O, staff does report that she is eating better and requesting cranberry juice frequently. WBC trending down. - Constitutional Vitals: Abnormal lab results WBC 13.6 K/mcL (4.3-11.1) H 07/14/17 05:43 RBC 3.31 M/mcL (3.82-4.97) L 07/14/17 05:43 Hgb 10.0 g/dL (11.5-15.4) L D 07/14/17 05:43 Hct 32.7 % (35.3-44.9) L 07/14/17 05:43 MCHC 30.6 g/dL (31.6-35.5) L 07/14/17 05:43 RDW 21.3 % (11.5-14.5) H 07/14/17 05:43 Immature Gran % 4.7 % (0-4) H 07/14/17 05:43 Band Neutrophils % 6.0 % (0-4) H 07/05/17 18:37 Metamyelocytes % 2.0 % (0) H 07/05/17 18:37 Myelocytes % 2.0 % (0) H 07/05/17 18:37 Monocytes # 1.9 K/mcL (0.0-1.3) H 07/14/17 05:43 Nucleated RBCs/100 WBC 0.1 /100 WBC (0) H 07/10/17 03:41 Smudge Cells Present (Not Present) A 07/05/17 18:37 Toxic Granulation Present (Not Present) A 07/06/17 03:45 Large Platelets Present (Not Present) A 07/10/17 03:41 Polychromasia 1+ (Not Present) A 07/09/17 03:14 Anisocytosis 2+ (Not Present) A 07/10/17 03:41 Macrocytosis Present (Not Present) A 07/06/17 03:45 PT 14.7 Seconds (9.4-12.1) H 07/05/17 18:37 ABG Total CO2 28 mEq/L (20-26) H 07/06/17 04:31 VBG pH 6.91 pH Units (7.32-7.42) L* 07/05/17 18:34 VBG pO2 62 mmHg (25-50) H 07/05/17 18:34 VBG HCO3 10 mEq/L (21-27) L 07/05/17 18:34 Potassium 4.6 mEq/L (3.5-4.5) H 07/14/17 05:43 Creatinine 3.57 mg/dL (0.57-1.11) H 07/14/17 05:43 Est GFR ( Amer) 15 (> 60) L 07/14/17 05:43 Est GFR (Non-Af Amer) 12 (> 60) L 07/14/17 05:43 BUN/Creatinine Ratio 5 (6-26) L 07/14/17 05:43 Glucose 134 mg/dL (70-99) H 07/14/17 05:43 POC Glucose 126 (58-89) H 07/14/17 05:49 Lactic Acid 5.3 mmol/L (0.5-2.2) H* 07/06/17 03:45 Calcium 8.4 mg/dL (8.6-10.8) L 07/14/17 05:43 Phosphorus 7.8 mg/dL (2.3-4.7) H 07/05/17 18:37 AST 53 Units/L (5-34) H 07/05/17 18:37 Alkaline Phosphatase 129 Units/L (38-126) H 07/05/17 18:37 B-Natriuretic Peptide 1525 pg/mL (0-100) H 07/06/17 03:45 Serum Total Protein 5.6 g/dL (6.0-8.3) L 07/05/17 18:37 Albumin 2.5 g/dL (3.5-5.0) L 07/05/17 18:37 Albumin/Globulin Ratio 0.8 (1.1-2.2) L 07/05/17 18:37 Urine Clarity Cloudy (Clear) A 07/05/17 19:31 Urine Protein >=300 mg/dL (Neg-Trace) H 07/05/17 19:31 Urine Ketones Trace mg/dL (Negative) H 07/05/17 19:31 Urine Blood Large (Negative) H 07/05/17 19:31 Ur Leukocyte Esterase Large (Negative) H 07/05/17 19:31 Urine Microscopic WBC TNTC per hpf (0-3) H 07/05/17 19:31 Ur Culture Indicated? YES (NO) A 07/05/17 19:31 Enterococcus sp PCR DETECTED (Not Detect) A 07/05/17 18:37 General appearance: Present: no acute distress - Respiratory Respiratory exam: Present: decreased breath sounds, CTAB Additional comments: Shallow inspiratory effort - Cardiovascular Cardiovascular exam: Present: +S1, +S2 - GI/Abdominal GI/Abdominal exam: Present: normal bowel sounds, soft Additional comments: Colostomy emptied for 750 cc liquid brown stool - Extremities Exam Extremities exam: Present: normal capillary refill, normal inspection Additional comments: Left arm remains with 2+ edema - Neurological Exam Neurological exam: Present: alert Additional comments: Oriented to name and place. Left sided weakness remains. Is able to slightly raise left arm - Skin Skin exam: Present: dry, pallor, warm Palliative Quality Palliative Quality: Screen for Code Status: Yes, Screen for Goals of Care: Yes, Screen for Pain: Yes, If Pain Regimen Started, Initiate Bowel Regimen: NA, Screen for Nausea/Vomitting: Yes Code Status: 07/05/17 23:40 Resuscitation Status: Active [RES] Routine Comment: Resuscitation Status: DNR-Comfort Care-Arrest 07/06/17 20:48 CODE [Resuscitation Status: Active] [RES] Routine Comment: Resuscitation Status: [id number] - Labs CBC & Chem 7: 07/14/17 05:43 07/14/17 05:43 Labs: Laboratory Results - last 24 hr 07/13/17 07/14/17 07/14/17 21:23 04:12 05:43 WBC 13.6 H RBC 3.31 L Hgb 10.0 L D Hct 32.7 L MCV 98.8 MCH 30.2 MCHC 30.6 L RDW 21.3 H Plt Count 346 MPV 11.0 Immature Gran % 4.7 H Seg Neutrophils % 64.3 Lymphocytes % 15.6 Monocytes % 14.0 Eosinophils % 1.0 Basophils % 0.4 Neutrophils # 8.7 Lymphocytes # 2.1 Monocytes # 1.9 H Eosinophils # 0.1 Basophils # 0.1 Sodium Potassium Chloride Carbon Dioxide BUN Creatinine Est GFR ( Amer) Est GFR (Non-Af Amer) BUN/Creatinine Ratio Glucose POC Glucose 254 H Calculated Osmolality Calcium Specimen Rejected Volume 07/14/17 07/14/17 05:43 05:49 WBC RBC Hgb Hct MCV MCH MCHC RDW Plt Count MPV Immature Gran % Seg Neutrophils % Lymphocytes % Monocytes % Eosinophils % Basophils % Neutrophils # Lymphocytes # Monocytes # Eosinophils # Basophils # Sodium 141 Potassium 4.6 H Chloride 101 Carbon Dioxide 28 BUN 18 Creatinine 3.57 H Est GFR ( Amer) 15 L Est GFR (Non-Af Amer) 12 L BUN/Creatinine Ratio 5 L Glucose 134 H POC Glucose 126 H Calculated Osmolality 296 Calcium 8.4 L Specimen Rejected - ABG Interpretation ABG results: ABG ABG pH 7.45 pH Units (7.32-7.45) D 07/06/17 04:31 ABG pCO2 38 mmHg (35-45) 07/06/17 04:31 ABG pO2 88 mmHg (85-104) D 07/06/17 04:31 ABG O2 Saturation 97 % (95-98) 07/06/17 04:31 PT/INR, D-dimer PT 14.7 Seconds (9.4-12.1) H 07/05/17 18:37 Consult Discharge Plan - Plan Referrals: Kaleigh Beckham MD [Primary Care Provider] -
--- NOTE | 2017-07-14 14:22 | Internal Med Progress Note ---
Date of Encounter: 07/14/17 Time of Encounter: 10:00 - Assessment and plan (1) Sepsis Current Visit: Yes Status: Resolved Assessment and plan: With septic shock - now resolved Secondary to Enterococcus UTI and Bacteremia Enterococcus in the urine and blood pansensitive Leukocytosis slowly improving Afebrile, continue to monitor Blood culture repeated from 07/06 - no growth, continue IV Ampicillin Overall poor prognosis, labs in a.m., monitor closely Qualifiers: Sepsis type: sepsis due to unspecified organism Qualified Code(s): A41.9 - Sepsis, unspecified organism (2) Urinary tract infection Current Visit: Yes Status: Resolved Assessment and plan: Plan as above Qualifiers: Urinary tract infection type: acute cystitis Hematuria presence: without hematuria Qualified Code(s): N30.00 - Acute cystitis without hematuria (3) End-stage renal disease needing dialysis Current Visit: Yes Status: Chronic Assessment and plan: Patient wants to continue hemodialysis at this time - HD today K 4.6 this morning Nephrology following, appreciate input (4) COPD (chronic obstructive pulmonary disease) Current Visit: Yes Status: Chronic Assessment and plan: COPD, stable - Not in exacerbation Continue supportive care, Albuterol PRN Qualifiers: COPD type: unspecified COPD Qualified Code(s): J44.9 - Chronic obstructive pulmonary disease, unspecified (5) Afib Current Visit: No Status: Chronic Assessment and plan: Chronic A. fib, rate controlled Continue Cardizem, Lopressor Patient is not on anticoagulation at home Qualifiers: Atrial fibrillation type: chronic Qualified Code(s): I48.2 - Chronic atrial fibrillation (6) Respiratory failure Current Visit: Yes Status: Resolved Assessment and plan: Likely secondary to sepsis and septic shock - now Resolved Brought in from outside hospital intubated Extubated successfully DNR-CC-DNI status Qualifiers: Chronicity: acute Respiratory failure complication: unspecified whether with hypoxia or hypercapnia Qualified Code(s): J96.00 - Acute respiratory failure, unspecified whether with hypoxia or hypercapnia (7) Acute cerebrovascular accident (CVA) Current Visit: Yes Status: Acute Assessment and plan: Continue ASA, Statin Residual LUE weakness and hemineglect Continue to monitor (8) Dysphagia Current Visit: Yes Status: Acute Assessment and plan: Improving - tolerating oral diet, poor appetite [employer] eval noted Continue pureed diet Qualifiers: Dysphagia type: unspecified Qualified Code(s): R13.10 - Dysphagia, unspecified (9) DVT prophylaxis Current Visit: Yes Status: Acute Assessment and plan: Continue heparin subcutaneous - Time Spent With Patient 25 - 35 minutes - Subjective Interval history: Examined this morning. Patient is awake and alert. Not in any distress. Denies chest pain or shortness of breath. No fever. Hemodynamically stable. Complains of poor appetite. Continues to have generalized weakness. No other acute events or complaints. Palliative care is following. Patient apparently wants to continue hemodialysis at this time. She remains a DO NOT RESUSCITATE and DO NOT INTUBATE status. Anticipate discharge to ECF soon. - Constitutional Vitals: Temp Pulse Resp BP Pulse Ox 97.9 F 105 18 171/104 100 07/14/17 12:14 07/14/17 12:14 07/14/17 12:14 07/14/17 12:14 07/14/17 12:14 General appearance: Present: cachectic, cooperative, A&O X 3, pleasant, no acute distress, underweight, answers questions appropriately Exam: Chronically ill-appearing, generalized weakness - Head Head exam: Present: atraumatic - Eye Eye exam: Present: EOMI - ENT ENT exam: Present: mucous membranes moist - Respiratory Respiratory exam: Present: decreased breath sounds (Slightly decreased in both bases, otherwise clear to auscultation), CTAB. Absent: rales, rhonchi, tachypnea - Cardiovascular Cardiovascular exam: Present: +S1, +S2 - GI/Abdominal GI/Abdominal exam: Present: soft. Absent: distended, firm, guarding, tenderness - Extremities Exam Extremities exam: Present: radial pulses palpable and symmetrical. Absent: calf tenderness, cyanotic, pedal edema Additional comments: Left upper extremity 3+ edema present - Neurological Exam Neurological exam: Present: alert Additional comments: Patient does have mild left-sided weakness, severe edema to left arm, oriented to place and person, able to verbalize and able to follow verbal commands. Able to move all extremities. Internal Medicine: Result - Labs CBC & Chem 7: 07/14/17 05:43 07/14/17 05:43 Labs: Short CBC 07/14/17 Range/Units 05:43 WBC 13.6 H (4.3-11.1) K/mcL Hgb 10.0 L D (11.5-15.4) g/dL Hct 32.7 L (35.3-44.9) % Plt Count 346 (140-400) K/mcL Neutrophils # 8.7 (1.6-8.9) K/mcL BMP 07/14/17 05:43 Sodium 141 Potassium 4.6 H Chloride 101 Carbon Dioxide 28 BUN 18 Creatinine 3.57 H Glucose 134 H Calcium 8.4 L - ABG Interpretation ABG results: ABG ABG pH 7.45 pH Units (7.32-7.45) D 07/06/17 04:31 ABG pCO2 38 mmHg (35-45) 07/06/17 04:31 ABG pO2 88 mmHg (85-104) D 07/06/17 04:31 ABG O2 Saturation 97 % (95-98) 07/06/17 04:31 PT/INR, D-dimer PT 14.7 Seconds (9.4-12.1) H 07/05/17 18:37 - VTE Documentation of Mechanical Device: Intermittent pneumatic compression device Consult Discharge Plan - Plan Referrals: Kaleigh Beckham MD [Primary Care Provider] -
[2017-07-14] MEDS: *HR* HYDROcodone/Acet 10/325 mg TABLET PO PRN (16:40)
[2017-07-14 19:22] LABS: ABG Base Excess 7 mEq/L (-2 to 3); ABG HCO3 32 mEq/L (21-27); ABG Oxygen Saturation 99 % (95-98); ABG PCO2 46 mmHg (35-45); ABG PH 7.46 pH Units (7.32-7.45); ABG PO2 127 mmHg (85-104); ABG TCO2 34 mEq/L (20-26)
[2017-07-15] MEDS: *HR* Heparin 5,000 UNIT/ML VIAL SQ SCH ×2 (07:05→18:56)
[2017-07-15] MEDS: Ampicillin 2 GM in 0.9 % Sodium Chloride Mini Bag 100 ML IVPB SCH ×2 (07:06→18:51)
--- NOTE | 2017-07-15 09:02 | Nephrology Progress Note ---
Date of Encounter: 07/15/17 Time of Encounter: 08:55 - Assessment and Plan (1) End-stage renal disease needing dialysis Current Visit: Yes Status: Chronic No HD today, keeping MWF schedule. Subjective Principal diagnosis: cva Interval history: Awake, appropriate answers, speech clear, very soft. Debility increasing. Objective - Vital Signs Vital signs: Vital Signs Temp Pulse Resp BP Pulse Ox 07/15/17 07:54 98.0 F 107 18 160/102 99 07/15/17 02:47 98.1 F 72 16 147/82 100 07/14/17 23:09 98.3 F 87 16 144/77 100 07/14/17 18:57 97.8 F 14 113/77 100 07/14/17 18:38 97.8 F 18 126/76 07/14/17 18:10 73/42 07/14/17 17:40 102/56 07/14/17 17:25 108/52 07/14/17 17:20 98.2 F 116 12 92/62 95 07/14/17 17:10 108/72 07/14/17 16:55 102/59 07/14/17 16:40 108/80 07/14/17 16:25 104/67 07/14/17 16:10 91/68 07/14/17 15:55 113/65 07/14/17 15:40 148/59 07/14/17 15:25 128/82 07/14/17 15:10 98.4 F 18 128/81 07/14/17 12:14 97.9 F 105 18 171/104 100 Intake and Output 07/14/17 07/15/17 07/15/17 23:59 07:59 15:59 Intake Total 100 / 100 120 / 120 Output Total 1600 / 1600 150 / 150 250 / 250 Balance -1500 / -1500 -150 / -150 -130 / -130 Intake: IV Fluids 100 / 100 Ampicillin 2 GM In 0.9 % Sodium 100 / 100 Chloride (Mini-Bag +) 100 ML @ 200 mls/hr IVPB Q12H [facility] Rx#: [id number] Oral 0 / 0 120 / 120 Output: Urine 0 / 0 Stool 150 / 150 250 / 250 Total Dialysis (HD) Output 1600 / 1600 Other: Meal Breakfast Percent of Meal Consumed 0% Stool Size Moderate Stool Consistency liquid soft Stool Characteristics Normal for Patient Stool Color Yellow Yellow Weight 45.1 kg Blood Glucose* 155 Hemodialysis Net Fluid Removed 1000 (mL) Patient Weight 07/15/17 23:59 Weight 45.1 kg - General Appearance General appearance: Present: chronically ill, frail EENT: Present: mucous membranes moist Neck: Present: no JVD Respiratory: Present: clear Cardiology: Present: edema, irregular rhythm Additional Comments: trace pedal Integumentary: Present: warm and dry Psychiatric: Present: cooperative - Lab 07/14/17 05:43 07/14/17 05:43 Most recent lab results ABG pH 7.46 pH Units (7.32-7.45) H 07/14/17 19:04 ABG pCO2 46 mmHg (35-45) H 07/14/17 19:04 ABG pO2 127 mmHg (85-104) H 07/14/17 19:04 ABG HCO3 32 mEq/L (21-27) H 07/14/17 19:04 ABG O2 Saturation 99 % (95-98) H 07/14/17 19:04 Calcium 8.4 mg/dL (8.6-10.8) L 07/14/17 05:43 Phosphorus 7.8 mg/dL (2.3-4.7) H 07/05/17 18:37 Magnesium 1.7 mg/dL (1.6-2.6) 07/13/17 06:58 - VTE Documentation of Mechanical Device: Intermittent pneumatic compression device Consult Discharge Plan - Plan Referrals: Kaleigh Beckham MD [Primary Care Provider] -
[2017-07-15] MEDS: Aspirin 81 MG TAB.CHEW PO SCH (10:08)
[2017-07-15] MEDS: *HR* HYDROcodone/Acet 10/325 mg TABLET PO PRN (15:43)
--- NOTE | 2017-07-15 16:45 | Internal Med Progress Note ---
Date of Encounter: 07/15/17 Time of Encounter: 09:40 - Assessment and plan (1) Sepsis Current Visit: Yes Status: Resolved Assessment and plan: With septic shock - now resolved Secondary to Enterococcus UTI and Bacteremia Enterococcus in the urine and blood pansensitive Leukocytosis slowly improving Afebrile, continue to monitor Blood culture repeated from 07/06 - no growth, continue IV Ampicillin Overall poor prognosis, labs in a.m., monitor closely and anticipate discharge soon 07/15 - patient continues to have poor appetite. Leukocytosis has now improved. Patient wants to continue hemodialysis at this time. Continues to have generalized weakness, with intermittent episodes of hypotension. Qualifiers: Sepsis type: sepsis due to unspecified organism Qualified Code(s): A41.9 - Sepsis, unspecified organism (2) Urinary tract infection Current Visit: Yes Status: Resolved Assessment and plan: Urine culture - enterococcus species Plan as above Qualifiers: Urinary tract infection type: acute cystitis Hematuria presence: without hematuria Qualified Code(s): N30.00 - Acute cystitis without hematuria (3) End-stage renal disease needing dialysis Current Visit: Yes Status: Chronic Assessment and plan: Patient wants to continue hemodialysis at this time - HD today Nephrology following, appreciate input (4) COPD (chronic obstructive pulmonary disease) Current Visit: Yes Status: Chronic Assessment and plan: COPD, stable - Not in exacerbation Continue supportive care, Albuterol PRN Qualifiers: COPD type: unspecified COPD Qualified Code(s): J44.9 - Chronic obstructive pulmonary disease, unspecified (5) Afib Current Visit: No Status: Chronic Assessment and plan: Chronic A. fib, rate controlled Continue Cardizem, Lopressor Patient is not on anticoagulation at home Qualifiers: Atrial fibrillation type: chronic Qualified Code(s): I48.2 - Chronic atrial fibrillation (6) Respiratory failure Current Visit: Yes Status: Resolved Assessment and plan: Likely secondary to sepsis and septic shock - now Resolved Brought in from outside hospital intubated Extubated successfully DNR-CC-DNI status Qualifiers: Chronicity: acute Respiratory failure complication: unspecified whether with hypoxia or hypercapnia Qualified Code(s): J96.00 - Acute respiratory failure, unspecified whether with hypoxia or hypercapnia (7) Acute cerebrovascular accident (CVA) Current Visit: Yes Status: Acute Assessment and plan: Continue ASA, Statin Residual LUE weakness and hemineglect (8) Dysphagia Current Visit: Yes Status: Acute Assessment and plan: Improving - tolerating oral diet, continues to have a poor appetite [employer]CHNICIAN huong noted - Continue pureed diet Qualifiers: Dysphagia type: unspecified Qualified Code(s): R13.10 - Dysphagia, unspecified (9) DVT prophylaxis Current Visit: Yes Status: Acute Assessment and plan: Continue heparin subcutaneous - Time Spent With Patient 25 - 35 minutes - Subjective Interval history: Examined this morning. Patient is awake and alert. She seems to be very weak. She is able to verbalize. She continues to have poor appetite. Not in any distress. Denies chest pain or shortness of breath. No fever. Hemodynamically stable. No other acute events or complaints. Palliative care is following. Patient apparently wants to continue hemodialysis at this time. She remains a DO NOT RESUSCITATE and DO NOT INTUBATE status. Anticipate discharge to ECF soon. - Constitutional Vitals: Temp Pulse Resp BP Pulse Ox 97.8 F 87 18 136/78 100 07/15/17 12:53 07/15/17 12:53 07/15/17 12:53 07/15/17 12:53 07/15/17 12:53 General appearance: Present: cachectic, cooperative, A&O X 3, pleasant, no acute distress, underweight, answers questions appropriately Exam: Chronically ill-appearing, generalized weakness - Eye Eye exam: Present: EOMI - ENT ENT exam: Present: mucous membranes moist - Respiratory Respiratory exam: Present: decreased breath sounds (Decreased breath sounds in both bases, otherwise clear to auscultation). Absent: rales, rhonchi, wheezes, tachypnea - Cardiovascular Cardiovascular exam: Present: RRR, +S1, +S2 - GI/Abdominal GI/Abdominal exam: Present: soft. Absent: distended, firm, guarding, tenderness - Extremities Exam Extremities exam: Present: radial pulses palpable and symmetrical. Absent: calf tenderness, cyanotic, pedal edema Additional comments: Left upper extremity edema has improved - Neurological Exam Neurological exam: Present: alert Additional comments: Patient does have mild left-sided weakness, edema to left arm, oriented to place and person, able to verbalize and able to follow verbal commands. Able to move all extremities. Generalized weakness. Internal Medicine: Result - Labs CBC & Chem 7: 07/14/17 05:43 07/14/17 05:43 - ABG Interpretation ABG results: ABG ABG pH 7.46 pH Units (7.32-7.45) H 07/14/17 19:04 ABG pCO2 46 mmHg (35-45) H 07/14/17 19:04 ABG pO2 127 mmHg (85-104) H 07/14/17 19:04 ABG O2 Saturation 99 % (95-98) H 07/14/17 19:04 PT/INR, D-dimer PT 14.7 Seconds (9.4-12.1) H 07/05/17 18:37 - VTE Documentation of Mechanical Device: Intermittent pneumatic compression device Consult Discharge Plan - Plan Referrals: Kaleigh Beckham MD [Primary Care Provider] -
[2017-07-16] MEDS: *HR* Heparin 5,000 UNIT/ML VIAL SQ SCH (05:19)
[2017-07-16 08:03] LABS: Hematocrit 34.7 % (35.3-44.9); Hemoglobin 10.4 g/dL (11.5-15.4); Mean Corpuscular Hemoglobin 29.5 pg (28.0-33.3); Mean Corpuscular Volume 98.6 fL (83.0-100.0); Mean Platelet Volume 10.6 fL (9.4-12.4); Platelet Count 331 K/mcL (140-400); Red Blood Count 3.52 M/mcL (3.82-4.97); Red Cell Distribution Width 21.2 % (11.5-14.5)
[2017-07-16 08:14] LABS: Calcium 8.5 mg/dL (8.6-10.8)
[2017-07-16 08:15] LABS: Potassium 5.3 mEq/L (3.5-4.5)
--- NOTE | 2017-07-16 08:53 | Nephrology Progress Note ---
Date of Encounter: 07/16/17 Time of Encounter: 08:40 - Assessment and Plan (1) End-stage renal disease needing dialysis Current Visit: Yes Status: Chronic HD today, keeping MWF schedule. Orders given. Subjective Principal diagnosis: cva Interval history: Awake, appropriate answers, speech clear, very soft. Debility noticeably increasing. Objective - Vital Signs Vital signs: Vital Signs Temp Pulse Resp BP Pulse Ox 07/16/17 06:47 97.8 F 102 13 152/78 100 07/16/17 04:13 96.7 F L 102 16 158/93 96 07/15/17 23:01 98.0 F 87 16 91/49 100 07/15/17 20:05 97.9 F 90 16 136/77 100 07/15/17 16:48 98.2 F 62 16 125/62 99 07/15/17 12:53 97.8 F 87 18 136/78 100 07/15/17 11:15 97.5 F L 116 18 162/85 100 Intake and Output 07/15/17 07/16/17 07/16/17 23:59 07:59 15:59 Intake Total 0 / 0 Balance 0 / 0 Intake: Oral 0 / 0 Other: Stool Color Brown Yellow Weight 45 kg Patient Weight 07/16/17 23:59 Weight 45 kg - General Appearance General appearance: Present: chronically ill, frail EENT: Present: mucous membranes moist Neck: Present: no JVD Respiratory: Present: clear Cardiology: Present: no edema, irregular rhythm Gastrointestinal: Present: hypoactive bowel sounds, no tenderness Integumentary: Present: warm and dry Psychiatric: Present: mood/affect appropriate, cooperative - Lab 07/16/17 07:41 07/16/17 07:41 Most recent lab results ABG pH 7.46 pH Units (7.32-7.45) H 07/14/17 19:04 ABG pCO2 46 mmHg (35-45) H 07/14/17 19:04 ABG pO2 127 mmHg (85-104) H 07/14/17 19:04 ABG HCO3 32 mEq/L (21-27) H 07/14/17 19:04 ABG O2 Saturation 99 % (95-98) H 07/14/17 19:04 Calcium 8.5 mg/dL (8.6-10.8) L 07/16/17 07:41 Phosphorus 7.8 mg/dL (2.3-4.7) H 07/05/17 18:37 Magnesium 1.7 mg/dL (1.6-2.6) 07/13/17 06:58 - VTE Documentation of Mechanical Device: Intermittent pneumatic compression device Consult Discharge Plan - Plan Referrals: Kaleigh Beckham MD [Primary Care Provider] - (Patient will follow up with the ecf pcp)
--- NOTE | 2017-07-16 09:00 | Palliative Progress Note ---
Date of Encounter: 07/16/17 Time of Encounter: 08:50 - Assessment and plan (1) Dysphagia Current Visit: Yes Status: Acute Assessment and plan: Oral intake poor. Tolerating what intake she does take ok. Qualifiers: Dysphagia type: unspecified Qualified Code(s): R13.10 - Dysphagia, unspecified (2) Generalized pain Current Visit: Yes Status: Acute Assessment and plan: Continues with [facility] - utilized x1 last 24 hours (3) Goals of care, counseling/discussion Current Visit: Yes Status: Acute Assessment and plan: Patients sonNeil called me last night. Discussed that her oral intake remains poor - she is weak and not interacting much with staff. He has Wednesday off work, and will be coming in to hospital. Supposed to call me when he arrives. Patient told me this am, she did not want to go to dialysis today. D /W Ann Marie Brar,, ACUTE DIALYSIS NURSE nephrology. Patient desires to discuss further care with Neil when he arrives. Will re-discuss hospice care at that time with son and pt. (4) CHF (congestive heart failure) Current Visit: No Status: Chronic Qualifiers: Congestive heart failure type: diastolic Congestive heart failure chronicity: chronic Qualified Code(s): I50.32 - Chronic diastolic (congestive ) heart failure (5) End-stage renal disease needing dialysis Current Visit: Yes Status: Chronic (6) CVA (cerebral vascular accident) Current Visit: Yes Status: Acute Qualifiers: Laterality of affected vessel: unspecified - Time Spent With Patient Total time spent is greater than 50% in coordination of care (as documented) at patient's floor/unit and/or counseling patient: 25 - 35 minutes - Subjective Interval history: Patient very weak, awake but rests with eyes closed. Refused breakfast. Only ate 10 % of one meal yesterday. WBC back up to 15.5 - Constitutional Vitals: Abnormal lab results WBC 15.5 K/mcL (4.3-11.1) H 07/16/17 07:41 RBC 3.52 M/mcL (3.82-4.97) L 07/16/17 07:41 Hgb 10.4 g/dL (11.5-15.4) L 07/16/17 07:41 Hct 34.7 % (35.3-44.9) L 07/16/17 07:41 MCHC 30.0 g/dL (31.6-35.5) L 07/16/17 07:41 RDW 21.2 % (11.5-14.5) H 07/16/17 07:41 Immature Gran % 4.7 % (0-4) H 07/14/17 05:43 Band Neutrophils % 6.0 % (0-4) H 07/05/17 18:37 Metamyelocytes % 2.0 % (0) H 07/05/17 18:37 Myelocytes % 2.0 % (0) H 07/05/17 18:37 Monocytes # 1.9 K/mcL (0.0-1.3) H 07/14/17 05:43 Nucleated RBCs/100 WBC 0.1 /100 WBC (0) H 07/10/17 03:41 Smudge Cells Present (Not Present) A 07/05/17 18:37 Toxic Granulation Present (Not Present) A 07/06/17 03:45 Large Platelets Present (Not Present) A 07/10/17 03:41 Polychromasia 1+ (Not Present) A 07/09/17 03:14 Anisocytosis 2+ (Not Present) A 07/10/17 03:41 Macrocytosis Present (Not Present) A 07/06/17 03:45 PT 14.7 Seconds (9.4-12.1) H 07/05/17 18:37 ABG pH 7.46 pH Units (7.32-7.45) H 07/14/17 19:04 ABG pCO2 46 mmHg (35-45) H 07/14/17 19:04 ABG pO2 127 mmHg (85-104) H 07/14/17 19:04 ABG HCO3 32 mEq/L (21-27) H 07/14/17 19:04 ABG Total CO2 34 mEq/L (20-26) H 07/14/17 19:04 ABG O2 Saturation 99 % (95-98) H 07/14/17 19:04 ABG Base Excess 7 mEq/L (-2 to 3) H 07/14/17 19:04 VBG pH 6.91 pH Units (7.32-7.42) L* 07/05/17 18:34 VBG pO2 62 mmHg (25-50) H 07/05/17 18:34 VBG HCO3 10 mEq/L (21-27) L 07/05/17 18:34 Potassium 5.3 mEq/L (3.5-4.5) H 07/16/17 07:41 Creatinine 3.67 mg/dL (0.57-1.11) H 07/16/17 07:41 Est GFR ( Amer) 14 (> 60) L 07/16/17 07:41 Est GFR (Non-Af Amer) 12 (> 60) L 07/16/17 07:41 BUN/Creatinine Ratio 5 (6-26) L 07/16/17 07:41 Glucose 125 mg/dL (70-99) H 07/16/17 07:41 POC Glucose 155 (58-89) H 07/14/17 21:26 Lactic Acid 5.3 mmol/L (0.5-2.2) H* 07/06/17 03:45 Calcium 8.5 mg/dL (8.6-10.8) L 07/16/17 07:41 Phosphorus 7.8 mg/dL (2.3-4.7) H 07/05/17 18:37 AST 53 Units/L (5-34) H 07/05/17 18:37 Alkaline Phosphatase 129 Units/L (38-126) H 07/05/17 18:37 B-Natriuretic Peptide 1525 pg/mL (0-100) H 07/06/17 03:45 Serum Total Protein 5.6 g/dL (6.0-8.3) L 07/05/17 18:37 Albumin 2.5 g/dL (3.5-5.0) L 07/05/17 18:37 Albumin/Globulin Ratio 0.8 (1.1-2.2) L 07/05/17 18:37 Urine Clarity Cloudy (Clear) A 07/05/17 19:31 Urine Protein >=300 mg/dL (Neg-Trace) H 07/05/17 19:31 Urine Ketones Trace mg/dL (Negative) H 07/05/17 19:31 Urine Blood Large (Negative) H 07/05/17 19:31 Ur Leukocyte Esterase Large (Negative) H 07/05/17 19:31 Urine Microscopic WBC TNTC per hpf (0-3) H 07/05/17 19:31 Ur Culture Indicated? YES (NO) A 07/05/17 19:31 Enterococcus sp PCR DETECTED (Not Detect) A 07/05/17 18:37 General appearance: Present: no acute distress - Respiratory Respiratory exam: Present: decreased breath sounds, CTAB - Cardiovascular Cardiovascular exam: Present: +S1, +S2 - GI/Abdominal GI/Abdominal exam: Present: normal bowel sounds, soft Additional comments: Colostomy with sm amount liquid brown stool - Extremities Exam Extremities exam: Present: normal capillary refill, normal inspection - Neurological Exam Additional comments: Left sided weakness noted. Alert and oriented x2. - Skin Skin exam: Present: dry, pallor, warm Palliative Quality Palliative Quality: Screen for Code Status: Yes, Screen for Goals of Care: Yes, Screen for Pain: Yes, If Pain Regimen Started, Initiate Bowel Regimen: NA, Screen for Nausea/Vomitting: Yes Code Status: 07/05/17 23:40 Resuscitation Status: Active [RES] Routine Comment: Resuscitation Status: DNR-Comfort Care-Arrest 07/06/17 20:48 CODE [Resuscitation Status: Active] [RES] Routine Comment: Resuscitation Status: [id number] - Labs CBC & Chem 7: 07/16/17 07:41 07/16/17 07:41 Labs: Laboratory Results - last 24 hr 07/16/17 07/16/17 07:41 07:41 WBC 15.5 H RBC 3.52 L Hgb 10.4 L Hct 34.7 L MCV 98.6 MCH 29.5 MCHC 30.0 L RDW 21.2 H Plt Count 331 MPV 10.6 Sodium 136 Potassium 5.3 H Chloride 99 Carbon Dioxide 28 BUN 19 Creatinine 3.67 H Est GFR ( Amer) 14 L Est GFR (Non-Af Amer) 12 L BUN/Creatinine Ratio 5 L Glucose 125 H Calculated Osmolality 286 Calcium 8.5 L - ABG Interpretation ABG results: ABG ABG pH 7.46 pH Units (7.32-7.45) H 07/14/17 19:04 ABG pCO2 46 mmHg (35-45) H 07/14/17 19:04 ABG pO2 127 mmHg (85-104) H 07/14/17 19:04 ABG O2 Saturation 99 % (95-98) H 07/14/17 19:04 PT/INR, D-dimer PT 14.7 Seconds (9.4-12.1) H 07/05/17 18:37 Consult Discharge Plan - Plan Referrals: Kaleigh Beckham MD [Primary Care Provider] - (Patient will follow up with the ecf pcp)
[2017-07-16] MEDS: Aspirin 81 MG TAB.CHEW PO SCH (09:03)
[2017-07-16] MEDS: *HR* HYDROcodone/Acet 10/325 mg TABLET PO PRN ×2 (09:03→17:57)
[2017-07-16] MEDS ORDERED: 0.9 % Sodium Chloride 250 ML IVC PRN (10:09)
[2017-07-16] MEDS: Ampicillin 2 GM in 0.9 % Sodium Chloride Mini Bag 100 ML IVPB SCH (12:37)
--- NOTE | 2017-07-16 15:58 | Event Note ---
Date of Encounter: 07/16/17 Time of Encounter: 15:50 Patient son here - he has spoken to pt who does not desire dialysis at this point. He would like to transition her to hospice care. [facility] met with son and began enrollment process. D/W Dr. Harrison and nephrology. Patient will be d/c'd this pm around 1800 back to ECF with hospice care. Code status changed to DnR CC and state form signed by son.
[2017-07-16 16:01] VITALS: BP 166/95
--- NOTE | 2017-07-16 16:05 | Discharge Summary ---
Date of Encounter: 07/16/17 Time of Encounter: 15:30 - Discharge Diagnosis (1) Sepsis Priority: Primary Status: Resolved Comments: With septic shock - now resolved Secondary to Enterococcus UTI and Bacteremia Enterococcus in the urine and blood pansensitive Leukocytosis slowly improving Afebrile, continue to monitor Blood culture repeated from 07/06 - no growth Discharged to ECF with hospice care 07/15 - patient continues to have poor appetite. Leukocytosis has now improved. Patient wants to continue hemodialysis at this time. Continues to have generalized weakness, with intermittent episodes of hypotension. 07/16 - patient continues to have generalized weakness. Poor appetite. Palliative care has been following patient. Discussed with patient's son and patient. Patient does not want dialysis at this point. She will be transitioned to hospice care. CODE STATUS is DO NOT RESUSCITATE and DO NOT INTUBATE comfort care arrest. Qualifiers: Sepsis type: sepsis due to unspecified organism Qualified Code(s): A41.9 - Sepsis, unspecified organism (2) Urinary tract infection Priority: Primary Status: Resolved Comments: Urine culture - enterococcus species - IV ampicillin given for 7 days Qualifiers: Urinary tract infection type: acute cystitis Hematuria presence: without hematuria Qualified Code(s): N30.00 - Acute cystitis without hematuria (3) End-stage renal disease needing dialysis Priority: Primary Status: Chronic Comments: Patient has changed her mind, and does not want to continue hemodialysis at this time Nephrology following - appreciate input Discharged to ECF with hospice care (4) COPD (chronic obstructive pulmonary disease) Priority: Secondary Status: Chronic Comments: COPD, stable - Not in exacerbation Continue supportive care, Albuterol PRN Qualifiers: COPD type: unspecified COPD Qualified Code(s): J44.9 - Chronic obstructive pulmonary disease, unspecified (5) Afib Priority: Primary Status: Chronic Comments: Chronic A. fib, rate controlled Continue Cardizem, Lopressor Patient is not on anticoagulation at home Qualifiers: Atrial fibrillation type: chronic Qualified Code(s): I48.2 - Chronic atrial fibrillation (6) Respiratory failure Priority: Primary Status: Resolved Comments: Likely secondary to sepsis and septic shock - now Resolved Brought in from outside hospital intubated - Extubated successfully DNR-CC-DNI status Patient and son want hospice care at this time Qualifiers: Chronicity: acute Respiratory failure complication: unspecified whether with hypoxia or hypercapnia Qualified Code(s): J96.00 - Acute respiratory failure, unspecified whether with hypoxia or hypercapnia (7) Acute cerebrovascular accident (CVA) Priority: Primary Status: Acute Comments: Continue ASA, Statin Residual LUE weakness and hemineglect (8) Dysphagia Priority: Primary Status: Acute Comments: Improving - tolerating oral diet, continues to have a poor appetite PRODUCT LINE MANAGER eval noted - Continue pureed diet Qualifiers: Dysphagia type: unspecified Qualified Code(s): R13.10 - Dysphagia, unspecified - Discharge Medications Prescriptions: Albuterol Neb [Proventil Neb] 2.5 mg IH [id number] PRN #30 inhsol PRN Reason: Shortness Of Breath/Wheezing HYDROcodone/Acet 10/325 mg [[place] 10-325 mg] 1 tab PO Q8H PRN #7 tablet PRN Reason: Pain Home Medications: Sodium Bicarbonate 1,950 mg PO BID 05/20/15 [History] Darbepoetin [Aranesp] 150 mcg SQ Q2W 05/24/16 [History] Cholecalciferol (D-3) [Vitamin D] 1,000 unit PO DAILY 05/27/16 [History] Cyanocobalamin (B-12) [Vitamin B12] 1,000 mcg SQ QWEEK 05/27/16 [History] Glucosamn/Condroitn/C/Mn/[place] [[facility] Glucosamine Chondroitin Tb] 1 tab PO DAILY 05/27/16 [History] Multivit,Th Iron,Other Min [Therems-M] 1 tab PO DAILY 05/27/16 [History] Vitamin E (Dl,Tocopheryl Acet) [Vitamin E] 400 unit PO DAILY 05/27/16 [History] Aspirin Enteric Coated [Aspirin EC] 81 mg PO DAILY #30 05/22/17 [Rx] Levothyroxine [Synthroid] 50 mcg PO 0630 #30 tab 05/22/17 [Rx] Furosemide [Lasix] 40 mg PO BID 06/16/17 [History] Gabapentin [Neurontin] 300 mg PO BID #20 capsule 06/22/17 [Rx] Diltiazem HCl [Diltiazem 24Hr Cd] 360 mg PO DAILY 07/05/17 [History] Ibuprofen [Motrin] 600 mg PO BID 07/05/17 [History] Metoprolol [Lopressor] 100 mg PO BID 07/05/17 [History] Omeprazole [PriLOSEC] 40 mg PO DAILY 07/05/17 [History] Albuterol Neb [Proventil Neb] 2.5 mg IH [id number] PRN #30 inhsol 07/16/17 [Rx] HYDROcodone/Acet 10/325 mg [[place] 10-325 mg] 1 tab PO Q8H PRN #7 tablet [Rx] Allergies/Adverse Reactions: 3 Allergy/AdvReac Type Severity Reaction Status Date / Time codeine Allergy Rash Verified 06/15/17 22:17 fluoxetine [From Prozac] Allergy Rash Verified 06/15/17 22:17 haloperidol [From Haldol] Allergy See Verified 06/15/17 22:17 Comments nalbuphine [From Nubain] Allergy Rash Verified 06/15/17 22:17 Sulfa (Sulfonamide Allergy Rash Verified 06/15/17 22:17 Antibiotics) Date of admission: 07/05/17 22:24 Primary care physician: Kaleigh Hallman Consults: 07/06/17 01:15 Consult to Dialysis [CONS] ONCE 07/06/17 04:02 Consult to Nephrology [CONS] Routine Consulting Provider: [facility] Mitch TURK Reason for Consult: AGMA ESRD Dr Turk's patient Call Completed: Yes 07/06/17 08:48 Consult to Interventional Radiology [CONS] Routine Consulting Provider: Radiology Interventional Cols Reason for Consult: Left Pleural Effusion/Diagnostic Thora Time Notified: 08:49 Call Completed: Yes 07/06/17 10:32 Consult to Nutrition [CONS] Routine Comment: Consulting Provider: NUTRITION Reason for Dietary Consult: TF Start and Manage 07/07/17 12:45 Consult to Dialysis [CONS] ONCE Consult to Neurology [CONS] Routine Consulting Provider: Neurology [facility] Reason for Consult: New areas of infarct on CT Time Notified: 12:47 Call Completed: Yes 07/07/17 13:29 Consult to Speech Therapy [CONS] Stat Comment: Evaluate, develop and implement POC Reason for Consult: s/p CVA. Call Completed: No 07/08/17 08:45 Consult to Palliative Care [CONS] Routine Comment: Consulting Provider: Palliative Care [place] Reason for Consult: Goals of care Call Completed: Yes 07/09/17 09:15 Consult to Dialysis [CONS] ONCE 07/09/17 10:46 Consult to Physical Therapy [CONS] Routine Comment: Evaluate, develop and implement POC Reason for Consult: CVA with left sided weakness 07/09/17 10:47 Consult to Occupational Therapy [CONS] Routine Comment: Evaluate, develop and implement POC Reason for Consult: CVA - left sided weakness 07/11/17 08:17 Consult to Talent Rep [CONS] Routine Reason for SW Consult: Return to SNF 07/12/17 09:00 Consult to Dialysis [CONS] ONCE 07/14/17 08:30 Consult to Dialysis [CONS] ONCE 07/16/17 10:15 Consult to Dialysis [CONS] ONCE Anticipated date of discharge: 07/16/17 - Patient Status Disposition: Hospice - Medical Facility Condition: Serious Functional capacity at discharge: bed bound Overall status at discharge: patient is not back to baseline - Discharge Instructions Follow Up With: Kaleigh Beckham MD [Primary Care Provider] - (Patient will follow up with the ecf pcp) Additional Instructions: - Patient has a poor overall prognosis - She is being discharged to ECF with hospice care - Diet and Activity Activity: increase activity as tolerated Diet: advance to your usual diet Hospital course: Ms. Arciniega is a 81 year old female with past medical history arthritis, cancer , CHF, COPD, GERD, GI bleed, hypertension, renal disease, anxiety and depression. Patient presented to the ED for hypertension during a thrombectomy session. Patient was intubated for hypotension and unresponsiveness. She was also started on vasopressors. Patient is undergoing thrombectomy for a nonfunctioning dialysis fistula. Patient is a DO NOT RESUSCITATE and DO NOT INTUBATE status, but family was okay with intubation of the time. Patient was evaluated by pulmonology. Her septic shock had improved. She was initially on Levothroid and also started on IV vancomycin and IV Zosyn. Her respiratory failure with hypoxia is also improved. She was successfully extubated. Patient was evaluated by nephrology. She was undergoing hemodialysis as well. Patient continued to have dysphagia as well and she was evaluated by speech therapy. Palliative care was also consulted. Patient's sepsis had improved and she was then switched to IV ampicillin. She was continued on DuoNeb breathing treatments as needed. Patient is also continued on hemodialysis. Palliative care team had extensive discussion with the patient and the son. Initially patient did not want to continue hemodialysis. They had another meeting and patient and son have agreed to stop hemodialysis and to be discharged to ECF with hospice care. floor worker well service and palliative care team have discussed with the [facility] hospice team, and the process for hospice care was started. Patient is being discharged to [facility]. - Time Spent with Patient Total time spent providing and/or coordinating discharge services: Greater than 30 minutes - Constitutional Vitals: Temp Pulse Resp BP Pulse Ox 97.8 F 114 12 166/95 100 07/16/17 15:59 07/16/17 15:59 07/16/17 15:59 07/16/17 15:59 07/16/17 15:59 General appearance: Present: cachectic, cooperative, A&O X 3, pleasant, no acute distress, underweight, answers questions appropriately Exam: Chronically ill-appearing, generalized weakness, frail - Head Head exam: Present: atraumatic - Eye Eye exam: Present: EOMI - ENT ENT exam: Present: mucous membranes moist - Respiratory Respiratory exam: Present: decreased breath sounds (Decreased breath sounds in both bases, otherwise clear to auscultation). Absent: rales, rhonchi, wheezes, tachypnea - Cardiovascular Cardiovascular exam: Present: irregular rhythm, +S1, +S2 - GI/Abdominal GI/Abdominal exam: Present: soft, no peritoneal signs. Absent: distended, firm , guarding, tenderness - Extremities Exam Extremities exam: Present: radial pulses palpable and symmetrical. Absent: calf tenderness, cyanotic, pedal edema - Neurological Exam Neurological exam: Present: alert. Absent: facial droop Additional comments: Patient does have mild left-sided weakness, edema to left arm, oriented to place and person, able to verbalize and able to follow verbal commands. Able to move all extremities. Severe generalized weakness. - VTE Documentation of Mechanical Device: Intermittent pneumatic compression device
--- NOTE | 2017-07-16 16:14 | Physician Discharge Referral ---
ExtendedCare Referral Info Provider in Charge after Transfer: PCP, Assembler Watch Train Institutional Level of Care: Skilled - Diagnosis (1) Sepsis Priority: Primary Status: Resolved (2) Urinary tract infection Priority: Primary Status: Resolved (3) End-stage renal disease needing dialysis Priority: Primary Status: Chronic (4) COPD (chronic obstructive pulmonary disease) Priority: Primary Status: Chronic (5) Afib Priority: Primary Status: Chronic (6) Respiratory failure Priority: Primary Status: Resolved (7) Acute cerebrovascular accident (CVA) Priority: Primary Status: Acute (8) Dysphagia Priority: Primary Status: Acute Prognosis: Poor Aware of Diagnosis: Patient, Family Aware of Prognosis: Patient, Family - Transfer Medications Prescriptions: Albuterol Neb [Proventil Neb] 2.5 mg IH [id number] PRN #30 inhsol PRN Reason: Shortness Of Breath/Wheezing HYDROcodone/Acet 10/325 mg [[place] 10-325 mg] 1 tab PO Q8H PRN #7 tablet PRN Reason: Pain Home Medications: Sodium Bicarbonate 1,950 mg PO BID 05/20/15 [History] Darbepoetin [Aranesp] 150 mcg SQ Q2W 05/24/16 [History] Cholecalciferol (D-3) [Vitamin D] 1,000 unit PO DAILY 05/27/16 [History] Cyanocobalamin (B-12) [Vitamin B12] 1,000 mcg SQ QWEEK 05/27/16 [History] Glucosamn/Condroitn/C/Mn/Volin [[facility] Glucosamine Chondroitin Tb] 1 tab PO DAILY 05/27/16 [History] Multivit,Th Iron,Other Min [Therems-M] 1 tab PO DAILY 05/27/16 [History] Vitamin E (Dl,Tocopheryl Acet) [Vitamin E] 400 unit PO DAILY 05/27/16 [History] Aspirin Enteric Coated [Aspirin EC] 81 mg PO DAILY #30 05/22/17 [Rx] Levothyroxine [Synthroid] 50 mcg PO 0630 #30 tab 05/22/17 [Rx] Furosemide [Lasix] 40 mg PO BID 06/16/17 [History] Gabapentin [Neurontin] 300 mg PO BID #20 capsule 06/22/17 [Rx] Diltiazem HCl [Diltiazem 24Hr Cd] 360 mg PO DAILY 07/05/17 [History] Ibuprofen [Motrin] 600 mg PO BID 07/05/17 [History] Metoprolol [Lopressor] 100 mg PO BID 07/05/17 [History] Omeprazole [PriLOSEC] 40 mg PO DAILY 07/05/17 [History] Albuterol Neb [Proventil Neb] 2.5 mg IH [id number] PRN #30 inhsol 07/16/17 [Rx] HYDROcodone/Acet 10/325 mg [[place] 10-325 mg] 1 tab PO Q8H PRN #7 tablet [Rx] Allergies/Adverse Reactions: 3 Allergy/AdvReac Type Severity Reaction Status Date / Time codeine Allergy Rash Verified 06/15/17 22:17 fluoxetine [From Prozac] Allergy Rash Verified 06/15/17 22:17 haloperidol [From Haldol] Allergy See Verified 06/15/17 22:17 Comments nalbuphine [From Nubain] Allergy Rash Verified 06/15/17 22:17 Sulfa (Sulfonamide Allergy Rash Verified 06/15/17 22:17 Antibiotics) - Respiratory Orders Oxygen / L per min (2 L/m via nasal cannula) Smoking Cessation: Smoking cessation has been advised. For more information, call the [place] Tobacco Quit Line at 1-385-IINL-NOW. - Ancillary Orders May use pressure relief devices daily prn - Advance Directives Code Status: DNR-Comfort Care (DO NOT RESUSCITATE comfort care arrest DO NOT INTUBATE status) - Mobility Orders Bedrest - Rehabiliation Orders Rehab Potential: Poor - Treatments Skin tear care topically daily PRN per policy - Diet Orders Mechanical Soft, Cardiac CERTIFICATION: I certify that the transfer of the above named patient to an Extended Care Facility is necessary for the continuing treatment of the diagnosis listed. The above information is true and accurate reflection of patient's current condition. Confidential - Redisclosure prohibited without a patient's written consent.
== END 2017-07-16 18:17 | disposition hospice, inpatient (51) | DRG 871 ==
LOC: EMEROO 17:57 → ICNU 22:24 → SUATTDRO 22:24 → ICNU 23:10 → 2ANU 07-09 09:18
PROVIDERS: ADMIT Internal Medicine; ATTEND Internal Medicine